=== PATIENT | female | born 1940 | race Caucasian/White ===

== ENCOUNTER → 2018-09-21 | Outpatient (CLI) | payer MEDICARE, OTHER ==
[2018-09-21 17:39] LABS: Albumin 4.4 g/dL (3.80-4.90); Albumin/Globulin Ratio 1.91 (1.60-3.17); Anion Gap 6.9 mmol/L (4.00-12.00); Calcium 9.4 mg/dL (8.7-10.3); Carbon Dioxide 27.1 mmol/L (21.6-31.8); Globulin 2.3 g/dL (1.6-3.3); LDL Cholesterol,Calculated 81.4 mg/dL (0.0-131.0); Potassium 4.7 mmol/L (3.5-5.5); Total Bilirubin 0.4 mg/dL (0.3-1.2); Total Protein 6.7 g/dL (6.2-8.2); VLDL Calculation 29.6 mg/dL (5.00-40.00)
== END | disposition home or self-care (01) ==
LOC: LABWHC1 09:05
PROVIDERS: ATTEND Internal Medicine Clinical Cardiac Electrophysiology
DX: I10 Essential (primary) hypertension (principal)
CPT/HCPCS: 36415; 80053; 80061; 84443

== ENCOUNTER → 2019-04-27 | Outpatient (CLI) | payer MEDICARE ==
--- NOTE | 2019-04-28 08:30 | MM ---
Reason for exam: clinical finding. History: Patient is postmenopausal. Family history of breast cancer in maternal aunt. Physical Findings: Nurse Summary: nodule in the right breast at 10 o'clock, nodule in the left breast at 7 o'clock and 10 o'clock (nurse georges). MG 3D Diag Mammo W/Cad MIRYAM Bilateral CC and MLO view(s) were taken. There are scattered fibroglandular densities. There is a large spiculated 6.0 x 5.9 x 5.8cm upper outer quadrant mass with nipple retraction, skin thickening and pulling of the pectoralis. Right adenopathy seen. There are multiple circumscribed left masses for which ultrasound will be performed. These results were verbally communicated with the patient and result sheet given to the patient on 04/27/19. ASSESSMENT: Incomplete: need additional imaging evaluation, BI-RAD 0 RECOMMENDATION: Ultrasound of both breasts.
--- NOTE | 2019-04-28 08:35 | USB ---
Reason for exam: additional evaluation requested from abnormal screening. History: Patient is postmenopausal. Family history of breast cancer in maternal aunt. US Breast BILAT Right complete breast ultrasound includes all four quadrants, the retroareolar region and axilla. Finding demonstrates a 8.4 x 6.0 x 7.1cm spiculated, irregular, solid lesion at 11 o'clock, highly suspicious, biopsy recommended and a 0.7 x 0.5 x 0.6cm oval, hyperechoic lipoma at 8 o'clock. Left complete breast ultrasound includes all four quadrants, the retroareolar region and axilla. Finding demonstrates a 1.2 x 0.5 x 1.1cm cystic lesion at 1 o'clock, a 0.3 x 0.2 x 0.4cm lesion too small to characterize at 6 o'clock and a 1.1 x 0.8 x 1.1cm solid lesion at 9 o'clock, possible deep cyst, biopsy recommended. Cortical thickening of a right lymph axillary node, biopsy recommended. These results were verbally communicated with the patient and result sheet given to the patient on 04/27/19. ASSESSMENT: Highly suggestive of malignancy, BI-RAD 5 RECOMMENDATION: Ultrasound core biopsy of both breasts. Called office with mammographic findings and has scheduled an appointment for the patient for 05/20/19 at 7:[address] Figueredo. Biopsy scheduled for 05/03/19 at 2:00. PRELIMINARY REPORT CALLED AND FAXED TO DR. FIGUEREDO ON 04/27/19.
== END | disposition home or self-care (01) ==
LOC: RADMAMWWP 13:19
PROVIDERS: ATTEND Surgery
DX: R92.8 Other abnormal and inconclusive findings on diagnostic imaging of breast (principal); N63.0 Unspecified lump in unspecified breast
CPT/HCPCS: 77066; 76641; G0279; 77062

== ENCOUNTER → 2019-04-27 | Outpatient (CLI) | payer MEDICARE ==
[2019-04-27 11:25] VITALS: BP 183/73; PULSE 80; RESP 18; TEMP 98.1
--- NOTE | 2019-04-27 12:02 | P.GSHP ---
History of Present Illness H&P Date: 04/27/19 Chief Complaint: lump in right breast The patient is a 78 year old white female with a lump noted in the right breast for approximately 3 weeks. The patient states that she has noted that the nipple an area area are pulled and slightly. There is also a pinching sensation in that region. The pinching sensation is intermittent. The patient has also noticed some nipple discharge. It is not bloody. She has no other masses or lumps in either breast. No history of recent trauma to the breast. No history of recent infection in the breast. She has never had a mammogram. Family History: father: bladder cancer maternal aunt: bilateral breast cancer Hormonal History: menarche: 14 1 miscarriage, not breast feed, first born at 24 BCP: 6 years hormones: none menopause: 51 Surgical HIstory: 1. T&A 2. appy 3. 2017 small bowel ? what removed, DR. Rubio not cancer 4. hernia repair 5. bilateral cataracts Medical History: 1. HTN 2. high cholesterol Social History: smoke: none alcohol: weekly, wine, vodka, beer drugs: none - Constitutional Constitutional: Denies chills, Denies fever - EENT Eyes: denies blurred vision, denies pain Ears: deny: decreased hearing, tinnitus Ears, nose, mouth and throat: Denies headache, Denies sore throat - Breasts Breasts: bilateral: as per HPI - Cardiovascular Cardiovascular: Reports high blood pressure - Respiratory Respiratory: Denies cough, Denies 7 - Gastrointestinal Gastrointestinal: Reports as per HPI, Denies abdominal pain, Denies diarrhea, Denies nausea, Denies vomiting - Genitourinary (Female) Genitourinary: Denies dysuria, Denies hematuria - Menstruation Menstruation: Reports postmenopausal - Musculoskeletal Musculoskeletal: Denies myalgias - Integumentary Integumentary: Reports as per HPI - Neurological Neurological: Denies numbness, Denies weakness - Psychiatric Psychiatric: Denies anxiety, Denies depression - Endocrine Endocrine: Denies fatigue, Denies weight change - Hematologic/Lymphatic Comment: none - Allergic/Immunologic Allergic/Immunologic: Reports seasonal allergies Past Medical History Past Medical History: GERD/Reflux Additional Past Medical History / Comment(s): cataracts History of Any Multi-Drug Resistant Organisms: None Reported Past Surgical History: Appendectomy, Hernia Repair, Tonsillectomy Additional Past Surgical History / Comment(s): rt cataract 06/06/14; lt cataract 07/2014; bowel surgery 07/2016; Past Anesthesia/Blood Transfusion Reactions: No Reported Reaction Past Psychological History: No Psychological Hx Reported Smoking Status: Never smoker Past Alcohol Use History: Occasional Past Drug Use History: None Reported - Past Family History Mother Family Medical History: Diabetes Mellitus Additional Family Medical History / Comment(s): Angina Father Family Medical History: Cancer Additional Family Medical History / Comment(s): bladder cancer Medications and Allergies Home Medications Medication Instructions Recorded Confirmed Type Guaifen/Phenyleph/Acetaminophn 1 each PO BID PRN 06/05/14 04/27/19 History [Tylenol Cold Head Congest Cplt] Naproxen Sodium [Aleve] 220 mg PO Q12HR PRN 06/05/14 04/27/19 History diphenhydrAMINE [Benadryl] 25 mg PO HS PRN 08/11/14 04/27/19 History Losartan Potassium 50 mg PO HS 04/27/19 04/27/19 History Pravastatin Sodium [Pravachol] 20 mg PO HS 04/27/19 04/27/19 History Allergies Allergy/AdvReac Type Severity Reaction Status Date / Time Penicillins Allergy Itching Unverified 04/27/19 11:17 Surgical - Exam Vital Signs Temp Pulse Resp BP Pulse Ox 98.1 F 80 18 183/73 95 04/27/19 11:19 04/27/19 11:19 04/27/19 11:19 04/27/19 11:19 04/27/19 11:19 BMI 34.9 - General well developed, well nourished, no distress - Eyes normal ocular movement - ENT normal pinna, normal nares, no hearing loss, no congestion - Neck no masses, trachea midline, no venous distension - Respiratory normal respiratory effort, clear to auscultation bilateral: dullness - Cardiovascular Rhythm: regular Heart Sounds: normal: S1, S2 - Abdomen well healed scar Abdomen: soft, non tender, no guarding, no rigid, no rebound - Integumentary well healed scar in abdomen - Neurologic no disoriented, no combative - Musculoskeletal normal gait, normal posture - Psychiatric oriented to time, oriented to person, oriented to place, speech is normal, memory intact breast exam: bra 46D ptosis grade 3 right breast: Multi-positional exam reveals mass in the upper outer quadrant region approximately 8 cm x 12 cm in size, the right nipple is pulled in with some bloody discharge Right axilla: No adenopathy of concern Left breast: Multi-positional exam no dominant masses or nodules of concern Left axilla: No adenopathy of concern Assessment and Plan Assessment: Impression: 1. right breast mass 2. right nipple inverted 3. HTN 4. prior small bowel resection Plan: 1. bilateral mammogram 2. right breast and axillary ultrasound 3. core biopsy of the right breast 4. follow up after core biopsy CC: DR. Gamble, Dr. Darian Mendenhall Time with Patient: Greater than 30 (over 50% of time planning and councelling)
== END | disposition home or self-care (01) ==
LOC: WWCWWP 11:04
PROVIDERS: ATTEND Surgery
DX: Z53.9 Procedure and treatment not carried out, unspecified reason (principal)

== ENCOUNTER → 2019-05-03 | Day surgery (SDC) | payer MEDICARE ==
[2019-05-03 13:13] VITALS: RESP 16
--- NOTE | 2019-05-03 15:00 | USB ---
EXAMINATION TYPE: US biopsy breast VAD RT, US breast needle core RT, MG diagnostic mammo RT wo CAD DATE OF EXAM: 05/03/2019 CLINICAL HISTORY: N63 Right Breast Lump. TECHNIQUE: Ultrasound guided core biopsy of right breast. COMPARISON: Bilateral breast ultrasound and diagnostic mammogram dated 04/27/2019. FINDINGS: The procedure of ultrasound guided core biopsy was explained to the patient. Benefits, alt ernatives, and risks were discussed. An informed consent was then obtained. Preprocedural timeout w as performed. Preprocedural imaging with real-time examination by myself, Dr. Luevano, and the sonograph er demonstrated the 1.1 cm left breast mass at the 9:00 position to appear cystic on real-time imagin g. The decision not to perform biopsy of this benign appearing mass was then made. Right breast biops ies were performed as below. Site A: The patient was placed in supine positioning for imaging and for the procedure. The overlyin g skin was prepped and draped in usual sterile fashion. 10 cc of 1% lidocaine was used as anesthetic into the skin and 5 cc of lidocaine with epinephrine into the deeper subcutaneous tissue up to the hi ghly suspicious 8.4 cm solid mass at the 11:00 position in the right breast. Under ultrasound guidance, a 12-gauge vacuum assisted biopsy gun device was used to obtain 8 core kelly ples. Following this, a coil-shaped biopsy marker was left in the mass. Site B: The patient was placed in supine positioning for imaging and for the procedure. The overlyin g skin was prepped and draped in usual sterile fashion. 10 cc of 1% lidocaine was used as anesthetic into the skin and subcutaneous tissue up to the rounded right axillary lymph node. Under ultrasound guidance, an 18-gauge nonvacuum-assisted Bard biopsy gun device was used to obtain 3 core samples. Following this, a [place] micaela biopsy marker was left in the mass well visualized under ultrasound. Postprocedure mammogram demonstrates appropriate placement of the coil-shaped biopsy marker in the pe riphery of the mass. The patient tolerated the procedure well without any immediate complication. Th e patient was kept in the radiology department for short stay after the procedure and then discharged home in stable condition. IMPRESSION: Successful, uncomplicated ultrasound guided core biopsy of a highly suspicious 8.4 cm katelin id mass in the right breast at the 11:00 position with nipple retraction and skin thickening as well as a rounded right axillary lymph node, full pathology results to follow.
[2019-05-03 15:17] VITALS: BP 121/65; PULSE 69; TEMP 98
== END ==
LOC: RADUSWWP 12:38
PROVIDERS: ATTEND Surgery
DX: C50.911 Malignant neoplasm of unspecified site of right female breast (principal); C77.3 Secondary and unspecified malignant neoplasm of axilla and upper limb lymph nodes
CPT/HCPCS: 88305; 77065; 19083; A4648; J2001

== ENCOUNTER → 2019-05-20 | Outpatient (CLI) | payer MEDICARE ==
[2019-05-20 07:33] VITALS: BP 153/73; PULSE 82; RESP 18; TEMP 97.6
--- NOTE | 2019-05-20 08:24 | P.PN ---
Subjective Progress Note Date: 05/20/19 Principal diagnosis: right breast stage IIA or IIIB cancer There is a 78-year-old white female who is status post ultrasound-guided core biopsy of a 8.4 cm right breast mass as well as a right breast lymph node on [id number]. 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 The tumor was noted to be ER/ME positive and HER-2 negative. The patient post procedure has not had any complaints. The patient presents today with her daughter to discuss the findings. Objective - Vital Signs Vital signs: Vital Signs Temp 97.6 F 05/20/19 07:24 Pulse 82 05/20/19 07:24 Resp 18 05/20/19 07:24 BP 153/73 05/20/19 07:24 Pulse Ox 97 05/20/19 07:24 Intake & Output 05/19/19 05/20/19 05/20/19 18:59 06:59 18:59 Weight 94.801 kg - Exam BMI 34.8 - Constitutional General appearance: Present: obese - EENT Eyes: Present: EOMI ENT: Present: hearing grossly normal - Neck Neck: Present: normal ROM - Respiratory Respiratory: bilateral: CTA - Cardiovascular Rhythm: regular Heart sounds: normal: S1, S2 - Musculoskeletal Musculoskeletal: Present: gait normal - Psychiatric Psychiatric: Present: A&O x's 3, appropriate affect, intact judgment & insight - Allied health notes Allied Health Notes Comment(s): Breasts: Nipple inverted, venous scan and medial aspect of the breast Biopsy sites clean and dry Assessment and Plan Assessment: Impression: 1. Right breast cancer stage IIA or IIIB depending on skin involvement The patient's tumor was staged as a T3/4( ? if skin involvement) N1 M0 ER + ME +HER-2/vito- G2 lesion, depending on the T stage this is either a IIA or IIIB lesion. It is felt the patient would benefit from neoadjuvant chemotherapy. Her case has been discussed with Dr. Solo. The patient's daughter has requested that metastatic workup be performed. A PET scan has been ordered. Additionally we have discussed genetic testing and although the patient is postmenopausal and does not have a strong family history they have some interest in genetic testing. The patient's case will also be presented at tumor board. I have discussed the fact that the treatment of breast cancer is multi modality including medical oncology, surgical oncology, and radiation oncology. Discussion of surgical treatment options will be made after decision for neoadjuvant chemotherapy. Additionally should be noted the patient had a 1.1 cm lesion noted in the left breast which is felt to be cystic in biopsy was not performed. The area will be reevaluated after chemotherapy to assure that there is nothing of concern in the left breast prior to any surgical intervention. Plan: 1. PET scan 2. Appointment with medical oncology/have discussed this with Dr. Solo this is being scheduled for next week 3. Presentation of case at tumor board 4. Follow-up here in 3 weeks 5. Prior to surgical intervention scanning of the left breast to be considered CC: Dr. Sondra Mendenhall Encounter: 40 minutes: Greater than 50% of time in planning and counseling Time with Patient: Greater than 30
== END ==
LOC: WWCWWP 06:57
PROVIDERS: ATTEND Surgery
DX: Z53.9 Procedure and treatment not carried out, unspecified reason (principal)

== ENCOUNTER → 2019-05-27 | Outpatient (CLI) | payer MEDICARE ==
--- NOTE | 2019-05-30 08:17 | PE ---
EXAMINATION TYPE: PET CT fusion skull to thigh DATE OF EXAM: 05/27/2019 COMPARISON: NONE HISTORY: Newly diagnosed right breast cancer infiltrating ductal carcinoma including axillary involve ment May 03, 2019 TECHNIQUE: Following the intravenous administration of 10.29 mCi of F-18 FDG, whole body images are performed from the skull base to the midthigh. Images are reviewed on the computer in the coronal, a xial, and sagittal planes. Reconstructed rotating images are created on independent workstation and reviewed on the computer. A noncontrast correction CT is performed in conjunction with the PET scan . SCAN: Initial Scan FINDINGS: SKULL BASE AND NECK: Soft tissue metastatic focus left upper extremity with hypermetabolic 1.3 cm ro und lesion in the subcutaneous fat axial image 43, max SUV is 5.8. CHEST, MEDIASTINUM, AND HILAR REGION: Corresponding to patient history there is large right breast ma ss with anterior biopsy clip measuring approximately 5.3 x 4.3 cm axial image 78 with max SUV of 9.46 . Central necrosis is present. There is overlying skin thickening with extension to the skin surface where there is more nodular 1.9 cm hypermetabolic component axial image 76 noted. Max SUV is 10.33 Ab normal adenopathy right axillary region measuring 1.9 cm with hypermetabolic uptake axial image 83, m ax SUV is 9.91. Additional smaller hypermetabolic right axillary lymph nodes are seen. There is also abnormal internal mammary adenopathy with hypermetabolic 10 x 7 mm lymph node axial attila ge 83, max SUV is 4.9. There is abnormal hypermetabolic pulmonary metastatic disease with scattered bilateral nodules, large st left lower lobe measures 2.1 x 1.8 cm axial image 99, max SUV is 8.05. There is small to tiny righ t pleural effusion. There are hypermetabolic metastatic soft tissue nodules for reference posterior lower thoracic subcut aneous fat measuring 1.8 x 1.4 cm axial image 103, max SUV is 5.09s. ABDOMEN AND PELVIS: Hypermetabolic left labial subcutaneous 8 mm nodule axial image 233, max SUV is. Hypermetabolic right periaortic adenopathy near diaphragmatic nisha axial image 122, max SUV is 7.97.s OSSEOUS STRUCTURES: Hypermetabolic osseous metastatic disease with left proximal femur component axia l image 234, max SUV is 5.78. Hypermetabolic left iliac lesion axial image 186 near SI joint max SUV is 5.6. Hypermetabolic S1 lesion axial image [address] correlate max SUV is 5.95. Pos terior right 7 rib hypermetabolic lesion axial image 89 Max SUV is 6.14. No definitive CT lytic or sc lerotic correlation for osseous lesions.. OTHER CT: Cardiomegaly is present. Central pneumobilia is seen. Air filled gallbladder. Correlate clinically. Large exophytic 6.5 cm simple appearing thin-walled cyst right kidney lower pole level. Anteverted ut erus. Scattered phleboliths. S-shaped scoliosis with multilevel spurring the spine. Facet arthropathy lower lumbar levels. IMPRESSION: Advanced right-sided breast cancer with abnormal axillary and intramammary adenopathy. Ch bcutaneous soft tissue metastatic disease along with pulmonary and osseous metastatic disease noted a s detailed above. Tissues sampling of subcutaneous lesions particularly left upper extremity or left lower thoracic posterior lesion could be performed to further evaluate if desired or confirm breast p rimary versus other primary carcinoma.
== END | disposition home or self-care (01) ==
LOC: RADPETMAIN 15:31
PROVIDERS: ATTEND Surgery
DX: C50.411 Malignant neoplasm of upper-outer quadrant of right female breast (principal); R59.0 Localized enlarged lymph nodes; C79.89 Secondary malignant neoplasm of other specified sites; C79.51 Secondary malignant neoplasm of bone
CPT/HCPCS: 78815; A9552

== ENCOUNTER → 2019-05-30 | Outpatient (CLI) | payer MEDICARE ==
--- NOTE | 2019-05-30 15:57 | BMR ---
EXAMINATION TYPE: MR breast BILAT wo/w con DATE OF EXAM: 05/30/2019 COMPARISON: Prior mammogram and bilateral breast ultrasound. April 27, 2019. PET/CT May 27. HISTORY: Breast Ca CONTRAST: Multiplanar, multisequence images of the breasts were acquired utilizing 9.5 mL intravenous Gadavist gadolinium contrast. TECHNIQUE: A series of fat and water weighted images in the long and short axis views of both breasts are obtained in conjunction with dynamic contrast MRI with subtraction technique. Three-dimensional and additional postprocessing imaging is created on independent workstation and reviewed during offi [facility] interpretation of this study. FINDINGS: Breast parenchyma shows scattered fibroglandular tissue. There is mild background enhanceme nt on postcontrast images. T2 weighted images show few small simple appearing thin-walled cysts scatt ered throughout the left breast including a dominant 11 mm cyst centrally left breast likely correspo nding to the largest well-defined lesion on mammogram and 1:00 lesion on breast ultrasound. With regards to the left breast there is no suspicious enhancing mass. No abnormal skin thickening. C hest wall is intact. No axillary adenopathy is observed. With regards to the right breast there is dominant slightly lobulated mass measuring 4.8 cm AP diamet er by 4.5 cm transversely by approximately 4.4 cm craniocaudal dimension coronal image 18 and axial i mage 24 corresponding to biopsy-proven cancer. Artifact along the anterior aspect from biopsy clip is noted. There is abnormal skin thickening with distortion of the right breast nipple redemonstrated. There is linear extension or abnormal enhancement to level of the retracted nipple. Along the superio r medial aspect of the nipple there is additional oval skin and subcutaneous 2.3 x 1.3 cm mass. There are 2 adjacent abnormal right axillary lymph nodes at level of lesion with more posterior lymph node being slightly smaller and having biopsy clip along the posterior medial margin best image 308 series 801. Largest lymph node noted anterior superior to this image 2020 measuring 1.8 x 1.9 cm. Corresponding to recent PET CT there is abnormal enhancing subcentimeter intramammary lymph node seen best delayed image 322 series 801. Corresponding to recent PET CT there is abnormal pericardial fat mass or lymph node image 136 series 801 adjacent to right pericardium measuring 1.1 x 1.1 cm anterior to liver. Corresponding to PET CT there is expansile and suspicious enhancement right anterior lower rib image 58 likely reflecting osseous metastatic disease or healing fracture Artifact from cavitary fillings mandibular level is present. IMPRESSION: High-grade right breast neoplasm without left breast involvement, findings correlate with recent PET/CT.
== END | disposition home or self-care (01) ==
LOC: RADMRIMAIN 13:46
PROVIDERS: ATTEND Internal Medicine Hematology & Oncology
DX: C50.111 Malignant neoplasm of central portion of right female breast (principal)
CPT/HCPCS: C8937; C8908; A9585; 77049

== ENCOUNTER → 2019-06-08 | Outpatient (CLI) | payer MEDICARE ==
[2019-06-08 16:25] VITALS: BP 162/76; PULSE 100; RESP 18; TEMP 97.5
--- NOTE | 2019-06-08 17:09 | P.PN ---
Subjective Progress Note Date: 06/08/19 Principal diagnosis: Metastatic breast cancer 79-year-old white female who presented with an advanced right breast infiltrating ductal carcinoma diagnosed in April 2019. The patient underwent a PET scan which revealed advanced right-sided breast cancer with abnormal axillary and intramammary adenopathy. Subcutaneous soft tissue metastatic disease as well as pulmonary and osseous metastatic disease noted. Tissue sampling of the subcutaneous lesions were recommended at tumor board. The patient was given the option of a core biopsy of the soft tissue lesion however she wishes the lesion on her left buttock which is suspicious on PET scan to be removed. This was discussed with Dr. Solo and he concurs. Family History: father: bladder cancer maternal aunt: bilateral breast cancer Hormonal History: menarche: 14 1 miscarriage, not breast feed, first born at 24 BCP: 6 years hormones: none menopause: 51 Surgical HIstory: 1. T&A 2. appy 3. 2017 small bowel ? what removed, DR. Rubio not cancer 4. hernia repair 5. bilateral cataracts Medical History: 1. HTN 2. high cholesterol Social History: smoke: none alcohol: weekly, wine, vodka, beer drugs: none - Constitutional Constitutional: Denies chills, Denies fever - EENT Eyes: denies blurred vision, denies pain Ears: deny: decreased hearing, tinnitus Ears, nose, mouth and throat: Denies headache, Denies sore throat - Breasts Breasts: bilateral: as per HPI - Cardiovascular Cardiovascular: Reports high blood pressure - Respiratory Respiratory: Denies cough - Gastrointestinal Gastrointestinal: Reports as per HPI, Denies abdominal pain, Denies diarrhea, Denies nausea, Denies vomiting - Genitourinary (Female) Genitourinary: Denies dysuria, Denies hematuria - Menstruation Menstruation: Reports postmenopausal - Musculoskeletal Musculoskeletal: Denies myalgias - Integumentary Integumentary: Reports as per HPI - Neurological Neurological: Denies numbness, Denies weakness - Psychiatric Psychiatric: Denies anxiety, Denies depression - Endocrine Endocrine: Denies fatigue, Denies weight change - Hematologic/Lymphatic Comment: none - Allergic/Immunologic Allergic/Immunologic: Reports seasonal allergies Past Medical History Past Medical History: GERD/Reflux Additional Past Medical History / Comment(s): cataracts History of Any Multi-Drug Resistant Organisms: None Reported Past Surgical History: Appendectomy, Hernia Repair, Tonsillectomy Additional Past Surgical History / Comment(s): rt cataract 06/06/14; lt cataract 07/2014; bowel surgery 07/2016; Past Anesthesia/Blood Transfusion Reactions: No Reported Reaction Past Psychological History: No Psychological Hx Reported Smoking Status: Never smoker Past Alcohol Use History: Occasional Past Drug Use History: None Reported - Past Family History Mother Family Medical History: Diabetes Mellitus Additional Family Medical History / Comment(s): Angina Father Family Medical History: Cancer Additional Family Medical History / Comment(s): bladder cancer Medications and Allergies Home Medications Medication Instructions Recorded Confirmed Type Guaifen/Phenyleph/Acetaminophn 1 each PO BID PRN 06/05/14 04/27/19 History [Tylenol Cold Head Congest Cplt] Naproxen Sodium [Aleve] 220 mg PO Q12HR PRN 06/05/14 04/27/19 History diphenhydrAMINE [Benadryl] 25 mg PO HS PRN 08/11/14 04/27/19 History Losartan Potassium 50 mg PO HS 04/27/19 04/27/19 History Pravastatin Sodium [Pravachol] 20 mg PO HS 04/27/19 04/27/19 History Allergies Allergy/AdvReac Type Severity Reaction Status Date / Time Penicillins Allergy Itching Unverified 04/27/19 11:17 Objective - Vital Signs Vital signs: Vital Signs Temp 97.5 F L 06/08/19 16:22 Pulse 100 06/08/19 16:22 Resp 18 06/08/19 16:22 BP 162/76 06/08/19 16:22 Pulse Ox 96 06/08/19 16:22 Intake & Output 06/07/19 06/08/19 06/08/19 18:59 06:59 18:59 Weight 96.162 kg - Exam BMI 36.4 - Constitutional General appearance: Present: obese - EENT Eyes: Present: EOMI ENT: Present: hearing grossly normal - Neck Neck: Present: normal ROM - Respiratory Respiratory: bilateral: CTA - Cardiovascular Rhythm: regular Heart sounds: normal: S1, S2 - Gastrointestinal General gastrointestinal: Present: soft - Integumentary Integumentary Comment(s): soft tissue nodule left buttock 1 by 2 cm in size Integumentary: Present: normal turgor - Psychiatric Psychiatric: Present: A&O x's 3, appropriate affect, intact judgment & insight Assessment and Plan Assessment: Impression: Stage IV right breast cancer Subcutaneous nodules most likely metastatic breast cancer/ left buttock Hypertension High cholesterol Plan: 1. Removal of subcutaneous nodule left buttock in the operating room 2. Neoadjuvant therapy as per medical oncology 3. Medical management of medical conditions I have discussed treatment options by medical oncology of nya-adjuvant therapy. We've also discussed risks and benefits of biopsy versus excisional biopsy in the operating room. The patient and her daughter are quite adamant that they wish the palpable lesion in the left buttock to be removed. I discussed this with Dr. Solo and he is in agreement as well. Risks include bleeding infection reaction to the anesthetic. The include the possibility that this may not be clearance representative of metastatic disease and she would need an additional biopsy. This is being scheduled in the near future. Cc: Dr. Darian Mendenhall encounter 30 minutes, > 50% of time spent in planning and counselling Time with Patient: Greater than 30
== END ==
LOC: WWCWWP 16:08
PROVIDERS: ATTEND Surgery
DX: Z53.9 Procedure and treatment not carried out, unspecified reason (principal)

== ENCOUNTER → 2019-06-21 | Day surgery (SDC) | payer MEDICARE ==
[2019-06-17 10:46] VITALS: BMI 34.9
[~2019-06-21] MED LIST: DEXAMETHASONE SOD PHOSPHATE 10 MG/ML 1 ML VIAL IV ONE; HEPARIN SODIUM,PORCINE 5,000 UNIT/ML 1 ML VIAL SQ ONE; HYDROmorphone 0.5 MG/0.5 ML SYRINGE IVP PRN; LACTATED RINGERS 1,000 ML IV SCH; LIDOCAINE 1% INJ 10MG/ML (20 ML MDV) ONE; LIDOCAINE 1% INJ 10MG/ML (20 ML MDV) SQ ONE; MIDAZOLAM 2 MG/2 ML VIAL IV PRN; MIDAZOLAM 2 MG/2 ML VIAL ONE; ONDANSETRON 4 MG/2 ML VIAL IVP ONE; PHENYLEPHRINE-0.9% NACL SYG 1 MG/10 ML SYRINGE ONE; PROPOFOL 10 MG/ML 20 ML VIAL IV ONE; SUCCINYLCHOLINE CHLORIDE 100 MG/5 ML SYR IV ONE; fentaNYL (PF) 50 MCG/ML 2 ML AMP ONE; metroNIDAZOLE-NS PMX 500 MG in SALINE 1 100ML.BAG IVPB ONE
[2019-06-21 10:51] VITALS: TEMP 97.7
--- NOTE | 2019-06-21 10:53 | P.OP ---
Date of Procedure: 06/21/19 Preoperative Diagnosis: Lesion left buttock/rule out metastatic disease Postoperative Diagnosis: Same Procedure(s) Performed: Excision of lesion left buttocks/deep on muscle Anesthesia: RAOUL Surgeon: Arielle Figueredo Estimated Blood Loss (ml): 2 Pathology: other (subcutaneous lesion left buttock) Condition: stable Disposition: same day Indications for Procedure: Painful lesion left buttock area suspicious for metastatic breast cancer Operative Findings: Lesion left buttock subcutaneous Description of Procedure: The patient is a 79-year-old white female with a known invasive ductal carcinoma of the breast. She has a left buttock subcutaneous mass which is painful and suspicious for metastatic breast cancer. The lesion is been removed secondary to the discomfort as well as for diagnosis. Risks and benefits were discussed with the patient and she wished to proceed. Patient was brought to the operating room and following induction of anesthesia she was placed in the right lateral decubitus position. The left buttock was prepped and draped in a sterile fashion. Wide excision around the area of concern was performed. The lesion was approximately 3 x 3 cm in size. It was deep in the subcutaneous tissue on the muscle. After assured that hemostasis was attained the wound was closed in 3 layers using 3-0 Vicryl suture. Subcuticular closure was performed using 4-0 Monocryl. The skin was reinforced with nylon suture. One percent lidocaine 10 mL was injected into the area. The patient tolerated procedure in stable condition. All instrument and sponge counts were correct at the end of the case. Specimen was sent for pathology.
--- NOTE | 2019-06-21 10:55 | P.DS ---
Providers Attending physician: Arielle Figueredo Primary care physician: Darian Mendenhall Plan - Discharge Summary Discharge Rx Participant: No New Discharge Prescriptions: No Action Pravastatin Sodium [Pravachol] 20 mg PO HS Losartan Potassium 50 mg PO HS Aspirin 81 mg PO DAILY Ascorbic Acid [Vitamin C] 500 mg PO DAILY diphenhydrAMINE [Benadryl] 25 mg PO HS PRN PRN Reason: Allergy Symptoms Letrozole [Femara] 2.5 mg PO HS Famotidine [Pepcid] 20 mg PO DAILY ALPRAZolam [Xanax] 0.25 mg PO BID PRN PRN Reason: Anxiety Naproxen Sodium [Aleve] 220 mg PO DAILY PRN PRN Reason: Pain Multivitamin [Multivitamins Adult Gummies] 1 each PO DAILY Loperamide [Imodium] 2 mg PO DAILY PRN PRN Reason: Diarrhea Guaifen/Phenyleph/Acetaminophn [Tylenol Sinus Severe Caplet] 1 each PO DAILY PRN PRN Reason: Allergy Symptoms Cholecalciferol (Vitamin D3) [Vitamin D3] 500 unit PO DAILY Abemaciclib [Verzenio] 200 mg PO BID Discharge Medication List Aspirin 81 mg PO DAILY 04/27/19 [History] Losartan Potassium 50 mg PO HS 04/27/19 [History] Pravastatin Sodium [Pravachol] 20 mg PO HS 04/27/19 [History] ALPRAZolam [Xanax] 0.25 mg PO BID PRN 06/08/19 [History] Abemaciclib [Verzenio] 200 mg PO BID 06/08/19 [History] Ascorbic Acid [Vitamin C] 500 mg PO DAILY 06/08/19 [History] Cholecalciferol (Vitamin D3) [Vitamin D3] 500 unit PO DAILY 06/08/19 [History] Famotidine [Pepcid] 20 mg PO DAILY 06/08/19 [History] Guaifen/Phenyleph/Acetaminophn [Tylenol Sinus Severe Caplet] 1 each PO DAILY PRN 06/08/19 [History] Letrozole [Femara] 2.5 mg PO HS 06/08/19 [History] Loperamide [Imodium] 2 mg PO DAILY PRN 06/08/19 [History] Multivitamin [Multivitamins Adult Gummies] 1 each PO DAILY 06/08/19 [History] Naproxen Sodium [Aleve] 220 mg PO DAILY PRN 06/08/19 [History] diphenhydrAMINE [Benadryl] 25 mg PO HS PRN 06/08/19 [History] Follow up Appointment(s)/Referral(s): Arielle Figueredo MD [STAFF PHYSICIAN] - 1 Week Activity/Diet/Wound Care/Special Instructions: do not drive for 24 hours after dc Discharge Disposition: HOME SELF-CARE
[2019-06-21 11:26] VITALS: PULSE 72; RESP 17
[2019-06-21 11:27] VITALS: BP 103/64
== END | disposition home or self-care (01) ==
LOC: OR 08:33
PROVIDERS: ATTEND Surgery
DX: C79.89 Secondary malignant neoplasm of other specified sites (principal); I10 Essential (primary) hypertension; E78.00 Pure hypercholesterolemia, unspecified; K21.9 Gastro-esophageal reflux disease without esophagitis; Z85.3 Personal history of malignant neoplasm of breast; Z88.0 Allergy status to penicillin; Z79.82 Long term (current) use of aspirin; Z79.899 Other long term (current) drug therapy; Z90.49 Acquired absence of other specified parts of digestive tract; Z90.89 Acquired absence of other organs; Z98.41 Cataract extraction status, right eye; Z98.42 Cataract extraction status, left eye; Z98.890 Other specified postprocedural states; Z80.3 Family history of malignant neoplasm of breast; Z80.52 Family history of malignant neoplasm of bladder; Z83.3 Family history of diabetes mellitus
CPT/HCPCS: 88305; 88342; 88341; 11603; 12032; J2250; J1644; J1100; J0690; J2405; J2001; J3010; J2370; J0330; J2704

== ENCOUNTER → 2019-10-21 | Outpatient (CLI) | payer MEDICARE ==
--- NOTE | 2019-10-23 18:06 | PE ---
EXAMINATION TYPE: PET CT fusion skull to thigh DATE OF EXAM: 10/21/2019 COMPARISON: No recent CT examinations. Prior PET/CT: 05/27/2019 HISTORY: Breast cancer TECHNIQUE: Following the intravenous administration of 9.91 mCi of F-18 FDG, whole body images are p erformed from the skull base to the midthigh. Images are reviewed on the computer in the coronal, ax ial, and sagittal planes. Reconstructed rotating images are created on independent workstation and r eviewed on the computer. A localization and attenuation correction CT is performed in conjunction w ith the PET scan. DLP: 456.59 mGycm SCAN: Subsequent Blood glucose: 102 mg/dL Average Mediastinum SUV: 1.5 Average Liver SUV: 2.5 FINDINGS: NECK: No abnormal uptake THORAX: Within the right breast there is a focal increased radiotracer compatible with neoplasm. This measures 4.36 SUV. Image 71. Some subtle uptake may be along the nipple region with an SUV value 2.4 4. No suspicious mediastinal intermammillary or right axillary lymphadenopathy is evident. Subtle residual nodule is uptake in the posterior lower thorax left side, image 101. SUV value now me asures 0.73. ABDOMEN: No abnormal uptake PELVIS: There is intense uptake along the rectum with an SUV value of 3.55. This may be related to haley wel activity. Direct visualization however is recommended. OSSEOUS STRUCTURES: Very subtle uptake within the proximal left femur, image [address] be present. LOCALIZ[address] CT: Degenerative changes are within the cervical spine. COMPARISON: The extensive subcutaneous tissue areas of abnormal uptake is largely resolved. Adenopath y has largely resolved. IMPRESSION: 1. Focal uptake within the right breast and suspected along the nipple region on the right. 2. Intense uptake in the region of the rectum. This appears to been interval change in additional wor kup is recommended. 3. Significant improvement of multiple subcutaneous nodules and adenopathy with prior uptake largely resolved or very residual uptake currently
== END | disposition home or self-care (01) ==
LOC: RADPETMAIN 12:30
PROVIDERS: ATTEND Internal Medicine Hematology & Oncology
DX: R59.9 Enlarged lymph nodes, unspecified (principal); R92.8 Other abnormal and inconclusive findings on diagnostic imaging of breast; R93.3 Abnormal findings on diagnostic imaging of other parts of digestive tract; C50.411 Malignant neoplasm of upper-outer quadrant of right female breast
CPT/HCPCS: 78815; A9552

== ENCOUNTER → 2019-11-10 | Outpatient (CLI) | payer MEDICARE ==
[2019-11-10 13:18] VITALS: BP 146/77; PULSE 74; RESP 18; TEMP 98.5
--- NOTE | 2019-11-10 14:16 | P.PN ---
Subjective Progress Note Date: 11/10/19 Principal diagnosis: right breast cancer Stage IV on diagnosis The patient is a 78 year old white female with a lump noted in the right breast for approximately 3 weeks as per the patient seen on 04-27-19. The patient stated that she had noted that the nipple and aerola were pulled slightly. There was also a pinching sensation in that region. The pinching sensation was intermittent. The patient had also noticed some nipple discharge. It was not bloody. She had no other masses or lumps in either breast. No history of recent trauma to the breast. No history of recent infection in the breast. She had never had a mammogram. She had a bilateral mammogram performed in April 2019. This revealed a spiculated 6 cm upper outer quadrant mass in the right breast. An multiple circumscribed left masses for which ultrasound was recommended. Ultrasound of the right breast revealed an 8.4 x 6 cm spiculated irregular solid lesion at 11:00. In the left breast multiple cystic lesions were identified. Cortical thickening of the right axillary lymph node was also noted. The patient subsequently underwent ultrasound-guided core biopsy of the right breast mass which was positive for infiltrating ductal carcinoma grade 2. The lymph node was also biopsied and was positive for mammary carcinoma. The lesion was ER/OK positive HER-2/vito negative is a grade 2. She had a biopsy of the buttock lesion which was positive for adenocarcinoma consistent with metastatic disease and 2420. She has been treated with very Zeni L and Femara. She started this in May. His been taking this daily since May 26. She had a PET scan performed on 6520. [place] [address]. On the most recent PET scan focal uptake within the right breast along the nipple on the right Enteric uptake in the region of the rectum this appears to be an interval change and additional workup is recommended Significant improvement of multiple subcu nodules and adenopathy with prior uptake largely resolved her very residual uptake currently Fibers scheduled for colonoscopy next week. Family History: father: bladder cancer maternal aunt: bilateral breast cancer Hormonal History: menarche: 14 1 miscarriage, not breast feed, first born at 24 BCP: 6 years hormones: none menopause: 51 Surgical HIstory: 1. T&A 2. appy 3. 2017 small bowel ? what removed, DR. Rubio not cancer 4. hernia repair 5. bilateral cataracts Medical History: 1. HTN 2. high cholesterol Social History: smoke: none alcohol: weekly, wine, vodka, beer drugs: none - Constitutional Constitutional: Denies chills, Denies fever - EENT Eyes: denies blurred vision, denies pain Ears: deny: decreased hearing, tinnitus Ears, nose, mouth and throat: Denies headache, Denies sore throat - Breasts Breasts: bilateral: as per HPI - Cardiovascular Cardiovascular: Reports high blood pressure - Respiratory Respiratory: Denies cough, - Gastrointestinal Gastrointestinal: Reports as per HPI, Denies abdominal pain, Denies diarrhea, Denies nausea, Denies vomiting - Genitourinary (Female) Genitourinary: Denies dysuria, Denies hematuria - Menstruation Menstruation: Reports postmenopausal - Musculoskeletal Musculoskeletal: Denies myalgias - Integumentary Integumentary: Reports as per HPI - Neurological Neurological: Denies numbness, Denies weakness - Psychiatric Psychiatric: Denies anxiety, Denies depression - Endocrine Endocrine: Denies fatigue, Denies weight change - Hematologic/Lymphatic Comment: none - Allergic/Immunologic Allergic/Immunologic: Reports seasonal allergies Objective - Vital Signs Vital signs: Vital Signs Temp 98.5 F 11/10/19 13:13 Pulse 74 11/10/19 13:13 Resp 18 11/10/19 13:13 BP 146/77 11/10/19 13:13 Pulse Ox 98 11/10/19 13:13 Intake & Output 11/09/19 11/10/19 11/10/19 18:59 06:59 18:59 Weight 89.811 kg - Exam BMI 33.7 - Constitutional General appearance: Present: average body habitus - EENT Eyes: Present: EOMI ENT: Present: hearing grossly normal - Neck Neck: Present: normal ROM - Respiratory Respiratory: bilateral: CTA - Cardiovascular Rhythm: regular Heart sounds: normal: S1, S2 - Gastrointestinal General gastrointestinal: Present: normal bowel sounds, soft - Integumentary Integumentary: Present: normal turgor - Musculoskeletal Musculoskeletal: Present: gait normal - Psychiatric Psychiatric: Present: A&O x's 3, appropriate affect, intact judgment & insight - Additional findings Additional findings: Breast exam: BRA 44C inspection:nipple inverted on the left, left breast ptosis 3 palpation: right breast: Distortion secondary to right breast proven invasive ductal carcinoma, on palpation approximately 4 x 4 cm mass Right axilla: No adenopathy of concern Left breast: Multiple positional exam no dominant masses or nodules of concern, fibrocystic changes Left axilla: No adenopathy of concern Assessment and Plan Assessment: Impression: 1. Stage IV right breast cancer with marked response to femora and verzenio 2. PET scan good response to medication 3. PET with increased uptake in rectal area/ seeing DR. Godinez for colonoscopy Plan: 1. present at tumor board 2. follow up after colonoscopy and presentation at tumor board CC: Dr. Darian Crockett encounter 30 minutes, > 50% of time in planning and counselling
== END | disposition home or self-care (01) ==
LOC: WWCWWP 13:02
PROVIDERS: ATTEND Surgery
DX: Z53.9 Procedure and treatment not carried out, unspecified reason (principal)

== ENCOUNTER 2019-11-17 06:43 | Day surgery (SDC) | payer MEDICARE ==
[2019-11-15 11:33] VITALS: BMI 34.0
[~2019-11-17 06:43] MED LIST changes: -DEXAMETHASONE SOD PHOSPHATE 10 MG/ML 1 ML VIAL IV ONE; -HEPARIN SODIUM,PORCINE 5,000 UNIT/ML 1 ML VIAL SQ ONE; -HYDROmorphone 0.5 MG/0.5 ML SYRINGE IVP PRN; +LIDOCAINE 1% (10MG/ML) FOR IV START INTRADERMA PRN; -LIDOCAINE 1% INJ 10MG/ML (20 ML MDV) ONE; -LIDOCAINE 1% INJ 10MG/ML (20 ML MDV) SQ ONE; -MIDAZOLAM 2 MG/2 ML VIAL IV PRN; -MIDAZOLAM 2 MG/2 ML VIAL ONE; -ONDANSETRON 4 MG/2 ML VIAL IVP ONE; -PHENYLEPHRINE-0.9% NACL SYG 1 MG/10 ML SYRINGE ONE; -PROPOFOL 10 MG/ML 20 ML VIAL IV ONE; -SUCCINYLCHOLINE CHLORIDE 100 MG/5 ML SYR IV ONE; -fentaNYL (PF) 50 MCG/ML 2 ML AMP ONE; -metroNIDAZOLE-NS PMX 500 MG in SALINE 1 100ML.BAG IVPB ONE
[2019-11-17 07:06] VITALS: TEMP 96.9
[2019-11-17] MEDS ORDERED: PROPOFOL 10 MG/ML 20 ML VIAL IV ONE (07:29)
[2019-11-17 07:57] VITALS: RESP 16
--- NOTE | 2019-11-17 07:58 | P.GSHP ---
History of Present Illness H&P Date: 11/17/19 CHIEF COMPLAINT: Colon screen HISTORY OF PRESENT ILLNESS: The patient is a 79-year-old female who presents for colon screen. Lower endoscopy was offered for further evaluation and management. PAST MEDICAL HISTORY: Please see list. PAST SURGICAL HISTORY: Please see list. MEDICATIONS: Please see list. ALLERGIES: Please see list. SOCIAL HISTORY: No illicit drug use FAMILY HISTORY: No reports of Crohn disease or ulcerative colitis. REVIEW OF ORGAN SYSTEMS: CONSTITUTIONAL: No reports of fevers or chills. PHYSICAL EXAM: VITAL SIGNS: Stable GENERAL: Well-developed pleasant in no acute distress. HEENT: No scleral icterus. Extraocular movements grossly intact. Moist buccal mucosa. NECK: Supple without lymphadenopathy. CHEST: Unlabored respirations. Equal bilateral excursions. CARDIOVASCULAR: Regular rate and rhythm. Distal 2+ pulses. ABDOMEN: Soft, nontender, nondistended. MUSCULOSKELETAL: No clubbing, cyanosis, or edema. ASSESSMENT: 1. Colon screen. PLAN: 1. Recommend proceeding with a lower endoscopy Past Medical History Past Medical History: Cancer, GERD/Reflux, Hypertension Additional Past Medical History / Comment(s): hx of rt breast cancer 04/2019, on po RX - causes diarrhea. History of Any Multi-Drug Resistant Organisms: None Reported Past Surgical History: Appendectomy, Hernia Repair, Tonsillectomy Additional Past Surgical History / Comment(s): Jaxson cataracts 06/06/14, lt cataract 07/2014; Bowel surgery, exc benign growth 07/2016; Exc Lt buttock mass 06/21/19 Past Anesthesia/Blood Transfusion Reactions: No Reported Reaction Smoking Status: Never smoker - Past Family History Mother Family Medical History: Diabetes Mellitus Additional Family Medical History / Comment(s): Angina Father Family Medical History: Cancer Additional Family Medical History / Comment(s): bladder cancer Medications and Allergies Home Medications Medication Instructions Recorded Confirmed Type Aspirin 81 mg PO DAILY 04/27/19 11/15/19 History Losartan Potassium 50 mg PO HS 04/27/19 11/15/19 History Pravastatin Sodium [Pravachol] 20 mg PO HS 04/27/19 11/15/19 History ALPRAZolam [Xanax] 0.25 mg PO BID PRN 06/08/19 11/17/19 History Abemaciclib [Verzenio] 200 mg PO BID 06/08/19 11/15/19 History Ascorbic Acid [Vitamin C] 500 mg PO DAILY 06/08/19 11/15/19 History Cholecalciferol (Vitamin D3) 500 unit PO DAILY 06/08/19 11/15/19 History [Vitamin D3] Famotidine [Pepcid] 20 mg PO DAILY PRN 06/08/19 11/15/19 History Guaifen/Phenyleph/Acetaminophn 1 each PO DAILY PRN 06/08/19 11/15/19 History [Tylenol Sinus Severe Caplet] Letrozole [Femara] 2.5 mg PO HS 06/08/19 11/15/19 History Loperamide [Imodium] 2 mg PO DAILY PRN 06/08/19 11/15/19 History Multivitamin [Multivitamins Adult 2 each PO DAILY 06/08/19 11/15/19 History Gummies] Naproxen Sodium [Aleve] 220 mg PO DAILY PRN 06/08/19 11/15/19 History diphenhydrAMINE [Benadryl] 25 mg PO HS PRN 06/08/19 11/15/19 History Calcium Carbonate [Tums] 500 mg PO DAILY PRN 06/30/19 11/15/19 History Prochlorperazine [Compazine] 5 mg PO Q8HR 11/10/19 11/15/19 History Cyanocobalamin (Vitamin B-12) 1,000 mcg PO DAILY 11/15/19 11/15/19 History [Vitamin B-12] Allergies Allergy/AdvReac Type Severity Reaction Status Date / Time Penicillins Allergy Itching Verified 11/17/19 06:56 Surgical - Exam Vital Signs Temp Pulse Resp BP Pulse Ox 96.9 F L 100 17 158/71 97 11/17/19 07:04 11/17/19 07:04 11/17/19 07:04 11/17/19 07:04 11/17/19 07:04
--- NOTE | 2019-11-17 08:02 | P.PCN ---
Date of Procedure: 11/17/19 Description of Procedure: PREOPERATIVE DIAGNOSIS: Colonoscopy screening. POSTOPERATIVE DIAGNOSIS: Colonoscopy screening. OPERATION: Colonoscopy to the cecum, ileocecal valve and appendiceal orifice. SURGEON: Lori Godinez MD. ANESTHESIA: MAC. INDICATIONS: The patient is a 79-year-old female who presents for her first colonoscopy screening. Benefits and risks were described and informed consent was obtained. DESCRIPTION OF PROCEDURE: The patient had undergone Suprep. She had been brought into the operating room and laid in the left lateral decubitus position. After adequate intravenous sedation, the rectum was examined with 2% lidocaine jelly. External hemorrhoids were encountered. The rectal tone was within normal limits. No lesions were palpated in the rectal vault. An Olympus colonoscope was advanced until the cecum, ileocecal valve and appendiceal orifice were clearly viewed. The prep was excellent with clear visualization of the mucosal folds. The scope was removed with visualization of each mucosal fold. No scattered diverticulosis was encountered. No colonic polyps were found. No evidence of focal colitis was found. Retroflexion of the scope demonstrated grade 2 internal hemorrhoids without active bleeding or inflammation. The colon was desufflated. The patient had tolerated the procedure well. Withdrawal time was over 6 minutes. FINDINGS: Aronchick preparation quality scale 1 (1-5) Internal hemorrhoids, grade 2 External prolapsed hemorrhoids, grade 2 No sigmoid diverticulosis No arteriovenous malformations. No adenomatous polyps. No focal colitis. RECOMMENDATIONS: Lower endoscopy as needed in 10 years, 2030 or Cologaurd Plan - Discharge Summary Discharge Rx Participant: No New Discharge Prescriptions: Continue Pravastatin Sodium [Pravachol] 20 mg PO HS Losartan Potassium 50 mg PO HS Aspirin 81 mg PO DAILY Ascorbic Acid [Vitamin C] 500 mg PO DAILY diphenhydrAMINE [Benadryl] 25 mg PO HS PRN PRN Reason: Allergy Symptoms Letrozole [Femara] 2.5 mg PO HS Famotidine [Pepcid] 20 mg PO DAILY PRN PRN Reason: GERD ALPRAZolam [Xanax] 0.25 mg PO BID PRN PRN Reason: Anxiety Naproxen Sodium [Aleve] 220 mg PO DAILY PRN PRN Reason: Pain Multivitamin [Multivitamins Adult Gummies] 2 each PO DAILY Loperamide [Imodium] 2 mg PO DAILY PRN PRN Reason: Diarrhea Guaifen/Phenyleph/Acetaminophn [Tylenol Sinus Severe Caplet] 1 each PO DAILY PRN PRN Reason: Allergy Symptoms Cholecalciferol (Vitamin D3) [Vitamin D3] 500 unit PO DAILY Abemaciclib [Verzenio] 200 mg PO BID Calcium Carbonate [Tums] 500 mg PO DAILY PRN PRN Reason: Bloating Prochlorperazine [Compazine] 5 mg PO Q8HR Cyanocobalamin (Vitamin B-12) [Vitamin B-12] 1,000 mcg PO DAILY Discharge Medication List Aspirin 81 mg PO DAILY 04/27/19 [History] Losartan Potassium 50 mg PO HS 04/27/19 [History] Pravastatin Sodium [Pravachol] 20 mg PO HS 04/27/19 [History] ALPRAZolam [Xanax] 0.25 mg PO BID PRN 06/08/19 [History] Abemaciclib [Verzenio] 200 mg PO BID 06/08/19 [History] Ascorbic Acid [Vitamin C] 500 mg PO DAILY 06/08/19 [History] Cholecalciferol (Vitamin D3) [Vitamin D3] 500 unit PO DAILY 06/08/19 [History] Famotidine [Pepcid] 20 mg PO DAILY PRN 06/08/19 [History] Guaifen/Phenyleph/Acetaminophn [Tylenol Sinus Severe Caplet] 1 each PO DAILY PRN 06/08/19 [History] Letrozole [Femara] 2.5 mg PO HS 06/08/19 [History] Loperamide [Imodium] 2 mg PO DAILY PRN 06/08/19 [History] Multivitamin [Multivitamins Adult Gummies] 2 each PO DAILY 06/08/19 [History] Naproxen Sodium [Aleve] 220 mg PO DAILY PRN 06/08/19 [History] diphenhydrAMINE [Benadryl] 25 mg PO HS PRN 06/08/19 [History] Calcium Carbonate [Tums] 500 mg PO DAILY PRN 06/30/19 [History] Prochlorperazine [Compazine] 5 mg PO Q8HR 11/10/19 [History] Cyanocobalamin (Vitamin B-12) [Vitamin B-12] 1,000 mcg PO DAILY 11/15/19 [History] Follow up Appointment(s)/Referral(s): Lori Godinez MD [STAFF PHYSICIAN] - As Needed Patient Instructions/Handouts: *[facility] - (Anesthesia) Endoscopy Discharge Instructions Activity/Diet/Wound Care/Special Instructions: Colonoscopy as needed, 10 years, 2030 or Cologaurd Discharge Disposition: HOME SELF-CARE
[2019-11-17 08:12] VITALS: BP 130/59; PULSE 66
== END 2019-11-17 08:36 | disposition home or self-care (01) ==
LOC: ORWHC2ENDO 06:43
PROVIDERS: ATTEND Surgery Plastic and Reconstructive Surgery
DX: Z12.11 Encounter for screening for malignant neoplasm of colon (principal); K64.1 Second degree hemorrhoids; K64.4 Residual hemorrhoidal skin tags; Z79.82 Long term (current) use of aspirin; Z79.811 Long term (current) use of aromatase inhibitors; Z79.899 Other long term (current) drug therapy; Z88.0 Allergy status to penicillin; I10 Essential (primary) hypertension; K21.9 Gastro-esophageal reflux disease without esophagitis; Z85.3 Personal history of malignant neoplasm of breast; Z90.49 Acquired absence of other specified parts of digestive tract; Z98.41 Cataract extraction status, right eye; Z98.42 Cataract extraction status, left eye; Z98.890 Other specified postprocedural states; Z83.3 Family history of diabetes mellitus; Z82.49 Family history of ischemic heart disease and other diseases of the circulatory system; Z80.52 Family history of malignant neoplasm of bladder
CPT/HCPCS: J2704; G0121

== ENCOUNTER 2020-01-13 13:20 | Inpatient (IN) | payer MEDICARE ==
[2020-01-13] MEDS ORDERED: SODIUM CHLORIDE 0.9% 1,000 ML IV STA ×2 (13:47)
--- NOTE | 2020-01-13 13:56 | ED ---
General Adult HPI - General Chief complaint: Recheck/Abnormal Lab/Rx Stated complaint: Potassium Time Seen by Provider: 01/13/20 13:37 Source: patient, RN notes reviewed Mode of arrival: wheelchair Limitations: no limitations - History of Present Illness Initial comments: This a 79-year-old female presents emergency Department chief complaint of lab abnormalities. Patient states that she was told her potassium was very low. Patient states that she has excessive diarrhea secondary to her chemotherapy. Patient is currently being treated for breast cancer. Patient states that she's been on his medications since May but symptoms worsened over the last week or so. Patient did receive fluids yesterday was found to have low potassium. Patient states she feels very weak, dehydrated. Family has noticed that she is very weak. Patient denies fevers or chills no cough or cold-like symptoms. - Related Data Home Medications Medication Instructions Recorded Confirmed Aspirin 81 mg PO DAILY 04/27/19 11/15/19 Losartan Potassium 50 mg PO HS 04/27/19 11/15/19 Pravastatin Sodium [Pravachol] 20 mg PO HS 04/27/19 11/15/19 ALPRAZolam [Xanax] 0.25 mg PO BID PRN 06/08/19 11/17/19 Abemaciclib [Verzenio] 200 mg PO BID 06/08/19 11/15/19 Ascorbic Acid [Vitamin C] 500 mg PO DAILY 06/08/19 11/15/19 Cholecalciferol (Vitamin D3) 500 unit PO DAILY 06/08/19 11/15/19 [Vitamin D3] Famotidine [Pepcid] 20 mg PO DAILY PRN 06/08/19 11/15/19 Guaifen/Phenyleph/Acetaminophn 1 each PO DAILY PRN 06/08/19 11/15/19 [Tylenol Sinus Severe Caplet] Letrozole [Femara] 2.5 mg PO HS 06/08/19 11/15/19 Loperamide [Imodium] 2 mg PO DAILY PRN 06/08/19 11/15/19 Multivitamin [Multivitamins Adult 2 each PO DAILY 06/08/19 11/15/19 Gummies] Naproxen Sodium [Aleve] 220 mg PO DAILY PRN 06/08/19 11/15/19 diphenhydrAMINE [Benadryl] 25 mg PO HS PRN 06/08/19 11/15/19 Calcium Carbonate [Tums] 500 mg PO DAILY PRN 06/30/19 11/15/19 Prochlorperazine [Compazine] 5 mg PO Q8HR 11/10/19 11/15/19 Cyanocobalamin (Vitamin B-12) 1,000 mcg PO DAILY 11/15/19 11/15/19 [Vitamin B-12] Allergies Allergy/AdvReac Type Severity Reaction Status Date / Time Penicillins Allergy Itching Verified 01/13/20 13:31 Review of Systems ROS Statement: Those systems with pertinent positive or pertinent negative responses have been documented in the HPI. ROS Other: All systems not noted in ROS Statement are negative. Past Medical History Past Medical History: Hypertension Additional Past Medical History / Comment(s): rt breast cancer stage 4-currently on oral tx. History of Any Multi-Drug Resistant Organisms: None Reported Past Surgical History: Appendectomy, Hernia Repair, Tonsillectomy Additional Past Surgical History / Comment(s): rt cataract 06/06/14; lt cataract 07/2014; bowel surgery 07/2016; Past Anesthesia/Blood Transfusion Reactions: No Reported Reaction Past Psychological History: No Psychological Hx Reported Smoking Status: Never smoker Past Alcohol Use History: Occasional Past Drug Use History: None Reported - Past Family History Mother Family Medical History: Diabetes Mellitus Additional Family Medical History / Comment(s): Angina Father Family Medical History: Cancer Additional Family Medical History / Comment(s): bladder cancer General Exam Limitations: no limitations General appearance: alert, in no apparent distress Head exam: Present: atraumatic, normocephalic, normal inspection Eye exam: Present: normal appearance, PERRL, EOMI. Absent: scleral icterus, conjunctival injection, periorbital swelling ENT exam: Present: normal exam, mucous membranes moist Neck exam: Present: normal inspection, full ROM. Absent: tenderness, meningismus, lymphadenopathy Respiratory exam: Present: normal lung sounds bilaterally. Absent: respiratory distress, wheezes, rales, rhonchi, stridor Cardiovascular Exam: Present: regular rate, normal rhythm, normal heart sounds. Absent: systolic murmur, diastolic murmur, rubs, gallop, clicks GI/Abdominal exam: Present: soft, normal bowel sounds. Absent: distended, tenderness, guarding, rebound, rigid Neurological exam: Present: alert, oriented X3, CN II-XII intact, reflexes no rmal. Absent: motor sensory deficit Skin exam: Present: warm, dry, intact, normal color. Absent: rash Course Vital Signs 01/13/20 13:28 Temperature 98.1 F Pulse Rate 84 Respiratory 18 Rate Blood Pressure 133/57 O2 Sat by Pulse 100 Oximetry EKG Findings - EKG Comments: EKG Findings:: EKG performed at 14:20 rate of 77 AR 150 QRS 100 QTC is QTC 512/[address] depressions in leads V3 through V6 Medical Decision Making - Medical Decision Making Patient has multiple left-sided imbalances, dehydration with urinary tract infection. Rocephin was ordered, blood culture was ordered. Patient does have some changes on her EKG though she has no mental chest pain service troponins will be ordered. Patient be admitted to Dr. Neal Herzog with consult to oncology. - Lab Data Result diagrams: 01/13/20 14:15 01/13/20 14:15 Lab Results 01/13/20 01/13/20 01/13/20 Range/Units 14:15 14:15 14:15 WBC 5.2 (3.8-10.6) k/uL RBC 2.98 L (3.80-5.40) m/uL Hgb 10.9 L (11.4-16.0) gm/dL Hct 32.0 L (34.0-46.0) % MCV 107.5 H (80.0-100.0) fL MCH 36.6 H (25.0-35.0) pg MCHC 34.1 (31.0-37.0) g/dL RDW 13.5 (11.5-15.5) % Plt Count 191 (150-450) k/uL Neutrophils % 76 % Lymphocytes % 17 % Monocytes % 3 % Eosinophils % 1 % Basophils % 1 % Neutrophils # 4.0 (1.3-7.7) k/uL Lymphocytes # 0.9 L (1.0-4.8) k/uL Monocytes # 0.1 (0-1.0) k/uL Eosinophils # 0.1 (0-0.7) k/uL Basophils # 0.0 (0-0.2) k/uL Macrocytosis Moderate Sodium 135 L (137-145) mmol/L Potassium 2.3 L* (3.5-5.1) mmol/L Chloride 103 (98-107) mmol/L Carbon Dioxide 20 L (22-30) mmol/L Anion Gap 12 mmol/L BUN 22 H (7-17) mg/dL Creatinine 2.32 H (0.52-1.04) mg/dL Est GFR (CKD-EPI)AfAm 23 (>60 ml/min/1.73 sqM) Est GFR (CKD-EPI)NonAf 20 (>60 ml/min/1.73 sqM) Glucose 143 H (74-99) mg/dL Plasma Lactic Acid Patrick 2.9 H* (0.7-2.0) mmol/L Calcium 9.1 (8.4-10.2) mg/dL Phosphorus 1.0 L* (2.5-4.5) mg/dL Magnesium 2.0 (1.6-2.3) mg/dL Total Bilirubin 0.5 (0.2-1.3) mg/dL AST 32 (14-36) U/L ALT 18 (4-34) U/L Alkaline Phosphatase 48 (38-126) U/L Troponin I (0.000-0.034) ng/mL Total Protein 7.4 (6.3-8.2) g/dL Albumin 4.3 (3.5-5.0) g/dL Urine Color Urine Appearance (Clear) Urine pH (5.0-8.0) Ur Specific [place] (1.001-1.035) Urine Protein (Negative) Urine Glucose (UA) (Negative) Urine Ketones (Negative) Urine Blood (Negative) Urine Nitrite (Negative) Urine Bilirubin (Negative) Urine Urobilinogen (<2.0) mg/dL Ur Leukocyte Esterase (Negative) Urine RBC (0-5) /hpf Urine WBC (0-5) /hpf Ur Squamous Epith Cells (0-4) /hpf Urine Bacteria (None) /hpf Hyaline Casts (0-2) /lpf Urine Mucus (None) /hpf 01/13/20 01/13/20 Range/Units 14:15 15:01 WBC (3.8-10.6) k/uL RBC (3.80-5.40) m/uL Hgb (11.4-16.0) gm/dL Hct (34.0-46.0) % MCV (80.0-100.0) fL MCH (25.0-35.0) pg MCHC (31.0-37.0) g/dL RDW (11.5-15.5) % Plt Count (150-450) k/uL Neutrophils % % Lymphocytes % % Monocytes % % Eosinophils % % Basophils % % Neutrophils # (1.3-7.7) k/uL Lymphocytes # (1.0-4.8) k/uL Monocytes # (0-1.0) k/uL Eosinophils # (0-0.7) k/uL Basophils # (0-0.2) k/uL Macrocytosis Sodium (137-145) mmol/L Potassium (3.5-5.1) mmol/L Chloride (98-107) mmol/L Carbon Dioxide (22-30) mmol/L Anion Gap mmol/L BUN (7-17) mg/dL Creatinine (0.52-1.04) mg/dL Est GFR (CKD-EPI)AfAm (>60 ml/min/1.73 sqM) Est GFR (CKD-EPI)NonAf (>60 ml/min/1.73 sqM) Glucose (74-99) mg/dL Plasma Lactic Acid Patrick (0.7-2.0) mmol/L Calcium (8.4-10.2) mg/dL Phosphorus (2.5-4.5) mg/dL Magnesium (1.6-2.3) mg/dL Total Bilirubin (0.2-1.3) mg/dL AST (14-36) U/L ALT (4-34) U/L Alkaline Phosphatase (38-126) U/L Troponin I 0.017 (0.000-0.034) ng/mL Total Protein (6.3-8.2) g/dL Albumin (3.5-5.0) g/dL Urine Color Light Yellow Urine Appearance Cloudy H (Clear) Urine pH 6.0 (5.0-8.0) Ur Specific [place] 1.011 (1.001-1.035) Urine Protein Trace H (Negative) Urine Glucose (UA) Negative (Negative) Urine Ketones Negative (Negative) Urine Blood Small H (Negative) Urine Nitrite Negative (Negative) Urine Bilirubin Negative (Negative) Urine Urobilinogen <2.0 (<2.0) mg/dL Ur Leukocyte Esterase Large H (Negative) Urine RBC 7 H (0-5) /hpf Urine WBC >182 H (0-5) /hpf Ur Squamous Epith Cells <1 (0-4) /hpf Urine Bacteria Many H (None) /hpf Hyaline Casts 20 H (0-2) /lpf Urine Mucus Rare H (None) /hpf Disposition Clinical Impression: Dehydration, Hypokalemia, Hypophosphatemia, Urinary tract infection Disposition: ADMITTED IP TO THIS HOSP Condition: Serious Referrals: Darian Mendenhall MD [Primary Care Provider] - 1-2 days
[2020-01-13 14:37] LABS: Basophils % (A) 1 %; Eosinophils # (A) 0.1 k/uL (0-0.7); Eosinophils % (A) 1 %; HGB 10.9 gm/dL (11.4-16.0); Lymphocytes # (A) 0.9 k/uL (1.0-4.8); Lymphocytes % (A) 17 %; MCH 36.6 pg (25.0-35.0); MCHC 34.1 g/dL (31.0-37.0); MCV 107.5 fL (80.0-100.0); Macrocytosis Moderate; Mean Platelet Volume 7.9; Monocytes # (A) 0.1 k/uL (0-1.0); Monocytes % (A) 3 %; Neutrophils % (A) 76 %; Platelet Count 191 k/uL (150-450); RBC 2.98 m/uL (3.80-5.40); RDW 13.5 % (11.5-15.5); WBC 5.2 k/uL (3.8-10.6)
[2020-01-13 14:45] LABS: Albumin 4.3 g/dL (3.5-5.0); Calcium 9.1 mg/dL (8.4-10.2); Total Bilirubin 0.5 mg/dL (0.2-1.3); Total Protein 7.4 g/dL (6.3-8.2)
[2020-01-13 14:54] LABS: Potassium 2.3 mmol/L (3.5-5.1)
[2020-01-13] MEDS ORDERED: POTASSIUM BICARBONATE/CIT AC 20 MEQ TABLET.EFF PO ONE (15:01)
[2020-01-13] MEDS ORDERED: POTASSIUM CHLORIDE 20 MEQ in WATER FOR INJECTION 1 100ML.BAG IVPB STA (15:01)
[2020-01-13 15:14] LABS: Appearance,Urine Cloudy (Clear); Bacteria,Urine Many /hpf; Bilirubin,Urine Negative (Negative); Blood,Urine Small (Negative); Color,Urine Light Yellow; Glucose,Urine (UA) Negative (Negative); Hyaline Casts,Urine 20 /lpf (0-2); Ketones,Urine Negative (Negative); Leukocyte Esterase,Urine Large (Negative); Mucus,Urine Rare /hpf; Nitrite,Urine Negative (Negative); Protein,Urine Trace (Negative); RBC,Urine 7 /hpf (0-5); Specific Gravity,Urine 1.011 (1.001-1.035); Squamous Epithelial Cell,Urine <1 /hpf (0-4); Urobilinogen,Urine <2.0 mg/dL (<2.0); WBC,Urine >182 /hpf (0-5)
[2020-01-13] MEDS ORDERED: cefTRIAXone IN SWFI 1,000 MG/10 ML SYRINGE IVP STA (15:24)
[2020-01-13] MEDS ORDERED: NALOXONE 0.4 MG/ML 1 ML VIAL IV PRN (15:38)
[2020-01-13] MEDS ORDERED: ONDANSETRON 4 MG/2 ML VIAL IVP PRN (15:38)
[2020-01-13] MEDS ORDERED: ACETAMINOPHEN TAB 325 MG TAB PO PRN (15:38)
[2020-01-13] MEDS: SODIUM CHLORIDE 0.9% 1,000 ML IV SCH ×2 (16:00→23:46)
[2020-01-13] MEDS ORDERED: [UNRECOGNIZED DRUG - OTHER] PO PRN (18:28)
[2020-01-13] MEDS ORDERED: diphenhydrAMINE 25 MG CAP PO PRN (18:28)
[2020-01-13] MEDS ORDERED: PROCHLORPERAZINE 10 MG TAB PO PRN (18:28)
[2020-01-13] MEDS ORDERED: LOPERAMIDE 2 MG CAP PO PRN (18:28)
[2020-01-13] MEDS ORDERED: NAPROXEN 250 MG TAB PO PRN (18:28)
[2020-01-13] MEDS ORDERED: cefTRIAXone 1,000 MG VIAL (IM USE) IM SCH (21:00)
[2020-01-13] MEDS: PRAVASTATIN SODIUM 20 MG TAB PO SCH (22:18)
[2020-01-13] MEDS: LOSARTAN 25 MG TAB PO SCH (22:18)
[2020-01-13] MEDS: LETROZOLE 2.5 MG PO SCH (22:19)
[2020-01-13] MEDS: ALPRAZolam 0.25 MG TAB PO PRN (22:19)
--- NOTE | 2020-01-13 22:32 | HP ---
HISTORY AND PHYSICAL This patient is a 79-year-old white female who came to the emergency room, told her potassium was very low. Excessive diarrhea due to chemotherapy. History of breast cancer, chemotherapy on oral medicine. She has had diarrhea since May. She did receive fluids and was found to have low potassium. She was very weak, dehydrated. Possible UTI, started on Rocephin q.12 while urine culture is pending. Losartan 50 at bedtime, aspirin 81 mg daily, Pravachol 20 mg daily, Xanax 0.25 b.i.d., abemaciclib 200 b.i.d., vitamin C 500 daily, vitamin D3 500 daily, Pepcid 20 mg daily, Femara 2.5 daily, multivitamin daily, loperamide daily, Aleve 220 daily, Benadryl 25 daily, Tums 500 daily, Compazine 5 mg q.8 hours, vitamin B12 daily. ALLERGIES: PENICILLIN. REVIEW OF SYSTEMS: Fourteen-point review of systems are negative. PAST MEDICAL HISTORY: Hypertension, right breast cancer, stage IV, currently on oral medicine, appendectomy, hernia repair, tonsillectomy, cataracts bilaterally. SOCIAL HISTORY: No smoking. Occasional alcohol. FAMILY HISTORY: Mother with diabetes mellitus, angina. Father with cancer of the bladder. PHYSICAL EXAMINATION: Temperature 98.1, pulse 80-84, respiratory rate 16-18, blood pressure 130s over 50s, O2 100%. RESPIRATORY: Lungs are clear. CARDIOVASCULAR: Regular rate and rhythm. GI: Soft, nontender. NEUROLOGIC: Cranial nerves are intact. SKIN: Warm, dry, intact. She appears to have decreased skin turgor, dry mucous membranes. OPHTHALMOLOGIC: Pupils equal, round, reactive. HEENT: Normocephalic, atraumatic. LABS: Sodium 135, potassium 2.3, BUN 22, creatinine 2.32, hemoglobin 10.9, white count 5.2. ASSESSMENT: 1. Electrolyte abnormality imbalance secondary to above. 2. Dehydration. 3. Urinary tract infection. 4. Chemotherapy-induced diarrhea with severe hypokalemia. 5. Some ST depressions in leads V3, V6. 6. Hypophosphatemia. 7. Lactic acidosis. Continue to replace potassium. Phosphate. Treat UTI, dehydration. Monitor diarrhea. MMODL / IJN: [id number] /
[2020-01-13] MEDS: POTASSIUM CHLORIDE 10 MEQ in WATER FOR INJECTION 1 100ML.BAG IVPB SCH ×2 (22:40→23:45)
[2020-01-14] MEDS: POTASSIUM CHLORIDE 10 MEQ in WATER FOR INJECTION 1 100ML.BAG IVPB SCH ×2 (00:37→01:33)
[2020-01-14 07:07] LABS: Basophils # (A) 0.1 k/uL (0-0.2); Basophils % (A) 1 %; Eosinophils # (A) 0.1 k/uL (0-0.7); Eosinophils % (A) 3 %; HCT 24.9 % (34.0-46.0); Lymphocytes # (A) 1.5 k/uL (1.0-4.8); Lymphocytes % (A) 35 %; MCH 36.8 pg (25.0-35.0); MCHC 33.7 g/dL (31.0-37.0); MCV 109.3 fL (80.0-100.0); Macrocytosis Marked; Mean Platelet Volume 8.1; Monocytes # (A) 0.2 k/uL (0-1.0); Monocytes % (A) 4 %; Neutrophils # (A) 2.3 k/uL (1.3-7.7); Neutrophils % (A) 54 %; Platelet Count 150 k/uL (150-450); RBC 2.28 m/uL (3.80-5.40); RDW 13.9 % (11.5-15.5); WBC 4.3 k/uL (3.8-10.6)
[2020-01-14 07:13] LABS: Albumin 2.9 g/dL (3.5-5.0); Calcium 7.6 mg/dL (8.4-10.2); Total Bilirubin 0.4 mg/dL (0.2-1.3); Total Protein 5.5 g/dL (6.3-8.2)
[2020-01-14 07:19] LABS: HGB 8.4 gm/dL (11.4-16.0)
[2020-01-14 07:21] LABS: Potassium 2.6 mmol/L (3.5-5.1)
[2020-01-14] MEDS: CALCIUM CARBONATE 500 MG CHEWABLE PO SCH ×2 (08:15→22:30)
[2020-01-14] MEDS: MULTIVITAMINS, THERA 1 EACH TAB PO SCH (08:16)
[2020-01-14] MEDS: CHOLECALCIFEROL 1,000 UNIT TAB PO SCH (08:16)
[2020-01-14] MEDS: CYANOCOBALAMIN 500 MCG TAB PO SCH (08:16)
[2020-01-14] MEDS: ASCORBIC ACID 500 MG TAB PO SCH (08:16)
[2020-01-14] MEDS: SODIUM CHLORIDE 0.9% 1,000 ML IV SCH (08:48)
[2020-01-14] MEDS ORDERED: LETROZOLE 2.5 MG TAB PO SCH (09:30)
--- NOTE | 2020-01-14 09:41 | P.CONS ---
History of Present Illness - Reason for Consult Consult date: 01/14/20 metastatic Breast Cancer Requesting physician: Steve Lama - Chief Complaint Diarrhea, Weakness, Hypokalemia - History of Present Illness Ms. Robison is a very pleasant female patient who is well known to our practice. Primary Oncologist Dr. Solo for treatment of Metastatic Breast Cancer. She was seen in the office by Sonia HOOPER on for complaints of severe fatigue, dehydration, weakness, diarrhea. She also admitted to nausea and intermittent nausea. She was assessed as clinically dehydrated and given IV hydration as well as antiemetic. Stat CMP, Mag and CBC was drawn, although resulted the folowing am with a potassium of 2.2 and creatinine 2.4 (Baseline 1.2). Therefore she was directed to emergency medicine for further evaluation. At the time of evaluation in office she also had complaints of diarrhea. She was on Verzenio and letrazole, in which her verzenio has been held until acute symptoms result. ALso a urinalysis and culture was performed and preliminary urinalysis suspicious for UTI. Cultures are still pending. SHe has now been admitted and receiving potassium supplementation and fluid hydration. Review of Systems All systems: negative (HPI) Past Medical History Past Medical History: Hypertension Additional Past Medical History / Comment(s): rt breast cancer stage 4-currently on oral tx. History of Any Multi-Drug Resistant Organisms: None Reported Past Surgical History: Appendectomy, Hernia Repair, Tonsillectomy Additional Past Surgical History / Comment(s): rt cataract 06/06/14; lt cataract 07/2014; bowel surgery 07/2016; Past Anesthesia/Blood Transfusion Reactions: No Reported Reaction Smoking Status: Never smoker - Past Family History Mother Family Medical History: Diabetes Mellitus Additional Family Medical History / Comment(s): Angina Father Family Medical History: Cancer Additional Family Medical History / Comment(s): bladder cancer Medications and Allergies Home Medications Medication Instructions Recorded Confirmed Type Losartan Potassium 25 mg PO HS 04/27/19 01/13/20 History Pravastatin Sodium [Pravachol] 20 mg PO HS 04/27/19 11/15/19 History ALPRAZolam [Xanax] 0.25 mg PO BID PRN 06/08/19 01/13/20 History Abemaciclib [Verzenio] 200 mg PO BID 06/08/19 01/13/20 History Letrozole [Femara] 2.5 mg PO HS 06/08/19 01/13/20 History Loperamide [Imodium] 2 - 4 mg PO QID PRN 06/08/19 01/13/20 History Multivitamin [Multivitamins Adult 2 tab PO DAILY 06/08/19 01/13/20 History Gummies] Naproxen Sodium [Aleve] 220 mg PO DAILY PRN 06/08/19 01/13/20 History diphenhydrAMINE [Benadryl] 25 mg PO HS PRN 06/08/19 01/13/20 History Calcium Carbonate [Tums] 1,000 mg PO DAILY 06/30/19 01/13/20 History Cyanocobalamin (Vitamin B-12) 1,000 mcg PO DAILY 11/15/19 01/13/20 History [Vitamin B-12] Ascorbic Acid [Vitamin C] 1,000 mg PO DAILY 01/13/20 01/13/20 History Cholecalciferol [Vitamin D3 (25 2,000 unit PO DAILY 01/13/20 01/13/20 History Mcg = 1000 Iu)] Prochlorperazine [Compazine] 10 mg PO Q6H PRN 01/13/20 01/13/20 History Tylenol Sinus Congestion/Pain Cool 1 packet PO DAILY PRN 01/13/20 01/13/20 History Burst Packet Allergies Allergy/AdvReac Type Severity Reaction Status Date / Time Penicillins Allergy Itching Verified 01/13/20 13:31 Physical Exam Vitals: Vital Signs Temp Pulse Pulse Pulse Resp BP BP 01/14/20 05:12 97.6 F 64 15 01/13/20 20:00 98.0 F 71 18 127/65 01/13/20 17:21 98.1 F 65 16 106/65 01/13/20 17:00 98.7 F 74 16 119/44 01/13/20 16:30 98.2 F 75 18 115/52 01/13/20 16:00 65 15 108/46 01/13/20 15:30 62 17 134/71 01/13/20 15:00 110 H 20 116/56 01/13/20 14:30 75 16 127/57 01/13/20 14:08 13 01/13/20 13:28 98.1 F 84 18 133/57 BP Pulse Ox 01/14/20 05:12 92/56 96 01/13/20 20:00 98 01/13/20 17:21 98 01/13/20 17:00 96 01/13/20 16:30 98 01/13/20 16:00 99 01/13/20 15:30 98 01/13/20 15:00 98 01/13/20 14:30 97 01/13/20 14:08 94 L 01/13/20 13:28 100 Intake and Output 01/13/20 01/14/20 01/14/20 22:59 06:59 14:59 Intake Total 1370 05954 Balance 1370 80316 Intake: Intake, IV Titration 670 98563 Amount Potassium Chloride 10 meq 100 400 In Water For Injection 1 100ml.bag @ 100 mls/hr IVPB Q1HR [facility] Rx#: [id number] Sodium Chloride 0.9% 1, 520 60705 000 ml @ 130 mls/hr IV . Q7H42M [facility] Rx#:[id number] cefTRIAXone 1 gm In 50 Sodium Chloride 0.9% 50 ml @ 100 mls/hr IVPB Q12HR [facility] Rx#:[id number] Oral 700 Other: Voiding Method Toilet # Voids 2 3 Weight 81.647 kg - Constitutional General appearance: cooperative, no acute distress, obese - EENT Eyes: EOMI, PERRLA ENT: NA/AT, normal oropharynx - Neck Neck: normal ROM - Respiratory Respiratory: bilateral: CTA - Cardiovascular Rhythm: regular Heart sounds: normal: S1, S2 leg Peripheral Edema: bilateral: Trace - Gastrointestinal General gastrointestinal: hyperactive bowel sounds, soft, tenderness - Integumentary Integumentary: pale - Neurologic Neurologic: CNII-XII intact - Musculoskeletal Musculoskeletal: generalized weakness, strength equal bilaterally - Psychiatric Psychiatric: A&O x's 3, appropriate affect, intact judgment & insight Results CBC & Chem 7: 01/14/20 06:33 01/14/20 06:33 Labs: Abnormal Lab Results - Last 24 Hours (Table) 01/13/20 01/13/20 01/13/20 Range/Units 14:15 14:15 14:15 RBC 2.98 L (3.80-5.40) m/uL Hgb 10.9 L (11.4-16.0) gm/dL Hct 32.0 L (34.0-46.0) % MCV 107.5 H (80.0-100.0) fL MCH 36.6 H (25.0-35.0) pg Lymphocytes # 0.9 L (1.0-4.8) k/uL Macrocytosis Sodium 135 L (137-145) mmol/L Potassium 2.3 L* (3.5-5.1) mmol/L Chloride (98-107) mmol/L Carbon Dioxide 20 L (22-30) mmol/L BUN 22 H (7-17) mg/dL Creatinine 2.32 H (0.52-1.04) mg/dL Glucose 143 H (74-99) mg/dL Plasma Lactic Acid Patrick 2.9 H* (0.7-2.0) mmol/L Calcium (8.4-10.2) mg/dL Phosphorus 1.0 L* (2.5-4.5) mg/dL Alkaline Phosphatase (38-126) U/L Total Protein (6.3-8.2) g/dL Albumin (3.5-5.0) g/dL Urine Appearance (Clear) Urine Protein (Negative) Urine Blood (Negative) Ur Leukocyte Esterase (Negative) Urine RBC (0-5) /hpf Urine WBC (0-5) /hpf Urine Bacteria (None) /hpf Hyaline Casts (0-2) /lpf Urine Mucus (None) /hpf 01/13/20 01/13/20 01/14/20 Range/Units 15:01 18:58 06:33 RBC 2.28 L (3.80-5.40) m/uL Hgb 8.4 L D (11.4-16.0) gm/dL Hct 24.9 L (34.0-46.0) % MCV 109.3 H (80.0-100.0) fL MCH 36.8 H (25.0-35.0) pg Lymphocytes # (1.0-4.8) k/uL Macrocytosis Marked A Sodium (137-145) mmol/L Potassium 2.4 L* (3.5-5.1) mmol/L Chloride (98-107) mmol/L Carbon Dioxide (22-30) mmol/L BUN (7-17) mg/dL Creatinine (0.52-1.04) mg/dL Glucose (74-99) mg/dL Plasma Lactic Acid Patrick (0.7-2.0) mmol/L Calcium (8.4-10.2) mg/dL Phosphorus (2.5-4.5) mg/dL Alkaline Phosphatase (38-126) U/L Total Protein (6.3-8.2) g/dL Albumin (3.5-5.0) g/dL Urine Appearance Cloudy H (Clear) Urine Protein Trace H (Negative) Urine Blood Small H (Negative) Ur Leukocyte Esterase Large H (Negative) Urine RBC 7 H (0-5) /hpf Urine WBC >182 H (0-5) /hpf Urine Bacteria Many H (None) /hpf Hyaline Casts 20 H (0-2) /lpf Urine Mucus Rare H (None) /hpf 01/14/20 Range/Units 06:33 RBC (3.80-5.40) m/uL Hgb (11.4-16.0) gm/dL Hct (34.0-46.0) % MCV (80.0-100.0) fL MCH (25.0-35.0) pg Lymphocytes # (1.0-4.8) k/uL Macrocytosis Sodium (137-145) mmol/L Potassium 2.6 L* (3.5-5.1) mmol/L Chloride 115 H (98-107) mmol/L Carbon Dioxide 18 L (22-30) mmol/L BUN (7-17) mg/dL Creatinine 1.85 H (0.52-1.04) mg/dL Glucose 104 H (74-99) mg/dL Plasma Lactic Acid Patrick (0.7-2.0) mmol/L Calcium 7.6 L (8.4-10.2) mg/dL Phosphorus (2.5-4.5) mg/dL Alkaline Phosphatase 35 L (38-126) U/L Total Protein 5.5 L (6.3-8.2) g/dL Albumin 2.9 L (3.5-5.0) g/dL Urine Appearance (Clear) Urine Protein (Negative) Urine Blood (Negative) Ur Leukocyte Esterase (Negative) Urine RBC (0-5) /hpf Urine WBC (0-5) /hpf Urine Bacteria (None) /hpf Hyaline Casts (0-2) /lpf Urine Mucus (None) /hpf Microbiology - Last 24 Hours (Table) 01/13/20 15:01 Urine Culture - Preliminary Urine,Voided Assessment and Plan (1) Metastatic breast cancer Current Visit: Yes Status: Acute Code(s): C50.919 - MALIGNANT NEOPLASM OF UNSP SITE OF UNSPECIFIED FEMALE BREAST SNOMED Code(s): 177496178 (2) Acute renal insufficiency Current Visit: Yes Status: Acute Code(s): N28.9 - DISORDER OF KIDNEY AND URETER, UNSPECIFIED SNOMED Code(s): 340702951 (3) Dehydration Current Visit: Yes Status: Acute Code(s): E86.0 - DEHYDRATION SNOMED C ode(s): 25609720 (4) Hypokalemia Current Visit: Yes Status: Acute Code(s): E87.6 - HYPOKALEMIA SNOMED Code(s): 20167062 (5) Urinary tract infection Current Visit: Yes Status: Acute Code(s): N39.0 - URINARY TRACT INFECTION, SITE NOT SPECIFIED SNOMED Code(s): 33486129 Plan: Assessment and Recommendations: Metastatic Breast Cancer: - Verzenio on hold until acute situation resolves, may continue letrazole Diarrhea: - Unclear etiology, possibly a side effect of her directed CPK4 treatment, although not common after 6 months of on medication controlled - Stools studies for WBC, Culture, C-diff ordered Hypokalemia: Severe k = 2.2 - Protocol in place but additional Potassium chloride added to IV hydration and PO supplementation - WIll monitor Phos, mag along with Potassium - Closely monitor potassium - TMS Acute Renal Insuffiency: - Likely secondary to dehydration and diarrhea - IV hydration to continue - THis appears to be improving POssible UTI: - IV Rocephin given in ER - Await cultures Macrocytic Anemia: - B12 wnl, await MMA - Check FOlate Plan: - Continue IV Hydration - Continue Supp electrolyte abnormalities - Hold Verzenio - Stool Studies - Questran BID until stool studies result. - Restrict diet bowel rest - Abdominal Ultrasound.
[2020-01-14] MEDS ORDERED: POTASSIUM CHLORIDE ER 20 MEQ TAB.ER PO SCH (10:00)
[2020-01-14 10:24] LABS: LDH 449 U/L (313-618)
[2020-01-14] MEDS: CHOLESTYRAMINE (WITH SUGAR) 4 GM PACKET PO SCH ×2 (10:44→16:48)
[2020-01-14] MEDS: POTASSIUM BICARBONATE/CIT AC 20 MEQ TABLET.EFF PO SCH ×3 (10:44→14:23)
--- NOTE | 2020-01-14 12:14 | PN ---
PROGRESS NOTE A 79-year-old white female with urinary tract infection, on Rocephin 1 gram q.12 hours, having no chest pain or shortness of breath. She is feeling a little bit better. She has had 3 potassium replacements. At this time he her potassium is still 2.6. She has Questran order for diarrhea, as well as Lomotil and potassium replacement in process. Continue with treatment for sepsis due to UTI. Questran is going to be ordered now for chronic diarrhea. Possibly be discharged once UTI susceptibility is back, as well as potassium replacement and getting her potassium back to normal. ASSESSMENT: 1. Hypertension appears stable. 2. Hypokalemia most likely secondary to chronic diarrhea from breast cancer medication. 3. Urinary tract infection with sepsis, unclear. Awaiting cultures. Continue with antibiotics. MMODL / IJN: [id number] /
[2020-01-14] MEDS: 0.9% NACL WITH KCL 20 MEQ/L 1,000 ML IV SCH ×2 (12:16→19:45)
[2020-01-14 13:45] VITALS: BMI 30.9
[2020-01-14 18:29] LABS: Folate, Serum >24.0 ng/mL
[2020-01-14] MEDS: PRAVASTATIN SODIUM 20 MG TAB PO SCH (20:30)
[2020-01-14] MEDS: LOSARTAN 25 MG TAB PO SCH (20:30)
[2020-01-14] MEDS: LETROZOLE 2.5 MG PO SCH (20:30)
[2020-01-14] MEDS: ALPRAZolam 0.25 MG TAB PO PRN (20:35)
[2020-01-15] MEDS: 0.9% NACL WITH KCL 20 MEQ/L 1,000 ML IV SCH ×3 (05:40→17:10)
[2020-01-15 07:28] LABS: Basophils % (A) 1 %; Eosinophils # (A) 0.1 k/uL (0-0.7); Eosinophils % (A) 2 %; HCT 26.5 % (34.0-46.0); HGB 8.8 gm/dL (11.4-16.0); Lymphocytes # (A) 1.7 k/uL (1.0-4.8); Lymphocytes % (A) 31 %; MCH 37.4 pg (25.0-35.0); MCV 113.4 fL (80.0-100.0); Macrocytosis Marked; Mean Platelet Volume 8.1; Monocytes # (A) 0.2 k/uL (0-1.0); Monocytes % (A) 4 %; Neutrophils # (A) 3.2 k/uL (1.3-7.7); Neutrophils % (A) 60 %; Platelet Count 162 k/uL (150-450); RBC 2.34 m/uL (3.80-5.40); RDW 14.2 % (11.5-15.5); WBC 5.3 k/uL (3.8-10.6)
[2020-01-15] MEDS: CALCIUM CARBONATE 500 MG CHEWABLE PO SCH ×2 (07:43→20:47)
[2020-01-15] MEDS: ASCORBIC ACID 500 MG TAB PO SCH (07:43)
[2020-01-15] MEDS: MULTIVITAMINS, THERA 1 EACH TAB PO SCH (07:43)
[2020-01-15] MEDS: CYANOCOBALAMIN 500 MCG TAB PO SCH (07:43)
[2020-01-15] MEDS: CHOLECALCIFEROL 1,000 UNIT TAB PO SCH (07:43)
[2020-01-15 07:45] LABS: Albumin 3.1 g/dL (3.5-5.0); Calcium 7.7 mg/dL (8.4-10.2); Magnesium 1.8 mg/dL (1.6-2.3); Potassium 3.4 mmol/L (3.5-5.1); Total Bilirubin 0.3 mg/dL (0.2-1.3); Total Protein 5.8 g/dL (6.3-8.2)
[2020-01-15] MEDS ORDERED: Potassium Replacement Protocol 1 EACH MISC MISCELLANE PRN (08:04)
--- NOTE | 2020-01-15 08:15 | US ---
EXAMINATION TYPE: US abdomen comp/pelvis limited DATE OF EXAM: 01/15/2020 COMPARISON: NONE CLINICAL HISTORY: RUQ abdominal pain. EXAM MEASUREMENTS: Liver Length: 12.1 cm Gallbladder Wall: 0.7 cm CBD: 0.2 cm Spleen: 7.2 cm Right Kidney: 10.1 x 4.5 x4.7 cm Left Kidney: 9.0 x 3.8 x 4.7 cm Patient of large body habitus Pancreas: Obscured by bowel gas Liver: wnl Gallbladder: SUHAIL sign, wall not well seen due to shadowing from stones, unable to see neck for same r chastity CBD: not wells seen due to shadowing from gallbladder Spleen: wnl Right Kidney: inferior cyst measuring 5.5 x 5.0 x 5.9cm Left Kidney: superior cyst measuring 1.8 x 1.8 x 2.0cm Upper IVC: wnl Abd Aorta: wnl Bladder: wnl as seen, not fully distended IMPRESSION: 1. Cholelithiasis. Gallstone limits evaluation of the gallbladder. 2. Bilateral simple appearing renal cysts.
[2020-01-15] MEDS: POTASSIUM BICARBONATE/CIT AC 20 MEQ TABLET.EFF PO SCH ×2 (09:29→09:30)
[2020-01-15] MEDS: CHOLESTYRAMINE (WITH SUGAR) 4 GM PACKET PO SCH ×2 (09:29→17:37)
[2020-01-15] MEDS: PRAVASTATIN SODIUM 20 MG TAB PO SCH (20:47)
[2020-01-15] MEDS: LOSARTAN 25 MG TAB PO SCH (20:47)
[2020-01-15] MEDS: LETROZOLE 2.5 MG PO SCH (20:48)
--- NOTE | 2020-01-16 03:55 | PN ---
PROGRESS NOTE A 79-year-old white female whose potassium is improved to 3.4 today. She is less dehydrated, some puffiness. We will cut her IV down to 50 mL an hour. Hemoglobin is stable at 8.8., sodium 144, potassium 3 4, CO2 is 20, BUN is 10, creatinine 1.48. Plasma lactic acid is normal. Calcium a little bit low. Negative C difficile. Negative stool lactoferrin. Continue current treatment. Lactulose for diarrhea. Replace potassium. Dehydration improved. Breast cancer, continue oncology medications. Please see further orders. Possible discharge home tomorrow. MMODL / IJN: [id number] /
[2020-01-16] MEDS: 0.9% NACL WITH KCL 20 MEQ/L 1,000 ML IV SCH (04:47)
[2020-01-16] MEDS: CYANOCOBALAMIN 500 MCG TAB PO SCH (08:35)
[2020-01-16] MEDS: ASCORBIC ACID 500 MG TAB PO SCH (08:35)
[2020-01-16] MEDS: CHOLECALCIFEROL 1,000 UNIT TAB PO SCH (08:35)
[2020-01-16] MEDS: MULTIVITAMINS, THERA 1 EACH TAB PO SCH (08:35)
[2020-01-16] MEDS: CHOLESTYRAMINE (WITH SUGAR) 4 GM PACKET PO SCH ×2 (08:36→17:24)
[2020-01-16 09:06] LABS: Basophils # (A) 0.1 k/uL (0-0.2); Basophils % (A) 1 %; Eosinophils # (A) 0.1 k/uL (0-0.7); Eosinophils % (A) 2 %; HCT 28.2 % (34.0-46.0); HGB 9.5 gm/dL (11.4-16.0); Lymphocytes # (A) 1.4 k/uL (1.0-4.8); Lymphocytes % (A) 26 %; MCH 37.8 pg (25.0-35.0); MCHC 33.7 g/dL (31.0-37.0); MCV 112.1 fL (80.0-100.0); Macrocytosis Marked; Mean Platelet Volume 8.1; Monocytes # (A) 0.3 k/uL (0-1.0); Monocytes % (A) 5 %; Neutrophils # (A) 3.2 k/uL (1.3-7.7); Neutrophils % (A) 63 %; Platelet Count 176 k/uL (150-450); RBC 2.51 m/uL (3.80-5.40); RDW 14.5 % (11.5-15.5); WBC 5.1 k/uL (3.8-10.6)
[2020-01-16 09:08] LABS: Albumin 3.1 g/dL (3.5-5.0); Calcium 7.6 mg/dL (8.4-10.2); Potassium 3.8 mmol/L (3.5-5.1); Total Bilirubin 0.3 mg/dL (0.2-1.3); Total Protein 5.8 g/dL (6.3-8.2)
--- NOTE | 2020-01-16 11:07 | P.PN ---
Subjective Progress Note Date: 01/16/20 Principal diagnosis: Intractable diarrhea, dehydration, electrolyte derangement In follow-up today patient is sitting in the chair, she states feeling pretty good, she had no bowel movement after dinner last night, she had a bowel movement this morning, was a small amount, she feels it is firming up, she is certainly noted less frequent stooling. Denies urinary symptoms. She is ready to advance her diet. Objective - Vital Signs Vital signs: Vital Signs Temp 98.7 F 01/16/20 05:44 Pulse 67 01/16/20 05:44 Resp 18 01/16/20 05:44 BP 99/54 01/16/20 05:44 Pulse Ox 94 L 01/16/20 05:44 Intake & Output 01/15/20 01/16/20 01/16/20 18:59 06:59 18:59 Intake Total 1100 1920 Balance 1100 1920 Intake: Intake, IV Titration 500 600 Amount 0.9% NaCl with KCl 20 Meq 400 600 /l 1,000 ml @ 50 mls/hr IV .Q20H [facility] Rx#: [id number] cefTRIAXone 1 gm In 100 Sodium Chloride 0.9% 50 ml @ 100 mls/hr IVPB Q12HR [facility] Rx#:[id number] Oral 600 1320 Other: Voiding Method Toilet Toilet Toilet # Voids 4 1 # Bowel Movements 1 - Constitutional General appearance: Present: average body habitus, cooperative, no acute distress - EENT Eyes: Present: anicteric sclerae, EOMI ENT: Present: hearing grossly normal, normal oropharynx - Respiratory Respiratory: bilateral: CTA - Cardiovascular Rhythm: regular Heart sounds: normal: S1, S2 Abnormal Heart Sounds: Absent: systolic murmur, diastolic murmur, rub, S3 Gallop, S4 Gallop, click, other - Peripheral edema leg Peripheral Edema: bilateral: Trace - Gastrointestinal General gastrointestinal: Present: normal bowel sounds, soft. Absent: absent bowel sounds, decreased bowel sounds, distended, hepatomegaly, hyperactive bowel sounds, organomegaly, rigid, scaphoid, splenomegaly, tenderness, umbilical hernia, ventral hernia - Integumentary Integumentary: Present: normal - Neurologic Neurologic: Present: CNII-XII intact - Musculoskeletal Musculoskeletal: Present: strength equal bilaterally - Psychiatric Psychiatric: Present: A&O x's 3, appropriate affect, intact judgment & insight - Labs CBC & Chem 7: 01/16/20 07:52 01/16/20 07:52 Labs: Abnormal Lab Results - Last 24 Hours (Table) 01/16/20 01/16/20 Range/Units 07:52 07:52 RBC 2.51 L (3.80-5.40) m/uL Hgb 9.5 L (11.4-16.0) gm/dL Hct 28.2 L (34.0-46.0) % MCV 112.1 H (80.0-100.0) fL MCH 37.8 H (25.0-35.0) pg Macrocytosis Marked A Chloride 115 H (98-107) mmol/L BUN 5 L (7-17) mg/dL Creatinine 1.25 H (0.52-1.04) mg/dL Glucose 101 H (74-99) mg/dL Calcium 7.6 L (8.4-10.2) mg/dL AST 37 H (14-36) U/L Total Protein 5.8 L (6.3-8.2) g/dL Albumin 3.1 L (3.5-5.0) g/dL Microbiology - Last 24 Hours (Table) 01/13/20 15:01 Urine Culture - Final Urine,Voided Klebsiella pneumoniae 01/14/20 09:20 Stool Culture - Preliminary Stool Yeast species 01/13/20 15:49 Blood Culture - Preliminary Blood No Growth after 48 hours - Imaging and Cardiology US - abdomen: report reviewed (Gallstones noted, nonobstructing) Assessment and Plan (1) Diarrhea Narrative/Plan: Patient's current breast cancer treatment is associated with diarrhea but, typically with earlier onset and decreased incidence as time goes on. Patient was also noted to have a urinary tract infection on admission question of bowel was possibly making the diarrhea worse. Patient is doing much better since being on antibiotics and using questran. States she is not, and did not use imodium to max dose previously. Diarrhea is improving, no c-diff, micro + yeast, normal rima is decreased. Probiotics recommended. Recommendation is to not resume verzenio until she has completed course of antibiotics. She can continue the letrozole. Follow-up appointment will be placed in the chart for her. Current Visit: Yes Status: Acute Priority: High Code(s): R19.7 - DIARRHEA, UNSPECIFIED SNOMED Code(s): 50725314 (2) Acute renal insufficiency Narrative/Plan: Resolved very nicely with hydration Current Visit: Yes Status: Acute Priority: High Code(s): N28.9 - DISORDER OF KIDNEY AND URETER, UNSPECIFIED SNOMED Code(s): 485303979 (3) Dehydration Current Visit: Yes Status: Acute Code(s): E86.0 - DEHYDRATION SNOMED Code(s): 34467088 (4) Hypokalemia Narrative/Plan: Replacement therapy, diarrhea treated, resolved Current Visit: Yes Status: Acute Priority: High Code(s): E87.6 - HYPOKALEMIA SNOMED Code(s): 81991206 (5) Metastatic breast cancer Narrative/Plan: Holders verzenio until completed with antibiotics. Continue letrozole. Follow-up appointment as scheduled. Current Visit: Yes Status: Acute Priority: High Code(s): C50.919 - MALIGNANT NEOPLASM OF UNSP SITE OF UNSPECIFIED FEMALE BREAST SNOMED Code(s): 704220665 Plan: Doctor attests: I performed a history and physical examination of this patient, developed impression and plan of care. Discussed with dictator. I agree with dictators note, documented as a scribe.
--- NOTE | 2020-01-16 11:47 | CDI ---
Documentation Clarification Form Date: 01/16/2020 11:34:31 AM From: Bambi McgovernBarnardNERY, CCDS Admit Date: 01/13/2020 03:35:00 PM Patient Name: Jennie Robison Visit Number: [id number] Discharge Date: ATTENTION: The Clinical Documentation Specialists (CDI) and [facility] Coding Staff appreciate your assistance in clarifying documentation. Please respond to the clarification below the line at the bottom and electronically sign. The CDI & [facility] Coding staff will review the response and follow-up if needed. Please note: Queries are made part of the Legal Health Record. If you have any questions, please contact the author of this message via ITS. Dr. Anne Marie Valles: Acute renal insufficiency is documented in the 01/13 Oncology Consult and the 01/15 Oncology Progress Note without further specificity. History/Risk Factors: Metastatic Breast Cancer, Hypertension Clinical Indicators: Presented to the ED on 01/12 with weakness, excessive diarrhea, low Potassium and dehydration. Currently on oral chemotherapy for Stage IV Right Breast Cancer. Admitted with Dehydration, Hypokalemia, UTI & possible Sepsis. LAB 01/12: BUN 22^, Cr 2.32^, GFR 20. 8/: BUN 14, Cr 1.85^, GFR 26. 8/30: BUN 10, Cr 1.48^, GFR 34. No previous GFR for comparison. Treatment 01/12: IV fluid bolus 1,000 mls @ 999/hr, IV fluid rate 1,000 mls @ 75/hr, po K Lyte, IV Kcl, IV Rocephin, Consults: Nephrology is not consulted. In order to capture the severity of condition, please clarify if the condition signifies: Acute renal failure, Please specify etiology (if known): Acute on Chronic Renal Failure o Please specify stage of Chronic Renal Failure, if known: Stage I Stage II Stage II Chronic Renal Failure ruled out Other, please specify: Unable to determine (Last Revision: August 2017) Per the 01/16 Attending Discharge Summary: Acute Renal Failure is documented. (CDI: JUAN CARLOS) GENO
[2020-01-16] MEDS: LACTOBACILLUS ACIDOPH & BULGAR 1 EACH PACKET PO SCH ×2 (13:40→20:39)
--- NOTE | 2020-01-16 15:03 | P.PN ---
Subjective Progress Note Date: 01/16/20 This is a 79-year-old female admitted with generalized weakness, dehydration, acute renal failure, hypokalemia, history of breast cancer and multiple other medical issues. Significant clinical improvement. Small tear episode 1 this morning, no nausea or vomiting. Diet advanced from clears to full liquids. Denies abdominal pain. Denies chest pain, palpitations or shortness of breath. Afebrile, normal WBC. Renal function improving, creatinine down to 1.25. Potassium 3.8 Objective - Vital Signs Vital signs: Vital Signs Temp 98.6 F 01/16/20 13:00 Pulse 76 01/16/20 13:00 Resp 18 01/16/20 13:00 BP 121/65 01/16/20 13:00 Pulse Ox 98 01/16/20 13:00 Intake & Output 01/15/20 01/16/20 01/16/20 18:59 06:59 18:59 Intake Total 1100 1920 Balance 1100 1920 Intake: Intake, IV Titration 500 600 Amount 0.9% NaCl with KCl 20 Meq 400 600 /l 1,000 ml @ 50 mls/hr IV .Q20H [facility] Rx#: [id number] cefTRIAXone 1 gm In 100 Sodium Chloride 0.9% 50 ml @ 100 mls/hr IVPB Q12HR [facility] Rx#:[id number] Oral 600 1320 Other: Voiding Method Toilet Toilet Toilet # Voids 4 1 # Bowel Movements 1 - Exam PHYSICAL EXAM: VITAL SIGNS: As above GENERAL: Sitting up in chair, no acute distress HEENT: Conjunctivae normal. eyes normal. Oral mucosa moist NECK: No JVD. No thyroid enlargement. No LNs CARDIOVASCULAR: S1, S2 regular.. No murmur RESPIRATION: Breath sounds diminished in the bases. No rhonchi or crackles. No bronchial breathing. ABDOMEN: Soft, nontender . No guarding. no masses palpable. Bowel sounds heard. LEGS: Trace edema. no calf tenderness. PSYCHIATRY: Alert and oriented X3, mood and affect normal. NERVOUS SYSTEM: Cranial N 2-12 grossly normal. Moves all 4 limbs. No focal deficits. Strength and sensation grossly intact.. Skin: Warm and dry, no rash - Labs CBC & Chem 7: 01/16/20 07:52 01/16/20 07:52 Labs: Abnormal Lab Results - Last 24 Hours (Table) 01/16/20 01/16/20 Range/Units 07:52 07:52 RBC 2.51 L (3.80-5.40) m/uL Hgb 9.5 L (11.4-16.0) gm/dL Hct 28.2 L (34.0-46.0) % MCV 112.1 H (80.0-100.0) fL MCH 37.8 H (25.0-35.0) pg Macrocytosis Marked A Chloride 115 H (98-107) mmol/L BUN 5 L (7-17) mg/dL Creatinine 1.25 H (0.52-1.04) mg/dL Glucose 101 H (74-99) mg/dL Calcium 7.6 L (8.4-10.2) mg/dL AST 37 H (14-36) U/L Total Protein 5.8 L (6.3-8.2) g/dL Albumin 3.1 L (3.5-5.0) g/dL Microbiology - Last 24 Hours (Table) 01/13/20 15:01 Urine Culture - Final Urine,Voided Klebsiella pneumoniae 01/14/20 09:20 Stool Culture - Preliminary Stool Yeast species 01/13/20 15:49 Blood Culture - Preliminary Blood No Growth after 48 hours Assessment and Plan Assessment: Sepsis secondary to acute UTI with Klebsiella pneumoniae Dehydration Acute renal failure Hypokalemia secondary to chronic diarrhea Metastatic breast CA, stage IV Hypertension Plan: Continue on current medication regime ,monitoring and symptomatic treatment. Maintain IV fluid hydration, Questran, diet advancement. Discharge planning in progress for tomorrow pending oncology clearance and final DC recommendations. The impression and plan of care has been dictated as directed. : I performed a history and examination of this patient, discussed the same with the dictator. I agree with the dictator's note ,documented as a scribe. Any additional findings or plans will be noted.
[2020-01-16] MEDS: PRAVASTATIN SODIUM 20 MG TAB PO SCH (20:34)
[2020-01-16] MEDS: LETROZOLE 2.5 MG PO SCH (20:34)
[2020-01-16] MEDS: LOSARTAN 25 MG TAB PO SCH (20:34)
[2020-01-16] MEDS: CALCIUM CARBONATE 500 MG CHEWABLE PO SCH (20:38)
[2020-01-17 06:18] VITALS: TEMP 98.4
[2020-01-17 08:47] LABS: Basophils % (A) 1 %; Eosinophils # (A) 0.1 k/uL (0-0.7); Eosinophils % (A) 2 %; HCT 27.9 % (34.0-46.0); HGB 9.3 gm/dL (11.4-16.0); Lymphocytes # (A) 1.4 k/uL (1.0-4.8); Lymphocytes % (A) 28 %; MCH 37.3 pg (25.0-35.0); MCHC 33.2 g/dL (31.0-37.0); MCV 112.2 fL (80.0-100.0); Macrocytosis Marked; Monocytes # (A) 0.3 k/uL (0-1.0); Monocytes % (A) 6 %; Neutrophils # (A) 2.9 k/uL (1.3-7.7); Neutrophils % (A) 59 %; Platelet Count 170 k/uL (150-450); RBC 2.49 m/uL (3.80-5.40); RDW 14.4 % (11.5-15.5); WBC 4.9 k/uL (3.8-10.6)
[2020-01-17] MEDS: CHOLESTYRAMINE (WITH SUGAR) 4 GM PACKET PO SCH (09:04)
[2020-01-17] MEDS: ASCORBIC ACID 500 MG TAB PO SCH (09:05)
[2020-01-17] MEDS: CYANOCOBALAMIN 500 MCG TAB PO SCH (09:05)
[2020-01-17] MEDS: LACTOBACILLUS ACIDOPH & BULGAR 1 EACH PACKET PO SCH (09:05)
[2020-01-17] MEDS: CHOLECALCIFEROL 1,000 UNIT TAB PO SCH (09:05)
[2020-01-17] MEDS: MULTIVITAMINS, THERA 1 EACH TAB PO SCH (09:05)
[2020-01-17 09:23] LABS: Albumin 3.2 g/dL (3.5-5.0); Calcium 7.9 mg/dL (8.4-10.2); Potassium 3.8 mmol/L (3.5-5.1); Total Bilirubin 0.2 mg/dL (0.2-1.3); Total Protein 5.8 g/dL (6.3-8.2)
[2020-01-17 12:26] VITALS: BP 112/63; PULSE 72; RESP 16
--- NOTE | 2020-01-17 14:04 | P.DS ---
Providers Date of admission: 01/13/20 15:35 Expected date of discharge: 01/17/20 Attending physician: Darian Mendenhall Consults: 01/13/20 15:39 Consult Physician Urgent Consulting Provider: Nahun Solo Consult Reason/Comments: Established patient Do you want consulting provider notified?: Yes [facility] Course: Final Diagnoses: Sepsis secondary to acute UTI with Klebsiella pneumoniae Dehydration Acute renal failure Hypokalemia secondary to chronic diarrhea Metastatic breast CA, stage IV Hypertension Hospital course:This is a 79-year-old female admitted with generalized weakness, dehydration, acute renal failure, hypokalemia, history of breast cancer and multiple other medical issues. Significant clinical improvement. Small tear episode 1 this morning, no nausea or vomiting. Diet advanced from clears to full liquids. Denies abdominal pain. Denies chest pain, palpitations or shortness of breath. Afebrile, normal WBC. Renal function improving, creatinine down to 1.25. Potassium 3.8 Maintained on antibiotics, tolerating diet advancement with no nausea or vomiting. Minimal diarrhea, on Questran .Significant improvement. Patient will be discharged home in stable condition with guarded prognosis pending oncology's DC recommendations and clearance. The impression and plan of care has been dictated as directed. : I performed a history and examination of this patient, discussed the same with the dictator. I agree with the dictator's note ,documented as a scribe. Any additional findings or plans will be noted. Patient Condition at Discharge: Stable Plan - Discharge Summary New Discharge Prescriptions: New Cefuroxime Axetil [Ceftin] 500 mg PO BID 3 Days #10 tab Lactobacillus Acidoph & Bulgar [Lactinex] 1 each PO BID #0 packet Cholestyramine (with Sugar) [Questran Packet] 4 gm PO BID@1000,1800 #20 packet Continue Pravastatin Sodium [Pravachol] 20 mg PO HS Losartan Potassium 25 mg PO HS diphenhydrAMINE [Benadryl] 25 mg PO HS PRN PRN Reason: Allergy Symptoms Letrozole [Femara] 2.5 mg PO HS ALPRAZolam [Xanax] 0.25 mg PO BID PRN PRN Reason: Anxiety Naproxen Sodium [Aleve] 220 mg PO DAILY PRN PRN Reason: Pain Multivitamin [Multivitamins Adult Gummies] 2 tab PO DAILY Loperamide [Imodium] 2 - 4 mg PO QID PRN PRN Reason: Diarrhea Abemaciclib [Verzenio] 200 mg PO BID Calcium Carbonate [Tums] 1,000 mg PO DAILY Cyanocobalamin (Vitamin B-12) [Vitamin B-12] 1,000 mcg PO DAILY Tylenol Sinus Congestion/Pain Cool Burst Packet 1 packet PO DAILY PRN PRN Reason: Cold Symptoms Ascorbic Acid [Vitamin C] 1,000 mg PO DAILY Cholecalciferol [Vitamin D3 (25 Mcg = 1000 Iu)] 2,000 unit PO DAILY Prochlorperazine [Compazine] 10 mg PO Q6H PRN PRN Reason: Nausea Discharge Medication List Losartan Potassium 25 mg PO HS 04/27/19 [History] Pravastatin Sodium [Pravachol] 20 mg PO HS 04/27/19 [History] ALPRAZolam [Xanax] 0.25 mg PO BID PRN 06/08/19 [History] Abemaciclib [Verzenio] 200 mg PO BID 06/08/19 [History] Letrozole [Femara] 2.5 mg PO HS 06/08/19 [History] Loperamide [Imodium] 2 - 4 mg PO QID PRN 06/08/19 [History] Multivitamin [Multivitamins Adult Gummies] 2 tab PO DAILY 06/08/19 [History] Naproxen Sodium [Aleve] 220 mg PO DAILY PRN 06/08/19 [History] diphenhydrAMINE [Benadryl] 25 mg PO HS PRN 06/08/19 [History] Calcium Carbonate [Tums] 1,000 mg PO DAILY 06/30/19 [History] Cyanocobalamin (Vitamin B-12) [Vitamin B-12] 1,000 mcg PO DAILY 11/15/19 [History] Ascorbic Acid [Vitamin C] 1,000 mg PO DAILY 01/13/20 [History] Cholecalciferol [Vitamin D3 (25 Mcg = 1000 Iu)] 2,000 unit PO DAILY 01/13/20 [History] Prochlorperazine [Compazine] 10 mg PO Q6H PRN 01/13/20 [History] Tylenol Sinus Congestion/Pain Cool Burst Packet 1 packet PO DAILY PRN 01/13/20 [History] Cefuroxime Axetil [Ceftin] 500 mg PO BID 3 Days #10 tab 01/17/20 [Rx] Cholestyramine (with Sugar) [Questran Packet] 4 gm PO BID@1000,1800 #20 packet 01/17/20 [Rx] Lactobacillus Acidoph & Bulgar [Lactinex] 1 each PO BID #0 packet 01/17/20 [Rx] Follow up Appointment(s)/Referral(s): Sonia Hermosillo ANPBC [Nurse Practitioner] - 01/19/20 2:30 pm Darian Mendenhall MD [Primary Care Provider] - 01/19/20 10:15 am Ambulatory/Diagnostic Orders: Complete Blood Count w/diff [LAB.AMB] Time Frame: 3 Days, Location: None Selected
--- NOTE | 2020-01-17 15:54 | P.PN ---
Subjective Progress Note Date: 01/17/20 Principal diagnosis: Intractable diarrhea, dehydration, electrolyte derangement In follow-up today patient is feeling well, tolerating a diet, she had a semi- formed stool this morning, frequency of bowel movements is less, she is ready to be discharged Objective - Vital Signs Vital signs: Vital Signs Temp 98.4 F 01/17/20 12:25 Pulse 72 01/17/20 12:25 Resp 16 01/17/20 12:25 BP 112/63 01/17/20 12:25 Pulse Ox 98 01/17/20 12:25 Intake & Output 01/16/20 01/17/20 01/17/20 18:59 06:59 18:59 Intake Total 1610 1900 Balance 1610 1900 Weight 81.647 kg Intake: Intake, IV Titration 650 700 Amount 0.9% NaCl with KCl 20 Meq 600 600 /l 1,000 ml @ 50 mls/hr IV .Q20H SANTO Rx#: [id number] cefTRIAXone 1 gm In 50 100 Sodium Chloride 0.9% 50 ml @ 100 mls/hr IVPB Q12HR SANTO Rx#:[id number] Oral 960 1200 Other: Voiding Method Toilet Toilet # Voids 3 1 4 # Bowel Movements 1 1 - Exam Well-developed, adequately nourished, no acute distress, respirations even and unlabored, no swelling in the lower extremities, neurologically grossly intact, psychologically appropriate mood and affect. - Labs CBC & Chem 7: 01/17/20 07:36 01/17/20 07:36 Labs: Abnormal Lab Results - Last 24 Hours (Table) 01/17/20 01/17/20 Range/Units 07:36 07:36 RBC 2.49 L (3.80-5.40) m/uL Hgb 9.3 L (11.4-16.0) gm/dL Hct 27.9 L (34.0-46.0) % MCV 112.2 H (80.0-100.0) fL MCH 37.3 H (25.0-35.0) pg Macrocytosis Marked A Chloride 114 H (98-107) mmol/L Carbon Dioxide 19 L (22-30) mmol/L BUN 5 L (7-17) mg/dL Creatinine 1.12 H (0.52-1.04) mg/dL Glucose 106 H (74-99) mg/dL Calcium 7.9 L (8.4-10.2) mg/dL Total Protein 5.8 L (6.3-8.2) g/dL Albumin 3.2 L (3.5-5.0) g/dL Microbiology - Last 24 Hours (Table) 01/14/20 09:20 Stool Culture - Final Stool Tiffany albicans 01/13/20 15:49 Blood Culture - Preliminary Blood No Growth after 72 hours Assessment and Plan (1) Diarrhea Status: Resolved Priority: High Code(s): R19.7 - DIARRHEA, UNSPECIFIED SNOMED Code(s): 88743840 (2) Acute renal insufficiency Status: Resolved Priority: High Code(s): N28.9 - DISORDER OF KIDNEY AND URETER, UNSPECIFIED SNOMED Code(s): 596095982 (3) Dehydration Status: Resolved Code(s): E86.0 - DEHYDRATION SNOMED Code(s): 56086248 (4) Hypokalemia Status: Resolved Priority: High Code(s): E87.6 - HYPOKALEMIA SNOMED Code(s): 97662347 (5) Metastatic breast cancer Narrative/Plan: Hold verzenio until completed with antibiotics. Continue letrozole. Follow-up appointment as scheduled. Status: Acute Priority: High Code(s): C50.919 - MALIGNANT NEOPLASM OF UNSP SITE OF UNSPECIFIED FEMALE BREAST SNOMED Code(s): 295326893
--- NOTE | 2020-01-18 13:26 | CDI ---
Documentation Clarification Form Date: 01/18/20 From: Yahaira Stuart Phone: If you have a question about this query, please contact Tiara Nickerson, Sales And Leasing Consultant at [phone] between 8am and 5pm. Admit Date: 01/13/20 Discharge Date:01/17/20 Patient Name: Jennie Robison Visit Number: [id number] ATTENTION: The Clinical Documentation Specialists (CDI) and [facility] Coding Staff appreciate your assistance in clarifying documentation. Please respond to the clarification below the line at the bottom and electronically sign. The CDI & [facility] Coding staff will review the response and follow-up if needed. Please note: Queries are made part of the Legal Health Record. If you have any questions, please contact the author of this message via ITS. Dear Dr. Mendenhall Your patient has a documented diagnosis of sepsis documented in your 01/14 - 01/15 progress notes and in the discharge summary - which may lack sufficient clinical evidence/support. History/Risk Factors: UTI, diarrhea, right breast cancer on oral chemotherapy, dehydration, hypokalemia Clinical Indicators: Elevated lactic acid WBC: 5.2, Lactic Acid: 2.9 Lactic Acid Sepsis Rflx: Y Blood cultures: No growth Vital signs on admission: T. 98.1, P. 84 then upt to 110 2 hours later, R. 18 then 20 2 hours later, BP 133/57 Treatment: Antibiotics:IV Rocephin IV Bolus: 1 Liter NS then at 130 mls/hr Based on the clinical evidence and your professional judgment, do you feel sepsis is a valid diagnosis? Yes, sepsis present/active during this admission as evidence by (additional clinical support): No, sepsis was ruled out. Other (please specify diagnosis) Unable to determine MTDD
--- NOTE | 2020-01-18 13:35 | CDI ---
Documentation Clarification Form Date: 01/18/20 From: Yahaira Stuart Phone: If you have a question about this query, please contact Tiara Nickerson Document Management Specialist at [phone] between 8am and 5pm. Admit Date: 01/13/20 Discharge Date:01/17/20 Patient Name: Jennie Robison Visit Number: [id number] ATTENTION: The Clinical Documentation Specialists (CDI) and [facility] Coding Staff appreciate your assistance in clarifying documentation. Please respond to the clarification below the line at the bottom and electronically sign. The CDI & [facility] Coding staff will review the response and follow-up if needed. Please note: Queries are made part of the Legal Health Record. If you have any questions, please contact the author of this message via ITS. Dear Dr. Mendenhall Acute renal failure was documented in the discharge summary and your 01/15 progress note. History/Risk Factors: Diarrhea, dehydration, hypokalemia, hypophosphatemia Patients baseline BUN/CR/GFR: 02/15. Clinical Indicators: Elevated creatinine, generalized weakness Current BUN/Cr/GFR: /2. Urine: 20 Casts Treatment: IVF: NS bolus then at 130 mls/hr In order to capture the severity of condition, please clarify if the condition signifies: Acute renal failure, Please specify etiology (if known): Cortical Necrosis Medullary Necrosis Tubular Necrosis Acute kidney injury Acute on chronic renal failure CKD Stage 1 GFR >90 CKD Stage 2 GFR 60-89 CKD Stage 3 GFR 30-59 CKD Stage 4 GFR 15-29 CKD Stage 5 GFR <15 Other, please specify Unable to determine MTDD
--- NOTE | 2020-01-21 07:37 | PN ---
PROGRESS NOTE ADDENDUM: 1. Sepsis prior to admission secondary to urinary tract infection. 2. Acute tubular necrosis with kidney function stage III. MMODL / IJN: [id number] /
--- NOTE | 2020-01-22 10:26 | PN ---
PROGRESS NOTE ADDENDUM: Chronic kidney disease stage 3. MMODL / IJN: [id number] /
--- NOTE | 2020-01-25 11:57 | CDI ---
Documentation Clarification Form Date: 01/25/20 From: Yahaira Stuart Phone: If you have a question about this query, please contact Tiara Nickerson Pattern Marker at [phone] between 8am and 5pm. Admit Date: 01/13/20 Discharge Date:01/17/20 Patient Name: Jennie Robison Visit Number: [id number] ATTENTION: The Clinical Documentation Specialists (CDI) and [facility] Coding Staff appreciate your assistance in clarifying documentation. Please respond to the clarification below the line at the bottom and electronically sign. The CDI & [facility] Coding staff will review the response and follow-up if needed. Please note: Queries are made part of the Legal Health Record. If you have any questions, please contact the author of this message via ITS. Dear Dr. Mendenhall Thank you for signing your previous query. Please document a response before signing this query. Acute renal failure was documented in the discharge summary and your 01/15 progress note. History/Risk Factors: Diarrhea, dehydration, hypokalemia, hypophosphatemia Patients baseline BUN/CR/GFR: 02/15. Clinical Indicators: Elevated creatinine, generalized weakness Current BUN/Cr/GFR: 01/13/20 - 09/07.; 01/17/20 - Urine: 20 Casts Treatment: IVF: NS bolus then at 130 mls/hr In order to capture the severity of condition, please clarify if the condition signifies: Acute renal failure, Please specify etiology (if known): Cortical Necrosis Medullary Necrosis Tubular Necrosis Acute kidney injury Acute on chronic renal failure CKD Stage 1 GFR >90 CKD Stage 2 GFR 60-89 CKD Stage 3 GFR 30-59 CKD Stage 4 GFR 15-29 CKD Stage 5 GFR <15 Other, please specify Unable to determine MTDD
--- NOTE | 2020-01-25 12:01 | CDI ---
Documentation Clarification Form Date: 01/25/20 From: Yahaira Stuart Phone: If you have a question about this query, please contact Tiara Nickerson Advertising Layout Worker at [phone] between 8am and 5pm. Admit Date: 01/13/20 Discharge Date:01/17/20 Patient Name: Jennie Robison Visit Number: [id number] ATTENTION: The Clinical Documentation Specialists (CDI) and [facility] Coding Staff appreciate your assistance in clarifying documentation. Please respond to the clarification below the line at the bottom and electronically sign. The CDI & [facility] Coding staff will review the response and follow-up if needed. Please note: Queries are made part of the Legal Health Record. If you have any questions, please contact the author of this message via ITS. Dear Dr. Moise Thank you for signing the previous query. Please document a response before signing this query. Your patient has a documented diagnosis of sepsis documented in your 01/14 - 01/15 progress notes and in the discharge summary - which may lack sufficient clinical evidence/support. History/Risk Factors: UTI, diarrhea, right breast cancer on oral chemotherapy, dehydration, hypokalemia Clinical Indicators: Elevated lactic acid WBC: 5.2, Lactic Acid: 2.9 Lactic Acid Sepsis Rflx: Y Blood cultures: No growth Vital signs on admission: T. 98.1, P. 84 then upt to 110 2 hours later, R. 18 then 20 2 hours later, BP 133/57 Treatment: Antibiotics:IV Rocephin IV Bolus: 1 Liter NS then at 130 mls/hr Based on the clinical evidence and your professional judgment, do you feel sepsis is a valid diagnosis? Yes, sepsis present/active during this admission as evidence by (additional clinical support): No, sepsis was ruled out. Other (please specify diagnosis) Unable to determine MTDD
--- NOTE | 2020-02-03 11:09 | PN ---
PROGRESS NOTE ADDENDUM: Please add: 1. Acute tubular necrosis. 2. Chronic renal disease, stage III. 3. Lactic acidosis. 4. Urinary tract infection with sepsis. MMODL / IJN: [id number] /
== END 2020-01-17 15:11 | disposition home or self-care (01) | DRG 871 ==
LOC: EC 13:20 → 5NMEDONC 15:35
PROVIDERS: ADMIT Family Medicine; ATTEND Family Medicine
DX: A41.59 Other Gram-negative sepsis (principal); N17.0 Acute kidney failure with tubular necrosis; C79.9 Secondary malignant neoplasm of unspecified site; K52.1 Toxic gastroenteritis and colitis; N39.0 Urinary tract infection, site not specified; E87.2 Acidosis; E83.39 Other disorders of phosphorus metabolism; N18.3 Chronic kidney disease, stage 3 (moderate); C50.911 Malignant neoplasm of unspecified site of right female breast; E87.6 Hypokalemia; I12.9 Hypertensive chronic kidney disease with stage 1 through stage 4 chronic kidney disease, or unspecified chronic kidney disease; E86.0 Dehydration; I10 Essential (primary) hypertension; T45.1X5A Adverse effect of antineoplastic and immunosuppressive drugs, initial encounter; D53.9 Nutritional anemia, unspecified; E66.9 Obesity, unspecified; Z68.30 Body mass index [BMI] 30.0-30.9, adult; Z79.811 Long term (current) use of aromatase inhibitors; Z79.82 Long term (current) use of aspirin; Z79.899 Other long term (current) drug therapy; Z88.0 Allergy status to penicillin; Z90.49 Acquired absence of other specified parts of digestive tract; Z90.89 Acquired absence of other organs; Z98.42 Cataract extraction status, left eye; Z98.41 Cataract extraction status, right eye; Z98.890 Other specified postprocedural states; Z80.52 Family history of malignant neoplasm of bladder; Z83.3 Family history of diabetes mellitus
CPT/HCPCS: 36415; 76700; 76857; 80053; 81001; 82746; 83605; 83615; 83630; 83735; 83921; 84100; 84132; 84484; 85025; 87040; 87045; 87046; 87077; 87086; 87186; 87324; 93005; 96361; 96365; 96375; 99285

== ENCOUNTER → 2020-04-27 | Outpatient (CLI) | payer MEDICARE ==
--- NOTE | 2020-04-30 08:25 | PE ---
EXAMINATION TYPE: PET CT fusion skull to thigh DATE OF EXAM: 04/27/2020 COMPARISON: Prior PET/CT October 21, 2019 and older study May 27, 2019 HISTORY: History of metastatic right-sided breast cancer diagnosed April 2019 currently undergoing chemotherapy treatment TECHNIQUE: Following the intravenous administration of 11.48 mCi of F-18 FDG, whole body images are performed from the skull base to the midthigh. Images are reviewed on the computer in the coronal, a xial, and sagittal planes. Reconstructed rotating images are created on independent workstation and reviewed on the computer. A localization and attenuation correction CT is performed in conjunction with the PET scan. Blood glucose level equals 114. SCAN: Subsequent Scan FINDINGS: SKULL BASE AND NECK: No new areas of abnormal hypermetabolic uptake. CHEST, MEDIASTINUM, AND HILAR REGION: Continued interval improvement in focus of abnormal hypermetabo lic uptake right breast, roughly 1 cm focus currently with Max SUV 3.81 on axial image 87 immediately above the biopsy clip. No new areas of abnormal hypermetabolic uptake including left breast and bila teral axillary regions. ABDOMEN AND PELVIS: Mild focal hypermetabolic uptake near level of anus, max SUV is 4.25 on axial attila ge 233. Consider correlating with direct physical exam. No additional areas of suspicious new or recu rrent hypermetabolic uptake on current study. OSSEOUS STRUCTURES: No new areas of abnormal hypermetabolic uptake. Some scattered sclerotic lesions remain present. OTHER CT: Cardiomegaly is redemonstrated. Nondependent air in the gallbladder are again seen. Large exophytic 6.5 cm simple appearing thin-wall ed cyst right kidney lower pole level redemonstrated. Persistent Anteverted uterus. Scattered phlebol iths. S-shaped scoliosis with multilevel spurring the spine. Facet arthropathy lower lumbar levels. IMPRESSION: Continued improvement in primary right breast mass or neoplasm. Marked improvement in met astatic disease from initial study without new suspicious lesions. Persistent abnormal hypermetabolic uptake in the lower rectum should be correlated clinically. Otherwise no new or persistent areas of abnormal hypermetabolic uptake.
== END | disposition home or self-care (01) ==
LOC: RADPETMAIN 08:56
PROVIDERS: ATTEND Internal Medicine Hematology & Oncology
DX: C79.9 Secondary malignant neoplasm of unspecified site (principal); R93.3 Abnormal findings on diagnostic imaging of other parts of digestive tract; C50.111 Malignant neoplasm of central portion of right female breast; Z92.21 Personal history of antineoplastic chemotherapy
CPT/HCPCS: 78815; A9552

== ENCOUNTER → 2020-10-26 | Outpatient (CLI) | payer MEDICARE ==
--- NOTE | 2020-10-29 07:59 | PE ---
EXAMINATION TYPE: PET CT fusion skull to thigh DATE OF EXAM: 10/26/2020 COMPARISON: Prior PET/CT April 27, 2020 and older studies HISTORY: History of metastatic right-sided breast cancer diagnosed April 2019 currently undergoing chemotherapy treatment TECHNIQUE: Following the intravenous administration of 10.28 mCi of F-18 FDG, whole body images are performed from the skull base to the midthigh. Images are reviewed on the computer in the coronal, a xial, and sagittal planes. Reconstructed rotating images are created on independent workstation and reviewed on the computer. A localization and attenuation correction CT is performed in conjunction with the PET scan. Blood glucose level equals 104. SCAN: Subsequent Scan FINDINGS: SKULL BASE AND NECK: No new areas of abnormal hypermetabolic uptake. CHEST, MEDIASTINUM, AND HILAR REGION: Persistent abnormal hypermetabolic uptake right breast, roughly 1 cm focus currently with Max SUV 4.08 versus 3.81 prior study on axial image 85 immediately just ab ove and posterior to the biopsy clip. New posterior lower thoracic hypermetabolic 10 mm nodule axial image 98, max SUV is 4.27. ABDOMEN AND PELVIS: Mild hypermetabolic uptake near level of anus, max SUV is 4.13 similar to prior s tudy. Nonspecific finding. No additional areas of suspicious new or recurrent hypermetabolic uptake on current study. OSSEOUS STRUCTURES: New hypermetabolic uptake left upper sacrum extending horizontally near image 183 corresponds to site of larger sclerotic focus centrally and a few adjacent smaller sclerotic lesions max SUV 8.24. Consider insufficiency fracture or fracture. No significant interval change correspond ing attenuation correction CT. Sclerotic metastatic lesions remain present. OTHER CT: Cardiomegaly is redemonstrated. Nondependent air in the gallbladder are again seen. Large exophytic 6.5 cm simple appearing thin-wall ed cyst right kidney lower pole level redemonstrated. Persistent Anteverted uterus. Scattered phlebol iths. S-shaped scoliosis with multilevel spurring the spine. Facet arthropathy lower lumbar levels. IMPRESSION: Stable primary right breast mass or neoplasm. Suspicious new posterior left lower thoraci c subcutaneous metastatic lesion. Sclerotic osseous metastatic disease fairly stable. New sacral hype rmetabolic uptake despite fairly stable sclerotic appearance on attenuation correction CT raises conc joe for insufficiency fracture. Correlate clinically.
== END | disposition home or self-care (01) ==
LOC: RADPETMAIN 10:28
PROVIDERS: ATTEND Internal Medicine Hematology & Oncology
DX: C79.51 Secondary malignant neoplasm of bone (principal); C50.111 Malignant neoplasm of central portion of right female breast; C79.89 Secondary malignant neoplasm of other specified sites
CPT/HCPCS: 78815; A9552

== ENCOUNTER → 2021-02-01 | Outpatient (CLI) | payer MEDICARE ==
--- NOTE | 2021-02-05 09:53 | PE ---
EXAMINATION TYPE: PET CT fusion skull to thigh DATE OF EXAM: 02/01/2021 COMPARISON: Most recent PET CT October 26, 2020 and older studies. HISTORY: Right-sided breast cancer invasive ductal carcinoma diagnosed 2019 treated with radiation 20 19, ongoing hormone therapy. Metastatic nodule left buttocks. TECHNIQUE: Following the intravenous administration of 11.48 mCi of F-18 FDG, whole body images are performed from the skull base to the midthigh. Images are reviewed on the computer in the coronal, a xial, and sagittal planes. Reconstructed rotating images are created on independent workstation and reviewed on the computer. A localization and attenuation correction CT is performed in conjunction with the PET scan. Blood glucose level equals 100. SCAN: Subsequent Scan FINDINGS: Exam slightly suboptimal secondary to patient's large body habitus. SKULL BASE AND NECK: No new areas of abnormal hypermetabolic uptake. CHEST, MEDIASTINUM, AND HILAR REGION: Persistent abnormal hypermetabolic right breast mass, larger hy permetabolic focus currently with Max SUV slightly increased at 4.22 versus 4[address] udy. Breast mass overall fairly stable in size at 3.1 x 2.2 cm. There is however new hypermetabolic s oft tissue just below skin thickening axial image 76 measuring approximately 1.9 x 1.1 cm. Prior posterior lower thoracic hypermetabolic 10 mm nodule now is slightly larger at 14 x 10 mm. Max SUV is increased at 5.16 on axial image 96 versus prior study 4.27. There are new small bilateral pleural effusions. There is nondependent nodular consolidation anterior right midlung with mild hypermetabolic uptake near axial image 80 and corresponding to 8mm area axia l image 91. Most suspicious area is 2.0 x 1.5 cm nodule or nodular consolidation with abnormal hyperm etabolic uptake on axial image 96, max SUV is 5.26. Areas of subtle mildly hypermetabolic subcentimeter left lung nodules near axial image 73 and 91 are suspected. Max SUV between 2.5 and 3.5. Hypermetabolic right hilar subcentimeter nodule or lymph node axial image 81, max SUV is 4.06. ABDOMEN AND PELVIS: Mild hypermetabolic uptake near level of anus similar to prior study. Nonspecific finding. Correlate clinically. Mild diffuse hepatic uptake redemonstrated. Normal excretion again se en. Mild hypermetabolic uptake posterior right hepatic lobe without definitive CT correlate axial attila ge 121, max SUV is 3.46. No additional new areas of abnormal hypermetabolic uptake. OSSEOUS STRUCTURES: Sclerotic osseous metastatic disease redemonstrated. Persistent sacral uptake wit h new right sided uptake. No definitive CT correlate. New left iliac uptake along sacroiliac joint ex tending into a shield tuberosity without definitive CT correlate. Additional new hypermetabolic L5 le vishnu axial image [address] correlate. Hypermetabolic osseous areas of increased uptake in the thoracic spine and right acromion axial image 45 for reference. Subtle new sclerotic lesion right acromion noted. OTHER CT: Cardiomegaly is redemonstrated. Nondependent air in the gallbladder and pneumobilia are noted. Large exophytic 6.5 cm simple appearin g thin-walled cyst right kidney lower pole level redemonstrated. Persistent Anteverted uterus. Scatte red phleboliths. S-shaped scoliosis with multilevel spurring in the spine. Facet arthropathy lower kandi mbar levels. IMPRESSION: Overall neoplastic progression or worsening disease. Increased area of abnormal hypermeta bolic uptake right breast mass or neoplasm. New suspicious hypermetabolic tissue just below skin surf annie. Worsening posterior left lower thoracic subcutaneous metastatic lesion. Worsening sclerotic osse ous metastatic disease. New small bilateral pleural effusions. Suspect developing pulmonary metastati c disease. Cannot exclude developing hepatic metastatic liver lesion.
== END | disposition home or self-care (01) ==
LOC: RADPETMAIN 14:54
PROVIDERS: ATTEND Internal Medicine Hematology & Oncology
DX: C50.111 Malignant neoplasm of central portion of right female breast (principal); C79.51 Secondary malignant neoplasm of bone; J90 Pleural effusion, not elsewhere classified
CPT/HCPCS: 78815; A9552

== ENCOUNTER 2021-02-07 18:55 | Inpatient (IN) | payer MEDICARE ==
[2021-02-07 20:30] LABS: Basophils # (A) 0.1 k/uL (0-0.2); Basophils % (A) 1 %; Eosinophils # (A) 0.1 k/uL (0-0.7); Eosinophils % (A) 1 %; HCT 37.8 % (34.0-46.0); HGB 12.2 gm/dL (11.4-16.0); Lymphocytes # (A) 1.1 k/uL (1.0-4.8); Lymphocytes % (A) 10 %; MCHC 32.3 g/dL (31.0-37.0); MCV 99.3 fL (80.0-100.0); Mean Platelet Volume 9.4; Monocytes # (A) 0.8 k/uL (0-1.0); Monocytes % (A) 8 %; Neutrophils # (A) 8.4 k/uL (1.3-7.7); Neutrophils % (A) 79 %; Platelet Count 262 k/uL (150-450); RBC 3.81 m/uL (3.80-5.40); RDW 12.7 % (11.5-15.5); WBC 10.7 k/uL (3.8-10.6)
[2021-02-07 20:40] LABS: INR 1.2 (<1.2); Prothrombin Time 12.6 sec (9.0-12.0)
[2021-02-07 20:44] LABS: Albumin 4.1 g/dL (3.5-5.0); Calcium 8.9 mg/dL (8.4-10.2); Potassium 4.2 mmol/L (3.5-5.1); Total Bilirubin 0.6 mg/dL (0.2-1.3); Total Protein 7.3 g/dL (6.3-8.2)
--- NOTE | 2021-02-07 21:12 | XR ---
EXAMINATION TYPE: XR chest 2V DATE OF EXAM: 02/07/2021 COMPARISON: PET/CT 02/01/2021 HISTORY: Dyspnea TECHNIQUE: Frontal and lateral views of the chest are obtained. FINDINGS: Cardiomediastinal silhouette is within normal limits. Prominent reticular opacity bilateral ly. There are small bilateral effusions. There is no pneumothorax or consolidation. IMPRESSION: Bilateral interstitial edema and small bilateral effusions.
--- NOTE | 2021-02-07 21:31 | ED ---
SOB HPI - General Chief Complaint: Shortness of Breath Stated Complaint: BOBY Source: patient Mode of arrival: ambulatory Limitations: no limitations - History of Present Illness Initial Comments: Patient is a 80-year-old female presents emergency room with reported shortness of breath. Patient states that she has been short of breath for the past 2 weeks and it has been progressing. She denies previous history of cardiac or lung disease. She does have stage IV breast cancer. Has not had any immunotherapy since November. No current chemo or radiation. Shortness of breath i s exertional. Denies history of DVT or PE. No lower extremity swelling. Patient saw her oncologist and had an x-ray done on Thursday which demonstrated pleural effusions. They were going to have an outpatient drainage however the patient began having worsening symptoms and she appears recommended that she come in to the emergency room sooner. She denies any fevers or chills. No cough. On arrival patient's oxygenation was 80%. 2 L applied and patient is 94-95%. Denies chest pain. No congestive heart failure history. She also comments that she has right breast cellulitis which is failing outpatient treatment. She was on a course of clindamycin and is currently on a course of Bactrim. States that she does not have any improvement in the redness, swelling and pain in the right breast. No other alleviating, precipitating or modifying factors - Related Data Home Medications Medication Instructions Recorded Confirmed Losartan Potassium 50 mg PO HS 04/27/19 02/07/21 Pravastatin Sodium [Pravachol] 20 mg PO HS 04/27/19 02/07/21 diphenhydrAMINE [Benadryl] 25 mg PO HS PRN 06/08/19 02/07/21 Phenylephrine HCl/Acetaminophn 1 tab PO Q8H PRN 02/07/21 02/07/21 [Tylenol Sinus Headache Caplet] Sulfamethox-Tmp 800-160Mg [Bactrim 1 tab PO Q12HR 02/07/21 02/07/21 DS 800-160 mg] Allergies Allergy/AdvReac Type Severity Reaction Status Date / Time Penicillins Allergy Itching Verified 02/07/21 20:41 Review of Systems ROS Statement: Those systems with pertinent positive or pertinent negative responses have been documented in the HPI. ROS Other: All systems not noted in ROS Statement are negative. Past Medical History Past Medical History: Hypertension Additional Past Medical History / Comment(s): rt breast cancer stage 4-currently on oral tx., plural effiusion History of Any Multi-Drug Resistant Organisms: None Reported Past Surgical History: Appendectomy, Hernia Repair, Tonsillectomy Additional Past Surgical History / Comment(s): rt cataract 06/06/14; lt cataract 07/2014; bowel surgery 07/2016; Past Anesthesia/Blood Transfusion Reactions: No Reported Reaction Past Psychological History: No Psychological Hx Reported Smoking Status: Never smoker Past Alcohol Use History: Occasional Past Drug Use History: None Reported - Past Family History Mother Family Medical History: Diabetes Mellitus Additional Family Medical History / Comment(s): Angina Father Family Medical History: Cancer Additional Family Medical History / Comment(s): bladder cancer General Exam Limitations: no limitations Course Vital Signs 02/07/21 02/07/21 02/07/21 18:56 19:36 21:35 Temperature 99.1 F 98.4 F Pulse Rate 99 73 70 Respiratory 18 22 20 Rate Blood Pressure 152/95 153/69 143/63 O2 Sat by Pulse 91 L 88 L Oximetry Medical Decision Making - Medical Decision Making Upon arrival she is placed in room 2. A thorough history and physical exam is performed. Patient is requiring supplemental oxygenation at this time. Laboratory says her conducted and a repeat chest x-rays performed. I did review the patient's PET scan which demonstrates worsening metastatic disease. La boratory studies are reviewed. Lactic acid 2.1. Troponin is negative. Chest x-ray demonstrates bilateral interstitial edema and small bilateral pleural effusions. Patient is given 40 mg of Lasix. I did initiate clindamycin and vancomycin IV. Recommend admission for IV diuresis, echo, heme and infectious disease consult. Patient agreed to the treatment plan. Page Dr. lucia and awaiting callback. Patient awaiting a bed on the floor - Lab Data Result diagrams: 02/07/21 20:07 02/07/21 20:07 Lab Results 02/07/21 02/07/21 02/07/21 Range/Units 20:07 20:07 20:07 WBC 10.7 H (3.8-10.6) k/uL RBC 3.81 (3.80-5.40) m/uL Hgb 12.2 (11.4-16.0) gm/dL Hct 37.8 (34.0-46.0) % MCV 99.3 (80.0-100.0) fL MCH 32.0 (25.0-35.0) pg MCHC 32.3 (31.0-37.0) g/dL RDW 12.7 (11.5-15.5) % Plt Count 262 (150-450) k/uL MPV 9.4 Neutrophils % 79 % Lymphocytes % 10 % Monocytes % 8 % Eosinophils % 1 % Basophils % 1 % Neutrophils # 8.4 H (1.3-7.7) k/uL Lymphocytes # 1.1 (1.0-4.8) k/uL Monocytes # 0.8 (0-1.0) k/uL Eosinophils # 0.1 (0-0.7) k/uL Basophils # 0.1 (0-0.2) k/uL PT 12.6 H (9.0-12.0) sec INR 1.2 H (<1.2) APTT 19.0 L (22.0-30.0) sec Sodium 135 L (137-145) mmol/L Potassium 4.2 (3.5-5.1) mmol/L Chloride 104 (98-107) mmol/L Carbon Dioxide 20 L (22-30) mmol/L Anion Gap 11 mmol/L BUN 14 (7-17) mg/dL Creatinine 1.12 H (0.52-1.04) mg/dL Est GFR (CKD-EPI)AfAm 54 (>60 ml/min/1.73 sqM) Est GFR (CKD-EPI)NonAf 47 (>60 ml/min/1.73 sqM) Glucose 100 H (74-99) mg/dL Plasma Lactic Acid Patrick (0.7-2.0) mmol/L Calcium 8.9 (8.4-10.2) mg/dL Total Bilirubin 0.6 (0.2-1.3) mg/dL AST 55 H (14-36) U/L ALT 17 (4-34) U/L Alkaline Phosphatase 73 (38-126) U/L Troponin I (0.000-0.034) ng/mL NT-Pro-B Natriuret Pep pg/mL Total Protein 7.3 (6.3-8.2) g/dL Albumin 4.1 (3.5-5.0) g/dL 02/07/21 02/07/21 02/07/21 Range/Units 20:07 20:07 20:07 WBC (3.8-10.6) k/uL RBC (3.80-5.40) m/uL Hgb (11.4-16.0) gm/dL Hct (34.0-46.0) % MCV (80.0-100.0) fL MCH (25.0-35.0) pg MCHC (31.0-37.0) g/dL RDW (11.5-15.5) % Plt Count (150-450) k/uL MPV Neutrophils % % Lymphocytes % % Monocytes % % Eosinophils % % Basophils % % Neutrophils # (1.3-7.7) k/uL Lymphocytes # (1.0-4.8) k/uL Monocytes # (0-1.0) k/uL Eosinophils # (0-0.7) k/uL Basophils # (0-0.2) k/uL PT (9.0-12.0) sec INR (<1.2) APTT (22.0-30.0) sec Sodium (137-145) mmol/L Potassium (3.5-5.1) mmol/L Chloride (98-107) mmol/L Carbon Dioxide (22-30) mmol/L Anion Gap mmol/L BUN (7-17) mg/dL Creatinine (0.52-1.04) mg/dL Est GFR (CKD-EPI)AfAm (>60 ml/min/1.73 sqM) Est GFR (CKD-EPI)NonAf (>60 ml/min/1.73 sqM) Glucose (74-99) mg/dL Plasma Lactic Acid Patrick 2.1 H* (0.7-2.0) mmol/L Calcium (8.4-10.2) mg/dL Total Bilirubin (0.2-1.3) mg/dL AST (14-36) U/L ALT (4-34) U/L Alkaline Phosphatase (38-126) U/L Troponin I <0.012 (0.000-0.034) ng/mL NT-Pro-B Natriuret Pep 155 pg/mL Total Protein (6.3-8.2) g/dL Albumin (3.5-5.0) g/dL - EKG Data EKG Comments: EKG demonstrates sinus rhythm with PACs. Rate of 88. RI interval 144. QRS 76. QTC of 442. No acute ST segment elevation or depression and low voltage. Disposition Clinical Impression: Metastatic breast cancer, Cellulitis of breast, Pulmonary edema, Pleural effusion, Hypoxia Disposition: ADMITTED IP TO THIS HOSP Condition: Stable Is patient prescribed a controlled substance at d/c from ED?: No Referrals: Darian Mendenhall MD [Primary Care Provider] - 1-2 days Decision to Admit Reason: Admit from EC Decision Date: 02/07/21 Decision Time: 21:47
[2021-02-07] MEDS ORDERED: VANCOMYCIN IV PER PHARMACY 1 EACH MISC MISCELLANE PRN (21:44)
[2021-02-07] MEDS ORDERED: NALOXONE 0.4 MG/ML 1 ML VIAL IV PRN (21:49)
[2021-02-07] MEDS ORDERED: diphenhydrAMINE 25 MG CAP PO PRN (21:53)
[2021-02-07] MEDS ORDERED: VANCOMYCIN 1,250 MG in SODIUM CHLORIDE 0.9% 250 ML IVPB ONE (22:00)
[2021-02-07] MEDS ORDERED: VANCOMYCIN 1,500 MG in SODIUM CHLORIDE 0.9% 250 ML IVPB ONE (22:00)
[2021-02-07] MEDS: FUROSEMIDE 10 MG/ML 4 ML VIAL IV SCH (22:20)
[2021-02-07] MEDS: CLINDAMYCIN 600 MG in DEXTROSE 5% IN WATER 50 ML IVPB SCH ×2 (22:20)
[2021-02-07] MEDS: LOSARTAN 50 MG TAB PO SCH (22:37)
[2021-02-07] MEDS: PRAVASTATIN SODIUM 20 MG TAB PO SCH (22:37)
[2021-02-08 05:51] LABS: Basophils % (A) 0 %; Eosinophils # (A) 0.1 k/uL (0-0.7); Eosinophils % (A) 1 %; HCT 36.1 % (34.0-46.0); HGB 11.3 gm/dL (11.4-16.0); Lymphocytes # (A) 0.8 k/uL (1.0-4.8); Lymphocytes % (A) 9 %; MCH 31.3 pg (25.0-35.0); MCHC 31.3 g/dL (31.0-37.0); MCV 99.9 fL (80.0-100.0); Mean Platelet Volume 8.4; Monocytes # (A) 0.7 k/uL (0-1.0); Monocytes % (A) 8 %; Neutrophils # (A) 7.2 k/uL (1.3-7.7); Neutrophils % (A) 79 %; Platelet Count 229 k/uL (150-450); RBC 3.61 m/uL (3.80-5.40); RDW 12.6 % (11.5-15.5); WBC 9.1 k/uL (3.8-10.6)
[2021-02-08 06:05] LABS: Calcium 8.6 mg/dL (8.4-10.2); Potassium 4.1 mmol/L (3.5-5.1)
[2021-02-08] MEDS: FUROSEMIDE 10 MG/ML 4 ML VIAL IV SCH ×2 (08:16→20:07)
[2021-02-08] MEDS: CLINDAMYCIN 600 MG in DEXTROSE 5% IN WATER 50 ML IVPB SCH ×2 (08:17)
--- NOTE | 2021-02-08 09:33 | ECHOF ---
Referral Reason:shortness of breath MEASUREMENTS -------- HEIGHT: 162.6 cm WEIGHT: 96.6 kg BP: 127/62 RVIDd: 2.9 cm (< 3.3) IVSd: 1.3 cm (0.6 - 1.1) LVIDd: 3.3 cm (3.9 - 5.3) LVPWd: 1.3 cm (0.6 - 1.1) IVSs: 1.8 cm LVIDs: 1.9 cm LVPWs: 1.6 cm LA Diam: 3.5 cm (2.7 - 3.8) Ao Diam: 2.7 cm (2.0 - 3.7) AV Cusp: 1.4 cm (1.5 - 2.6) MV EXCURSION: 14.967 mm (> 18.000) MV EF SLOPE: 43 mm/s (70 - 150) EPSS: 0.5 cm MV E Pollo: 0.82 m/s MV DecT: 194 ms MV A Pollo: 1.16 m/s MV E/A Ratio: 0.70 RAP: 5.00 mmHg RVSP: 37.62 mmHg FINDINGS -------- Sinus rhythm. This was a technically adequate study. The left ventricular size is normal. There is mild concentric left ventricular hypertrophy. Overa ll left ventricular systolic function is normal with, an EF between 55 - 60 %. The right ventricle is normal in size. The left atrium is normal in size. The right atrial size is normal. Interatrial and interventricular septum intact. The aortic valve is trileaflet, and appears structurally normal. No aortic stenosis or regurgitation. Mild mitral annular calcification present. There is trace mitral regurgitation. The tricuspid valve appears structurally normal. Mild tricuspid regurgitation present. There is m ild pulmonary hypertension. The right ventricular systolic pressure, as measured by Doppler, is 37. 62mmHg. Trace/mild (physiologic) pulmonic regurgitation. The aortic root size is normal. Normal inferior vena cava with normal inspiratory collapse consistent with estimated right atrial pre ssure of 5 mmHg. There is no pericardial effusion. CONCLUSIONS -------- 1. There is mild concentric left ventricular hypertrophy. 2. Overall left ventricular systolic function is normal with, an EF between 55 - 60 %. 3. The left atrium is normal in size. 4. The aortic valve is trileaflet, and appears structurally normal. No aortic stenosis or regurgitati on. 5. Mild mitral annular calcification present. 6. Mild tricuspid regurgitation present. 7. There is mild pulmonary hypertension. 8. Trace/mild (physiologic) pulmonic regurgitation. 9. There is no pericardial effusion. SEAT JOINER CHAINSTITCH: Brit Edmond RDCS
--- NOTE | 2021-02-08 16:17 | CT ---
EXAMINATION TYPE: CT angio chest DATE OF EXAM: 02/08/2021 4:05 PM COMPARISON: Chest x-ray from yesterday. PET/CT one week ago. HISTORY: SOB, history of metastatic breast cancer. CT DLP: 502.6 mGycm Automated exposure control for dose reduction was used. CONTRAST: CTA scan of the thorax is performed with IV Contrast, patient injected with 80 mL of Isovue 370, pulm onary embolism protocol. MIP images are created and reviewed. FINDINGS: Suboptimal study as patient unable to hold breath. LUNGS: Small to moderate size right greater than left pleural effusions redemonstrated not significan tly changed from most recent CT. Anterior left basilar scarring or atelectasis again seen. Peripheral pleural-based anterior curvilinear consolidation axial image 62 is redemonstrated with additional ar eas of nodularity inferior to this corresponding to hypermetabolic suspicious areas on recent PET/CT. MEDIASTINUM: There is suboptimal bolus with no large central pulmonary embolism. Cannot exclude segme ntal and subsegmental pulmonary emboli on this study. Mild cardiomegaly. There are no greater than 1 cm hilar or mediastinal lymph nodes. No pericardial effusion is seen. OTHER: Asymmetric right breast skin thickening with hypermetabolic 3.4 x 2.1 cm mass approximately 6 1 is redemonstrated. Roughly 1.5 cm metastatic lesion posterior left subcutaneous tissue echo image 8 9 redemonstrated. Pneumobilia partially imaged is redemonstrated. Simple appearing thin-walled 2.0 cm cyst upper pole left kidney is redemonstrated. Sclerotic ossific foci consistent with metastatic disease again seen throughout the thoracic spine an d some of the ribs. IMPRESSION: Suboptimal study without large central pulmonary embolism. Cannot exclude peripheral segm ental and subsegmental PE on this exam. Metastatic breast cancer findings redemonstrated without sign ificant interval change from recent PET/CT. Mild cardiomegaly with small to moderate size right great er than left pleural effusions redemonstrated without significant interval change.
--- NOTE | 2021-02-08 16:24 | P.HPIM ---
History of Present Illness H&P Date: 02/08/21 Chief Complaint: Shortness of breath Patient is a 80-year-old female who presented emergency department last night with complaint of shortness of breath going on for 2 weeks have been progressive in nature, no denies any cough or sputum production, patient does have a stage IV breast cancer [facility]ology [facility], it appears that no chemotherapy since November currently no chemoradiation due to shortness of breath which is exertional in nature patient is being planned for CAT scan, patient has seen her primary oncologist week ago which she demonstrated presence of bilateral effusion, due to increasing shortness of breath patient admitted into the hospital and thoracentesis is not performed, on specific questioning denies any seizure-like activity denies any chest pain cough or sputum production her oxygen saturation is 80%, on 2 L however it's improved to 94%, denies any prior history of heart failure, she has a component of the right breast cellulitis which is being treated with clindamycin and Bactrim outpatient basis, chest x- ray significant for a small bilateral pleural effusion and interstitial edema, computed tomography scan also show small to moderate bilateral pleural effusion slightly more on the right side, along with scarring atelectasis, some c onsolidation noted which is corresponding to recent hypermetabolic suspicious area on PET scan, overlying breast there is a hypermetabolic 3.42.1 cm mass with 1.5 cm nodule in the subcutaneous skin, echocardiogram revealed ejection fraction of 55%, with LVH along with mild pulmonary hypertension Past medical history significant for hypertension hypertensive cardiovascular disease dyslipidemia Review of Systems All systems: negative Past Medical History Past Medical History: Hyperlipidemia, Hypertension, Syncope Additional Past Medical History / Comment(s): rt breast cancer stage 4- came of femara and injections just took off on thursday., History of Any Multi-Drug Resistant Organisms: None Reported Past Surgical History: Appendectomy, Hernia Repair, Tonsillectomy Additional Past Surgical History / Comment(s): rt cataract 06/06/14; lt cataract 07/2014; bowel surgery 07/2016; Past Anesthesia/Blood Transfusion Reactions: No Reported Reaction Past Psychological History: No Psychological Hx Reported Smoking Status: Never smoker Past Alcohol Use History: Occasional Past Drug Use History: None Reported - Past Family History Mother Family Medical History: Diabetes Mellitus Additional Family Medical History / Comment(s): Angina Father Family Medical History: Cancer Additional Family Medical History / Comment(s): bladder cancer Medications and Allergies Home Medications Medication Instructions Recorded Confirmed Type Losartan Potassium 50 mg PO HS 04/27/19 02/07/21 History Pravastatin Sodium [Pravachol] 20 mg PO HS 04/27/19 02/07/21 History diphenhydrAMINE [Benadryl] 25 mg PO HS PRN 06/08/19 02/07/21 History Phenylephrine HCl/Acetaminophn 1 tab PO Q8H PRN 02/07/21 02/07/21 History [Tylenol Sinus Headache Caplet] Sulfamethox-Tmp 800-160Mg [Bactrim 1 tab PO Q12HR 02/07/21 02/07/21 History DS 800-160 mg] Allergies Allergy/AdvReac Type Severity Reaction Status Date / Time Penicillins Allergy Itching Verified 02/07/21 20:41 Physical Exam Vitals: Vital Signs Temp Pulse Pulse Resp BP BP Pulse Ox 02/08/21 11:20 98.5 F 79 18 123/72 92 L 02/08/21 04:16 98.9 F 61 18 127/62 97 02/08/21 01:19 98.6 F 81 18 148/73 95 02/08/21 00:09 84 16 149/42 97 02/07/21 21:35 70 20 143/63 02/07/21 19:36 98.4 F 73 22 153/69 88 L 02/07/21 18:56 99.1 F 99 18 152/95 91 L Intake and Output 02/08/21 02/08/21 02/08/21 06:59 14:59 22:59 Other: Voiding Method Toilet Toilet # Voids 1 Weight 96.615 kg - Constitutional General appearance: disheveled, mild distress - EENT Eyes: PERRLA Ears: bilateral: normal - Neck Carotids: bilateral: upstroke normal - Respiratory Respiratory: bilateral: diminished (Tenderness to percussion and decrease in air entry at the bases) - Cardiovascular Rhythm: regular Heart sounds: normal: S1, S2 - Gastrointestinal General gastrointestinal: soft - Integumentary Integumentary: normal turgor - Neurologic Neurologic: CNII-XII intact - Musculoskeletal Musculoskeletal: gait normal, generalized weakness - Psychiatric Psychiatric: A&O x's 3, appropriate affect, intact judgment & insight Results CBC & Chem 7: 09/24/21 04:33 02/08/21 04:33 Labs: Abnormal Lab Results - Last 24 Hours (Table) 02/07/21 02/07/21 02/07/21 Range/Units 20:07 20:07 20:07 WBC 10.7 H (3.8-10.6) k/uL RBC (3.80-5.40) m/uL Hgb (11.4-16.0) gm/dL Neutrophils # 8.4 H (1.3-7.7) k/uL Lymphocytes # (1.0-4.8) k/uL PT 12.6 H (9.0-12.0) sec INR 1.2 H (<1.2) APTT 19.0 L (22.0-30.0) sec D-Dimer (<0.60) mg/L FEU Sodium 135 L (137-145) mmol/L Carbon Dioxide 20 L (22-30) mmol/L Creatinine 1.12 H (0.52-1.04) mg/dL Glucose 100 H (74-99) mg/dL Plasma Lactic Acid Patrick (0.7-2.0) mmol/L AST 55 H (14-36) U/L C-Reactive Protein (<1.0) mg/dL 02/07/21 02/08/21 02/08/21 Range/Units 20:07 04:33 04:33 WBC (3.8-10.6) k/uL RBC 3.61 L (3.80-5.40) m/uL Hgb 11.3 L (11.4-16.0) gm/dL Neutrophils # (1.3-7.7) k/uL Lymphocytes # 0.8 L (1.0-4.8) k/uL PT (9.0-12.0) sec INR (<1.2) APTT (22.0-30.0) sec D-Dimer (<0.60) mg/L FEU Sodium 136 L (137-145) mmol/L Carbon Dioxide (22-30) mmol/L Creatinine 1.28 H (0.52-1.04) mg/dL Glucose 101 H (74-99) mg/dL Plasma Lactic Acid Patrick 2.1 H* (0.7-2.0) mmol/L AST (14-36) U/L C-Reactive Protein (<1.0) mg/dL 02/08/21 02/08/21 Range/Units 13:06 13:06 WBC (3.8-10.6) k/uL RBC (3.80-5.40) m/uL Hgb (11.4-16.0) gm/dL Neutrophils # (1.3-7.7) k/uL Lymphocytes # (1.0-4.8) k/uL PT (9.0-12.0) sec INR (<1.2) APTT (22.0-30.0) sec D-Dimer 1.90 H (<0.60) mg/L FEU Sodium (137-145) mmol/L Carbon Dioxide (22-30) mmol/L Creatinine (0.52-1.04) mg/dL Glucose (74-99) mg/dL Plasma Lactic Acid Patrick (0.7-2.0) mmol/L AST (14-36) U/L C-Reactive Protein 1.0 H (<1.0) mg/dL Chest x-ray: report reviewed, image reviewed CT scan - chest: report reviewed, image reviewed (Chest x-ray significant bilateral interstitial edema and small pleural effusion computed tomography scan showed negative for pulmonary embolism, metastatic breast cancer changes were seen without seen with change from prior PET scan, cardiomegaly small bilateral pleural effusion right more than the ) Thrombosis Risk Factor Assmnt - Choose All That Apply Each Factor Represents 1 point: Obesity (BMI >25) Other Risk Factors: Yes Each Risk Factor Represents 2 Points: Malignancy Each Risk Factor Represents 3 Points: Age 75 years or older Other congenital or acquired thrombophilia - If yes, enter type in comment: No Thrombosis Risk Factor Assessment Total Risk Factor Score: 6 Thrombosis Risk Factor Assessment Level: High Risk Assessment and Plan Assessment: Likely acute diastolic heart failure with interstitial edema and bilateral pleural effusion patient will benefit from diuresis Metastatic breast cancer local and invasive appears to have metastases in the lung as well, oncology is following Mild pulmonary hypertension Hypertension hypertensive cardiovascular disease Bilateral pleural effusion Cellulitis of the right breast Dyslipidemia Plan: Gentle diuresis Broad-spectrum antibiotics for cellulitis Continue home medications Awaiting further recommendation from oncology service Further plan of care as per clinical response of the patient Time with Patient: Greater than 30
[2021-02-08] MEDS ORDERED: VANCOMYCIN 1,750 MG in SODIUM CHLORIDE 0.9% 500 ML 500 ML IVPB SCH (18:00)
[2021-02-08] MEDS: PRAVASTATIN SODIUM 20 MG TAB PO SCH (20:08)
[2021-02-08] MEDS: LOSARTAN 50 MG TAB PO SCH (20:08)
[2021-02-08] MEDS ORDERED: HEPARIN SODIUM 1,000 UN/ML (10ML VL) IV ONE (20:26)
[2021-02-08] MEDS ORDERED: HEPARIN SODIUM 1,000 UN/ML (10ML VL) IV PRN (20:26)
--- NOTE | 2021-02-08 20:34 | P.CONS ---
History of Present Illness - Reason for Consult Consult date: 02/08/21 Progressive Breast Cancer Requesting physician: Elvie Antony - Chief Complaint Shortness of Breath - History of Present Illness Mrs. Robison is a very pleasant patient of Dr. Solo who was seen in office last week with complaints of increased shortness of breath. She continues on Xgeva and Faslodex Vitamin D Low last visit, supplement added. Recheck. PET Scan performed on 02/01/21, I looked at [facility] and hasnt been read. I have contacted Dr. Fall/read room. Progression confirmed by Dr. Fall: Worsening BReast lesion, with skin involvement. New pulmonary nodules, and effusions, as well as new progression in sclerotic bone lesions. A message has been sent to Dr. Solo regarding findings. Due to recent progression we have set her up for outpatient biopsy to obtain NGS for next treatment options She was feeling progressively more short of breath with mid to left pain in chest. Therefore she was referred to emergency for further evaluation. CTA performed and although redemonstration of progressive disease in lungs, there could not be sure if PE segmental was present. Heparin drip has been ordered in the interim and will plan to discuss further with radiology. Review of Systems All systems: negative Constitutional: Reports as per HPI Past Medical History Past Medical History: Hyperlipidemia, Hypertension, Syncope Additional Past Medical History / Comment(s): rt breast cancer stage 4- came of femara and injections just took off on thursday., History of Any Multi-Drug Resistant Organisms: None Reported Past Surgical History: Appendectomy, Hernia Repair, Tonsillectomy Additional Past Surgical History / Comment(s): rt cataract 06/06/14; lt cataract 07/2014; bowel surgery 07/2016; Past Anesthesia/Blood Transfusion Reactions: No Reported Reaction Past Psychological History: No Psychological Hx Reported Smoking Status: Never smoker Past Alcohol Use History: Occasional Past Drug Use History: None Reported - Past Family History Mother Family Medical History: Diabetes Mellitus Additional Family Medical History / Comment(s): Angina Father Family Medical History: Cancer Additional Family Medical History / Comment(s): bladder cancer Medications and Allergies Home Medications Medication Instructions Recorded Confirmed Type Losartan Potassium 50 mg PO HS 04/27/19 02/07/21 History Pravastatin Sodium [Pravachol] 20 mg PO HS 04/27/19 02/07/21 History diphenhydrAMINE [Benadryl] 25 mg PO HS PRN 06/08/19 02/07/21 History Phenylephrine HCl/Acetaminophn 1 tab PO Q8H PRN 02/07/21 02/07/21 History [Tylenol Sinus Headache Caplet] Sulfamethox-Tmp 800-160Mg [Bactrim 1 tab PO Q12HR 02/07/21 02/07/21 History DS 800-160 mg] Allergies Allergy/AdvReac Type Severity Reaction Status Date / Time Penicillins Allergy Itching Verified 02/07/21 20:41 Physical Exam Vitals: Vital Signs Temp Pulse Pulse Resp BP BP Pulse Ox 02/08/21 11:20 98.5 F 79 18 123/72 92 L 02/08/21 04:16 98.9 F 61 18 127/62 97 02/08/21 01:19 98.6 F 81 18 148/73 95 02/08/21 00:09 84 16 149/42 97 02/07/21 21:35 70 20 143/63 02/07/21 19:36 98.4 F 73 22 153/69 88 L 02/07/21 18:56 99.1 F 99 18 152/95 91 L Intake and Output 02/08/21 02/08/21 02/08/21 06:59 14:59 22:59 Other: Voiding Method Toilet Toilet # Voids 1 Weight 96.615 kg - Constitutional General appearance: cooperative, mild distress - EENT Eyes: EOMI, PERRLA ENT: hard of hearing, NA/AT - Neck Neck: lymphadenopathy, normal ROM - Respiratory Respiratory: bilateral: diminished - Cardiovascular Rhythm: regularly irregular - Gastrointestinal General gastrointestinal: soft - Integumentary Integumentary: pale - Neurologic Neurologic: CNII-XII intact - Musculoskeletal Musculoskeletal: generalized weakness - Psychiatric Psychiatric: A&O x's 3, appropriate affect, intact judgment & insight Results CBC & Chem 7: 02/08/21 04:33 02/08/21 04:33 Labs: Abnormal Lab Results - Last 24 Hours (Table) 02/07/21 02/07/21 02/07/21 Range/Units 20:07 20:07 20:07 WBC 10.7 H (3.8-10.6) k/uL RBC (3.80-5.40) m/uL Hgb (11.4-16.0) gm/dL Neutrophils # 8.4 H (1.3-7.7) k/uL Lymphocytes # (1.0-4.8) k/uL PT 12.6 H (9.0-12.0) sec INR 1.2 H (<1.2) APTT 19.0 L (22.0-30.0) sec D-Dimer (<0.60) mg/L FEU Sodium 135 L (137-145) mmol/L Carbon Dioxide 20 L (22-30) mmol/L Creatinine 1.12 H (0.52-1.04) mg/dL Glucose 100 H (74-99) mg/dL Plasma Lactic Acid Patrick (0.7-2.0) mmol/L AST 55 H (14-36) U/L C-Reactive Protein (<1.0) mg/dL 02/07/21 02/08/21 02/08/21 Range/Units 20:07 04:33 04:33 WBC (3.8-10.6) k/uL RBC 3.61 L (3.80-5.40) m/uL Hgb 11.3 L (11.4-16.0) gm/dL Neutrophils # (1.3-7.7) k/uL Lymphocytes # 0.8 L (1.0-4.8) k/uL PT (9.0-12.0) sec INR (<1.2) APTT (22.0-30.0) sec D-Dimer (<0.60) mg/L FEU Sodium 136 L (137-145) mmol/L Carbon Dioxide (22-30) mmol/L Creatinine 1.28 H (0.52-1.04) mg/dL Glucose 101 H (74-99) mg/dL Plasma Lactic Acid Patrick 2.1 H* (0.7-2.0) mmol/L AST (14-36) U/L C-Reactive Protein (<1.0) mg/dL 02/08/21 02/08/21 Range/Units 13:06 13:06 WBC (3.8-10.6) k/uL RBC (3.80-5.40) m/uL Hgb (11.4-16.0) gm/dL Neutrophils # (1.3-7.7) k/uL Lymphocytes # (1.0-4.8) k/uL PT (9.0-12.0) sec INR (<1.2) APTT (22.0-30.0) sec D-Dimer 1.90 H (<0.60) mg/L FEU Sodium (137-145) mmol/L Carbon Dioxide (22-30) mmol/L Creatinine (0.52-1.04) mg/dL Glucose (74-99) mg/dL Plasma Lactic Acid Patrick (0.7-2.0) mmol/L AST (14-36) U/L C-Reactive Protein 1.0 H (<1.0) mg/dL Chest x-ray: report reviewed CT scan - chest: report reviewed Assessment and Plan (1) Metastatic cancer to lung Current Visit: Yes Status: Acute Code(s): C78.00 - SECONDARY MALIGNANT NEOPLASM OF UNSPECIFIED LUNG SNOMED Code(s): 70520667 (2) Pulmonary emboli Current Visit: Yes Status: Acute Code(s): I26.99 - OTHER PULMONARY EMBOLISM WITHOUT ACUTE COR PULMONALE SNOMED Code(s): 08171020 (3) Dyspnea Current Visit: Yes Status: Acute Code(s): R06.00 - DYSPNEA, UNSPECIFIED SNOMED Code(s): 922225479 (4) Metastatic breast cancer Current Visit: Yes Status: Acute Priority: High Code(s): C50.919 - MALIGNANT NEOPLASM OF UNSP SITE OF UNSPECIFIED FEMALE BREAST SNOMED Code(s): 349037382 (5) Pulmonary edema Current Visit: Yes Status: Acute Code(s): J81.1 - CHRONIC PULMONARY EDEMA SNOMED Code(s): 31025954 Plan: CTA to further assess Dyspnea and SOB - COuld not exclude PE: Will check dopplers and start heparin drip. PLan to further discuss with radiology/pulm Pulmonology has been consulted Antibiotics continued Continue Supportive care Plan for Re-biopsy of recently progressed metastatic breast cancer to further assess for molecular markers with Physician attest: I have completed the full history and physical and agree with above dictation, dictated as a scribe.
[2021-02-08 21:44] LABS: Basophils # (A) 0.1 k/uL (0-0.2); Basophils % (A) 1 %; Eosinophils # (A) 0.2 k/uL (0-0.7); Eosinophils % (A) 2 %; HCT 38.2 % (34.0-46.0); HGB 12.3 gm/dL (11.4-16.0); Lymphocytes # (A) 0.9 k/uL (1.0-4.8); Lymphocytes % (A) 8 %; MCH 31.6 pg (25.0-35.0); MCHC 32.1 g/dL (31.0-37.0); MCV 98.5 fL (80.0-100.0); Mean Platelet Volume 8.4; Monocytes # (A) 0.8 k/uL (0-1.0); Monocytes % (A) 8 %; Neutrophils # (A) 8.5 k/uL (1.3-7.7); Neutrophils % (A) 79 %; Platelet Count 244 k/uL (150-450); RBC 3.88 m/uL (3.80-5.40); RDW 12.6 % (11.5-15.5); WBC 10.7 k/uL (3.8-10.6)
[2021-02-08 22:10] LABS: Prothrombin Time 10.6 sec (9.0-12.0)
[2021-02-08 22:19] LABS: Partial Thromboplastin Time 20.8 sec (22.0-30.0)
--- NOTE | 2021-02-08 23:43 | P.CONS ---
History of Present Illness - Reason for Consult Consult date: 02/08/21 right breast cellulitis Requesting physician: Darian Mendenhall - Chief Complaint shortness of breath x few days - History of Present Illness History of present illness : Patient is a 80-year female with a past medical history significant for metastatic right breast cancer for the patient has received radiation therapy beginning of this year she received only 10 tr eatments and subsequently has been on hormonal chemotherapy patient apparently seemed having some swelling and pinkish discoloration of the right breast area for the patient has been evaluated by her oncologist the outpatient setting has been treated with oral Cipro without any improvement recently was switched over to Bactrim DS the patient has taken a few doses without any improvement patient is presenting to the hospital for increasing shortness of breath that has been progressively getting worse for the last day or 2 patient denies having any chest pain denies having any cough or sputum production no nausea no vomiting no abdominal pain or any diarrhea patient was started on vancomycin and clindamycin infectious disease was consulted for further management patient on presentation the hospital has been afebrile patient did have a normal white count kidney function is mildly elevated Review of system: CONSTITUTIONAL: Positive for weakness however denies fever. EYES: No complaint. ENT: No complaint. RESPIRATORY: As per history of present illness. CARDIOVASCULAR: No complaint. GENITOURINARY: No complaint. GASTROINTESTINAL: No complaint. MUSCULOSKELETAL: No complaint. INTEGUMENTARY: As per history of present illness. PSYCHOLOGIC: No complaint. ENDOCRINE: No complaint. NEUROLOGIC: No complaint. Past medical history : Reviewed, documented below Past surgical history : Reviewed, documented below Social history: Reviewed, documented below Medications: Reviewed, as documented below EXAMINATION: Vital sigans= Reviewed and documented below GENERAL DESCRIPTION: Elderly female lying in bed, no distress. No tachypnea or accessory muscle of respiration use. HEENT: Shows Pallor , no scleral icterus. Oral mucous membrane is dry. NECK: Trachea central, no thyromegaly. LUNGS: Unlabored breathing. Decreased breath sound at the base. No wheeze or crackle. HEART: S1, S2, regular rate and rhythm. ABDOMEN: Soft, no tenderness , guarding or rigidity EXTREMITIES: No edema of feet. SKIN: No rash, no masses palpable. Right breast did have swelling some pinkish discoloration but no warmth or tenderness no drainage NEUROLOGICAL: The patient is awake, alert, oriented x3, mood and affect normal. LABS AND RADIOLOGY: Reviewed results see below Assessment : 1-Patient with right breast induration discoloration questionably related to the radiation treatment or underlying malignancy clinically not behaving as an abscess or cellulitis in this patient who did not have si gnificant warmth or tenderness no fever or elevated white count and the patient has failed outpatient oral Cipro and Bactrim DS therapy 2-penicillin allergy that would limit the number of antibiotics safe to use Plan: 1-discontinue vancomycin and clindamycin 2-we will check inflammatory markers 3-cefazolin 2 g every 8 hours while waiting further work-up to be completed We will follow on clinical condition and cultures to further adjust medication if needed Thank you for this consultation we will follow the patient along with you Past Medical History Past Medical History: Hyperlipidemia, Hypertension, Syncope Additional Past Medical History / Comment(s): rt breast cancer stage 4- came of femara and injections just took off on thursday., History of Any Multi-Drug Resistant Organisms: None Reported Past Surgical History: Appendectomy, Hernia Repair, Tonsillectomy Additional Past Surgical History / Comment(s): rt cataract 06/06/14; lt cataract 07/2014; bowel surgery 07/2016; Past Anesthesia/Blood Transfusion Reactions: No Reported Reaction Past Psychological History: No Psychological Hx Reported Smoking Status: Never smoker Past Alcohol Use History: Occasional Past Drug Use History: None Reported - Past Family History Mother Family Medical History: Diabetes Mellitus Additional Family Medical History / Comment(s): Angina Father Family Medical History: Cancer Additional Family Medical History / Comment(s): bladder cancer Medications and Allergies Home Medications Medication Instructions Recorded Confirmed Type Losartan Potassium 50 mg PO HS 04/27/19 02/07/21 History Pravastatin Sodium [Pravachol] 20 mg PO HS 04/27/19 02/07/21 History diphenhydrAMINE [Benadryl] 25 mg PO HS PRN 06/08/19 02/07/21 History Phenylephrine HCl/Acetaminophn 1 tab PO Q8H PRN 02/07/21 02/07/21 History [Tylenol Sinus Headache Caplet] Sulfamethox-Tmp 800-160Mg [Bactrim 1 tab PO Q12HR 02/07/21 02/07/21 History DS 800-160 mg] Allergies Allergy/AdvReac Type Severity Reaction Status Date / Time Penicillins Allergy Itching Verified 02/07/21 20:41 Physical Exam Vitals: Vital Signs Temp Pulse Pulse Resp BP BP Pulse Ox 02/08/21 20:23 98.5 F 88 16 135/62 93 L 02/08/21 11:20 98.5 F 79 18 123/72 92 L 02/08/21 04:16 98.9 F 61 18 127/62 97 02/08/21 01:19 98.6 F 81 18 148/73 95 02/08/21 00:09 84 16 149/42 97 Intake and Output 02/08/21 02/08/21 02/09/21 14:59 22:59 06:59 Intake Total 1210 Balance 1210 Intake: Intake, IV Titration 50 Amount ceFAZolin 2 gm In Sodium 50 Chloride 0.9% 50 ml @ 100 mls/hr IVPB Q12HR@0600, 1800 [facility] Rx#:[id number] Oral 1160 Other: Voiding Method Toilet # Voids 3 Results CBC & Chem 7: 02/08/21 16:38 02/08/21 04:33 Labs: Abnormal Lab Results - Last 24 Hours (Table) 02/08/21 02/08/21 02/08/21 Range/Units 04:33 04:33 13:06 WBC (3.8-10.6) k/uL RBC 3.61 L (3.80-5.40) m/uL Hgb 11.3 L (11.4-16.0) gm/dL Neutrophils # (1.3-7.7) k/uL Lymphocytes # 0.8 L (1.0-4.8) k/uL APTT (22.0-30.0) sec D-Dimer 1.90 H (<0.60) mg/L FEU Sodium 136 L (137-145) mmol/L Creatinine 1.28 H (0.52-1.04) mg/dL Glucose 101 H (74-99) mg/dL C-Reactive Protein (<1.0) mg/dL 02/08/21 02/08/21 02/08/21 Range/Units 13:06 16:38 21:16 WBC 10.7 H (3.8-10.6) k/uL RBC (3.80-5.40) m/uL Hgb (11.4-16.0) gm/dL Neutrophils # 8.5 H (1.3-7.7) k/uL Lymphocytes # 0.9 L (1.0-4.8) k/uL APTT 20.8 L (22.0-30.0) sec D-Dimer (<0.60) mg/L FEU Sodium (137-145) mmol/L Creatinine (0.52-1.04) mg/dL Glucose (74-99) mg/dL C-Reactive Protein 1.0 H (<1.0) mg/dL
[2021-02-09] MEDS ORDERED: VANCOMYCIN 1,250 MG in SODIUM CHLORIDE 0.9% 250 ML IVPB SCH ×2
[2021-02-09] MEDS: HEPARIN SOD,PORK IN 0.45% NACL 25,000 UNIT in 0.45% NACL 1 250ML.BAG IV SCH ×2 (03:08→10:57)
--- NOTE | 2021-02-09 03:54 | US ---
EXAMINATION TYPE: US venous doppler duplex LE DATE OF EXAM: 02/08/2021 8:31 PM COMPARISON: NONE CLINICAL HISTORY: Unable to exclude PE. Patient states no pain or swelling Exam done portable. SIDE PERFORMED: Bilateral TECHNIQUE: The lower extremity deep venous system is examined utilizing real time linear array sonog syed with graded compression, doppler sonography and color-flow sonography. VESSELS IMAGED: Common Femoral Vein Deep Femoral Vein Greater Saphenous Vein * Femoral Vein Popliteal Vein Small Saphenous Vein * Proximal Calf Veins (* superficial vessels) Right Leg: Appears negative for DVT Left Leg: Appears negative for DVT IMPRESSION: No evidence of deep vein thrombosis in both legs.
[2021-02-09 04:51] LABS: Basophils % (A) 0 %; Eosinophils # (A) 0.2 k/uL (0-0.7); Eosinophils % (A) 3 %; HCT 36.2 % (34.0-46.0); HGB 11.9 gm/dL (11.4-16.0); Lymphocytes % (A) 11 %; MCH 31.9 pg (25.0-35.0); MCHC 32.9 g/dL (31.0-37.0); Mean Platelet Volume 8.4; Monocytes # (A) 0.6 k/uL (0-1.0); Monocytes % (A) 7 %; Neutrophils # (A) 6.5 k/uL (1.3-7.7); Neutrophils % (A) 76 %; Platelet Count 253 k/uL (150-450); RBC 3.73 m/uL (3.80-5.40); RDW 13.2 % (11.5-15.5); WBC 8.6 k/uL (3.8-10.6)
[2021-02-09 05:18] LABS: ALT 14 U/L (4-34); AST 47 U/L (14-36); African American GFR (CKD) 44 (>60 ml/min/1.73 sqM); Albumin 3.8 g/dL (3.5-5.0); Albumin/Globulin Ratio 1.3; Alkaline Phosphatase 66 U/L (38-126); Anion Gap 8 mmol/L; Blood Urea Nitrogen 19 mg/dL (7-17); Calcium 8.7 mg/dL (8.4-10.2); Carbon Dioxide 26 mmol/L (22-30); Chloride 102 mmol/L (98-107); Globulin 2.9 g/dL; Glucose 109 mg/dL (74-99); Magnesium 2.2 mg/dL (1.6-2.3); Non-African American GFR(CKD) 38 (>60 ml/min/1.73 sqM); Sodium 136 mmol/L (137-145); Total Bilirubin 0.4 mg/dL (0.2-1.3); Total Protein 6.7 g/dL (6.3-8.2)
[2021-02-09 05:31] LABS: Partial Thromboplastin Time 21.4 sec (22.0-30.0); Prothrombin Time 10.9 sec (9.0-12.0)
[2021-02-09] MEDS: FUROSEMIDE 10 MG/ML 4 ML VIAL IV SCH ×2 (08:27→21:05)
--- NOTE | 2021-02-09 10:45 | P.CRDCN ---
History of Present Illness Consult date: 02/09/21 History of present illness: This is a 80-year-old female with history of metastatic breast cancer, hyperlipidemia and hypertension and also history of syncope who was admitted to the hospital with progressive shortness of breath. She follows with Dr. Gamble in the office. She had an echo [place] in the past without any significant abnormalities. Since admission patient had an echocardiogram which showed normal LV function without any significant valvular abnormalities. Patient had a computed tomography scan of the chest which he did not reveal any definite pu lmonary emboli. There appears to be progressive metastatic disease involving the lungs and other areas. Her BNP is within normal limits. She was treated with IV diuretics with improvement of her symptoms. However, clinically she doesn't have any JVD or peripheral edema. Doesn't appear that the symptoms are cardiac or CHF related. Patient is also empirically being treated with heparin for suspected pulmonary emboli. At this point, no further cardiac workup is sized to. If patient shows improvement, empirical diuretic therapy could be considered. Continued. However, these symptoms could be related to progressive metastatic involvement of the lungs. Review of Systems As per the chart Past Medical History Past Medical History: Hyperlipidemia, Hypertension, Syncope Additional Past Medical History / Comment(s): rt breast cancer stage 4- came of femara and injections just took off on thursday., History of Any Multi-Drug Resistant Organisms: None Reported Past Surgical History: Appendectomy, Hernia Repair, Tonsillectomy Additional Past Surgical History / Comment(s): rt cataract 06/06/14; lt cataract 07/2014; bowel surgery 07/2016; Past Anesthesia/Blood Transfusion Reactions: No Reported Reaction Past Psychological History: No Psychological Hx Reported Smoking Status: Never smoker Past Alcohol Use History: Occasional Past Drug Use History: None Reported - Past Family History Mother Family Medical History: Diabetes Mellitus Additional Family Medical History / Comment(s): Angina Father Family Medical History: Cancer Additional Family Medical History / Comment(s): bladder cancer Medications and Allergies Home Medications Medication Instructions Recorded Confirmed Type Losartan Potassium 50 mg PO HS 04/27/19 02/07/21 History Pravastatin Sodium [Pravachol] 20 mg PO HS 04/27/19 02/07/21 History diphenhydrAMINE [Benadryl] 25 mg PO HS PRN 06/08/19 02/07/21 History Phenylephrine HCl/Acetaminophn 1 tab PO Q8H PRN 02/07/21 02/07/21 History [Tylenol Sinus Headache Caplet] Sulfamethox-Tmp 800-160Mg [Bactrim 1 tab PO Q12HR 02/07/21 02/07/21 History DS 800-160 mg] Allergies Allergy/AdvReac Type Severity Reaction Status Date / Time Penicillins Allergy Itching Verified 02/07/21 20:41 Physical Exam Vitals: Vital Signs Temp Pulse Resp BP Pulse Ox 02/09/21 04:35 98.4 F 75 16 119/54 96 02/08/21 20:23 98.5 F 88 16 135/62 93 L 02/08/21 20:20 16 02/08/21 11:20 98.5 F 79 18 123/72 92 L Intake and Output 02/08/21 02/09/21 02/09/21 22:59 06:59 14:59 Intake Total 1570 590 Balance 1570 590 Intake: Intake, IV Titration 50 Amount ceFAZolin 2 gm In Sodium 50 Chloride 0.9% 50 ml @ 100 mls/hr IVPB Q12HR@0600, 1800 [facility] Rx#:[id number] Oral 1520 590 Other: Voiding Method Toilet # Voids 3 2 GENERAL EXAM: Patient is alert and oriented and doesn't appear to be in any acute distress HEENT: Normocephalic. Normal reaction of pupils, equal size, normal range of e xtraocular motion. No erythema or exudates in the throat. NECK: No masses, no nuchal rigidity. CHEST: No chest wall deformity. LUNGS: Equal air entry with no crackles or wheeze. HEART: S1 and S2 normal with no audible mumurs or gallops. Regular rhythm, femorals equal on both sides.. ABDOMEN: No hepatosplenomegaly, normal bowel sounds, no guarding or rigidity. SKIN: No rashes CENTRAL NERVOUS SYSTEM: No focal deficits. EXTREMITIES: No cyanosis, clubbing or edema. Results 02/09/21 04:12 02/09/21 04:12 Cardiac Enzymes 02/09/21 Range/Units 04:12 AST 47 H (14-36) U/L Coagulation 02/08/21 02/09/21 Range/Units 21:16 04:12 PT 10.6 10.9 (9.0-12.0) sec APTT 20.8 L 21.4 L (22.0-30.0) sec CBC 02/08/21 02/09/21 Range/Units 16:38 04:12 WBC 10.7 H 8.6 (3.8-10.6) k/uL RBC 3.88 3.73 L (3.80-5.40) m/uL Hgb 12.3 11.9 (11.4-16.0) gm/dL Hct 38.2 36.2 (34.0-46.0) % Plt Count 244 253 (150-450) k/uL Comprehensive Metabolic Panel 02/09/21 Range/Units 04:12 Sodium 136 L (137-145) mmol/L Potassium 4.0 (3.5-5.1) mmol/L Chloride 102 (98-107) mmol/L Carbon Dioxide 26 (22-30) mmol/L BUN 19 H (7-17) mg/dL Creatinine 1.33 H (0.52-1.04) mg/dL Glucose 109 H (74-99) mg/dL Calcium 8.7 (8.4-10.2) mg/dL AST 47 H (14-36) U/L ALT 14 (4-34) U/L Alkaline Phosphatase 66 (38-126) U/L Total Protein 6.7 (6.3-8.2) g/dL Albumin 3.8 (3.5-5.0) g/dL Current Medications Generic Name Dose Route Start Last Admin Trade Name Freq PRN Reason Stop Dose Admin Diphenhydramine HCl 25 mg 02/07/21 21:53 Diphenhydramine 25 Mg Cap PO HS PRN Allergy Symptoms Furosemide 40 mg 02/07/21 22:00 02/09/21 08:27 Furosemide 10 Mg/Ml 4 Ml Vial IV 40 mg BID [facility] Administration Heparin Sodium (Porcine) 0 unit 02/08/21 20:26 Heparin Sodium 1,000 Un/Ml (10ml Vl) IV PER PROTOCOL PRN Low PTT Protocol Cefazolin Sodium 2 gm/ Sodium 50 mls @ 100 mls/hr 02/08/21 18:00 02/09/21 05:40 Chloride IVPB 100 mls/hr Q12HR@0600,1800 [facility] Administration Heparin Sodium/Sodium Chloride 250 mls @ 10 mls/hr 02/08/21 20:30 02/09/21 03:08 25,000 unit/ Sodium Chloride IV Not Given .Q24H [facility] Protocol 10.35 UNITS/KG/HR Losartan Potassium 50 mg 02/07/21 22:00 02/08/21 20:08 Losartan 50 Mg Tab PO 50 mg HS [facility] Administration Naloxone HCl 0.2 mg 02/07/21 21:49 Naloxone 0.4 Mg/Ml 1 Ml Vial IV Q2M PRN Opioid Reversal Pravastatin Sodium 20 mg 02/07/21 22:00 02/08/21 20:08 Pravastatin Sodium 20 Mg Tab PO 20 mg HS [facility] Administration Intake and Output 02/08/21 02/09/21 02/09/21 22:59 06:59 14:59 Intake Total 1570 590 Balance 1570 590 Intake: Intake, IV Titration 50 Amount ceFAZolin 2 gm In Sodium 50 Chloride 0.9% 50 ml @ 100 mls/hr IVPB Q12HR@0600, 1800 [facility] Rx#:[id number] Oral 1520 590 Other: Voiding Method Toilet # Voids 3 2 02/09/21 04:12 02/09/21 04:12 EKG Interpretations (text) Sinus rhythm Assessment and Plan (1) Essential hypertension Current Visit: Yes Status: Acute Code(s): I10 - ESSENTIAL (PRIMARY) HYPERTENSION SNOMED Code(s): 90203632 (2) Dyspnea Current Visit: Yes Status: Acute Code(s): R06.00 - DYSPNEA, UNSPECIFIED SNOMED Code(s): 605088424 (3) Metastatic breast cancer Current Visit: Yes Status: Acute Priority: High Code(s): C50.919 - MALIGNANT NEOPLASM OF UNSP SITE OF UNSPECIFIED FEMALE BREAST SNOMED Code(s): 364860739 (4) Metastatic cancer to lung Current Visit: Yes Status: Acute Code(s): C78.00 - SECONDARY MALIGNANT NEOPLASM OF UNSPECIFIED LUNG SNOMED Code(s): 88191462 (5) Pleural effusion Current Visit: Yes Status: Acute Code(s): J90 - PLEURAL EFFUSION, NOT ELSEWHERE CLASSIFIED SNOMED Code(s): 82261611 Plan: No definite evidence of CHF. Doesn't have JVD or peripheral edema. Echo function is normal. BNP is within normal limits. I suspect the symptoms could be related to metastatic involvement of the lung. He patient shows improvement with the diuretics, empiric treatment with diuretics could be continued.
--- NOTE | 2021-02-09 12:56 | NM ---
EXAMINATION TYPE: NM pul vent and perfuse DATE OF EXAM: 02/09/2021 COMPARISON: None HISTORY: Shortness of breath TECHNIQUE: Utilizing inhalation of 66.1 mCi Tc 99m DTPA aerosol and intravenous injection of 5.1 mCi of Tc 99m MAA, ventilation and perfusion images are acquired post injection in multiple projections. FINDINGS: There are multiple scattered small matched ventilation and perfusion defects. IMPRESSION: Nondiagnostic study with low or intermediate probability of pulmonary embolism.
[2021-02-09] MEDS: ACETAMINOPHEN TAB 500 MG TAB PO PRN ×2 (14:55→21:07)
--- NOTE | 2021-02-09 20:25 | P.PN ---
Subjective Progress Note Date: 02/09/21 The patient states that she feels partially better, though she still has some shortness of breath compared to her baseline. She denied any cough, or obvious bleeding. No fever, chills, or hemoptysis Objective - Vital Signs Vital signs: Vital Signs Temp 99.0 F 02/09/21 12:43 Pulse 75 02/09/21 12:43 Resp 18 02/09/21 12:43 BP 130/65 02/09/21 12:43 Pulse Ox 94 L 02/09/21 12:43 Intake & Output 02/09/21 02/09/21 02/10/21 06:59 18:59 06:59 Intake Total 950 23.5 Balance 950 23.5 Intake: Intake, IV Titration 23.5 Amount Heparin Sod,Pork in 0.45% 23.5 NaCl 25,000 unit In 0.45 % NaCl 1 250ml.bag @ 10. 35 UNITS/KG/HR 10 mls/hr IV .Q24H [facility] Rx#: [id number] Oral 950 Other: Voiding Method Toilet # Voids 2 3 - Constitutional General appearance: Present: no acute distress (on o2) - EENT Eyes: Present: EOMI ENT: Present: hearing grossly normal, normal oropharynx - Respiratory Respiratory: bilateral: diminished (Right greater than left. However air entry appears to be somewhat better) - Cardiovascular Rhythm: regular Heart sounds: normal: S1, S2 - Gastrointestinal General gastrointestinal: Present: normal bowel sounds, soft - Integumentary Integumentary: Present: normal - Neurologic Neurologic: Present: CNII-XII intact - Musculoskeletal Musculoskeletal: Present: generalized weakness, strength equal bilaterally, right sided weakness - Psychiatric Psychiatric: Present: A&O x's 3, appropriate affect - Labs CBC & Chem 7: 02/09/21 04:12 02/09/21 04:12 Labs: Abnormal Lab Results - Last 24 Hours (Table) 02/08/21 02/08/21 02/08/21 Range/Units 13:06 16:38 21:16 WBC 10.7 H (3.8-10.6) k/uL RBC (3.80-5.40) m/uL Neutrophils # 8.5 H (1.3-7.7) k/uL Lymphocytes # 0.9 L (1.0-4.8) k/uL APTT 20.8 L (22.0-30.0) sec Sodium (137-145) mmol/L BUN (7-17) mg/dL Creatinine (0.52-1.04) mg/dL Glucose (74-99) mg/dL AST (14-36) U/L CA 15-3 Antigen 587.0 H (0.0-32.3) U/mL 02/09/21 02/09/21 02/09/21 Range/Units 04:12 04:12 04:12 WBC (3.8-10.6) k/uL RBC 3.73 L (3.80-5.40) m/uL Neutrophils # (1.3-7.7) k/uL Lymphocytes # (1.0-4.8) k/uL APTT 21.4 L (22.0-30.0) sec Sodium 136 L (137-145) mmol/L BUN 19 H (7-17) mg/dL Creatinine 1.33 H (0.52-1.04) mg/dL Glucose 109 H (74-99) mg/dL AST 47 H (14-36) U/L CA 15-3 Antigen (0.0-32.3) U/mL Assessment and Plan (1) Dyspnea Narrative/Plan: The patient is partially improved today. On her exam, as well as review of the chest x-ray, the pleural effusions were not felt to be very significant. Therefore CTA of the chest was ordered. The bolus was suboptimal due to which peripheral PE could not be ruled out, but there were no large central clots seen - As a CTA was felt to be not definitive, in light of the clinical situation, the patient started on IV heparin. This was discontinued by pulmonary medicine, who felt on that evaluation that based on the chest x-ray findings the patient may have CHF. Her echocardiogram had shown some mild left ventricular hypertrophy. Patient was therefore started on IV diuresis. - Patient's tolerance Dopplers were also negative. - The case was discussed with pulmonary medicine. The patient's physical exam was not definitive for CHF either. In fact when Evaluated yesterday, she had specifically denied orthopnea. It was therefore decided to resume IV heparin, and check a VQ scan. If this was felt to be low likelihood, and the plan was to discontinue IV heparin, and continue treatment for possible CHF. - Cardiology has also been consulted. - If PE is felt to be ruled out, and shortness of breath does not respond to diuresis, then thoracentesis as well as evaluation for possible lymphangitic involvement will need to be considered Add: VQ scan was performed, and showed low to intermediate probability. Review of the report actually showed that the defects were small and matched. There did not appear to be any evidence of mismatched perfusion defect. Therefore the study actually appears to indicate a very low likelihood of PE. Heparin was therefore discontinued Current Visit: Yes Status: Acute Code(s): R06.00 - DYSPNEA, UNSPECIFIED SNOMED Code(s): 866640804 (2) Metastatic breast cancer Narrative/Plan: The patient's recent imaging has shown definite evidence of progression. Tumor markers have been ordered. She will follow-up as an outpatient for adjustment of her regimen, once she is sufficiently improved from her acute presentation Current Visit: Yes Status: Acute Priority: High Code(s): C50.919 - MALIGNANT NEOPLASM OF UNSP SITE OF UNSPECIFIED FEMALE BREAST SNOMED Code(s): 183702359
--- NOTE | 2021-02-09 20:35 | PN ---
PROGRESS NOTE DATE OF SERVICE: 02/09/2021 REASON FOR FOLLOWUP: Possible right breast cellulitis. INTERVAL HISTORY: The patient is afebrile. She is breathing comfortably. Redness to the right no chest pain, shortness of breath or cough. No abdominal pain or diarrhea. PHYSICAL EXAMINATION: Blood pressure 130/65, pulse of 75, temperature 99. She is 94% on 2 L nasal cannula. GENERAL DESCRIPTION: General description is an elderly female lying in bed in no distress. Right breast swelling persists. Redness is minimally decreased. No warmth. No drainage. LUNGS: Unlabored breathing. Clear to auscultation anteriorly. HEART: S1, S2. Regular rate and rhythm. ABDOMEN: Soft. No tenderness. LABS: Hemoglobin is 11.9, white count 8.6, BUN of 19, creatinine 1.33. DIAGNOSTIC IMPRESSION AND PLAN: Patient with metastatic right breast cancer in this patient with concern for possible right breast cellulitis, failing outpatient Cipro and Bactrim therapy. Some improvement on cefazolin; to continue while monitoring clinical course closely. Continue supportive care. MMODL / IJN: [id number] /
[2021-02-09] MEDS: PRAVASTATIN SODIUM 20 MG TAB PO SCH (21:06)
[2021-02-09] MEDS: LOSARTAN 50 MG TAB PO SCH (21:06)
[2021-02-10] MEDS: FUROSEMIDE 10 MG/ML 4 ML VIAL IV SCH ×2 (08:32→20:43)
[2021-02-10] MEDS: CHOLECALCIFEROL 25 MCG (1000 IU) TABLET PO SCH ×2 (10:47→20:43)
--- NOTE | 2021-02-10 10:58 | P.PN ---
Subjective Progress Note Date: 02/10/21 Principal diagnosis: Likely acute diastolic heart failure with interstitial edema and bilateral pleural effusion patient will benefit from diuresis Metastatic breast cancer local and invasive appears to have metastases in the lung as well, oncology is following Mild pulmonary hypertension Hypertension hypertensive cardiovascular disease Bilateral pleural effusion Cellulitis of the right breast Dyslipidemia 02/10/2021, patient seen eval examined during the rounds labs reviewed medications reviewed care plan discussed, respiratory status remains stable however patient does require oxygen, patient desaturated easily on room air, on 2 L sats remained in 90s, patient has been eval by cardiovascular service no new recommendation for now, plan to continue diuretics, VQ scan is nondiagnostic with low probability Patient is a 80-year-old female who presented emergency department last night with complaint of shortness of breath going on for 2 weeks have been progressive in nature, no denies any cough or sputum production, patient does have a stage IV breast cancer follows oncology at[facility], it appears that no chemotherapy since November currently no chemoradiation due to shortness of breath which is exertional in nature patient is being planned for CAT scan, patient has seen her primary oncologist week ago which she demonstrated presence of bilateral effusion, due to increasing shortness of breath patient admitted into the hospital and thoracentesis is not performed, on specific questioning denies any seizure-like activity denies any chest pain cough or sputum production her oxygen saturation is 80%, on 2 L however it's improved to 94%, denies any prior history of heart failure, she has a component of the right breast cellulitis which is being treated with clindamycin and Bactrim outpatient basis, chest x- ray significant for a small bilateral pleural effusion and interstitial edema, computed tomography scan also show small to moderate bilateral pleural effusion slightly more on the right side, along with scarring atelectasis, some consolidation noted which is corresponding to recent hypermetabolic suspicious area on PET scan, overlying breast there is a hypermetabolic 3.42.1 cm mass with 1.5 cm nodule in the subcutaneous skin, echocardiogram revealed ejection fraction of 55%, with LVH along with mild pulmonary hypertension Past medical history significant for hypertension hypertensive cardiovascular disease dyslipidemia Objective - Vital Signs Vital signs: Vital Signs Temp 98.4 F 02/10/21 05:00 Pulse 78 02/10/21 05:00 Resp 16 02/10/21 05:00 BP 124/60 02/10/21 05:00 Pulse Ox 89 L 02/10/21 08:46 Intake & Output 02/09/21 02/10/21 02/10/21 18:59 06:59 18:59 Intake Total 23.5 590 Balance 23.5 590 Intake: Intake, IV Titration 23.5 Amount Heparin Sod,Pork in 0.45% 23.5 NaCl 25,000 unit In 0.45 % NaCl 1 250ml.bag @ 10. 35 UNITS/KG/HR 10 mls/hr IV .Q24H [facility] Rx#: [id number] Oral 590 Other: Voiding Method Toilet # Voids 3 2 - Exam - Constitutional General appearance: disheveled, mild distress - EENT Eyes: PERRLA Ears: bilateral: normal - Neck Carotids: bilateral: upstroke normal - Respiratory Respiratory: bilateral: diminished (Tenderness to percussion and decrease in air entry at the bases) - Cardiovascular Rhythm: regular Heart sounds: normal: S1, S2 - Gastrointestinal General gastrointestinal: soft - Integumentary Integumentary: normal turgor - Neurologic Neurologic: CNII-XII intact - Musculoskeletal Musculoskeletal: gait normal, generalized weakness - Psychiatric Psychiatric: A&O x's 3, appropriate affect, intact judgment & insight - Constitutional Constitutional Comment(s): - Constitutional General appearance: disheveled, mild distress - EENT Eyes: PERRLA Ears: bilateral: normal - Neck Carotids: bilateral: upstroke normal - Respiratory Respiratory: bilateral: diminished (Tenderness to percussion and decrease in air entry at the bases) - Cardiovascular Rhythm: regular Heart sounds: normal: S1, S2 - Gastrointestinal General gastrointestinal: soft - Integumentary Integumentary: normal turgor - Neurologic Neurologic: CNII-XII intact - Musculoskeletal Musculoskeletal: gait normal, generalized weakness - Psychiatric Psychiatric: A&O x's 3, appropriate affect, intact judgment & insight - Labs CBC & Chem 7: 02/09/21 04:12 02/10/21 06:57 Labs: Abnormal Lab Results - Last 24 Hours (Table) 02/10/21 Range/Units 06:57 Creatinine 1.14 H (0.52-1.04) mg/dL Assessment and Plan Assessment: Likely acute diastolic heart failure with interstitial edema and bilateral pleural effusion, patient is showing symptomatic improvement with diuresis Metastatic breast cancer local and invasive appears to have metastases in the lung as well, oncology is following, will discuss with oncology service if bronchoscopy or transbronchial biopsy is needed Mild pulmonary hypertension Hypertension hypertensive cardiovascular disease Bilateral pleural effusion Cellulitis of the right breast Dyslipidemia Plan: Gentle diuresis Broad-spectrum antibiotics for cellulitis Continue home medications Awaiting further recommendation from oncology service Further plan of care as per clinical response of the patient Repeat chest x-ray in Time with Patient: Greater than 30
--- NOTE | 2021-02-10 13:05 | P.PN ---
Subjective Progress Note Date: 02/10/21 The patient feels that there has been some further improvement in her respiratory status, but she is not yet back to baseline. She still gets short of breath with exertion and is using oxygen. She denies significant orthopnea at least while on oxygen. Objective - Vital Signs Vital signs: Vital Signs Temp 98.4 F 02/10/21 05:00 Pulse 78 02/10/21 05:00 Resp 16 02/10/21 05:00 BP 124/60 02/10/21 05:00 Pulse Ox 89 L 02/10/21 08:46 Intake & Output 02/09/21 02/10/21 02/10/21 18:59 06:59 18:59 Intake Total 23.5 590 Balance 23.5 590 Intake: Intake, IV Titration 23.5 Amount Heparin Sod,Pork in 0.45% 23.5 NaCl 25,000 unit In 0.45 % NaCl 1 250ml.bag @ 10. 35 UNITS/KG/HR 10 mls/hr IV .Q24H [facility] Rx#: [id number] Oral 590 Other: Voiding Method Toilet # Voids 3 2 - Constitutional General appearance: Present: no acute distress - EENT Eyes: Present: EOMI ENT: Present: hearing grossly normal, normal oropharynx - Respiratory Respiratory: right: diminished - Cardiovascular Rhythm: regular Heart sounds: normal: S1, S2 - Gastrointestinal General gastrointestinal: Present: normal bowel sounds, soft - Integumentary Integumentary: Present: normal - Neurologic Neurologic: Present: CNII-XII intact - Musculoskeletal Musculoskeletal: Present: generalized weakness, strength equal bilaterally - Psychiatric Psychiatric: Present: A&O x's 3, appropriate affect - Labs CBC & Chem 7: 02/09/21 04:12 02/10/21 06:57 Labs: Abnormal Lab Results - Last 24 Hours (Table) 02/10/21 Range/Units 06:57 Creatinine 1.14 H (0.52-1.04) mg/dL Assessment and Plan (1) Dyspnea Narrative/Plan: The patient feels that there may be some further improvement, but she is not yet back to baseline. He appears to be responding well to diuresis in terms of urine output. - Based on the results of the VQ scan, and computed tomography scan, heparin was discontinued as there appeared to be very low probability for PE. - The patient is currently being treated for presumed diastolic congestive heart failure with diuresis. Cardiology as well as pulmonology notes reviewed. If the patient does not have resolution of her symptoms with diuresis, it was discussed with primary medicine to consider thoracentesis if there is enough fluid for the same. Repeat chest x-ray has been ordered for the a.m. - If there is not sufficient fluid for thoracentesis, and the patient does not appear to be responding optimally to treatment for CHF, then another consideration could be some degree of lymphangitic involvement with breast cancer, as the patient is known to have progression Current Visit: Yes Status: Acute Code(s): R06.00 - DYSPNEA, UNSPECIFIED SNOMED Code(s): 977482015 (2) Metastatic breast cancer Narrative/Plan: The patient has known progression based on imaging. Repeat biopsy is planned for biomarker testing. As noted above, progression of malignancy itself could potentially be at least according factor to her dyspnea. The patient was advi sed that if her symptoms are indeed due to malignant pleural effusion and/or lymphangitic spread, she is going to be change to a different treatment for her breast cancer anyway. Current Visit: Yes Status: Acute Priority: High Code(s): C50.919 - MALIGNANT NEOPLASM OF UNSP SITE OF UNSPECIFIED FEMALE BREAST SNOMED Code(s): 780253298
--- NOTE | 2021-02-10 13:49 | P.PN ---
Subjective Progress Note Date: 02/10/21 Patient is still complaining of exertional shortness of breath. There may be an element of improvement. Appreciate Dr. Cochran's input. We'll continue with current medical therapy and do repeat chest x-ray. If her symptoms continued to improve on chest x-ray shows improvement. We'll continue current medical therapy with diuretics. If there is no improvement, we may have to consider other causes of shortness of breath. Denies any chest pain. No arrhythmias noted. Lungs appeared to be clear. Heart is regular. No JVD or peripheral edema Objective - Vital Signs Vital signs: Vital Signs Temp 98.4 F 02/10/21 05:00 Pulse 78 02/10/21 05:00 Resp 16 02/10/21 05:00 BP 124/60 02/10/21 05:00 Pulse Ox 89 L 02/10/21 08:46 Intake & Output 02/09/21 02/10/21 02/10/21 18:59 06:59 18:59 Intake Total 23.5 590 Balance 23.5 590 Intake: Intake, IV Titration 23.5 Amount Heparin Sod,Pork in 0.45% 23.5 NaCl 25,000 unit In 0.45 % NaCl 1 250ml.bag @ 10. 35 UNITS/KG/HR 10 mls/hr IV .Q24H [facility] Rx#: [id number] Oral 590 Other: Voiding Method Toilet # Voids 3 2 - Exam GENERAL EXAM: Patient is alert and oriented and doesn't appear to be in any acute distress HEENT: Normocephalic. Normal reaction of pupils, equal size, normal range of extraocular motion. No erythema or exudates in the throat. NECK: No masses, no nuchal rigidity. CHEST: No chest wall deformity. LUNGS: Equal air entry with no crackles or wheeze. HEART: S1 and S2 normal with no audible mumurs or gallops. Regular rhythm, femo rals equal on both sides.. ABDOMEN: No hepatosplenomegaly, normal bowel sounds, no guarding or rigidity. SKIN: No rashes CENTRAL NERVOUS SYSTEM: No focal deficits. EXTREMITIES: No cyanosis, clubbing or edema. - Labs CBC & Chem 7: 02/09/21 04:12 02/10/21 06:57 Labs: Abnormal Lab Results - Last 24 Hours (Table) 02/10/21 Range/Units 06:57 Creatinine 1.14 H (0.52-1.04) mg/dL Assessment and Plan (1) Essential hypertension Current Visit: Yes Status: Acute Code(s): I10 - ESSENTIAL (PRIMARY) HYPERTENSION SNOMED Code(s): 79836889 (2) Dyspnea Current Visit: Yes Status: Acute Code(s): R06.00 - DYSPNEA, UNSPECIFIED SNOMED Code(s): 802401732 (3) Metastatic breast cancer Current Visit: Yes Status: Acute Priority: High Code(s): C50.919 - MALIGNANT NEOPLASM OF UNSP SITE OF UNSPECIFIED FEMALE BREAST SNOMED Code(s): 887154714 (4) Metastatic cancer to lung Current Visit: Yes Status: Acute Code(s): C78.00 - SECONDARY MALIGNANT NEOPLASM OF UNSPECIFIED LUNG SNOMED Code(s): 58739869 (5) Pleural effusion Current Visit: Yes Status: Acute Code(s): J90 - PLEURAL EFFUSION, NOT ELSEWHERE CLASSIFIED SNOMED Code(s): 46194783 Plan: No definite evidence of CHF. Doesn't have JVD or peripheral edema. Echo function is normal. BNP is within normal limits. I suspect the symptoms could be related to metastatic involvement of the lung. He patient shows improvement with the diuretics, empiric treatment with diuretics could be continued. Patient seemed to be still having shortness of breath with exertion. Lungs appeared to be clear. Heart is regular. Repeat chest x-ray in the morning. Further recommendation depending upon the clinical course Time with Patient: Less than 30
[2021-02-10] MEDS: ACETAMINOPHEN TAB 500 MG TAB PO PRN ×2 (14:30→20:47)
--- NOTE | 2021-02-10 19:23 | PN ---
PROGRESS NOTE DATE OF SERVICE: 02/10/2021 REASON FOR FOLLOWUP: Right breast cellulitis. INTERVAL HISTORY: The patient is afebrile. The patient is breathing more comfortably. The patient denies having any chest pain, shortness of breath or cough. No abdominal pain. No pain to the right breast area. PHYSICAL EXAMINATION: Blood pressure 120/53 with a pulse of 59, temperature 98.7. She is 96% on 2 L nasal cannula. General description is an elderly female lying in bed in no distress. Respiratory system: Unlabored breathing, clear to auscultation anteriorly. Heart S1, S2. Regular rate and rhythm. Abdomen soft, no tenderness. Right breast swelling has minimally improved. LABS: Creatinine is 1.14. DIAGNOSTIC IMPRESSION AND PLAN: Patient with right breast discoloration, question of radiation change versus cellulitis failing outpatient oral antibiotic therapy. Patient is currently covered with cefazolin to continue and mentioned some clinical improvement. Will re-evaluate the patient tomorrow. Questions and concerns were answered. MMODL / IJN: [id number] /
[2021-02-10] MEDS: LOSARTAN 50 MG TAB PO SCH (20:42)
[2021-02-10] MEDS: PRAVASTATIN SODIUM 20 MG TAB PO SCH (20:43)
[2021-02-11] MEDS: CHOLECALCIFEROL 25 MCG (1000 IU) TABLET PO SCH ×2 (07:40→21:29)
[2021-02-11] MEDS: FUROSEMIDE 10 MG/ML 4 ML VIAL IV SCH ×2 (07:40→21:29)
[2021-02-11] MEDS: ACETAMINOPHEN TAB 500 MG TAB PO PRN (07:43)
--- NOTE | 2021-02-11 09:01 | XR ---
EXAMINATION TYPE: XR chest 2V DATE OF EXAM: 02/11/2021 COMPARISON: Chest x-ray 02/07/2021, chest CT 02/08/2021 HISTORY: Abnormal chest x-ray, chest CT TECHNIQUE: Frontal and lateral views of the chest are obtained. FINDINGS: Bilateral pleural effusions are suspected, there is blunting of the costophrenic angles. I nterstitium remains increased. Nodular density seen in the upper lobes on CT not as well seen on plai n film. The heart remains enlarged. Pneumobilia seen on patient's CT scan not seen with certainty. Sc lerotic bone metastases not as well seen. IMPRESSION: Correlate for interstitial edema with bilateral pleural effusions. Cardiomegaly.
[2021-02-11] MEDS: guaiFENesin 600 MG TABLET.ER PO SCH ×2 (11:26→21:29)
--- NOTE | 2021-02-11 13:39 | P.PN ---
Subjective This is a 80-year-old female with history of metastatic breast cancer, pericarditis, hyperlipidemia and hypertension, history of syncope, chronic kid nicolasa disease. Patient was admitted to the hospital with progressive shortness of breath. She follows with Dr. Gamble in the office. We were consulted for LVH and pulmonary infiltrates. Patient underwent PET scan on 02/05 which revealed worsening progression of disease. Echocardiogram revealed EF of 5560 percent, mild concentric left ventricular hypertrophy, mild mitral regurgitation, mild tricuspid regurgitation. Laboratory data reviewed, proBNP 101, troponin negative 1, sCr 1.19. Patient underwent VQ scan which revealed low probability of pulmonary embolism. Patient has been maintained on IV Lasix 40mg BID, losartan 50mg nightly, pravastatin 20mg nightly. She is on IV Cefazolin for keri lulitis of the right breast. Patient seen and examined at bedside, she states her breathing has improved. Blood pressure 123/71, heart rate 78, afebrile, maintaining oxygen saturations on 1-2 L nasal cannula GENERAL: In no acute distress. NECK: Supple without JVD or thyromegaly. LUNGS: Breath sounds clear to auscultation bilaterally. Respiration equal and unlabored. No wheezes, rales or rhonchi. HEART: Regular rate and rhythm without murmurs, rubs or gallops. S1 and S2 heard. EXTREMITIES: Normal range of motion, no edema. No clubbing or cyanosis. Peripheral pulses intact. ASSESSMENT Dyspnea, possibly diastolic heart failure vs metastatic component Metastatic breast cancer Hyperlipidemia Hypertension History of pericarditis Chronic Kidney Disease PLAN -We will continue IV Diuresis today -Monitor renal function and electrolytes -Continue Losartan 50mg nightly. -Further recommendations based on clinical course Nurse Practitioner note has been reviewed, I agree with a documented findings and plan of care. Patient was seen and examined. Objective - Vital Signs Vital signs: Vital Signs Temp 97.8 F 02/11/21 11:40 Pulse 78 02/11/21 11:40 Resp 16 02/11/21 11:40 BP 123/71 02/11/21 11:40 Pulse Ox 92 L 02/11/21 11:40 Intake & Output 02/10/21 02/11/21 02/11/21 18:59 06:59 18:59 Intake Total 50 50 Balance 50 50 Intake: Intake, IV Titration 50 50 Amount ceFAZolin 2 gm In Sodium 50 50 Chloride 0.9% 50 ml @ 100 mls/hr IVPB Q12HR@0600, 1800 [facility] Rx#:[id number] Other: Voiding Method Toilet # Voids 1 3 # Bowel Movements 1 - Labs CBC & Chem 7: 02/09/21 04:12 02/11/21 06:07 Labs: Abnormal Lab Results - Last 24 Hours (Table) 02/11/21 Range/Units 06:07 Creatinine 1.19 H (0.52-1.04) mg/dL
--- NOTE | 2021-02-11 14:37 | P.PN ---
Subjective Progress Note Date: 02/11/21 Principal diagnosis: New onset SOB, progressive breast cancer In f/u today pt feels better then on admit, her breathing is less labored, she requested mucinex and that seems to be clearing up some mucus. Denies, fever, chest pain, other pain, all questions and concerns addressed Objective - Vital Signs Vital signs: Vital Signs Temp 98.6 F 02/11/21 05:16 Pulse 77 02/11/21 05:16 Resp 16 02/11/21 05:16 BP 129/70 02/11/21 05:16 Pulse Ox 95 02/11/21 05:16 Intake & Output 02/10/21 02/11/21 02/11/21 18:59 06:59 18:59 Intake Total 50 50 Balance 50 50 Intake: Intake, IV Titration 50 50 Amount ceFAZolin 2 gm In Sodium 50 50 Chloride 0.9% 50 ml @ 100 mls/hr IVPB Q12HR@0600, 1800 SANTO Rx#:[id number] Other: Voiding Method Toilet # Voids 1 3 # Bowel Movements 1 - Constitutional General appearance: Present: average body habitus, cooperative, no acute distress - EENT Eyes: Present: anicteric sclerae, EOMI ENT: Present: hearing grossly normal, normal oropharynx - Respiratory Respiratory: bilateral: CTA - Cardiovascular Rhythm: regular Heart sounds: normal: S1, S2 Abnormal Heart Sounds: Absent: systolic murmur, diastolic murmur, rub, S3 Gallop, S4 Gallop, click, other - Peripheral edema leg Peripheral Edema: bilateral: None - Gastrointestinal General gastrointestinal: Present: normal bowel sounds, soft - Integumentary Integumentary: Present: normal - Neurologic Neurologic: Present: CNII-XII intact - Musculoskeletal Musculoskeletal: Present: strength equal bilaterally - Psychiatric Psychiatric: Present: A&O x's 3, appropriate affect, intact judgment & insight - Labs CBC & Chem 7: 02/09/21 04:12 02/11/21 06:07 Labs: Abnormal Lab Results - Last 24 Hours (Table) 02/11/21 Range/Units 06:07 Creatinine 1.19 H (0.52-1.04) mg/dL - Imaging and Cardiology Chest x-ray: report reviewed Assessment and Plan (1) Dyspnea Narrative/Plan: Pt resp status improved with lasix, mucinex, and abx. She is currently on O2, will need to have O2 testing prior to discharge. Current Visit: Yes Status: Acute Priority: High Code(s): R06.00 - DYSPNEA, UNSPECIFIED SNOMED Code(s): 476577257 (2) Metastatic breast cancer Narrative/Plan: IR was able to get pt in today for breast biopsy, tissue needed for NGS testing and repeat ER/[place]/Her2 as she recently has had rapid progression of disease. Will send specimen out [facility]. Hold all current cancer treatments We reviewed concerns for lymphangitic spread of malignancy. Her symptoms are improving with treatment (lasix, mucinex, abx). Plan is to continue meds/complete abx until malignancy can be addressed. Current Visit: Yes Status: Acute Priority: High Code(s): C50.919 - MALIGNANT NEOPLASM OF UNSP SITE OF UNSPECIFIED FEMALE BREAST SNOMED Code(s): 463632527
[2021-02-11] MEDS: LOSARTAN 50 MG TAB PO SCH (21:29)
[2021-02-11] MEDS: PRAVASTATIN SODIUM 20 MG TAB PO SCH (21:29)
--- NOTE | 2021-02-12 06:26 | PN ---
PROGRESS NOTE DATE OF SERVICE: 02/11/2021 REASON FOR FOLLOWUP: Right breast cellulitis. INTERVAL HISTORY: The patient is afebrile. The patient is breathing comfortably. The patient denies having any chest pain. No shortness of breath. No cough. No nausea, vomiting. No abdominal pain or any discomfort to the right breast area. PHYSICAL EXAMINATION: Blood pressure 120/75 with a pulse of 75, temperature 98.9. She is 96% on 2 L nasal cannula. General description is an elderly female lying in bed in no distress. Respiratory system: Unlabored breathing, clear to auscultation anteriorly. Heart S1, S2. Regular rate and rhythm. Abdomen soft, no tenderness. Right breast swelling and redness slightly decreased. LABS: Creatinine is 1.19. DIAGNOSTIC IMPRESSION AND PLAN: Patient with right pain swelling and redness, question of radiation effect versus cellulitis. Patient is currently covered with cefazolin to continue. Transition to a short course of oral Keflex on discharge and close outpatient followup. Daughter was at the bedside. Questions were answered. MMODL / IJN: [id number] /
[2021-02-12 06:37] LABS: African American GFR (CKD) 51 (>60 ml/min/1.73 sqM); Anion Gap 7 mmol/L; Blood Urea Nitrogen 23 mg/dL (7-17); Carbon Dioxide 30 mmol/L (22-30); Chloride 98 mmol/L (98-107); Glucose 107 mg/dL (74-99); Non-African American GFR(CKD) 44 (>60 ml/min/1.73 sqM); Potassium 3.8 mmol/L (3.5-5.1); Sodium 135 mmol/L (137-145)
[2021-02-12] MEDS: FUROSEMIDE 10 MG/ML 4 ML VIAL IV SCH ×2 (07:40→21:22)
[2021-02-12] MEDS: CHOLECALCIFEROL 25 MCG (1000 IU) TABLET PO SCH ×2 (07:40→21:22)
[2021-02-12] MEDS: guaiFENesin 600 MG TABLET.ER PO SCH ×2 (07:40→21:22)
[2021-02-12] MEDS: ACETAMINOPHEN TAB 500 MG TAB PO PRN ×3 (07:47→21:26)
--- NOTE | 2021-02-12 07:51 | USB ---
EXAMINATION TYPE: US breast needle core RT DATE OF EXAM: 02/11/2021 HISTORY: Right breast mass. FINDINGS: Maximal barrier technique was utilized. Hand hygiene achieved with soap and water and alco hol-based hand rub. The skin overlying a suitable path to the patient's right breast mass in the 11:0 0 position of the right breast was localized with ultrasound and the overlying skin prepped and drape d. Ultrasound was utilized with sterile technique. Lidocaine was used for local anesthesia. A skin erika was made with a scalpel. A 14-gauge needle was advanced under direct ultrasound guidance and c ore specimen obtained of the mass. Specimen submitted in formalin to Pathology. Following the proced ure, hemostasis achieved and the patient is discharged in stable condition without complication. IMPRESSION:STATUS POST ULTRASOUND GUIDED CORE BIOPSY OF right breast MASS, PATHOLOGY IS PENDING. THI S PROCEDURE IS PERFORMED BY THE UNDERSIGNED.
--- NOTE | 2021-02-12 11:48 | P.PN ---
Subjective Progress Note Date: 02/12/21 Principal diagnosis: New onset SOB, progressive breast cancer In f/u today pt is doing well today, she was checked to see if she qualified for O2 and she maintained at least 90% sat. She feels her breathing is stable, better then admit. Denies, fever, chest pain. She did get breast biopsy. Has appt for outpt thoracentesis tomorrow Objective - Vital Signs Vital signs: Vital Signs Temp 97.6 F 02/12/21 07:15 Pulse 67 02/12/21 10:24 Resp 16 02/12/21 10:24 BP 111/64 02/12/21 07:15 Pulse Ox 90 L 02/12/21 09:02 Intake & Output 02/11/21 02/12/21 02/12/21 18:59 06:59 18:59 Weight 90.174 kg Other: Voiding Method Toilet # Voids 1 - Constitutional General appearance: Present: average body habitus, cooperative, no acute distress - EENT Eyes: Present: anicteric sclerae, EOMI ENT: Present: hearing grossly normal - Respiratory Respiratory: bilateral: CTA, diminished - Cardiovascular Rhythm: regular Heart sounds: normal: S1, S2 Abnormal Heart Sounds: Absent: systolic murmur, diastolic murmur, rub, S3 Gallop, S4 Gallop, click, other - Peripheral edema leg Peripheral Edema: bilateral: None - Gastrointestinal General gastrointestinal: Present: normal bowel sounds, soft - Neurologic Neurologic: Present: CNII-XII intact - Musculoskeletal Musculoskeletal: Present: strength equal bilaterally - Psychiatric Psychiatric: Present: A&O x's 3, appropriate affect, intact judgment & insight - Labs CBC & Chem 7: 02/09/21 04:12 02/12/21 05:37 Labs: Abnormal Lab Results - Last 24 Hours (Table) 02/12/21 Range/Units 05:37 Sodium 135 L (137-145) mmol/L BUN 23 H (7-17) mg/dL Creatinine 1.17 H (0.52-1.04) mg/dL Glucose 107 H (74-99) mg/dL Assessment and Plan (1) Dyspnea Narrative/Plan: Pt resp status improved with lasix, mucinex, and abx. She maintains O2 sat 90% without O2. Discussed case with IR RN. Pt has outpt appt for throacentesis tomorrow. US chest ordered for evaluation of pleural fluid-pt is symptomatically better. If appropriate can do thora prior to DC to open appt tomorrow. Pending results and review by Radiologist. Current Visit: Yes Status: Acute Priority: High Code(s): R06.00 - DYSPNEA, UNSPECIFIED SNOMED Code(s): 731274971 (2) Metastatic breast cancer Narrative/Plan: IR was able to do breast biopsy yesterday. Pending tissue release so it can be sent for NGS testing and repeat ER/[place]/Her2 as she recently has had rapid progression of disease. Will send specimen out [facility]. Hold all current cancer treatments We reviewed concerns for lymphangitic spread of malignancy. Her symptoms are improving with treatment (lasix, mucinex, abx). Plan is to continue meds/complete abx until malignancy can be addressed. Current Visit: Yes Status: Acute Priority: High Code(s): C50.919 - MALIGNANT NEOPLASM OF UNSP SITE OF UNSPECIFIED FEMALE BREAST SNOMED Code(s): 569514803
--- NOTE | 2021-02-12 12:20 | P.PN ---
Subjective This is a 80-year-old female with history of metastatic breast cancer, pericarditis, hyperlipidemia and hypertension, history of syncope, chronic kid nicolasa disease. Patient was admitted to the hospital with progressive shortness of breath. She follows with Dr. Gamble in the office. We were consulted for LVH and pulmonary infiltrates. Patient underwent PET scan on 02/05 which revealed worsening progression of disease. Echocardiogram revealed EF of 5560 percent, mild concentric left ventricular hypertrophy, mild mitral regurgitation, mild tricuspid regurgitation. Patient underwent VQ scan which revealed low probability of pulmonary embolism. She underwent a breast biopsy this morning. Patient seen and examined at bedside, she states her breathing has continuously improved with diuresis. She has been weaned to room air. She denies any chest pain, lightheadedness, dizziness. Her kidney function is stable. Laboratory data reviewed sodium 135, potassium 3.8, BUN 23, serum creatinine 1.17 Patient has been maintained on IV Lasix 40mg BID, losartan 50mg nightly, pravastatin 20mg nightly. She is on IV Cefazolin for cellulitis of the right breast. blood pressure 137/73, heart 71, afebrile, maintaining oxygen saturations on room air. GENERAL: In no acute distress. NECK: Supple without JVD or thyromegaly. LUNGS: Breath sounds clear to auscultation bilaterally. Respiration equal and unlabored. No wheezes, rales or rhonchi. HEART: Regular rate and rhythm without murmurs, rubs or gallops. S1 and S2 heard. EXTREMITIES: Normal range of motion, no edema. No clubbing or cyanosis. Peripheral pulses intact. ASSESSMENT Dyspnea, possibly diastolic heart failure vs metastatic component Metastatic breast cancer Hyperlipidemia Hypertension History of pericarditis Chronic Kidney Disease PLAN -From a cardiology perspective, ok to discharge pending primary, oncology and infectious disease recommendations. Patient's renal function is stable. Ok to continue IV diuresis while inpatient and transition to PO Lasix 40mg daily on discharge -Monitor renal function and electrolytes -Continue Losartan 50mg nightly -Further recommendations based on clinical course Nurse Practitioner note has been reviewed, I agree with a documented findings and plan of care. Patient was seen and examined. Objective - Vital Signs Vital signs: Vital Signs Temp 98.5 F 02/12/21 11:37 Pulse 71 02/12/21 11:37 Resp 16 02/12/21 11:37 BP 137/73 02/12/21 11:37 Pulse Ox 93 L 02/12/21 11:37 Intake & Output 02/11/21 02/12/21 02/12/21 18:59 06:59 18:59 Weight 90.174 kg Other: Voiding Method Toilet # Voids 1 - Labs CBC & Chem 7: 02/09/21 04:12 02/12/21 05:37 Labs: Abnormal Lab Results - Last 24 Hours (Table) 02/12/21 Range/Units 05:37 Sodium 135 L (137-145) mmol/L BUN 23 H (7-17) mg/dL Creatinine 1.17 H (0.52-1.04) mg/dL Glucose 107 H (74-99) mg/dL
--- NOTE | 2021-02-12 12:39 | US ---
EXAMINATION TYPE: US chest DATE OF EXAM: 02/12/2021 COMPARISON: CT CLINICAL HISTORY: Eval for pleural effusion. TECHNIQUE: Targeted ultrasound of the posterior bilateral hemithoraces EXAM MEASUREMENTS: Right Pleural Effusion pocket size: 4.0 cm A/P Right skin surface to fluid distance: 4.0 cm A/P Left Pleural Effusion pocket size: 3.7 cm A/P Right side was marked for possible thoracentesis outside the dept. Pulmonologists are able to review the images in the patient?s EMR. IMPRESSIONS: Bilateral pleural effusions right greater than left
--- NOTE | 2021-02-12 13:11 | HP ---
HISTORY AND PHYSICAL This patient is a 80-year-old white female who was admitted to the hospital with shortness of breath, pleural effusion, possible pneumonia. She did have a breast biopsy yesterday. She is scheduled for thoracentesis as outpatient home tomorrow. She came in with shortness of breath. Temperature is 97.6, pulse 60s, respiratory rate 16 to 18, blood pressure 110/64, O2 90% on room air. She is breathing much better since admission. Fourteen-point review of systems otherwise negative. CARDIOVASCULAR: S1, S2. Lungs clear. Peripheral edema; 2+ edema in extremities. GI soft. Neurologic: Cranial nerves intact. PSYCH: Fair mood and affect. Sodium was 135. Creatinine is 1.17, BUN is 23. ASSESSMENT: Dyspnea. On antibiotics for pneumonia, improved with Lasix, Mucinex, antibiotics. Maintain saturations around 90%. radiology. She has an appointment for thoracentesis. Ultrasound of chest was ordered for pleural fluid, possibly to do as an outpatient tomorrow or inpatient here, depending on the patient's breathing and what she wants to do. She has been seeing the corner cutter machine operator in the past. She had a chest ultrasound that shows a pocket the right pleural effusion 4 cm left 3.7 cm right side was marked. Prognosis guarded. Possible discharge home or for an outpatient thoracentesis or possibly do it while in the hospital here. Suspect this is all pulmonary-related possible pneumonia. MMODL / IJN: [id number] /
--- NOTE | 2021-02-12 13:56 | PN ---
PROGRESS NOTE DATE OF SERVICE: 02/12/2021 REASON FOR FOLLOWUP: Right breast cellulitis. INTERVAL HISTORY: The patient is afebrile. The patient is breathing comfortably. No chest pain, shortness of breath or cough. No abdominal pain or pain to the right breast area. PHYSICAL EXAMINATION: Blood pressure 137/73 with a pulse of 79, temperature 98.5. She is 93% on room air. GENERAL DESCRIPTION: General description is an elderly female lying in bed in no distress. RESPIRATORY SYSTEM: Unlabored breathing. Clear to auscultation anteriorly. HEART: S1, S2. Regular rate and rhythm. ABDOMEN: Soft. No tenderness. Right breast swelling and induration minimally decreased. There is no warmth or tenderness. LABS: BUN of 23, creatinine 1.17. DIAGNOSTIC IMPRESSION AND PLAN: Patient with right breast discoloration and a question of possible cellulitis, failing outpatient oral antibiotic therapy. Looks more like radiation dermatitis or related to underlying malignancy. She is on cefazolin. May short course of oral Keflex on discharge and close outpatient followup. MMODL / IJN: [id number] /
--- NOTE | 2021-02-12 19:21 | P.CNPUL ---
History of Present Illness Consult date: 02/12/21 Reason for consult: dyspnea, pleural effusion, abnormal CXR/CT Chief complaint: Shortness of breath History of present illness: Patient is a 80-year-old female who presented emergency department last night with complaint of shortness of breath going on for 2 weeks have been progressive in nature, denies any cough or sputum production, patient does have a stage IV breast cancer [facility]ology [facility], it appears that no chemotherapy since November currently no chemoradiation due to shortness of breath which is exertional in nature patient is being planned for CAT scan, patient has seen her primary oncologist week ago which she demonstrated presence of bilateral effusion, due to increasing shortness of breath patient admitted into the hospital and thoracentesis is not performed, on specific questioning denies any seizure-like activity denies any chest pain cough or sputum production her oxygen saturation is 80%, on 2 L however it's improved to 94%, denies any prior history of heart failure, she has a component of the right breast cellulitis which is being treated with clindamycin and Bactrim outpatient basis, chest x-ray significant for a small bilateral pleural effusion and interstitial edema, computed t omography scan also show small to moderate bilateral pleural effusion slightly more on the right side, along with scarring atelectasis, some consolidation noted which is corresponding to recent hypermetabolic suspicious area on PET scan, overlying breast there is a hypermetabolic 3.42.1 cm mass with 1.5 cm nodule in the subcutaneous skin, echocardiogram revealed ejection fraction of 55%, with LVH along with mild pulmonary hypertension patient desaturated easily on room air, on 2 L sats remained in 90s, patient has been eval by cardiovascular service no new recommendation for now, plan to cont inue diuretics, VQ scan is nondiagnostic with low probability, patient continued on Lasix with that oxygen saturation improved now saturation is 95% room air, patient is off of oxygen, ultrasound of the chest revealed small bilateral pleural effusion 4 cm on the right and 3.7 cm on the left respectively, patient had a needle core biopsy results are pending by IR with that small effusion oxygen saturation improved with diuretics no plans for thoracentesis as far as the pulmonary service is concerned however further evaluation would recommend to follow-up in outpatient basis for effusion versus lung mass biopsy Review of Systems All systems: negative Past Medical History Past Medical History: Hyperlipidemia, Hypertension, Syncope Additional Past Medical History / Comment(s): rt breast cancer stage 4- came of femara and injections just took off on thursday., History of Any Multi-Drug Resistant Organisms: None Reported Past Surgical History: Appendectomy, Hernia Repair, Tonsillectomy Additional Past Surgical History / Comment(s): rt cataract 06/06/14; lt cataract 07/2014; bowel surgery 07/2016; Past Anesthesia/Blood Transfusion Reactions: No Reported Reaction Past Psychological History: No Psychological Hx Reported Smoking Status: Never smoker Past Alcohol Use History: Occasional Past Drug Use History: None Reported - Past Family History Mother Family Medical History: Diabetes Mellitus Additional Family Medical History / Comment(s): Angina Father Family Medical History: Cancer Additional Family Medical History / Comment(s): bladder cancer Medications and Allergies Home Medications Medication Instructions Recorded Confirmed Type Losartan Potassium 50 mg PO HS 04/27/19 02/07/21 History Pravastatin Sodium [Pravachol] 20 mg PO HS 04/27/19 02/07/21 History diphenhydrAMINE [Benadryl] 25 mg PO HS PRN 06/08/19 02/07/21 History Phenylephrine HCl/Acetaminophn 1 tab PO Q8H PRN 02/07/21 02/07/21 History [Tylenol Sinus Headache Caplet] Cephalexin [Keflex] 500 mg PO Q8HR 7 Days #21 cap 02/12/21 Rx Allergies Allergy/AdvReac Type Severity Reaction Status Date / Time Penicillins Allergy Itching Verified 02/07/21 20:41 Physical Exam Vitals: Vital Signs Temp Pulse Pulse Pulse Pulse Pulse Resp 02/12/21 11:37 98.5 F 71 16 02/12/21 10:24 67 16 02/12/21 09:02 78 60 109 H 110 H 02/12/21 07:44 02/12/21 07:15 97.6 F 69 16 02/12/21 05:21 98.0 F 72 16 02/11/21 20:24 98.9 F 75 18 BP Pulse Ox Pulse Ox Pulse Ox Pulse Ox Pulse Ox 02/12/21 11:37 137/73 93 L 02/12/21 10:24 02/12/21 09:02 95 94 L 90 L 90 L 02/12/21 07:44 98 02/12/21 07:15 111/64 02/12/21 05:21 117/64 96 02/11/21 20:24 122/75 96 Intake and Output 02/12/21 02/12/21 02/12/21 06:59 14:59 22:59 Other: Voiding Method Toilet Weight 90.174 kg - Constitutional General appearance: Clinically appear comfortable not in any respiratory distress - EENT Eyes: PERRLA Ears: bilateral: normal - Neck Carotids: bilateral: upstroke normal - Respiratory Respiratory: Good breath sounds present - Cardiovascular Rhythm: regular Heart sounds: normal: S1, S2 - Gastrointestinal General gastrointestinal: soft - Integumentary Integumentary: normal turgor - Neurologic Neurologic: CNII-XII intact - Musculoskeletal Musculoskeletal: gait normal, generalized weakness - Psychiatric Psychiatric: A&O x's 3, appropriate affect, intact judgment & insight Results - Laboratory Findings CBC and BMP: 02/09/21 04:12 02/12/21 05:37 PT/INR, D-dimer PT 10.9 sec (9.0-12.0) 02/09/21 04:12 INR 1.0 (<1.2) 02/09/21 04:12 D-Dimer 1.90 mg/L FEU (<0.60) H 02/08/21 13:06 Abnormal lab findings: Abnormal Labs 02/07/21 02/07/21 02/07/21 20:07 20:07 20:07 WBC 10.7 H RBC Hgb Neutrophils # 8.4 H Lymphocytes # PT 12.6 H INR 1.2 H APTT 19.0 L D-Dimer Sodium 135 L Carbon Dioxide 20 L BUN Creatinine 1.12 H Glucose 100 H Plasma Lactic Acid Patrick AST 55 H C-Reactive Protein CA 15-3 Antigen 02/07/21 02/08/21 02/08/21 20:07 04:33 04:33 WBC RBC 3.61 L Hgb 11.3 L Neutrophils # Lymphocytes # 0.8 L PT INR APTT D-Dimer Sodium 136 L Carbon Dioxide BUN Creatinine 1.28 H Glucose 101 H Plasma Lactic Acid Patrick 2.1 H* AST C-Reactive Protein CA 15-3 Antigen 02/08/21 02/08/21 02/08/21 13:06 13:06 13:06 WBC RBC Hgb Neutrophils # Lymphocytes # PT INR APTT D-Dimer 1.90 H Sodium Carbon Dioxide BUN Creatinine Glucose Plasma Lactic Acid Patrick AST C-Reactive Protein 1.0 H CA 15-3 Antigen 587.0 H 02/08/21 02/08/21 02/09/21 16:38 21:16 04:12 WBC 10.7 H RBC Hgb Neutrophils # 8.5 H Lymphocytes # 0.9 L PT INR APTT 20.8 L D-Dimer Sodium 136 L Carbon Dioxide BUN 19 H Creatinine 1.33 H Glucose 109 H Plasma Lactic Acid Patrick AST 47 H C-Reactive Protein CA 15-3 Antigen 02/09/21 02/09/21 02/10/21 04:12 04:12 06:57 WBC RBC 3.73 L Hgb Neutrophils # Lymphocytes # PT INR APTT 21.4 L D-Dimer Sodium Carbon Dioxide BUN Creatinine 1.14 H Glucose Plasma Lactic Acid Patrick AST C-Reactive Protein CA 15-3 Antigen 02/11/21 02/12/21 06:07 05:37 WBC RBC Hgb Neutrophils # Lymphocytes # PT INR APTT D-Dimer Sodium 135 L Carbon Dioxide BUN 23 H Creatinine 1.19 H 1.17 H Glucose 107 H Plasma Lactic Acid Patrick AST C-Reactive Protein CA 15-3 Antigen - Diagnostic Findings Chest x-ray: report reviewed, image reviewed CT scan - chest: report reviewed, image reviewed (Ultrasound of the chest reviewed as well) Assessment and Plan Assessment: Bilateral pleural effusion, small amount would recommend to monitor observe closely Likely acute diastolic heart failure with interstitial edema and bilateral pleural effusion, patient is showing symptomatic improvement with diuresis as well as oxygenation Metastatic breast cancer local and invasive appears to have metastases in the lung as well, oncology is following, will discuss with oncology service if bronchoscopy or transbronchial biopsy is needed, patient has a breast core biopsy results are pending Mild pulmonary hypertension Hypertension hypertensive cardiovascular disease Bilateral pleural effusion Cellulitis of the right breast Dyslipidemia Plan: Gentle diuresis Broad-spectrum antibiotics for cellulitis Continue home medications Awaiting further recommendation from oncology service Awaiting biopsy results Ultrasound of the chest reviewed no plans for thoracentesis from pulmonary service standpoint Further plan of care as per clinical response of the patient Time with Patient: Greater than 30
[2021-02-12] MEDS: PRAVASTATIN SODIUM 20 MG TAB PO SCH (21:22)
[2021-02-12] MEDS: LOSARTAN 50 MG TAB PO SCH (21:22)
--- NOTE | 2021-02-13 01:07 | PN ---
PROGRESS NOTE 80-year-old white female, breast cancer, metastatic. She has very small pleural effusion. Discussed with Dr. Abernathy, does not think it needs to be drained, 3-4 cm of fluid only. She will be discharged home tomorrow on oral Keflex for breast cellulitis. Outpatient oncology treatment for cancer will be done. She had prerenal azotemia which is improved with IV fluids. Decreasing BUN and creatinine. She feels better. She has been ambulating to the bathroom. ASSESSMENT: 1. Metastatic breast cancer. 2. Prerenal renal azotemia. 3. Dehydration. Continue current treatment, restless leg treatments will be given. A small dose Lasix at home will be given and follow up as outpatient. MMODL / IJN: [id number] /
[2021-02-13 06:55] VITALS: BP 124/54; PULSE 72; TEMP 98.2
[2021-02-13 07:00] LABS: African American GFR (CKD) 49 (>60 ml/min/1.73 sqM); Anion Gap 11 mmol/L; Blood Urea Nitrogen 27 mg/dL (7-17); Calcium 9.3 mg/dL (8.4-10.2); Carbon Dioxide 28 mmol/L (22-30); Chloride 97 mmol/L (98-107); Glucose 110 mg/dL (74-99); Non-African American GFR(CKD) 43 (>60 ml/min/1.73 sqM); Potassium 3.8 mmol/L (3.5-5.1); Sodium 136 mmol/L (137-145)
[2021-02-13] MEDS ORDERED: CEPHALEXIN 500 MG CAP PO SCH (08:00)
[2021-02-13] MEDS: CHOLECALCIFEROL 25 MCG (1000 IU) TABLET PO SCH (08:34)
[2021-02-13] MEDS: guaiFENesin 600 MG TABLET.ER PO SCH (08:35)
[2021-02-13] MEDS: ACETAMINOPHEN TAB 500 MG TAB PO PRN (08:38)
[2021-02-13] MEDS ORDERED: FUROSEMIDE 40 MG TAB PO SCH (09:00)
[2021-02-13 10:07] VITALS: RESP 16
--- NOTE | 2021-02-13 10:19 | P.PN ---
Subjective Progress Note Date: 02/13/21 Principal diagnosis: Likely acute diastolic heart failure with interstitial edema and bilateral pleural effusion patient will benefit from diuresis Metastatic breast cancer local and invasive appears to have metastases in the lung as well, oncology is following Mild pulmonary hypertension Hypertension hypertensive cardiovascular disease Bilateral pleural effusion Cellulitis of the right breast Dyslipidemia 02/13/2021, patient seen eval examined during the rounds labs reviewed medications reviewed care plan discussed, respiratory status continued to improve, transient desaturation at night time during sleep was noted to 88% however most of time oxygen saturation remains in mid 90s, interventional radiology canceled the thoracentesis, agree with discharge planning will do nocturnal pulse oximetry for oxygen evaluation and possibly sleep study as well Patient is a 80-year-old female who presented emergency department last night with complaint of shortness of breath going on for 2 weeks have been progressive in nature, no denies any cough or sputum production, patient does have a stage IV breast cancer follows oncology at, [facility], it appears that no chemotherapy since November currently no chemoradiation due to shortness of breath which is exertional in nature patient is being planned for CAT scan, patient has seen her primary oncologist week ago which she demonstrated presence of bilateral effusion, due to increasing shortness of breath patient admitted into the hospital and thoracentesis is not performed, on specific questioning denies any seizure-like activity denies any chest pain cough or sputum production her oxygen saturation is 80%, on 2 L however it's improved to 94%, denies any prior history of heart failure, she has a component of the right breast cellulitis which is being treated with clindamycin and Bactrim outpatient basis, chest x- ray significant for a small bilateral pleural effusion and interstitial edema, computed tomography scan also show small to moderate bilateral pleural effusion slightly more on the right side, along with scarring atelectasis, some consolidation noted which is corresponding to recent hypermetabolic suspicious area on PET scan, overlying breast there is a hypermetabolic 3.42.1 cm mass with 1.5 cm nodule in the subcutaneous skin, echocardiogram revealed ejection fraction of 55%, with LVH along with mild pulmonary hypertension Past medical history significant for hypertension hypertensive cardiovascular disease dyslipidemia patient has been eval by cardiovascular service no new recommendation for now, plan to continue diuretics, VQ scan is nondiagnostic with low probability Objective - Vital Signs Vital signs: Vital Signs Temp 98.2 F 02/13/21 06:54 Pulse 72 02/13/21 10:01 Resp 16 02/13/21 10:01 BP 124/54 02/13/21 06:54 Pulse Ox 95 02/13/21 06:54 Intake & Output 02/12/21 02/13/21 02/13/21 18:59 06:59 18:59 Weight 92.624 kg Other: Voiding Method Toilet Toilet Toilet - Exam - Constitutional General appearance: disheveled, mild distress - EENT Eyes: PERRLA Ears: bilateral: normal - Neck Carotids: bilateral: upstroke normal - Respiratory Respiratory: bilateral: diminished (Tenderness to percussion and decrease in air entry at the bases) - Cardiovascular Rhythm: regular Heart sounds: normal: S1, S2 - Gastrointestinal General gastrointestinal: soft - Integumentary Integumentary: normal turgor - Neurologic Neurologic: CNII-XII intact - Musculoskeletal Musculoskeletal: gait normal, generalized weakness - Psychiatric Psychiatric: A&O x's 3, appropriate affect, intact judgment & insight - Labs CBC & Chem 7: 02/09/21 04:12 02/13/21 05:54 Labs: Abnormal Lab Results - Last 24 Hours (Table) 02/13/21 Range/Units 05:54 Sodium 136 L (137-145) mmol/L Chloride 97 L (98-107) mmol/L BUN 27 H (7-17) mg/dL Creatinine 1.21 H (0.52-1.04) mg/dL Glucose 110 H (74-99) mg/dL Assessment and Plan Assessment: Transient desaturation at nighttime during sleep likely sleep disorder breathing and sleep apnea Bilateral pleural effusion, small amount would recommend to monitor observe closely Likely acute diastolic heart failure with interstitial edema and bilateral pleural effusion, patient is showing symptomatic improvement with diuresis as well as oxygenation Metastatic breast cancer local and invasive appears to have metastases in the lung as well, oncology is following, will discuss with oncology service if bronchoscopy or transbronchial biopsy is needed, patient has a breast core biopsy results are pending Mild pulmonary hypertension Hypertension hypertensive cardiovascular disease Bilateral pleural effusion Cellulitis of the right breast Dyslipidemia Plan: Patient will get a screening study with nasal pulse oximetry if positive then would put patient on nocturnal oxygen and scheduled sleep study Follow-up on outpatient basis Gentle diuresis Broad-spectrum antibiotics for cellulitis Continue home medications Awaiting further recommendation from oncology service Awaiting biopsy results Ultrasound of the chest reviewed no plans for thoracentesis from pulmonary service standpoint Further plan of care as per clinical response of the patient Time with Patient: Greater than 30
--- NOTE | 2021-02-13 11:19 | P.PN ---
Subjective This is a 80-year-old female with history of metastatic breast cancer, pericarditis, hyperlipidemia and hypertension, history of syncope, chronic kid nicolasa disease. Patient was admitted to the hospital with progressive shortness of breath. She follows with Dr. Gamble in the office. We were consulted for LVH and pulmonary infiltrates. Patient underwent PET scan on 02/05 which revealed worsening progression of disease. Echocardiogram revealed EF of 5560 percent, mild concentric left ventricular hypertrophy, mild mitral regurgitation, mild tricuspid regurgitation. Patient underwent VQ scan which revealed low probability of pulmonary embolism. She underwent a breast biopsy this morning. Patient seen and examined at bedside, no acute distress. She is on room air. She denies any chest pain, lightheadedness, dizziness. Her kidney function is s table. Laboratory data reviewed sodium 136, potassium 3.8, BUN 27, serum creatinine 1.2. Patient has been maintained on PO Lasix 40mg daily, losartan 50mg nightly, pravastatin 20mg nightly. Blood pressure 124/54, heart rate 72, afebrile, maintaining oxygen saturations on room air. GENERAL: In no acute distress. NECK: Supple without JVD or thyromegaly. LUNGS: Breath sounds clear to auscultation bilaterally. Respiration equal and unlabored. No wheezes, rales or rhonchi. HEART: Regular rate and rhythm without murmurs, rubs or gallops. S1 and S2 heard. EXTREMITIES: Normal range of motion, no edema. No clubbing or cyanosis. Peripheral pulses intact. ASSESSMENT Dyspnea, possibly diastolic heart failure vs metastatic component Metastatic breast cancer Hyperlipidemia Hypertension History of pericarditis Chronic Kidney Disease PLAN -From a cardiology perspective, ok to discharge pending primary, oncology and infectious disease recommendations. -Continue Losartan 50mg nightly -Plan for patient to be discharged home today. Recommend follow up with Dr. Gamble in the outpatient office. Nurse Practitioner note has been reviewed, I agree with a documented findings and plan of care. Patient was seen and examined. Objective - Vital Signs Vital signs: Vital Signs Temp 98.2 F 02/13/21 06:54 Pulse 72 02/13/21 10:01 Resp 16 02/13/21 10:01 BP 124/54 02/13/21 06:54 Pulse Ox 95 02/13/21 06:54 Intake & Output 02/12/21 02/13/21 02/13/21 18:59 06:59 18:59 Weight 92.624 kg Other: Voiding Method Toilet Toilet Toilet - Labs CBC & Chem 7: 02/09/21 04:12 02/13/21 05:54 Labs: Abnormal Lab Results - Last 24 Hours (Table) 02/13/21 Range/Units 05:54 Sodium 136 L (137-145) mmol/L Chloride 97 L (98-107) mmol/L BUN 27 H (7-17) mg/dL Creatinine 1.21 H (0.52-1.04) mg/dL Glucose 110 H (74-99) mg/dL
== END 2021-02-13 11:45 | disposition home or self-care (01) | DRG 600 ==
LOC: EC 18:55 → 5NMEDONC 21:49
PROVIDERS: ADMIT Family Medicine; ATTEND Family Medicine
PROC: 0H9T3ZX Drainage of Right Breast, Percutaneous Approach, Diagnostic (ICD-10-PCS; principal; 2021-02-12)
DX: N61.0 Mastitis without abscess (principal); I50.31 Acute diastolic (congestive) heart failure; J18.9 Pneumonia, unspecified organism; C78.00 Secondary malignant neoplasm of unspecified lung; I13.0 Hypertensive heart and chronic kidney disease with heart failure and stage 1 through stage 4 chronic kidney disease, or unspecified chronic kidney disease; J81.1 Chronic pulmonary edema; C50.911 Malignant neoplasm of unspecified site of right female breast; E78.5 Hyperlipidemia, unspecified; E86.0 Dehydration; G25.81 Restless legs syndrome; G47.30 Sleep apnea, unspecified; I27.20 Pulmonary hypertension, unspecified; L59.8 Other specified disorders of the skin and subcutaneous tissue related to radiation; N18.9 Chronic kidney disease, unspecified; N64.51 Induration of breast; R09.02 Hypoxemia; Z79.899 Other long term (current) drug therapy; Z80.52 Family history of malignant neoplasm of bladder; Z83.3 Family history of diabetes mellitus; Z92.3 Personal history of irradiation; Z90.89 Acquired absence of other organs; Z98.890 Other specified postprocedural states; Z82.49 Family history of ischemic heart disease and other diseases of the circulatory system; Z98.42 Cataract extraction status, left eye; Z98.41 Cataract extraction status, right eye; Z90.49 Acquired absence of other specified parts of digestive tract
CPT/HCPCS: 36415; 71046; 71275; 76604; 78582; 80048; 80053; 82272; 82565; 83605; 83735; 83880; 84484; 85025; 85379; 85610; 85730; 86140; 86300; 87635; 88305; 88341; 88342; 93005; 93306; 93970; 94760; 99285

== ENCOUNTER 2021-02-21 14:27 | Inpatient (IN) | payer MEDICARE ==
[2021-02-21 15:31] LABS: Basophils % (A) 0 %; Eosinophils # (A) 0.1 k/uL (0-0.7); Eosinophils % (A) 1 %; HCT 38.8 % (34.0-46.0); HGB 12.9 gm/dL (11.4-16.0); Lymphocytes # (A) 0.9 k/uL (1.0-4.8); Lymphocytes % (A) 7 %; MCH 32.8 pg (25.0-35.0); MCHC 33.2 g/dL (31.0-37.0); MCV 98.6 fL (80.0-100.0); Mean Platelet Volume 8.5; Monocytes # (A) 0.7 k/uL (0-1.0); Monocytes % (A) 5 %; Neutrophils # (A) 11.3 k/uL (1.3-7.7); Neutrophils % (A) 85 %; Platelet Count 272 k/uL (150-450); RBC 3.94 m/uL (3.80-5.40); RDW 12.5 % (11.5-15.5); WBC 13.3 k/uL (3.8-10.6)
[2021-02-21 15:40] LABS: Calcium 8.8 mg/dL (8.4-10.2); Magnesium 1.9 mg/dL (1.6-2.3); Potassium 3.7 mmol/L (3.5-5.1); Total Bilirubin 0.5 mg/dL (0.2-1.3); Total Protein 7.3 g/dL (6.3-8.2)
[2021-02-21 15:46] LABS: Partial Thromboplastin Time 21.2 sec (22.0-30.0); Prothrombin Time 10.5 sec (9.0-12.0)
--- NOTE | 2021-02-21 15:54 | XR ---
EXAMINATION TYPE: XR chest 2V DATE OF EXAM: 02/21/2021 COMPARISON: 02/11/2021 HISTORY: 80-year-old female shortness of breath, difficulty breathing TECHNIQUE: AP and lateral views FINDINGS: Heart is mildly enlarged. Bilateral interstitial changes and more confluent patchy opacities in the r ight mid and lower lung, progressed from prior exam. Small bilateral pleural effusions are also prese nt. IMPRESSION: 1. Mild cardiomegaly, interstitial changes, and small bilateral pleural effusions. Correlate for CHF. 2. Developing airspace disease right mid and lower lung, likely pulmonary edema. Correlate to exclude pneumonia.
--- NOTE | 2021-02-21 16:23 | ED ---
SOB HPI - General Chief Complaint: Shortness of Breath Stated Complaint: BOBY Time Seen by Provider: 02/21/21 15:03 Source: patient, family, RN notes reviewed, old records reviewed Mode of arrival: wheelchair Limitations: no limitations - History of Present Illness Initial Comments: Patient is a 80-year-old female with history of hypertension, currently receiving treatment for stage IV right breast cancer, presenting to the emergency Department with complaints of increased shortness of breath over the past few days. About a week and a half ago, she was found to have some mild pulmonary edema, she was discharged home on 02/13/2021. Patient was was to have a follow-up appointment with her doctor, Dr. Abernathy, tomorrow however over the past few days she has been coming more short of breath just doing her daily activities around her house. She's been monitoring her oxygen levels, has been dipping down into the low 80s upper 70s. Today she went to walked to the front door to light and her daughter and her oxygen level was 75%. Patient is not on home O2. She denies any fevers or chills, no chest pains, no abdominal pains, nausea or vomiting. She's had a few episodes of diarrhea. Patient has no further complaints at this time. Upon arrival to the ER, she arrived at 94% on room air, upon transferring to her bed and getting situated, she quickly dropped down to 85% on room air. She is currently at 96% on 3 L. - Related Data Home Medications Medication Instructions Recorded Confirmed Losartan Potassium 50 mg PO HS 04/27/19 02/21/21 Pravastatin Sodium [Pravachol] 20 mg PO HS 04/27/19 02/21/21 diphenhydrAMINE [Benadryl] 25 mg PO HS PRN 06/08/19 02/21/21 Phenylephrine HCl/Acetaminophn 1 tab PO Q8H PRN 02/07/21 02/21/21 [Tylenol Sinus Headache Caplet] Cholecalciferol [Vitamin D3 (25 50 mcg PO BID 02/21/21 02/21/21 Mcg = 1000 Iu)] Cyclobenzaprine [Flexeril] 5 mg PO TID PRN 02/21/21 02/21/21 Letrozole [Femara] 2.5 mg PO HS 02/21/21 02/21/21 Previous Rx's Medication Instructions Recorded Cephalexin [Keflex] 500 mg PO Q8HR 7 Days #21 cap 02/12/21 Furosemide [Lasix] 40 mg PO DAILY 30 Days #30 tab 02/12/21 Allergies Allergy/AdvReac Type Severity Reaction Status Date / Time Penicillins Allergy Itching Verified 02/21/21 16:03 Review of Systems ROS Statement: Those systems with pertinent positive or pertinent negative responses have been documented in the HPI. ROS Other: All systems not noted in ROS Statement are negative. Past Medical History Past Medical History: Hyperlipidemia, Hypertension, Syncope Additional Past Medical History / Comment(s): rt breast cancer stage 4- came of femara and injections just took off on thursday., History of Any Multi-Drug Resistant Organisms: None Reported Past Surgical History: Appendectomy, Hernia Repair, Tonsillectomy Additional Past Surgical History / Comment(s): rt cataract 06/06/14; lt cataract 07/2014; bowel surgery 07/2016; Past Anesthesia/Blood Transfusion Reactions: No Reported Reaction Past Psychological History: No Psychological Hx Reported Smoking Status: Never smoker Past Alcohol Use History: Occasional Past Drug Use History: None Reported - Past Family History Mother Family Medical History: Diabetes Mellitus Additional Family Medical History / Comment(s): Angina Father Family Medical History: Cancer Additional Family Medical History / Comment(s): bladder cancer General Exam - General Exam Comments Initial Comments: GENERAL: Patient is well-developed and well-nourished. Patient is nontoxic and in no acute distress. HEAD: Atraumatic, normocephalic. EYES: Pupils equal round and reactive to light, extraocular movements intact, sclera anicteric, conjunctiva are normal. Eyelids were unremarkable. ENT: TMs normal, nares patent, oropharynx clear without exudates. Moist mucous membranes. NECK: Normal range of motion, supple without lymphadenopathy or JVD. LUNGS: Unlabored respirations. Breath sounds clear to auscultation bilaterally and equal. No wheezes rales or rhonchi. HEART: Regular rate and rhythm without murmurs, rubs or gallops. ABDOMEN: Soft, nontender, normoactive bowel sounds. No guarding, no rebound. No masses appreciated. : Deferred MUSCULOSKELETAL: Normal extremities with adequate strength and normal range of motion, no pitting or edema. No clubbing or cyanosis. NEUROLOGICAL: Patient is alert and oriented x 3. Motor and sensory are also intact. Cranial nerves II through XII grossly intact. Symmetrical smile. Normal speech, normal gait. PSYCH: Normal mood, normal affect. SKIN: Warm, Dry, normal turgor, no rashes or lesions noted. Limitations: no limitations Course Vital Signs 02/21/21 02/21/21 02/21/21 14:28 15:11 16:00 Temperature 97.9 F Pulse Rate 86 78 Respiratory 20 22 Rate Blood Pressure 135/61 124/77 O2 Sat by Pulse 94 L 96 96 Oximetry Medical Decision Making - Medical Decision Making Patient is a 80-year-old female, currently being treated for stage IV breast cancer, presenting for increased shortness of breath over the past few days. She was recently diagnosed with pulmonary edema, pleural effusions, she was discharged about a week ago. She was doing well initially and then over the past 4-5 days, doesn't seem to be increasing. She has been monitoring her oxygen at home, it was low at about 75% today when she went to open the front door. Upon arrival, she was at 93%, upon transferring to the bed she went down to 85% on room air. She is currently studying at 3 L, 96%. Her EKG showed no acute process. Labs are stable with normal troponin, BNP is 18 321. Covid is not detected. Chest x-ray today shows mild cardiomegaly, interstitial changes, small bilateral pleural effusions, coronary for CHF. Developing airspace disease in the right mid and lower lung, likely pulmonary edema. Patient will be admitted for hypoxia, patient given single dose of IV lasik, will consult Dr. Abernathy. Accepted by Suzie for Dr. Sol's group. Patient is agreeable to this plan of care. Case discussed with Dr. Mtz. - Lab Data Result diagrams: 02/21/21 15:19 02/21/21 15:19 Lab Results 02/21/21 02/21/21 02/21/21 Range/Units 15:19 15:19 15:19 WBC 13.3 H (3.8-10.6) k/uL RBC 3.94 (3.80-5.40) m/uL Hgb 12.9 (11.4-16.0) gm/dL Hct 38.8 (34.0-46.0) % MCV 98.6 (80.0-100.0) fL MCH 32.8 (25.0-35.0) pg MCHC 33.2 (31.0-37.0) g/dL RDW 12.5 (11.5-15.5) % Plt Count 272 (150-450) k/uL MPV 8.5 Neutrophils % 85 % Lymphocytes % 7 % Monocytes % 5 % Eosinophils % 1 % Basophils % 0 % Neutrophils # 11.3 H (1.3-7.7) k/uL Lymphocytes # 0.9 L (1.0-4.8) k/uL Monocytes # 0.7 (0-1.0) k/uL Eosinophils # 0.1 (0-0.7) k/uL Basophils # 0.0 (0-0.2) k/uL PT 10.5 (9.0-12.0) sec INR 1.0 (<1.2) APTT 21.2 L (22.0-30.0) sec Sodium 131 L (137-145) mmol/L Potassium 3.7 (3.5-5.1) mmol/L Chloride 93 L (98-107) mmol/L Carbon Dioxide 24 (22-30) mmol/L Anion Gap 14 mmol/L BUN 14 (7-17) mg/dL Creatinine 0.98 (0.52-1.04) mg/dL Est GFR (CKD-EPI)AfAm 63 (>60 ml/min/1.73 sqM) Est GFR (CKD-EPI)NonAf 55 (>60 ml/min/1.73 sqM) Glucose 109 H (74-99) mg/dL Plasma Lactic Acid Patrick (0.7-2.0) mmol/L Calcium 8.8 (8.4-10.2) mg/dL Magnesium 1.9 (1.6-2.3) mg/dL Total Bilirubin 0.5 (0.2-1.3) mg/dL AST 64 H (14-36) U/L ALT 18 (4-34) U/L Alkaline Phosphatase 79 (38-126) U/L Troponin I (0.000-0.034) ng/mL NT-Pro-B Natriuret Pep pg/mL Total Protein 7.3 (6.3-8.2) g/dL Albumin 4.0 (3.5-5.0) g/dL Coronavirus (PCR) (Not Detectd) 02/21/21 02/21/21 02/21/21 Range/Units 15:19 15:19 15:19 WBC (3.8-10.6) k/uL RBC (3.80-5.40) m/uL Hgb (11.4-16.0) gm/dL Hct (34.0-46.0) % MCV (80.0-100.0) fL MCH (25.0-35.0) pg MCHC (31.0-37.0) g/dL RDW (11.5-15.5) % Plt Count (150-450) k/uL MPV Neutrophils % % Lymphocytes % % Monocytes % % Eosinophils % % Basophils % % Neutrophils # (1.3-7.7) k/uL Lymphocytes # (1.0-4.8) k/uL Monocytes # (0-1.0) k/uL Eosinophils # (0-0.7) k/uL Basophils # (0-0.2) k/uL PT (9.0-12.0) sec INR (<1.2) APTT (22.0-30.0) sec Sodium (137-145) mmol/L Potassium (3.5-5.1) mmol/L Chloride (98-107) mmol/L Carbon Dioxide (22-30) mmol/L Anion Gap mmol/L BUN (7-17) mg/dL Creatinine (0.52-1.04) mg/dL Est GFR (CKD-EPI)AfAm (>60 ml/min/1.73 sqM) Est GFR (CKD-EPI)NonAf (>60 ml/min/1.73 sqM) Glucose (74-99) mg/dL Plasma Lactic Acid Patrick 1.7 (0.7-2.0) mmol/L Calcium (8.4-10.2) mg/dL Magnesium (1.6-2.3) mg/dL Total Bilirubin (0.2-1.3) mg/dL AST (14-36) U/L ALT (4-34) U/L Alkaline Phosphatase (38-126) U/L Troponin I <0.012 (0.000-0.034) ng/mL NT-Pro-B Natriuret Pep 321 pg/mL Total Protein (6.3-8.2) g/dL Albumin (3.5-5.0) g/dL Coronavirus (PCR) (Not Detectd) 02/21/21 Range/Units 16:51 WBC (3.8-10.6) k/uL RBC (3.80-5.40) m/uL Hgb (11.4-16.0) gm/dL Hct (34.0-46.0) % MCV (80.0-100.0) fL MCH (25.0-35.0) pg MCHC (31.0-37.0) g/dL RDW (11.5-15.5) % Plt Count (150-450) k/uL MPV Neutrophils % % Lymphocytes % % Monocytes % % Eosinophils % % Basophils % % Neutrophils # (1.3-7.7) k/uL Lymphocytes # (1.0-4.8) k/uL Monocytes # (0-1.0) k/uL Eosinophils # (0-0.7) k/uL Basophils # (0-0.2) k/uL PT (9.0-12.0) sec INR (<1.2) APTT (22.0-30.0) sec Sodium (137-145) mmol/L Potassium (3.5-5.1) mmol/L Chloride (98-107) mmol/L Carbon Dioxide (22-30) mmol/L Anion Gap mmol/L BUN (7-17) mg/dL Creatinine (0.52-1.04) mg/dL Est GFR (CKD-EPI)AfAm (>60 ml/min/1.73 sqM) Est GFR (CKD-EPI)NonAf (>60 ml/min/1.73 sqM) Glucose (74-99) mg/dL Plasma Lactic Acid Patrick (0.7-2.0) mmol/L Calcium (8.4-10.2) mg/dL Magnesium (1.6-2.3) mg/dL Total Bilirubin (0.2-1.3) mg/dL AST (14-36) U/L ALT (4-34) U/L Alkaline Phosphatase (38-126) U/L Troponin I (0.000-0.034) ng/mL NT-Pro-B Natriuret Pep pg/mL Total Protein (6.3-8.2) g/dL Albumin (3.5-5.0) g/dL Coronavirus (PCR) Not Detected (Not Detectd) - EKG Data EKG Comments: Normal sinus rhythm, low-voltage QRS, nonspecific ST abnormality, no signs of acute ST segment elevation. Ventricular rate 83, KS interval 142, QT 384. Similar to previous on 02/07/2021. Disposition Clinical Impression: Pleural effusion, Pulmonary edema, Hypoxia Disposition: ADMITTED IP TO THIS HOSP Condition: Stable Referrals: Darian Mendenhall MD [Primary Care Provider] - 1-2 days Time of Disposition: 16:45
[2021-02-21] MEDS: FUROSEMIDE 10 MG/ML 4 ML VIAL IV SCH (16:50)
[2021-02-21] MEDS ORDERED: HYDROcodone/APAP 5-325MG 1 EACH TAB PO PRN (18:10)
[2021-02-21] MEDS ORDERED: ALPRAZolam 0.25 MG TAB PO PRN (18:10)
--- NOTE | 2021-02-21 18:41 | HP ---
HISTORY AND PHYSICAL I am covering for Dr. Mendenhall. DATE OF SERVICE: 02/21/2021 CHIEF COMPLAINT: Shortness of breath. HISTORY OF PRESENT ILLNESS: This 80-year-old woman with a past medical history of multiple medical problems, including hypertension, hyperlipidemia, history of syncope, history of breast cancer, stage , appendectomy, hernia repair, was recently admitted with shortness of breath. The exact reason for the shortness of breath has not been found, and the patient was empirically treated with Lasix, which provided some relief. Currently the patient was having more shortness of breath and she was taken to [facility] and was admitted for further evaluation and treatment. Acute diastolic heart failure was also considered. Pulse ox was found to be 70 at this time. There is no history of any fever, rigor or chills at this time. Pulse ox is improving. PAST MEDICAL HISTORY: History of hypertension, hyperlipidemia, history of syncope, history of right breast cancer, history of appendectomy. MEDICATIONS: Home medications are reviewed, including Benadryl, Pravachol, Lasix 40 mg daily, Losartan, Femara, Flexeril, cholecalciferol, Keflex. Doses are reviewed. ALLERGIES: PENICILLIN. FAMILY HISTORY: History of bladder cancer in the family. SOCIAL HISTORY: History of occasional alcohol intake. No history of smoking. REVIEW OF SYSTEMS: ENT: No diminished hearing. No diminished vision. CARDIOVASCULAR SYSTEM: As mentioned earlier. RESPIRATORY SYSTEM: As mentioned earlier. GI: No nausea, vomiting, diarrhea. : No dysuria. NERVOUS SYSTEM: No numbness, weakness. ALLERGY/IMMUNOLOGY: No asthma or hay fever. MUSCULOSKELETAL: As mentioned earlier. HEMATOLOGY/ONCOLOGY: No history of anemia. ENDOCRINE: No history of diabetes or hypothyroidism. CONSTITUTIONAL: As mentioned earlier. DERMATOLOGY: Negative. RHEUMATOLOGY: Negative. PSYCHIATRY: As mentioned earlier. PHYSICAL EXAMINATION: Patient alert and oriented x3. Pulse 78, blood pressure 124/77, respiration 22, temperature 97.9, pulse ox 96% on 3 L. HEENT: Conjunctivae normal. NECK: No jugular venous distention. CARDIOVASCULAR: S1, S2 muffled. RESPIRATION: Breath sounds diminished at the bases. A few scattered rhonchi and crackles. ABDOMEN: Soft, nontender. No mass palpable. LEGS: No edema. No swelling. NERVOUS SYSTEM: Higher functions as mentioned earlier. Moves all 4 limbs. No focal motor or sensory deficit. LYMPHATICS: No lymph node palpable in neck, axillae or groin. SKIN: No ulcer, rash, bleeding. JOINTS: No active deforming arthropathy. LABS: WBC 13.3 and neutrophils 11.3. Lymphocytes 0.9. Sodium potassium 3.7. ASSESSMENT: 1. Shortness of breath for evaluation. 2. Possible congestive heart failure, acute exacerbation, acute on chronic diastolic dysfunction. 3. Hyponatremia. 4. Increased white count. 5. Increased AST. 6. Breast cancer with metastases. 7. Hypertension. 8. Hyperlipidemia. 9. History of syncope. 10.Appendectomy. 11.Hernia surgery. 12.History of tonsillectomy. 13.History of cataract surgery. 14.Obesity with body mass index of 36.6. RECOMMENDATIONS AND DISCUSSION: I recommend to continue current medications, continue symptomatic treatment. The patient had pulmonary perfusion imaging recently which was a nondiagnostic study. Currently the creatinine is normal. I would recommend D-dimer as well as a CT angio of the chest. Otherwise, consult Dr. Abernathy. Continue to monitor. Resume the home medications. Intravenous Lasix. Will consult Hematology/Oncology as well. Prognosis guarded. Further recommendations to follow. A copy of this dictation is being forwarded to Dr. Mendenhall, who is the primary physician. MMRACHELL / ANTWONN: [id number] / GENO
[2021-02-21] MEDS: PRAVASTATIN SODIUM 20 MG TAB PO SCH (19:56)
[2021-02-21] MEDS: HEPARIN SODIUM,PORCINE/PF 5,000 UNIT/0.5 ML SYRINGE SQ SCH (19:57)
[2021-02-21] MEDS: LETROZOLE 2.5 MG TAB PO SCH (19:57)
[2021-02-21] MEDS: LOSARTAN 50 MG TAB PO SCH (19:57)
[2021-02-21] MEDS: CHOLECALCIFEROL 25 MCG (1000 IU) TABLET PO SCH (19:57)
--- NOTE | 2021-02-21 21:03 | CT ---
CT CHEST FOR PULMONARY EMBOLISM. EXAMINATION TYPE: CT angio chest DATE OF EXAM: 02/21/2021 INDICATION: Shortness of breath. CT DLP: 447.9 mGycm, Automated exposure control for dose reduction was used. CONTRAST: Patient injected with 80 mL of Isovue 370. COMPARISON: 02/08/2021 TECHNIQUE: CT of the chest is performed on a spiral scan at 2 mm thick sections. Study is performed with intravenous contrast timed for evaluation for pulmonary embolism. This will limit additional po rtions of the evaluation. 3-D MIP images reconstructed by the technologist are reviewed on the compu ter in the coronal and sagittal planes. FINDINGS: No persistent filling defects are evident to suggest an acute pulmonary embolism. No mediastinal or hilar adenopathy enlarged by CT criteria is evident. Small axillary lymph nodes ar e present. The ascending aorta diameter at the level of the main pulmonary artery is 2.9 cm. The kristen n pulmonary artery diameter at the bifurcation is 3.0 cm. There is a small to moderate right pleural effusion. Very minimal left pleural effusion is present. T here are small areas of pleural thickening along the anterior right lung margin. Compressive atelecta sis is at the right lung base adjacent to the pleural effusion. There are at least 2 soft tissue nodules within the posterior subcutaneous tissues, the first measure s 0.6 cm, series 401 image 55. The second in the posterior left chest subcutaneous tissues measures 1 .7 cm, series 401 image 70. Metastatic lesion should be considered. There is a 3.3 cm mass within the right breast. There appears to be a core marker present. Correlate with the patient's history. This appears to be undercurrent workup by ultrasound-guided core biopsy. Follow-up for pathology results. Note is made of sclerotic lesions within the ribs and vertebral bodies suspicious for metastatic lesi ons. Limited CT section through the upper abdomen are unremarkable. IMPRESSIONS: 1. No acute pulmonary embolus. 2. Small left and moderate right pleural effusions. Compressive atelectasis is adjacent to the right pleural effusion. 3. Some scattered anterior lateral right lung infiltrates against the pleural margin may be present. Atelectasis and infectious etiology should be considered. Underlying metastasis is not excluded. 4. There are scattered sclerotic areas within the vertebral bodies and within ribs suspicious for met astatic disease.
[2021-02-21] MEDS: ALBUTEROL NEBULIZED 2.5 MG/3 ML INHALATION SCH (21:35)
[2021-02-22] MEDS ORDERED: CEPHALEXIN 500 MG CAP PO SCH
[2021-02-22] MEDS: CYCLOBENZAPRINE 5 MG TAB PO PRN ×2 (01:50→20:04)
[2021-02-22 06:21] LABS: African American GFR (CKD) 62 (>60 ml/min/1.73 sqM); Anion Gap 6 mmol/L; Blood Urea Nitrogen 14 mg/dL (7-17); Calcium 8.7 mg/dL (8.4-10.2); Carbon Dioxide 30 mmol/L (22-30); Chloride 97 mmol/L (98-107); Glucose 110 mg/dL (74-99); Non-African American GFR(CKD) 54 (>60 ml/min/1.73 sqM); Potassium 3.4 mmol/L (3.5-5.1); Sodium 133 mmol/L (137-145)
[2021-02-22] MEDS: ALBUTEROL NEBULIZED 2.5 MG/3 ML INHALATION SCH ×3 (07:21→21:47)
[2021-02-22] MEDS: FUROSEMIDE 10 MG/ML 4 ML VIAL IV SCH ×2 (08:38→20:04)
[2021-02-22] MEDS: CHOLECALCIFEROL 25 MCG (1000 IU) TABLET PO SCH ×2 (08:38→20:04)
[2021-02-22] MEDS: HEPARIN SODIUM,PORCINE/PF 5,000 UNIT/0.5 ML SYRINGE SQ SCH ×2 (08:39→20:04)
[2021-02-22 09:14] LABS: Basophils # (A) 0.04 X 10*3/uL (0.00-0.10); Basophils % (A) 0.4 %; Eosinophils # (A) 0.14 X 10*3/uL (0.04-0.35); Eosinophils % (A) 1.4 %; HCT 34.1 % (37.2-46.3); HGB 10.8 g/dL (12.0-15.0); Lymphocytes # (A) 0.85 X 10*3/uL (0.90-5.00); Lymphocytes % (A) 8.8 %; MCH 30.9 pg (27.0-32.0); MCHC 31.7 g/dL (32.0-37.0); MCV 97.7 fL (80.0-97.0); Mean Platelet Volume 11.3 fL (9.5-12.2); Monocytes # (A) 1.06 X 10*3/uL (0.20-1.00); Monocytes % (A) 10.9 %; Neutrophils # (A) 7.55 X 10*3/uL (1.80-7.70); Neutrophils % (A) 77.8 %; Platelet Count 245 X 10*3/uL (140-440); RBC 3.49 X 10*6/uL (4.10-5.20); RDW 12.9 % (11.5-14.5); WBC 9.71 X 10*3/uL (4.50-10.00)
--- NOTE | 2021-02-22 11:15 | P.CNPUL ---
History of Present Illness Consult date: 02/22/21 Reason for consult: dyspnea, hypoxemia Chief complaint: Shortness of breath History of present illness: Patient is a 80-year-old with history of stage IV breast cancer came into the hospital with increasing shortness of breath, patient was recently hospitalized in mid January with increasing respiratory difficulty however responded optimally with Lasix subsequently discharged on room air at home, she has been taking Lasix once a day, and last to 3 days she has increasing shortness of breath now cuff congestion came into the hospital, chest x-ray shows small bilateral pleural effusion more so on the right side compared to left side, patient has been on 3 L oxygen oxygen saturation is mid 90s however at room air did drop down to 85%, patient feeling relatively better today, she underwent a computed tomography scan which reveals right-sided nodule anteriorly, with the mass in the right breast, patient is currently Lasix 40 mg IV twice a day, labs from today reviewed white cell count down to 9700 from 13,000 hemoglobin and hematocrit is 10 and 34 platelets are 245 BNP is the 321, C-reactive protein 1.5 COVID-19 19 is negative Review of Systems Unremarkable and noncontributory except as dictated above All systems: negative Past Medical History Past Medical History: Hyperlipidemia, Hypertension, Syncope Additional Past Medical History / Comment(s): rt breast cancer stage 4- came of femara and injections just took off on thursday., History of Any Multi-Drug Resistant Organisms: None Reported Past Surgical History: Appendectomy, Hernia Repair, Tonsillectomy Additional Past Surgical History / Comment(s): rt cataract 06/06/14; lt cataract 07/2014; bowel surgery 07/2016; Past Anesthesia/Blood Transfusion Reactions: No Reported Reaction Past Psychological History: No Psychological Hx Reported Smoking Status: Never smoker Past Alcohol Use History: Occasional Past Drug Use History: None Reported - Past Family History Mother Family Medical History: Diabetes Mellitus Additional Family Medical History / Comment(s): Angina Father Family Medical History: Cancer Additional Family Medical History / Comment(s): bladder cancer Medications and Allergies Home Medications Medication Instructions Recorded Confirmed Type Losartan Potassium 50 mg PO HS 04/27/19 02/21/21 History Pravastatin Sodium [Pravachol] 20 mg PO HS 04/27/19 02/21/21 History diphenhydrAMINE [Benadryl] 25 mg PO HS PRN 06/08/19 02/21/21 History Phenylephrine HCl/Acetaminophn 1 tab PO Q8H PRN 02/07/21 02/21/21 History [Tylenol Sinus Headache Caplet] Cephalexin [Keflex] 500 mg PO Q8HR 7 Days #21 cap 02/12/21 02/21/21 Rx Furosemide [Lasix] 40 mg PO DAILY 30 Days #30 tab 02/12/21 02/21/21 Rx Cholecalciferol [Vitamin D3 (25 50 mcg PO BID 02/21/21 02/21/21 History Mcg = 1000 Iu)] Cyclobenzaprine [Flexeril] 5 mg PO TID PRN 02/21/21 02/21/21 History Letrozole [Femara] 2.5 mg PO HS 02/21/21 02/21/21 History Allergies Allergy/AdvReac Type Severity Reaction Status Date / Time Penicillins Allergy Itching Verified 02/21/21 16:03 Physical Exam Vitals: Vital Signs Temp Pulse Pulse Pulse Resp BP BP 02/22/21 08:00 98.1 F 91 18 133/73 02/22/21 07:33 88 02/22/21 07:21 96 02/22/21 02:00 98.2 F 85 16 125/54 02/21/21 19:39 98.7 F 109 H 17 148/66 02/21/21 19:05 97.9 F 77 20 108/72 02/21/21 16:00 78 22 124/77 02/21/21 15:11 02/21/21 14:28 97.9 F 86 20 135/61 Pulse Ox 02/22/21 08:00 93 L 02/22/21 07:33 02/22/21 07:21 02/22/21 02:00 93 L 02/21/21 19:39 92 L 02/21/21 19:05 97 02/21/21 16:00 96 02/21/21 15:11 96 02/21/21 14:28 94 L Intake and Output 02/21/21 02/22/21 02/22/21 22:59 06:59 14:59 Other: # Voids 2 Weight 96.615 kg - Constitutional General appearance: average body habitus, cooperative, disheveled - EENT Eyes: PERRLA ENT: normal oropharynx Ears: bilateral: normal - Neck Neck: normal ROM Carotids: bilateral: upstroke normal - Respiratory Respiratory: bilateral: diminished - Cardiovascular Rhythm: regular Heart sounds: normal: S1, S2 - Integumentary Integumentary: normal turgor - Neurologic Neurologic: CNII-XII intact - Musculoskeletal Musculoskeletal: gait normal, generalized weakness, strength equal bilaterally - Psychiatric Psychiatric: appropriate affect Results - Laboratory Findings CBC and BMP: 02/22/21 05:43 02/22/21 05:43 PT/INR, D-dimer PT 10.5 sec (9.0-12.0) 02/21/21 15:19 INR 1.0 (<1.2) 02/21/21 15:19 D-Dimer 2.42 mg/L FEU (<0.60) H 02/21/21 18:56 Abnormal lab findings: Abnormal Labs 02/21/21 02/21/21 02/21/21 15:19 15:19 15:19 WBC 13.3 H RBC Hgb Hct MCV MCHC Immature Gran # Neutrophils # 11.3 H Lymphocytes # 0.9 L Monocytes # ESR APTT 21.2 L D-Dimer Sodium 131 L Potassium Chloride 93 L Glucose 109 H AST 64 H C-Reactive Protein 02/21/21 02/21/21 02/21/21 18:56 18:56 18:56 WBC RBC Hgb Hct MCV MCHC Immature Gran # Neutrophils # Lymphocytes # Monocytes # ESR 43 H APTT D-Dimer 2.42 H Sodium Potassium Chloride Glucose AST C-Reactive Protein 1.5 H 02/22/21 02/22/21 05:43 05:43 WBC RBC 3.49 L Hgb 10.8 L Hct 34.1 L MCV 97.7 H MCHC 31.7 L Immature Gran # 0.07 H Neutrophils # Lymphocytes # 0.85 L Monocytes # 1.06 H ESR APTT D-Dimer Sodium 133 L Potassium 3.4 L Chloride 97 L Glucose 110 H AST C-Reactive Protein - Diagnostic Findings Chest x-ray: report reviewed, image reviewed CT scan - chest: report reviewed, image reviewed (Finding as noted above) Assessment and Plan Assessment: Bilateral pleural effusion suspect malignancy associated with breast cancer Right-sided lung nodule multiple anterior part of the chest likely metastatic disease Right-sided breast mass Stage IV was breast cancer Plan: Airline Managerial Supervisor interventional radiology to do diagnostic thoracentesis given the size and habitus better to do by interventional radiology under ultrasound or CT guidance Continue Lasix Continue supplemental oxygen Further plan of care as per clinical response of the patient Time with Patient: Greater than 30
[2021-02-22] MEDS: ACETAMINOPHEN TAB 325 MG TAB PO PRN (14:19)
--- NOTE | 2021-02-22 19:07 | PN ---
PROGRESS NOTE I am covering for Dr. Mendenhall. DATE OF SERVICE: 02/22/2021 HISTORY OF PRESENT ILLNESS: This 80-year-old woman who was admitted with shortness of breath also had possible CHF. The patient had a CT angio of the chest yesterday which showed no acute pulmonary embolism, small left moderate right pleural effusion, some scattered anterior bilateral lung infiltrate. Scattered sclerotic areas in the vertebral bodies were also noted. CT scan was personally reviewed by me. With conservative treatment, the patient is feeling slightly better today still short of breath, and multiple consultants are following the patient, including Pulmonary. Past medical history reviewed. REVIEW OF SYSTEMS: CARDIOVASCULAR: No angina, palpitations. RESPIRATORY SYSTEM: As mentioned earlier. GI: As mentioned earlier. : No dysuria. NERVOUS SYSTEM: No numbness, weakness. CURRENT MEDICATIONS: Reviewed. They include Tylenol, [place], Xanax, Flexeril, Benadryl, Lasix, Femara. PHYSICAL EXAMINATION: Patient alert, oriented x3. Pulse 85, blood pressure 131/69, respiration 18, temperature 98.3, pulse ox 94% on 3 L. HEENT: Conjunctivae normal. NECK: No jugular venous distention. CARDIOVASCULAR: S1, S2 muffled. RESPIRATION: Breath sounds diminished at the bases. A few scattered rhonchi. ABDOMEN: Soft, nontender. LEGS: No edema. No swelling. NERVOUS SYSTEM: No focal deficit. LAB STUDIES: WBC 9.7, hemoglobin 10.8. ESR is 43 and D-dimer is 2.42. Sodium 135, potassium 3.4. C-reactive protein is 1.5. ASSESSMENT: 1. Shortness of breath, possibly congestive heart failure, acute exacerbation, with acute on chronic diastolic dysfunction. 2. Bilateral lung lesions and pleural effusion. Rule out metastatic malignancy. 3. Bilateral pleural effusion and right-sided lung nodules. 4. Hyponatremia. 5. Increased white count. 6. Increased AST. 7. Breast cancer with metastases. 8. Hypertension. 9. Hyperlipidemia. 10.Rule out lymphangiomatous carcinomatosis. 11.History of syncope. 12.Appendectomy. 13.History of surgery. 14.History of tonsillectomy. 15.History of cataract surgery. 16.Obesity with body mass index of 36.6. RECOMMENDATIONS AND DISCUSSION: I recommend to continue current medications, continue with symptomatic treatment. I would consulting Hematology/Oncology. Pulmonary input appreciated. Will repeat an x- ray to assess the fluid volume status. Pleural effusion appears to be small for tapping and further studies. High-resolution CT scan might be needed in this case. Further recommendations to follow. MMODL / IJN: [id number] / MTDD
--- NOTE | 2021-02-22 19:56 | XR ---
EXAMINATION TYPE: XR chest 1V portable DATE OF EXAM: 02/22/2021 COMPARISON: Chest radiograph 02/21/2021 HISTORY: Congestive heart failure. TECHNIQUE: Single frontal view of the chest is obtained. FINDINGS: The heart, stable. The pulmonary vasculature is within normal limits. The of the costophrenic angles bilaterally and opacity at the left base that is slightly improved fro m the prior study. There is patchy opacity at the right lower lung. There is increased interstitial o pacity throughout the lungs. IMPRESSION: Cardiomegaly and pulmonary edema with small bilateral effusions with adjacent atelectasi s/airspace disease. Minimal improved aeration bilaterally.
[2021-02-22] MEDS: LOSARTAN 50 MG TAB PO SCH (20:04)
[2021-02-22] MEDS: PRAVASTATIN SODIUM 20 MG TAB PO SCH (20:04)
[2021-02-22] MEDS: LETROZOLE 2.5 MG TAB PO SCH (20:04)
--- NOTE | 2021-02-22 20:24 | P.CONS ---
History of Present Illness - Reason for Consult Consult date: 02/22/21 Recently progressive breast cancer Requesting physician: Francois Sol - Chief Complaint SOB - History of Present Illness Jennie presented with large central breast mass at least 1 year ago, she ignored clinical finding till lesion became rather large with inverted nipple and skin ulceration with drainage > seen by PCP then Dr Figueredo. Bx of R breast mass, as well as, R axillary lymph node on 05/03/2019 revealed Grade II invasive ductal carcinoma. The patient denied family history of breast/Ovarian cancers, she is a lifetim non smoker, denied ETOH use. Had menarche at age 13 and menpause at 51, denied using Estrogen-containing products. 06/02/19-Been on verzenio and femara 1 week, 1st BM of day is formed, next ones will be "loose", up to 4 in a day, (2 was her norm, consistency can be a little more watery then previously). She has no other complaints since starting verzenio and Femara. She is here with her daughter today for education regarding her medications. 10 point review systems is negative 06/16/19-Pt here for f/u week 2 of verzenio and femara, xgeva,no missed doses, no difficulty swallowing the meds. She had some diarrhea week 1, improving this week, she was taking imodium, up to 3-4 in a day, this week 1-2, mild N, managed with a few doses of antiemetic, no V, using TUMS for heartburn as needed, she uses a few times a week, she has a red lump on her right upper lid, started 3 days ago, itchy for few days prior to the swelling, no drainage or pain. No other c/o, questions or concerns on a 14 point ROS. She is having biopsy of one of the SQ masses next week. 07/01/19: Feels well, tolerating virzinio/Femara well > diarrhea. Buttuck SQ lesion Bx > Metastatic breast cancer 07/29/19: Feels well, tolerating Virzinio/Femara well (mild diarrhea). 08/30/19: Feels Ok, C/O fatigue & mild diarrhea ( on imodium), denies skeletal or visceral pain, fully active. 10/26/19: Feels well, fully active but a bit tired. 11/22/19: Feels well, tolerating Virzinio/Femara well. 11/30/19-patient had multiple questions today that she wanted to discuss. Her case was reviewed at tumor board yesterday and she was wondering if I could find the results. She wanted to know if xgeva frequency could be adjusted. She is tolerating verzenio and Femara very well. Note mild progressive anemia since May, she does have mild CKD. She has no other c/o. 12/29/19: C/O mild SOB, thinks it could be 2nd to Virzinio, fully active. 01/19/20: Verzenio on hold from last visit secondary to severe dehydration with worsening diarrhea, hypokalemia and UTI. 02/01/20: C/O SOB which she attributes to Virzinio > was hospitalized at [facility] with UTI > Virzinio held > SOB improved, but now worse once Virzinio restarted. No skeletal pain. 03/09/20: Feels well, ran out of Virzinio 150 > started taking 200mg > SOB re- developrd. 04/06/20: Feels well, C/O SOB, no visceral or skeletal pain, tolerating Virzinio/Femara well 05/03/2020: Feels well, C/O diarrhea & SOB attributed to Femara. No skeletal pain 06/15/20: Feels well, had XRT to R Breast (Dr Mack), tolerating Femara well. More recently she had prgressed on Faslodex and Femara. Verzenio was stopped last month due to tolerance. She has had re-admissions for SOB and Hypoxia. Review of Systems All systems: negative Constitutional: Reports as per HPI Past Medical History Past Medical History: Hyperlipidemia, Hypertension, Syncope Additional Past Medical History / Comment(s): rt breast cancer stage 4- came of femara and injections just took off on thursday., History of Any Multi-Drug Resistant Organisms: None Reported Past Surgical History: Appendectomy, Hernia Repair, Tonsillectomy Additional Past Surgical History / Comment(s): rt cataract 06/06/14; lt cataract 07/2014; bowel surgery 07/2016; Past Anesthesia/Blood Transfusion Reactions: No Reported Reaction Past Psychological History: No Psychological Hx Reported Smoking Status: Never smoker Past Alcohol Use History: Occasional Past Drug Use History: None Reported - Past Family History Mother Family Medical History: Diabetes Mellitus Additional Family Medical History / Comment(s): Angina Father Family Medical History: Cancer Additional Family Medical History / Comment(s): bladder cancer Medications and Allergies Home Medications Medication Instructions Recorded Confirmed Type Losartan Potassium 50 mg PO HS 04/27/19 02/21/21 History Pravastatin Sodium [Pravachol] 20 mg PO HS 04/27/19 02/21/21 History diphenhydrAMINE [Benadryl] 25 mg PO HS PRN 06/08/19 02/21/21 History Phenylephrine HCl/Acetaminophn 1 tab PO Q8H PRN 02/07/21 02/21/21 History [Tylenol Sinus Headache Caplet] Cephalexin [Keflex] 500 mg PO Q8HR 7 Days #21 cap 02/12/21 02/21/21 Rx Furosemide [Lasix] 40 mg PO DAILY 30 Days #30 tab 02/12/21 02/21/21 Rx Cholecalciferol [Vitamin D3 (25 50 mcg PO BID 02/21/21 02/21/21 History Mcg = 1000 Iu)] Cyclobenzaprine [Flexeril] 5 mg PO TID PRN 02/21/21 02/21/21 History Letrozole [Femara] 2.5 mg PO HS 02/21/21 02/21/21 History Allergies Allergy/AdvReac Type Severity Reaction Status Date / Time Penicillins Allergy Itching Verified 02/21/21 16:03 Physical Exam Vitals: Vital Signs Temp Pulse Pulse Pulse Resp BP BP 02/22/21 11:20 84 02/22/21 11:07 88 02/22/21 08:00 98.1 F 91 18 133/73 02/22/21 07:33 88 02/22/21 07:21 96 02/22/21 02:00 98.2 F 85 16 125/54 02/21/21 19:39 98.7 F 109 H 17 148/66 02/21/21 19:05 97.9 F 77 20 108/72 02/21/21 16:00 78 22 124/77 02/21/21 15:11 02/21/21 14:28 97.9 F 86 20 135/61 Pulse Ox 02/22/21 11:20 02/22/21 11:07 02/22/21 08:00 93 L 02/22/21 07:33 02/22/21 07:21 02/22/21 02:00 93 L 02/21/21 19:39 92 L 02/21/21 19:05 97 02/21/21 16:00 96 02/21/21 15:11 96 02/21/21 14:28 94 L Intake and Output 02/21/21 02/22/21 02/22/21 22:59 06:59 14:59 Other: # Voids 2 Weight 96.615 kg - Constitutional General appearance: Present: average body habitus, cooperative, no acute distress - EENT Eyes: Present: anicteric sclerae, EOMI ENT: Present: hearing grossly normal - Respiratory Respiratory: bilateral: CTA, diminished - Cardiovascular Rhythm: regular Heart sounds: normal: S1, S2 Abnormal Heart Sounds: Absent: systolic murmur, diastolic murmur, rub, S3 Gallop, S4 Gallop, click, other - Peripheral edema leg Peripheral Edema: bilateral: None - Gastrointestinal General gastrointestinal: Present: normal bowel sounds, soft - Neurologic Neurologic: Present: CNII-XII intact - Musculoskeletal Musculoskeletal: Present: strength equal bilaterally - Psychiatric Psychiatric: Present: A&O x's 3, appropriate affect, intact judgment & insight Results CBC & Chem 7: 02/22/21 05:43 02/22/21 05:43 Labs: Abnormal Lab Results - Last 24 Hours (Table) 02/21/21 02/21/21 02/21/21 Range/Units 15:19 15:19 15:19 WBC 13.3 H (3.8-10.6) k/uL RBC (4.10-5.20) X 10*6/uL Hgb (12.0-15.0) g/dL Hct (37.2-46.3) % MCV (80.0-97.0) fL MCHC (32.0-37.0) g/dL Immature Gran # (0.00-0.04) X 10*3/uL Neutrophils # 11.3 H (1.3-7.7) k/uL Lymphocytes # 0.9 L (1.0-4.8) k/uL Monocytes # (0.20-1.00) X 10*3/uL ESR (0-20) mm/hr APTT 21.2 L (22.0-30.0) sec D-Dimer (<0.60) mg/L FEU Sodium 131 L (137-145) mmol/L Potassium (3.5-5.1) mmol/L Chloride 93 L (98-107) mmol/L Glucose 109 H (74-99) mg/dL AST 64 H (14-36) U/L C-Reactive Protein (<1.0) mg/dL 02/21/21 02/21/21 02/21/21 Range/Units 18:56 18:56 18:56 WBC (3.8-10.6) k/uL RBC (4.10-5.20) X 10*6/uL Hgb (12.0-15.0) g/dL Hct (37.2-46.3) % MCV (80.0-97.0) fL MCHC (32.0-37.0) g/dL Immature Gran # (0.00-0.04) X 10*3/uL Neutrophils # (1.3-7.7) k/uL Lymphocytes # (1.0-4.8) k/uL Monocytes # (0.20-1.00) X 10*3/uL ESR 43 H (0-20) mm/hr APTT (22.0-30.0) sec D-Dimer 2.42 H (<0.60) mg/L FEU Sodium (137-145) mmol/L Potassium (3.5-5.1) mmol/L Chloride (98-107) mmol/L Glucose (74-99) mg/dL AST (14-36) U/L C-Reactive Protein 1.5 H (<1.0) mg/dL 02/22/21 02/22/21 Range/Units 05:43 05:43 WBC (3.8-10.6) k/uL RBC 3.49 L (4.10-5.20) X 10*6/uL Hgb 10.8 L (12.0-15.0) g/dL Hct 34.1 L (37.2-46.3) % MCV 97.7 H (80.0-97.0) fL MCHC 31.7 L (32.0-37.0) g/dL Immature Gran # 0.07 H (0.00-0.04) X 10*3/uL Neutrophils # (1.3-7.7) k/uL Lymphocytes # 0.85 L (1.0-4.8) k/uL Monocytes # 1.06 H (0.20-1.00) X 10*3/uL ESR (0-20) mm/hr APTT (22.0-30.0) sec D-Dimer (<0.60) mg/L FEU Sodium 133 L (137-145) mmol/L Potassium 3.4 L (3.5-5.1) mmol/L Chloride 97 L (98-107) mmol/L Glucose 110 H (74-99) mg/dL AST (14-36) U/L C-Reactive Protein (<1.0) mg/dL Chest x-ray: report reviewed CT scan - chest: report reviewed Assessment and Plan Plan: Chest x-ray: report reviewed CT scan - chest: report reviewed Assessment and Plan (1) Metastatic cancer to lung Current Visit: Yes Status: Acute Code(s): C78.00 - SECONDARY MALIGNANT NEOPLASM OF UNSPECIFIED LUNG SNOMED Code(s): 71195666 (2) Pulmonary emboli Current Visit: Yes Status: Acute Code(s): I26.99 - OTHER PULMONARY EMBOLISM WITHOUT ACUTE COR PULMONALE SNOMED Code(s): 98432122 (3) Dyspnea Current Visit: Yes Status: Acute Code(s): R06.00 - DYSPNEA, UNSPECIFIED SNOMED Code(s): 946025387 (4) Metastatic breast cancer Current Visit: Yes Status: Acute Priority: High Code(s): C50.919 - MALIGNANT NEOPLASM OF UNSP SITE OF UNSPECIFIED FEMALE BREAST SNOMED Code(s): 387153652 (5) Pulmonary edema Current Visit: Yes Status: Acute Code(s): J81.1 - CHRONIC PULMONARY EDEMA SNOMED Code(s): 31184078 Plan: Review of CTA no pe: COncern of potential carcinospread. Defer option of bronch to Pulmonology. Pulmonology has been consulted Antibiotics and diuretics continued Continue Supportive care Plan for Re-biopsy of recently progressed metastatic breast cancer to further assess for molecular markers with Physician attest: I have completed the full history and physical and agree with above dictation, dictated as a scribe.
[2021-02-22] MEDS: diphenhydrAMINE 25 MG CAP PO PRN (21:54)
[2021-02-23 07:40] LABS: African American GFR (CKD) 61 (>60 ml/min/1.73 sqM); Anion Gap 5 mmol/L; Blood Urea Nitrogen 15 mg/dL (7-17); Calcium 8.8 mg/dL (8.4-10.2); Carbon Dioxide 34 mmol/L (22-30); Chloride 94 mmol/L (98-107); Glucose 112 mg/dL (74-99); Non-African American GFR(CKD) 53 (>60 ml/min/1.73 sqM); Potassium 3.5 mmol/L (3.5-5.1); Sodium 133 mmol/L (137-145)
[2021-02-23 07:46] LABS: Basophils % (A) 0 %; Eosinophils # (A) 0.2 k/uL (0-0.7); Eosinophils % (A) 2 %; HCT 35.8 % (34.0-46.0); HGB 11.7 gm/dL (11.4-16.0); Lymphocytes # (A) 0.8 k/uL (1.0-4.8); Lymphocytes % (A) 9 %; MCHC 32.8 g/dL (31.0-37.0); MCV 97.5 fL (80.0-100.0); Mean Platelet Volume 8.3; Monocytes # (A) 0.6 k/uL (0-1.0); Monocytes % (A) 7 %; Neutrophils # (A) 7.3 k/uL (1.3-7.7); Neutrophils % (A) 80 %; Platelet Count 280 k/uL (150-450); RBC 3.67 m/uL (3.80-5.40); RDW 13.2 % (11.5-15.5); WBC 9.1 k/uL (3.8-10.6)
[2021-02-23] MEDS: ALBUTEROL NEBULIZED 2.5 MG/3 ML INHALATION SCH ×3 (07:50→19:43)
[2021-02-23] MEDS: FUROSEMIDE 10 MG/ML 4 ML VIAL IV SCH ×2 (08:29→20:36)
[2021-02-23] MEDS: HEPARIN SODIUM,PORCINE/PF 5,000 UNIT/0.5 ML SYRINGE SQ SCH ×2 (08:29→20:36)
[2021-02-23] MEDS: CHOLECALCIFEROL 25 MCG (1000 IU) TABLET PO SCH ×2 (08:29→20:35)
[2021-02-23] MEDS: ACETAMINOPHEN TAB 325 MG TAB PO PRN (08:41)
[2021-02-23] MEDS ORDERED: methylPREDNISolone SOD SUCCI 40 MG/ML 1 ML VIAL IV SCH (14:23)
[2021-02-23] MEDS ORDERED: PSEUDOEPHEDRINE 30 MG TAB PO PRN (14:37)
[2021-02-23] MEDS: CYCLOBENZAPRINE 5 MG TAB PO PRN (20:34)
[2021-02-23] MEDS: LETROZOLE 2.5 MG TAB PO SCH (20:36)
[2021-02-23] MEDS: LOSARTAN 50 MG TAB PO SCH (20:36)
[2021-02-23] MEDS: methylPREDNISolone SOD SUCCI 40 MG/ML 1 ML VIAL IV SCH (20:36)
[2021-02-23] MEDS: PRAVASTATIN SODIUM 20 MG TAB PO SCH (20:36)
[2021-02-23] MEDS: diphenhydrAMINE 25 MG CAP PO PRN (20:38)
[2021-02-24] MEDS: ALBUTEROL NEBULIZED 2.5 MG/3 ML INHALATION SCH ×3 (07:23→19:39)
[2021-02-24] MEDS: methylPREDNISolone SOD SUCCI 40 MG/ML 1 ML VIAL IV SCH ×4 (07:26→21:35)
[2021-02-24 07:42] LABS: African American GFR (CKD) 61 (>60 ml/min/1.73 sqM); Anion Gap 8 mmol/L; Blood Urea Nitrogen 21 mg/dL (7-17); Calcium 9.1 mg/dL (8.4-10.2); Carbon Dioxide 33 mmol/L (22-30); Chloride 92 mmol/L (98-107); Glucose 141 mg/dL (74-99); Non-African American GFR(CKD) 53 (>60 ml/min/1.73 sqM); Potassium 3.9 mmol/L (3.5-5.1); Sodium 133 mmol/L (137-145)
--- NOTE | 2021-02-24 08:26 | PN ---
PROGRESS NOTE DATE OF SERVICE: 02/23/2021 I am covering for Dr. Mendenhall. This 80-year-old woman was admitted with significant shortness of breath, was suspected of right sided pneumonia. The patient has significant breast cancer with metastasis. Chest x-ray showed significant lesions on the right lower lobe. Patient is on IV steroids empirically. Infectious Disease has been consulted. PAST MEDICAL HISTORY: Reviewed. REVIEW OF SYSTEMS: Cardiovascular: No angina or palpitations. Respiratory: As mentioned earlier. GI: As mentioned earlier. : No dysuria. CURRENT MEDICATIONS: Reviewed and include: Tylenol, [place], Ventolin, Xanax, Flexeril, heparin, other medications noted. PHYSICAL EXAMINATION: Patient is alert, oriented x3. Pulse 93, blood pressure 130/62, respirations 16, temperature 98 degrees, pulse ox 98% on 2 L. HEENT: Conjunctivae normal. NECK: No JVD. CARDIOVASCULAR: S1, S2 muffled. RESPIRATORY SYSTEM: Breath sounds diminished at the bases. A few scattered rhonchi and crackles. ABDOMEN: Soft. Nontender. NERVOUS SYSTEM: No focal deficits. LAB STUDIES: WBC 9.1, hemoglobin 11.7, sodium 133, potassium 3.5. is 1.5. ASSESSMENT: 1. Shortness of breath, possible congestive heart failure acute exacerbation with acute on chronic diastolic dysfunction. 2. Bilateral lung lesions and pleural effusions, rule out metastatic malignancy. 3. Bilateral pleural effusion with right-sided lung nodules. 4. Hyponatremia. 5. Increased WBC. 6. Increased AST. 7. Breast cancer with metastasis. 8. Hypertension. 9. Hyperlipidemia. 10.Rule out lymphangiomatous carcinomatosis. 11.History of syncope. 12.History of appendectomy. 13.History of surgery. 14.History of tonsillectomy. 15.History of cataract surgery. 16.Obesity with body mass index of 36.6. RECOMMENDATIONS AND DISCUSSION: Recommend to continue current medications, management and symptomatic treatment. Otherwise, I would recommend empiric steroids and possibly consult Dr. Juarez for any antibiotics as well. Pulmonary has been consulted for pleural effusion. Prognosis guarded. Further recommendations to follow. MMODL / IJN: [id number] / MTDBeatriz
[2021-02-24] MEDS: HEPARIN SODIUM,PORCINE/PF 5,000 UNIT/0.5 ML SYRINGE SQ SCH ×2 (09:28→22:14)
[2021-02-24] MEDS: CHOLECALCIFEROL 25 MCG (1000 IU) TABLET PO SCH ×2 (09:28→21:36)
[2021-02-24] MEDS: CYCLOBENZAPRINE 5 MG TAB PO PRN (09:30)
[2021-02-24] MEDS: FUROSEMIDE 10 MG/ML 4 ML VIAL IV SCH ×2 (10:09→21:35)
--- NOTE | 2021-02-24 10:55 | P.CONS ---
History of Present Illness - Reason for Consult Consult date: 02/23/21 pneumonia Requesting physician: Francois Sol - Chief Complaint Shortness of breath x days - History of Present Illness History of present illness : Patient is 80-year-old female with a past medical history significant for metastatic right breast cancer recently admitted to this facility for concern for possible right breast cellulitis treated with IV cefazolin subsequent discharged home on oral Keflex she was also complaining of some shortness of breath and admission that subsequently resolved patient now presenting back to the hospital 2 days ago complaining of increasing shortness of breath has been getting worse for the last few days worse on activities of daily living she has been monitoring her oxygen and noticed to be low 80s and upper 70s the patient denies having any fever or any chills no chest pain no abdominal pain no nausea no vomiting did have few episodes of diarrhea with the symptom the patient presented to hospital on arrival to the ER patient is afebrile and no fever has been recorded subsequently he did have O2 sats of 94% on room air on arrival to the ER currently 93% on 3 L patient did have mild elevated white count 13.3 admission that has subsequent normalized D-dimer was mildly 2.42 creatinine was normal nicholson PCR was negative patient did have a chest x-ray mild cardiomegaly interstitial changes small multiple effusion correlate for CHF developing airspace disease right mid and lower lung likely pulmonary edema cannot exclude pneumonia patient also have a CT gram of the chest no acute pulmonary embolism small left and moderate right pleural effusion compressive atelectasis question of infection versus underlying metastasis not excluded sclerotic areas within the vertebral bodies rib suspicious for metastatic disease patient has been evaluated by oncology and pulmonary services currently being treated with steroids infectious disease was consulted with a question of possible pneumonia Review of system: CONSTITUTIONAL: Positive for weakness the patient denies fever. EYES: No complaint. ENT: No complaint. RESPIRATORY: As per history of present illness. CARDIOVASCULAR: As per history of present illness. GENITOURINARY: No complaint. GASTROINTESTINAL: No complaint. MUSCULOSKELETAL: No complaint. INTEGUMENTARY: No complaint. PSYCHOLOGIC: No complaint. ENDOCRINE: No complaint. NEUROLOGIC: No complaint. Past medical history : Reviewed, documented below Past surgical history : Reviewed, documented below Social history: Reviewed, documented below Medications: Reviewed, as documented below EXAMINATION: Vital sigans= Reviewed and documented below GENERAL DESCRIPTION: Elderly female lying in bed, no distress. No tachypnea or accessory muscle of respiration use. HEENT: Shows Pallor , no scleral icterus. Oral mucous membrane is dry. NECK: Trachea central, no thyromegaly. LUNGS: Unlabored breathing. Decreased breath sound at the base. No wheeze or crackle. HEART: S1, S2, regular rate and rhythm. ABDOMEN: Soft, no tenderness , guarding or rigidity EXTREMITIES: No edema of feet. SKIN: No rash, no masses palpable. NEUROLOGICAL: The patient is awake, alert, oriented x3, mood and affect normal. LABS AND RADIOLOGY: Reviewed results see below Assessment : Patient presented to hospital with increasing shortness of breath on minimal exertion in this patient who did have a hypoxemia at home patient did have a chest x-ray and a CT suspicious for bilateral effusion more likely related to cardiac etiology patient is clinically not behaving as pneumonia with no significant cough or sputum production patient not running any fever she did have mild elevated white count admission that has subsequently normalized Plan: 1-we will check a procalcitonin level, check urine for Legionella antigen 2-hold on systemic antibiotic therapy at this point as clinic suspicion low for pneumonia We will follow on clinical condition and cultures to further adjust medication if needed Thank you for this consultation we will follow the patient along with you Past Medical History Past Medical History: Hyperlipidemia, Hypertension, Syncope Additional Past Medical History / Comment(s): rt breast cancer stage 4- came of femara and injections just took off on thursday., History of Any Multi-Drug Resistant Organisms: None Reported Past Surgical History: Appendectomy, Hernia Repair, Tonsillectomy Additional Past Surgical History / Comment(s): rt cataract 06/06/14; lt cataract 07/2014; bowel surgery 07/2016; Past Anesthesia/Blood Transfusion Reactions: No Reported Reaction Past Psychological History: No Psychological Hx Reported Smoking Status: Never smoker Past Alcohol Use History: Occasional Past Drug Use History: None Reported - Past Family History Mother Family Medical History: Diabetes Mellitus Additional Family Medical History / Comment(s): Angina Father Family Medical History: Cancer Additional Family Medical History / Comment(s): bladder cancer Medications and Allergies Home Medications Medication Instructions Recorded Confirmed Type Losartan Potassium 50 mg PO HS 04/27/19 02/21/21 History Pravastatin Sodium [Pravachol] 20 mg PO HS 04/27/19 02/21/21 History diphenhydrAMINE [Benadryl] 25 mg PO HS PRN 06/08/19 02/21/21 History Phenylephrine HCl/Acetaminophn 1 tab PO Q8H PRN 02/07/21 02/21/21 History [Tylenol Sinus Headache Caplet] Cephalexin [Keflex] 500 mg PO Q8HR 7 Days #21 cap 02/12/21 02/21/21 Rx Furosemide [Lasix] 40 mg PO DAILY 30 Days #30 tab 02/12/21 02/21/21 Rx Cholecalciferol [Vitamin D3 (25 50 mcg PO BID 02/21/21 02/21/21 History Mcg = 1000 Iu)] Cyclobenzaprine [Flexeril] 5 mg PO TID PRN 02/21/21 02/21/21 History Letrozole [Femara] 2.5 mg PO HS 02/21/21 02/21/21 History Allergies Allergy/AdvReac Type Severity Reaction Status Date / Time Penicillins Allergy Itching Verified 02/21/21 16:03 Physical Exam Vitals: Vital Signs Temp Pulse Pulse Resp BP Pulse Ox 02/23/21 11:47 87 02/23/21 11:35 85 02/23/21 08:03 90 02/23/21 08:00 98.6 F 93 16 133/73 91 L 02/23/21 07:50 91 02/23/21 02:00 98.5 F 93 16 123/72 94 L 02/22/21 21:58 88 02/22/21 21:47 88 02/22/21 20:00 97.8 F 81 17 144/72 93 L 02/22/21 14:00 98.3 F 85 18 131/69 94 L Intake and Output 02/22/21 02/23/21 02/23/21 22:59 06:59 14:59 Other: # Voids 3 4 # Bowel Movements 1 Results CBC & Chem 7: 02/23/21 07:01 02/24/21 06:57 Labs: Abnormal Lab Results - Last 24 Hours (Table) 02/23/21 02/23/21 Range/Units 07:01 07:01 RBC 3.67 L (3.80-5.40) m/uL Lymphocytes # 0.8 L (1.0-4.8) k/uL Sodium 133 L (137-145) mmol/L Chloride 94 L (98-107) mmol/L Carbon Dioxide 34 H (22-30) mmol/L Glucose 112 H (74-99) mg/dL
[2021-02-24 12:19] LABS: Basophils # (A) 0.01 X 10*3/uL (0.00-0.10); Basophils % (A) 0.1 %; Eosinophils # (A) 0 X 10*3/uL (0.04-0.35); Eosinophils % (A) 0 %; HCT 36.9 % (37.2-46.3); HGB 11.9 g/dL (12.0-15.0); Lymphocytes # (A) 0.52 X 10*3/uL (0.90-5.00); Lymphocytes % (A) 4.4 %; MCH 31.6 pg (27.0-32.0); MCHC 32.2 g/dL (32.0-37.0); MCV 97.9 fL (80.0-97.0); Mean Platelet Volume 11.2 fL (9.5-12.2); Monocytes # (A) 0.37 X 10*3/uL (0.20-1.00); Monocytes % (A) 3.2 %; Neutrophils # (A) 10.74 X 10*3/uL (1.80-7.70); Neutrophils % (A) 91.5 %; Platelet Count 294 X 10*3/uL (140-440); RBC 3.77 X 10*6/uL (4.10-5.20); RDW 12.7 % (11.5-14.5); WBC 11.73 X 10*3/uL (4.50-10.00)
[2021-02-24] MEDS: ACETAMINOPHEN TAB 325 MG TAB PO PRN ×2 (13:46→21:36)
--- NOTE | 2021-02-24 20:49 | PN ---
PROGRESS NOTE I am covering for DATE OF SERVICE: 02/24/2021 This 80-year-old woman was admitted with shortness of breath, has possibly multifactorial CHF and possible pneumonia. The possibility of malignancy also considered. Dr. Juarez has seen the patient and recommended checking procalcitonin and Legionella antibody. No chest pain. No palpitation. PHYSICAL EXAMINATION: Alert and oriented x two. Pulse is 96, blood pressure 160/60, respirations 16, temperature 97.9, pulse ox 92% on 3 L. HEENT: Conjunctivae normal. Neck: No JVD. Cardiovascular: S1, S2 muffled. Respiratory System: Breath sounds diminished at the bases. Scattered rhonchi. Abdomen: Soft. Nervous system: No focal deficits. LABS: WBC 11.75. Otherwise, sodium 133. Procalcitonin is 0.16. ASSESSMENT: 1. Shortness of breath possibly multifactorial with congestive heart failure acute exacerbation with acute on chronic diastolic dysfunction. 2. Bilateral lung lesions and pleural effusion, rule out metastatic malignancy. 3. Rule out pneumonia. 4. Bilateral pleural effusion and right-sided lung nodules. 5. Hyponatremia. 6. Increased WBC. 7. Increased ALT. 8. Breast cancer with METS. 9. Hypertension. 10.Hyperlipidemia. 11.Rule out lymphangitic carcinomatosis. 12.History of syncope. 13.History of appendectomy. 14.History of surgery. 15.History of tonsillectomy. 16.History of cataract surgery. 17.History of obesity with body mass index of 36.3. RECOMMENDATIONS AND DISCUSSION: Recommend to continue current medications. Continue with symptomatic treatment. Continue with current line of management. Repeat labs. The prognosis guarded because of multiple complex medical issues. We will continue to monitor and closely follow with Hematology/Oncology. Infectious Disease input appreciated. Discussed with the patient's family. Further recommendations to follow. Possible pleural aspiration and biopsy. MMODL / IJN: [id number] / GENO
[2021-02-24] MEDS: LOSARTAN 50 MG TAB PO SCH (21:36)
[2021-02-24] MEDS: LETROZOLE 2.5 MG TAB PO SCH (21:36)
[2021-02-24] MEDS: PRAVASTATIN SODIUM 20 MG TAB PO SCH (21:36)
--- NOTE | 2021-02-25 02:50 | PN ---
PROGRESS NOTE DATE OF SERVICE: 02/24/2021 REASON FOR FOLLOW UP: Abnormal CT, concern for pneumonia. INTERVAL HISTORY: The patient is afebrile. She is still complaining of shortness of breath on minimal exertion. Patient denies having any chest pain. She did have minimal cough, no sputum production. No vomiting. No abdominal pain. No diarrhea. PHYSICAL EXAMINATION: Blood pressure 134/66, pulse of 96, temperature is 97.9. She is 93% on 3 L nasal cannula. General description is an elderly female lying in bed in no distress. Respiratory system: Unlabored breathing, decreased breath sounds at the bases. No wheeze. Heart S1, S2. Regular rate and rhythm. Abdomen soft, no tenderness. LABS: Hemoglobin is 11.8, white count 11.73. Creatinine is 1.01. Troponin 0.16. DIAGNOSTIC IMPRESSION AND PLAN: Patient admitted to the hospital with shortness of breath and did have evidence of bilateral pleural effusion, possibly related to underlying fluid overload. Clinically not behaving as pneumonia. She did not have any fever or white count. Procalcitonin 0.161. Will continue to monitor the patient closely off antibiotic therapy. Continue supportive care. MMODL / IJN: [id number] /
[2021-02-25] MEDS: methylPREDNISolone SOD SUCCI 40 MG/ML 1 ML VIAL IV SCH ×3 (06:04→22:54)
[2021-02-25] MEDS: FUROSEMIDE 10 MG/ML 4 ML VIAL IV SCH ×2 (08:14→20:48)
[2021-02-25] MEDS: CHOLECALCIFEROL 25 MCG (1000 IU) TABLET PO SCH ×2 (08:14→20:48)
[2021-02-25] MEDS: HEPARIN SODIUM,PORCINE/PF 5,000 UNIT/0.5 ML SYRINGE SQ SCH ×2 (08:19→20:48)
[2021-02-25] MEDS: ALBUTEROL NEBULIZED 2.5 MG/3 ML INHALATION SCH ×3 (09:18→21:01)
[2021-02-25 11:23] LABS: Basophils # (A) 0.01 X 10*3/uL (0.00-0.10); Basophils % (A) 0.1 %; Eosinophils # (A) 0 X 10*3/uL (0.04-0.35); Eosinophils % (A) 0 %; HCT 36.6 % (37.2-46.3); HGB 11.7 g/dL (12.0-15.0); Lymphocytes # (A) 0.47 X 10*3/uL (0.90-5.00); Lymphocytes % (A) 2.7 %; MCH 31.1 pg (27.0-32.0); MCV 97.3 fL (80.0-97.0); Mean Platelet Volume 11.4 fL (9.5-12.2); Monocytes # (A) 0.71 X 10*3/uL (0.20-1.00); Monocytes % (A) 4.1 %; Neutrophils # (A) 15.81 X 10*3/uL (1.80-7.70); Neutrophils % (A) 92.1 %; Platelet Count 311 X 10*3/uL (140-440); RBC 3.76 X 10*6/uL (4.10-5.20); RDW 12.9 % (11.5-14.5); WBC 17.17 X 10*3/uL (4.50-10.00)
--- NOTE | 2021-02-25 11:24 | P.PN ---
Subjective Progress Note Date: 02/25/21 Principal diagnosis: Bilateral pleural effusion suspect malignancy associated with breast cancer Right-sided lung nodule multiple anterior part of the chest likely metastatic disease Right-sided breast mass Acute on chronic hypoxic respiratory failure Stage IV breast cancer 02/25/2021, he shouldn't seen in the follow-up, remains afebrile, hemodynamic status stable, on 3 L nasal cannula oxygen saturation is 95%, denies any chest pain, breathing is relatively more easier now, patient has been on Lasix, patient is scheduled for diagnostic thoracentesis on the right side by interventional radiology, orders have been given to the RN including cytology, biochemistry, cell count and differential, culture Patient is a 80-year-old with history of stage IV breast cancer came into the hospital with increasing shortness of breath, patient was recently hospitalized in mid January with increasing respiratory difficulty however responded optimally with Lasix subsequently discharged on room air at home, she has been taking Lasix once a day, and last to 3 days she has increasing shortness of breath now cuff congestion came into the hospital, chest x-ray shows small bilateral pleural effusion more so on the right side compared to left side, patient has been on 3 L oxygen oxygen saturation is mid 90s however at room air did drop down to 85%, patient feeling relatively better today, she underwent a computed tomography scan which reveals right-sided nodule anteriorly, with the mass in the right breast, patient is currently Lasix 40 mg IV twice a day, labs from today reviewed white cell count down to 9700 from 13,000 hemoglobin and hematocrit is 10 and 34 platelets are 245 BNP is the 321, C-reactive protein 1.5 COVID-19 19 is negative Objective - Vital Signs Vital signs: Vital Signs Temp 98.3 F 02/25/21 08:00 Pulse 84 02/25/21 09:31 Resp 18 02/25/21 08:00 BP 125/61 02/25/21 08:00 Pulse Ox 95 02/25/21 09:18 Intake & Output 02/24/21 02/25/21 02/25/21 18:59 06:59 18:59 Intake Total 1080 Balance 1080 Weight 92.2 kg 93 kg Intake: Oral 1080 Other: Voiding Method Bedside Commode # Voids 3 4 # Bowel Movements 2 - Exam - Constitutional General appearance: average body habitus, cooperative, disheveled - EENT Eyes: PERRLA ENT: normal oropharynx Ears: bilateral: normal - Neck Neck: normal ROM Carotids: bilateral: upstroke normal - Respiratory Respiratory: bilateral: diminished - Cardiovascular Rhythm: regular Heart sounds: normal: S1, S2 - Integumentary Integumentary: normal turgor - Neurologic Neurologic: CNII-XII intact - Musculoskeletal Musculoskeletal: gait normal, generalized weakness, strength equal bilaterally - Psychiatric Psychiatric: appropriate affect - Labs CBC & Chem 7: 02/24/21 06:57 02/24/21 06:57 Labs: Abnormal Lab Results - Last 24 Hours (Table) 02/24/21 02/24/21 Range/Units 06:57 06:57 WBC 11.73 H (4.50-10.00) X 10*3/uL RBC 3.77 L (4.10-5.20) X 10*6/uL Hgb 11.9 L (12.0-15.0) g/dL Hct 36.9 L (37.2-46.3) % MCV 97.9 H (80.0-97.0) fL Immature Gran # 0.09 H (0.00-0.04) X 10*3/uL Neutrophils # 10.74 H (1.80-7.70) X 10*3/uL Lymphocytes # 0.52 L (0.90-5.00) X 10*3/uL Eosinophils # 0 L (0.04-0.35) X 10*3/uL Procalcitonin 0.16 H (0.02-0.09) ng/mL Assessment and Plan Assessment: Bilateral pleural effusion suspect malignancy associated with breast cancer Right-sided lung nodule multiple anterior part of the chest likely metastatic disease Right-sided breast mass Stage IV was breast cancer Plan: Ultrasound/CT guided thoracentesis later on today and fluid to be sent for cytology, biochemistry, cell count and differential, and cultures orders given to RN of IR Continue Lasix Continue supplemental oxygen Further plan of care as per clinical response of the patient Time with Patient: Greater than 30
--- NOTE | 2021-02-25 11:42 | US ---
Ultrasound-guided therapeutic and diagnostic thoracentesis DATE OF EXAM: 02/25/2021 CLINICAL HISTORY: Right pleural effusion The procedure was discussed with the patient. The risks, complications, benefits, and alternatives we re discussed and any questions were answered. Informed consent was obtained. The patient was placed supine on the ultrasound table and prepped and draped in the usual sterile fas hion. All elements of maximal barrier and sterile technique were utilized. Under ultrasound guidance, access into the pleural space was obtained, via the thoracentesis catheter system and direct ultrasound guidance. Ap proximately 0.9 liters of straw-colored fluid was removed. Sample obtained and sent to pathology for analysis. The patient was stable throughout the procedure and remained stable upon discharge from Department of Radiology. IMPRESSION: 1. Successful therapeutic and diagnostic thoracentesis under ultrasound guidance.
[2021-02-25 11:47] LABS: ALT 19 U/L (8-44); AST 48 U/L (13-35); African American GFR (CKD) 62.1 (60.0-200.0); Albumin 3.9 g/dL (3.8-4.9); Albumin/Globulin Ratio 1.39 (1.60-3.17); Alkaline Phosphatase 60 U/L (41-126); Blood Urea Nitrogen 31.3 mg/dL (9.0-27.0); Chloride 92 mmol/L (96-109); Globulin 2.8 g/dL (1.6-3.3); Glucose 142 mg/dL (70-110); Non-African American GFR(CKD) 53.5 (60.0-200.0); Potassium 3.6 mmol/L (3.5-5.5); Sodium 134 mmol/L (135-145); Total Bilirubin <0.20 mg/dL (0.30-1.20); Total Protein 6.7 g/dL (6.2-8.2)
--- NOTE | 2021-02-25 12:01 | XR ---
EXAMINATION TYPE: XR chest 1V DATE OF EXAM: 02/25/2021 COMPARISON: NONE HISTORY: Thoracentesis TECHNIQUE: Single frontal view of the chest is obtained. FINDINGS: Diffuse interstitial pattern with bilateral consolidation and pleural effusion. Heart is p rominent. Atherosclerotic change aorta. Biapical pleural thickening. Arthropathy of the shoulders. IMPRESSION: 1. Bilateral infiltrate and small effusion on the left. Marked improvement on the right with no sizab le pneumothorax. 2. Persistent interstitial lung disease stable could be on the basis of chronic interstitial lung dis ease, interstitial pneumonitis or venous congestion.
[2021-02-25] MEDS: ACETAMINOPHEN TAB 325 MG TAB PO PRN (14:33)
--- NOTE | 2021-02-25 18:44 | PN ---
PROGRESS NOTE I am covering for Dr. Mendenhall. DATE OF SERVICE: 02/25/2021 This 80-year-old woman who was admitted with shortness of breath, multifactorial, had pleural effusion. The patient underwent ultrasound-guided pleural tap; about 0.9 L of straw-colored fluid was removed. The fluid was sent to Pathology. Reports are pending at this time. The chest x-ray showed bilateral infiltrate and small effusion on the left, improvement in the right pleural effusion. No chest pain. No palpitations. No fever. PHYSICAL EXAMINATION: Alert and oriented x3. Pulse 96, blood pressure 137/70, respirations 16, temperature 97.6, pulse ox 94% on 2 L. HEENT: Conjunctivae normal. NECK: No jugular venous distention. CARDIOVASCULAR: S1, S2 muffled. RESPIRATION: Breath sounds diminished at the bases. Scattered rhonchi. ABDOMEN: Soft. NERVOUS SYSTEM: No focal deficit. LAB STUDIES: WBC 17.7, hemoglobin 11.2. Sodium 134, potassium 0.6 and procalcitonin is 0.16. Urine is negative. ASSESSMENT: 1. Shortness of breath, possibly multifactorial, with congestive heart failure, acute exacerbation, as well as acute on chronic diastolic dysfunction. 2. Bilateral lung lesions and pleural effusion. Rule out metastatic malignancy. 3. Rule out pneumonia. 4. Bilateral pleural effusion, right more than the left, with a right-sided lung nodule, status post thoracocentesis. 5. Hyponatremia. 6. Increased white count. 7. Increased ALT. 8. Breast cancer with metastases. 9. Hypertension. 10.Hyperlipidemia. 11.Rule out lymphangitis carcinomatosis. 12.History of syncope. 13.History of appendectomy. 14.History of surgery. 15.History of tonsillectomy. 16.History of cataract surgery. 17.History of obesity with body mass index of 36.3. RECOMMENDATIONS AND DISCUSSION: I recommend to continue current medications, continue with symptomatic treatment. Otherwise at this time I would recommend repeat labs. Await fluid results. Closely follow with multiple consultants, especially Hematology/Oncology. Further recommendations to follow. Prognosis guarded. MMODL / IJN: [id number] /
[2021-02-25 18:54] LABS: Color,BF Yellow
[2021-02-25 18:55] LABS: Appearance,BF Hazy; RBC, Body Fluid 108 /uL
[2021-02-25 18:56] LABS: Nucleated Cells, Body Fluid 786 /uL
[2021-02-25 18:57] LABS: Mononuclear WBC,Body Fluid 80 %; Polynuclear WBC,Body Fluid 20 %; Total Cells Counted,Body Fluid 100
[2021-02-25] MEDS: CYCLOBENZAPRINE 5 MG TAB PO PRN (20:48)
[2021-02-25] MEDS: LETROZOLE 2.5 MG TAB PO SCH (20:48)
[2021-02-25] MEDS: PRAVASTATIN SODIUM 20 MG TAB PO SCH (20:48)
[2021-02-25] MEDS: LOSARTAN 50 MG TAB PO SCH (20:48)
[2021-02-26] MEDS: methylPREDNISolone SOD SUCCI 40 MG/ML 1 ML VIAL IV SCH ×3 (06:14→22:01)
[2021-02-26 07:19] LABS: African American GFR (CKD) 50 (>60 ml/min/1.73 sqM); Anion Gap 9 mmol/L; Basophils % (A) 0 %; Blood Urea Nitrogen 40 mg/dL (7-17); Calcium 8.9 mg/dL (8.4-10.2); Carbon Dioxide 34 mmol/L (22-30); Chloride 90 mmol/L (98-107); Eosinophils % (A) 0 %; Glucose 145 mg/dL (74-99); HCT 37.3 % (34.0-46.0); HGB 11.8 gm/dL (11.4-16.0); Lymphocytes # (A) 0.4 k/uL (1.0-4.8); Lymphocytes % (A) 3 %; MCH 31.3 pg (25.0-35.0); MCHC 31.7 g/dL (31.0-37.0); MCV 98.9 fL (80.0-100.0); Mean Platelet Volume 8.6; Monocytes # (A) 0.6 k/uL (0-1.0); Monocytes % (A) 4 %; Neutrophils # (A) 13.9 k/uL (1.3-7.7); Neutrophils % (A) 93 %; Non-African American GFR(CKD) 43 (>60 ml/min/1.73 sqM); Platelet Count 284 k/uL (150-450); Potassium 3.7 mmol/L (3.5-5.1); RBC 3.77 m/uL (3.80-5.40); RDW 12.5 % (11.5-15.5); Sodium 133 mmol/L (137-145)
[2021-02-26] MEDS: HEPARIN SODIUM,PORCINE/PF 5,000 UNIT/0.5 ML SYRINGE SQ SCH ×2 (07:19→22:00)
[2021-02-26] MEDS: CHOLECALCIFEROL 25 MCG (1000 IU) TABLET PO SCH ×2 (07:19→22:01)
[2021-02-26] MEDS: FUROSEMIDE 10 MG/ML 4 ML VIAL IV SCH (07:20)
[2021-02-26 08:46] LABS: LDH, Body Fluid Source Thoracentesis Fluid; Total Protein, Body Fluid 4590 mg/dL
[2021-02-26] MEDS: ALBUTEROL NEBULIZED 2.5 MG/3 ML INHALATION SCH ×3 (11:14→21:49)
--- NOTE | 2021-02-26 13:31 | P.PN ---
Subjective Progress Note Date: 02/26/21 Principal diagnosis: Bilateral pleural effusion suspect malignancy associated with breast cancer Right-sided lung nodule multiple anterior part of the chest likely metastatic disease Right-sided breast mass Acute on chronic hypoxic respiratory failure Stage IV breast cancer 02/26/2021, patient seen eval reexamined during the rounds today she is less short of breath breathing slightly better, status post a right-sided thoracentesis is 900 mL of fluid has been removed culture and cytology is pending, biochemistry is suggestive of exudative effusion by LDH and total protein criteria, get short of breath on activity and exertion, remains on supplemental oxygen 3 L saturation is 94%, discussed with RN surgeon to check the oxygen saturation at room air and post-activity for home O2 assessment, BUN/creatinine noted to be 40/1.2 off from 17/06 yesterday 02/25/2021, he shouldn't seen in the follow-up, remains afebrile, hemodynamic status stable, on 3 L nasal cannula oxygen saturation is 95%, denies any chest pain, breathing is relatively more easier now, patient has been on Lasix, patient is scheduled for diagnostic thoracentesis on the right side by interventional radiology, orders have been given to the RN including cytology, biochemistry, cell count and differential, culture Patient is a 80-year-old with history of stage IV breast cancer came into the hospital with increasing shortness of breath, patient was recently hospitalized in mid January with increasing respiratory difficulty however responded optimally with Lasix subsequently discharged on room air at home, she has been taking Lasix once a day, and last to 3 days she has increasing shortness of breath now cuff congestion came into the hospital, chest x-ray shows small bilateral pleural effusion more so on the right side compared to left side, patient has been on 3 L oxygen oxygen saturation is mid 90s however at room air did drop down to 85%, patient feeling relatively better today, she underwent a computed tomography scan which reveals right-sided nodule anteriorly, with the mass in the right breast, patient is currently Lasix 40 mg IV twice a day, labs from today reviewed white cell count down to 9700 from 13,000 hemoglobin and hematocrit is 10 and 34 platelets are 245 BNP is the 321, C-reactive protein 1.5 COVID-19 19 is negative Objective - Vital Signs Vital signs: Vital Signs Temp 98.2 F 02/26/21 08:14 Pulse 76 02/26/21 11:27 Resp 16 02/26/21 08:14 BP 118/63 02/26/21 08:14 Pulse Ox 94 L 02/26/21 08:14 Intake & Output 02/25/21 02/26/21 02/26/21 18:59 06:59 18:59 Intake Total 236 Output Total 200 Balance 36 Weight 90.5 kg Intake: Oral 236 Output: Urine 200 Other: # Voids 1 2 - Exam - Constitutional General appearance: average body habitus, cooperative, disheveled - EENT Eyes: PERRLA ENT: normal oropharynx Ears: bilateral: normal - Neck Neck: normal ROM Carotids: bilateral: upstroke normal - Respiratory Respiratory: bilateral: diminished - Cardiovascular Rhythm: regular Heart sounds: normal: S1, S2 - Integumentary Integumentary: normal turgor - Neurologic Neurologic: CNII-XII intact - Musculoskeletal Musculoskeletal: gait normal, generalized weakness, strength equal bilaterally - Psychiatric Psychiatric: appropriate affect - Labs CBC & Chem 7: 02/26/21 05:47 02/26/21 05:47 Labs: Abnormal Lab Results - Last 24 Hours (Table) 02/26/21 02/26/21 Range/Units 05:47 05:47 WBC 15.0 H (3.8-10.6) k/uL RBC 3.77 L (3.80-5.40) m/uL Neutrophils # 13.9 H (1.3-7.7) k/uL Lymphocytes # 0.4 L (1.0-4.8) k/uL Sodium 133 L (137-145) mmol/L Chloride 90 L (98-107) mmol/L Carbon Dioxide 34 H (22-30) mmol/L BUN 40 H (7-17) mg/dL Creatinine 1.20 H (0.52-1.04) mg/dL Glucose 145 H (74-99) mg/dL Microbiology - Last 24 Hours (Table) 02/25/21 11:50 Gram Stain - Preliminary Paracentesis Fluid Body Fluid Culture - Preliminary 02/25/21 11:50 Acid Fast Bacilli Culture - Preliminary Thoracentesis Fluid 02/25/21 11:50 Anaerobic Culture - Preliminary Thoracentesis Fluid 02/25/21 11:50 Fungal Culture - Preliminary Thoracentesis Fluid Assessment and Plan Assessment: Bilateral pleural effusion suspect malignancy associated with breast cancer Right-sided lung nodule multiple anterior part of the chest likely metastatic disease Right-sided breast mass Stage IV was breast cancer Plan: Ultrasound guided thoracentesis fluid appeared to be exudative by LDH and total protein criteria Consider holding Lasix now as BUN and creatinine going up Continue supplemental oxygen I sent the need as outpatient room air post activity saturation pending Further plan of care as per clinical response of the patient Time with Patient: Greater than 30
[2021-02-26] MEDS: ACETAMINOPHEN TAB 325 MG TAB PO PRN ×2 (15:49→22:13)
--- NOTE | 2021-02-26 18:04 | PN ---
PROGRESS NOTE DATE OF SERVICE: 02/26/2021 This 80-year-old woman who was admitted with shortness of breath, multifactorial etiology, had thoracocentesis, and final reports are pending at this time. No chest pain. No palpitations. No fever. Clinically she is feeling slightly better. PHYSICAL EXAMINATION: Alert and oriented x3. Pulse 110, blood pressure 161/72, respiration 22, temperature 98.2, pulse ox 91% on 2 L. HEENT: Conjunctivae normal. NECK: No jugular venous distention. CARDIOVASCULAR: S1, S2 muffled. RESPIRATION: Breath sounds diminished at the bases. A few scattered rhonchi and crackles. Expiratory wheezing also present. ABDOMEN: Soft. NERVOUS SYSTEM: No focal deficit. LABS: WBC 15, hemoglobin 11.8, sodium 133. Other labs are noted. The pleural fluid shows total protein of 4.5. Cytology is pending at this time. ASSESSMENT: 1. Shortness of breath, possibly multifactorial with congestive heart failure, acute exacerbation, as well as possibly secondary to malignancy or infection. 2. Bilateral lung lesions with pleural effusion. Rule out metastatic malignancy. 3. Rule out pneumonia. 4. Bilateral pleural effusion, right more than the left, with right-sided lung nodule, status post thoracocentesis. 5. Hyponatremia. 6. Increased white count. 7. Increased ALT. 8. Breast cancer with metastases. 9. Hypertension. 10.Hyperlipidemia. 11.Rule out lymphangitis carcinomatosis. 12.History of syncope. 13.History of appendectomy. 14.History of surgery. 15.History of tonsillectomy. 16.History of cataract surgery. 17.History of obesity with body mass index of 36.3. RECOMMENDATIONS AND DISCUSSION: I recommend to continue current medications, continue with symptomatic treatment. Dr. Mendenhall will follow. Closely follow with Infectious Disease and Pulmonary and Hematology/Oncology. Prognosis guarded. Further recommendations to follow. MMODL / IJN: [id number] /
[2021-02-26] MEDS: PRAVASTATIN SODIUM 20 MG TAB PO SCH (22:01)
[2021-02-26] MEDS: LOSARTAN 50 MG TAB PO SCH (22:01)
[2021-02-26] MEDS: LETROZOLE 2.5 MG TAB PO SCH (22:01)
--- NOTE | 2021-02-26 22:34 | PN ---
PROGRESS NOTE DATE OF SERVICE: 02/26/2021 REASON FOR FOLLOWUP: Leukocytosis and pleural effusion; question of pneumonia. INTERVAL HISTORY: The patient is afebrile. The patient is status post thoracocentesis yesterday. The patient is breathing comfortably today. The patient denies having any chest pain. Still complaining of shortness of breath. Occasional cough. No abdominal pain or diarrhea. PHYSICAL EXAMINATION: Her blood pressure is 116/71 with a pulse of 70, temperature 98.1. She is 91% on 2 L nasal cannula. General description is an elderly female lying in bed in no distress. RESPIRATORY SYSTEM: Unlabored breathing. Decreased intensity of breath sounds. No wheeze. HEART: S1, S2. Regular rate and rhythm. ABDOMEN: Soft. No tenderness. LABS: Pleural fluid cultures are currently pending. White count slightly elevated at 15,000. DIAGNOSTIC IMPRESSION AND PLAN: 1. Patient with pleural effusion, status post thoracocentesis. Cultures are currently pending. Clinically not behaving as empyema or pneumonia. Continue to monitor the patient closely off antibiotic therapy. 2. Elevated white count, more likely steroid effect. MMODL / IJN: [id number] /
[2021-02-27] MEDS: ALBUTEROL NEBULIZED 2.5 MG/3 ML INHALATION SCH ×3 (07:06→20:37)
[2021-02-27] MEDS: CHOLECALCIFEROL 25 MCG (1000 IU) TABLET PO SCH ×2 (08:48→20:18)
[2021-02-27] MEDS: HEPARIN SODIUM,PORCINE/PF 5,000 UNIT/0.5 ML SYRINGE SQ SCH ×2 (08:48→20:19)
[2021-02-27] MEDS: methylPREDNISolone SOD SUCCI 40 MG/ML 1 ML VIAL IV SCH ×3 (08:48→21:54)
[2021-02-27] MEDS: ACETAMINOPHEN TAB 325 MG TAB PO PRN ×3 (10:00→23:06)
--- NOTE | 2021-02-27 10:38 | P.PN ---
Subjective Progress Note Date: 02/27/21 Principal diagnosis: Bilateral pleural effusion suspect malignancy associated with breast cancer Right-sided lung nodule multiple anterior part of the chest likely metastatic disease Right-sided breast mass Acute on chronic hypoxic respiratory failure Stage IV breast cancer 02/27/2021, patient seen eval examined during the rounds labs reviewed medications reviewed care plan discussed, respiratory status improved now denies any chest pain but has shortness of breath on activity and exertion, on room air patient desaturated to 84% post-activity and exertion, she is being arranged for home oxygen, Lasix has been on hold due to elevated BUN/creatinine, cytology is pending patient can go home on home oxygen and nebulizer treatment with close monitoring of follow-up, serum LDH reviewed patient has a borderline exudative pleural effusion by LDH and total protein criteria could be combination of malignancy and CHF with concentration of fluid due to diuretics 02/26/2021, patient seen eval reexamined during the rounds today she is less short of breath breathing slightly better, status post a right-sided thoracentesis is 900 mL of fluid has been removed culture and cytology is pending, biochemistry is suggestive of exudative effusion by LDH and total protein criteria, get short of breath on activity and exertion, remains on supplemental oxygen 3 L saturation is 94%, discussed with RN surgeon to check the oxygen saturation at room air and post-activity for home O2 assessment, BUN/creatinine noted to be 40/1.2 off from 17/06 yesterday 02/25/2021, he shouldn't seen in the follow-up, remains afebrile, hemodynamic status stable, on 3 L nasal cannula oxygen saturation is 95%, denies any chest pain, breathing is relatively more easier now, patient has been on Lasix, patient is scheduled for diagnostic thoracentesis on the right side by interventional radiology, orders have been given to the RN including cytology, biochemistry, cell count and differential, culture Patient is a 80-year-old with history of stage IV breast cancer came into the hospital with increasing shortness of breath, patient was recently hospitalized in mid January with increasing respiratory difficulty however responded optimally with Lasix subsequently discharged on room air at home, she has been taking Lasix once a day, and last to 3 days she has increasing shortness of breath now cuff congestion came into the hospital, chest x-ray shows small bilateral pleural effusion more so on the right side compared to left side, patient has been on 3 L oxygen oxygen saturation is mid 90s however at room air did drop down to 85%, patient feeling relatively better today, she underwent a computed tomography scan which reveals right-sided nodule anteriorly, with the mass in the right breast, patient is currently Lasix 40 mg IV twice a day, labs from today reviewed white cell count down to 9700 from 13,000 hemoglobin and hematocrit is 10 and 34 platelets are 245 BNP is the 321, C-reactive protein 1.5 COVID-19 19 is negative Objective - Vital Signs Vital signs: Vital Signs Temp 97.5 F L 02/27/21 07:28 Pulse 83 02/27/21 07:28 Resp 17 02/27/21 07:28 BP 132/66 02/27/21 07:28 Pulse Ox 93 L 02/27/21 07:28 Intake & Output 02/26/21 02/27/21 02/27/21 18:59 06:59 18:59 Weight 92.5 kg Other: Voiding Method Bedside Commode Bedside Commode # Voids 1 4 1 # Bowel Movements 1 - Exam - Constitutional General appearance: average body habitus, cooperative, disheveled - EENT Eyes: PERRLA ENT: normal oropharynx Ears: bilateral: normal - Neck Neck: normal ROM Carotids: bilateral: upstroke normal - Respiratory Respiratory: bilateral: diminished - Cardiovascular Rhythm: regular Heart sounds: normal: S1, S2 - Integumentary Integumentary: normal turgor - Neurologic Neurologic: CNII-XII intact - Musculoskeletal Musculoskeletal: gait normal, generalized weakness, strength equal bilaterally - Psychiatric Psychiatric: appropriate affect - Labs CBC & Chem 7: 02/26/21 05:47 02/26/21 05:47 Labs: Abnormal Lab Results - Last 24 Hours (Table) 02/26/21 Range/Units 05:47 Lactate Dehydrogenase 732 H (313-618) U/L Microbiology - Last 24 Hours (Table) 02/25/21 11:50 Acid Fast Bacilli Smear - Final Thoracentesis Fluid Acid Fast Bacilli Culture - Preliminary 02/25/21 11:50 Gram Stain - Preliminary Paracentesis Fluid Body Fluid Culture - Preliminary Assessment and Plan Assessment: Bilateral pleural effusion suspect malignancy associated with breast cancer Congestive heart failure diastolic failure Right-sided lung nodule multiple anterior part of the chest likely metastatic disease Right-sided breast mass Stage IV was breast cancer Plan: Ultrasound guided thoracentesis fluid appeared to be borderline exudative by LDH and total protein criteria, cytology is pending follow-up Consider holding Lasix now as BUN and creatinine going up, but however patient will require Lasix as needed maybe lesser dose of 20 mg daily Patient will require supplemental oxygen 2 L nasal cannula and nebulizer treatment with albuterol 3 times a day as needed Further plan of care as per clinical response of the patient Time with Patient: Greater than 30
--- NOTE | 2021-02-27 15:34 | P.PN ---
Subjective Progress Note Date: 02/25/21 She was down for thoracentesis during time of attempted assessment Objective - Vital Signs Vital signs: Vital Signs Temp 98.3 F 02/25/21 08:00 Pulse 84 02/25/21 09:31 Resp 18 02/25/21 08:00 BP 125/61 02/25/21 08:00 Pulse Ox 95 02/25/21 09:18 Intake & Output 02/24/21 02/25/21 02/25/21 18:59 06:59 18:59 Intake Total 1080 Balance 1080 Weight 92.2 kg 93 kg Intake: Oral 1080 Other: Voiding Method Bedside Commode # Voids 3 4 # Bowel Movements 2 - Labs CBC & Chem 7: 02/26/21 05:47 02/26/21 05:47 Labs: Abnormal Lab Results - Last 24 Hours (Table) 02/24/21 02/24/21 Range/Units 06:57 06:57 WBC 11.73 H (4.50-10.00) X 10*3/uL RBC 3.77 L (4.10-5.20) X 10*6/uL Hgb 11.9 L (12.0-15.0) g/dL Hct 36.9 L (37.2-46.3) % MCV 97.9 H (80.0-97.0) fL Immature Gran # 0.09 H (0.00-0.04) X 10*3/uL Neutrophils # 10.74 H (1.80-7.70) X 10*3/uL Lymphocytes # 0.52 L (0.90-5.00) X 10*3/uL Eosinophils # 0 L (0.04-0.35) X 10*3/uL Procalcitonin 0.16 H (0.02-0.09) ng/mL
--- NOTE | 2021-02-27 17:35 | PN ---
PROGRESS NOTE DATE OF SERVICE: 02/27/2021 REASON FOR FOLLOWUP: 1. Leukocytosis. 2. Abnormal x-ray and concerning for an infection. INTERVAL HISTORY: Patient is afebrile. The patient is breathing comfortably. Patient denies having any chest pain or shortness of breath. Occasional cough. No vomiting. No abdominal pain. No diarrhea. PHYSICAL EXAMINATION: Blood pressure 143/64 with a pulse of 69, temperature 98.2. She is 93% on 2 L nasal cannula. General description is an elderly female lying in bed in no distress. Respiratory system: Unlabored breathing, decreased breath sounds in the base. No wheeze. Heart S1, S2. Regular rate and rhythm. Abdomen soft, no tenderness. LABS: No new labs have been obtained today. Pleural fluid has been negative so far. DIAGNOSTIC IMPRESSION AND PLAN: Patient with shortness of breath with evidence of pleural effusion, possibly related to an underlying pathology, with fluid overload. Clinically not behaving as pneumonia. This patient culture has been negative so far. Recommend no antibiotic at this point. Continue supportive care. MMODL / IJN: [id number] /
--- NOTE | 2021-02-27 18:02 | P.PN ---
Subjective Progress Note Date: 02/27/21 Principal diagnosis: Acute Hypoxic respiratory Failure Jennie is overall feeling better, still with exertional dyspnea. She did have thoracentesis on 02/25/21, the cytology is pending. She will be discharged on and see Dr. Solo in follow-up later this day, therefore we will not see her in hospital on morning. She will be discharged on oxygen. I spoke to patient and her daughter Ana. They are concerned that her cancer is progressing rapidly and anxious to discuss treatment options with Dr. Solo. We have re-biopsied her progressing breast mass on 02/11/21, the initial results reviewed and consistent with original diagnosis. Pathology was sent for further molecular testing and I have asked our office to check if these have resulted for her appointment tomorrow. In the interim she has continued on Faslodex, Letrazole, and Xgeva, however with most recent PET scan appears she has likely progressed. Pulmonary has evaluated patient, they feel this is potentially lymphagenic spread. No bronchoscopy was performed during hospitalization. To note she does have a contributing factor of diastolic heart failure. Objective - Vital Signs Vital signs: Vital Signs Temp 98.2 F 02/27/21 14:00 Pulse 79 02/27/21 14:00 Resp 18 02/27/21 14:00 BP 143/64 02/27/21 14:00 Pulse Ox 93 L 02/27/21 14:00 Intake & Output 02/26/21 02/27/21 02/27/21 18:59 06:59 18:59 Weight 92.5 kg Other: Voiding Method Bedside Commode Bedside Commode # Voids 1 4 1 # Bowel Movements 1 - Exam NAD ALert and Oriented Diminished lung sounds to Right Lung Abdomen soft ND Ext: minimal edema Anxious - Labs CBC & Chem 7: 02/26/21 05:47 02/26/21 05:47 Labs: Microbiology - Last 24 Hours (Table) 02/25/21 11:50 Acid Fast Bacilli Smear - Final Thoracentesis Fluid Acid Fast Bacilli Culture - Preliminary 02/25/21 11:50 Gram Stain - Preliminary Paracentesis Fluid Body Fluid Culture - Preliminary Assessment and Plan Plan: Chest x-ray: report reviewed CT scan - chest: report reviewed Assessment and Plan (1) Metastatic cancer to lung Current Visit: Yes Status: Acute Code(s): C78.00 - SECONDARY MALIGNANT NEOPLASM OF UNSPECIFIED LUNG SNOMED Code(s): 06016866 (2) Pulmonary emboli Current Visit: Yes Status: Acute Code(s): I26.99 - OTHER PULMONARY EMBOLISM WITHOUT ACUTE COR PULMONALE SNOMED Code(s): 88101010 (3) Dyspnea Current Visit: Yes Status: Acute Code(s): R06.00 - DYSPNEA, UNSPECIFIED SNOMED Code(s): 508218845 (4) Metastatic breast cancer Current Visit: Yes Status: Acute Priority: High Code(s): C50.919 - MALIGNANT NEOPLASM OF UNSP SITE OF UNSPECIFIED FEMALE BREAST SNOMED Code(s): 533615322 (5) Pulmonary edema Current Visit: Yes Status: Acute Code(s): J81.1 - CHRONIC PULMONARY EDEMA SNOMED Code(s): 50783398 Plan: Review of CTA no pe: Right pleural effusion was noted and thoracentesis was performed on 02/25/21 . Defer option of bronch to Pulmonology. Pulmonology expresses concern of lymphagenic spread, with contributing diastolic heart failure. She will be discharged on home oxygen. During hospitalization she was also treated with Antibiotics and diuretics continued Re-biopsy of Breast Mass was completed on 02/11/21 and tissue was sent for furt her molecular testing, I have asked our office to attempt to obtain these results if complete for appoiintment with Dr. Solo tomorrow. I have spoken in detail with patient and daughter and answered questions best of my ability. Next step is to follow-up with Dr. Solo for next line treatment options. They have inquired about restarting Verzinio as it was stopped due to tolerance and not progression per daughter and patient, defer all and next treatment options to Dr. Solo (primary oncologist). In the interim she has been on treatment with Letrazole, Xgeva, and Faslodex.
[2021-02-27] MEDS: LOSARTAN 50 MG TAB PO SCH (20:18)
[2021-02-27] MEDS: PRAVASTATIN SODIUM 20 MG TAB PO SCH (20:18)
[2021-02-27] MEDS: LETROZOLE 2.5 MG TAB PO SCH (20:19)
[2021-02-27] MEDS: CYCLOBENZAPRINE 5 MG TAB PO PRN (21:54)
[2021-02-28 03:26] VITALS: RESP 16
--- NOTE | 2021-02-28 06:22 | PN ---
PROGRESS NOTE She wants to be discharged home tomorrow. She had nine tenths of a L of fluid taken off her lungs a few days ago. She was going to go home with home oxygen. Discussed the pleural tap, shows malignant cells. Breast biopsy 2 weeks ago shows malignant cells, adenocarcinoma of the breast tissue. Cardiovascular S1-S2. Lungs decreased breath sounds at the bases. Hematology: Negative Homans. GI soft, nontender. ASSESSMENT: Adenocarcinoma of the breast. Negative pleural effusions. Blood pressure is 140s over 60s, O2 93 on room air, temp 98.2, pulse 79 respiratory 16 to 18. ASSESSMENT: 1. Metastatic cancer to the lung. 2. Pulmonary emboli. 3. Dyspnea. 4. Metastatic breast cancer. 5. Pulmonary edema. There does not appear to be a PE, pleural effusion. Thoracentesis shows malignant cells in the lungs. Possible lymphangitic spread. 6. Diastolic heart failure. Go home on home oxygen, antibiotics, diuretics. Obtain the further genetic markers for discharge and follow up with Oncology for treatment options in next day or 2. Prognosis guarded. MMODL / IJN: [id number] /
[2021-02-28 08:21] VITALS: BP 144/78; TEMP 99.4
[2021-02-28] MEDS: HEPARIN SODIUM,PORCINE/PF 5,000 UNIT/0.5 ML SYRINGE SQ SCH ×2 (08:33→08:43)
[2021-02-28] MEDS: CHOLECALCIFEROL 25 MCG (1000 IU) TABLET PO SCH (08:33)
[2021-02-28] MEDS: methylPREDNISolone SOD SUCCI 40 MG/ML 1 ML VIAL IV SCH ×2 (08:33→08:43)
[2021-02-28] MEDS: ALBUTEROL NEBULIZED 2.5 MG/3 ML INHALATION SCH (08:51)
[2021-02-28] MEDS ORDERED: DOXYCYCLINE 100 MG CAP PO SCH (09:00)
[2021-02-28 09:06] VITALS: PULSE 84
--- NOTE | 2021-02-28 11:49 | DS ---
DISCHARGE SUMMARY DISCHARGE MEDICATIONS: 1. Ventolin nebulizer t.i.d. 2. Vibramycin 100 mg b.i.d. for 10 days. 3. Sudafed 30 mg q.12 hours p.r.n. for 30 days. 4. Pravachol 20 mg daily. 5. Losartan 50 mg daily. 6. Benadryl 25 mg at night. 7. Tylenol Sinus 1 tablet every 8 hours p.r.n. for headache. 8. Femara 2.5 mg daily. 9. Lasix 40 mg daily. 10.Flexeril 5 mg t.i.d. p.r.n. 11.Vitamin D 1000 IU p.o. b.i.d. CONDITION: Stable. PROGNOSIS: Guarded. Ambulate as tolerated. This is a white female with pleural effusion; 0.9 L of fluid was taken out of the right side of the lung, positive for metastatic adenocarcinoma in the cells. Breast biopsy from 10 days ago showed adenocarcinoma of the breast. Suspect she has multiple lesions, spread to the lungs in pleural effusion. She will need increased chemotherapy and radiation treatment, most likely chemotherapy versus immunotherapy immediately to prevent further pleural effusions and metastases through the body, which is worsening her breathing. She pleural effusion, thoracentesis. Condition is stable. Follow up as an outpatient. Discussed the case with Oncology, who was to get her in the office in the next day or two to treat a new program for metastatic lung cancer. She will go home on 2 L oxygen for hypoxemia, pleural effusion, pulmonary edema and metastatic adenocarcinoma of the ductal, cancer of the breast. Prognosis is guarded. Follow up as an outpatient in the next week or two. MMODL / IJN: [id number] /
== END 2021-02-28 10:39 | disposition home or self-care (01) | DRG 180 ==
LOC: EC 14:27 → 4SSUR 17:18
PROVIDERS: ADMIT Family Medicine; ATTEND Family Medicine
PROC: 0W9930Z Drainage of Right Pleural Cavity with Drainage Device, Percutaneous Approach (ICD-10-PCS; principal; 2021-02-25)
DX: C78.01 Secondary malignant neoplasm of right lung (principal); J96.21 Acute and chronic respiratory failure with hypoxia; E87.1 Hypo-osmolality and hyponatremia; I13.0 Hypertensive heart and chronic kidney disease with heart failure and stage 1 through stage 4 chronic kidney disease, or unspecified chronic kidney disease; I50.30 Unspecified diastolic (congestive) heart failure; K52.1 Toxic gastroenteritis and colitis; J91.0 Malignant pleural effusion; C50.911 Malignant neoplasm of unspecified site of right female breast; N18.9 Chronic kidney disease, unspecified; D63.1 Anemia in chronic kidney disease; E66.9 Obesity, unspecified; E78.5 Hyperlipidemia, unspecified; E86.0 Dehydration; E87.6 Hypokalemia; N18.2 Chronic kidney disease, stage 2 (mild); Z20.822 Contact with and (suspected) exposure to COVID-19; T45.1X5A Adverse effect of antineoplastic and immunosuppressive drugs, initial encounter; R11.0 Nausea; Z99.81 Dependence on supplemental oxygen; Z90.89 Acquired absence of other organs; Z98.890 Other specified postprocedural states; Z68.36 Body mass index [BMI] 36.0-36.9, adult; Z87.440 Personal history of urinary (tract) infections; Z79.899 Other long term (current) drug therapy; Z80.52 Family history of malignant neoplasm of bladder; Z83.3 Family history of diabetes mellitus; Z90.49 Acquired absence of other specified parts of digestive tract; Z98.42 Cataract extraction status, left eye; Z98.41 Cataract extraction status, right eye; Z88.0 Allergy status to penicillin
CPT/HCPCS: 32555; 36415; 71045; 71046; 71275; 80048; 80053; 83605; 83615; 83735; 83880; 84145; 84157; 84484; 85025; 85379; 85610; 85652; 85730; 86140; 87070; 87075; 87102; 87116; 87205; 87206; 87449; 87635; 88108; 88305; 88341; 88342; 89050; 93005; 94640; 94760; 99285

== ENCOUNTER 2021-03-12 08:51 | Day surgery (SDC) | payer MEDICARE ==
[2021-03-12 09:30] LABS: Mean Platelet Volume 9.3; Platelet Count 187 k/uL (150-450)
[2021-03-12 09:38] LABS: INR 1.2 (<1.2); Prothrombin Time 12.1 sec (9.0-12.0)
[2021-03-12 10:04] VITALS: RESP 16; TEMP 98
--- NOTE | 2021-03-12 11:00 | XR ---
EXAMINATION TYPE: XR chest 1V portable DATE OF EXAM: 03/12/2021 COMPARISON: Chest x-ray 02/25/2021 HISTORY: Status post right thoracentesis, bilateral pleural effusions TECHNIQUE: Single frontal view of the chest is obtained. FINDINGS: Findings are similar to prior exam. The interstitium is increased. There is blunting of th e left gastrohepatic angle. Heart is enlarged. No evident pneumothorax. Patchy basilar density is not ed. IMPRESSION: No evident complication status post right thoracentesis.
[2021-03-12 11:01] VITALS: BP 118/73; PULSE 86
--- NOTE | 2021-03-12 12:48 | US ---
EXAMINATION TYPE: US thoracentesis DATE OF EXAM: 03/12/2021 COMPARISON: NONE HISTORY: Pleural effusion. FINDINGS: Maximal barrier technique was utilized. The skin overlying a suitable pocket of fluid was localized and the overlying skin prepped and draped. Lidocaine was used for local anesthesia. Ultras ound was used with sterile technique. A 5 Setswana catheter over a guide needle was advanced into the pleural fluid collection using ultrasound guidance and the catheter vascularity needle removed. Appr oximately 0.8 liter(s) of serous fluid was removed. Catheter was withdrawn and hemostasis achieved. There is no immediate complication. The patient discharged in stable condition without complication . IMPRESSION: STATUS POST ULTRASOUND GUIDED THORACENTESIS, POST PROCEDURE CHEST X-RAY PENDING. THIS CT OCEDURE WAS PERFORMED BY THE UNDERSIGNED. Specimen obtained for laboratory analysis.
== END 2021-03-12 10:25 | disposition home or self-care (01) ==
LOC: RADPROMAIN 08:51
PROVIDERS: ATTEND Internal Medicine Hematology & Oncology
DX: J90 Pleural effusion, not elsewhere classified (principal); Z88.0 Allergy status to penicillin
CPT/HCPCS: 32555; 36415; 71045; 85049; 85610

== ENCOUNTER → 2021-03-14 | Outpatient (CLI) | payer MEDICARE ==
--- NOTE | 2021-03-14 13:30 | US ---
EXAMINATION TYPE: US kidneys/renal and bladder DATE OF EXAM: 03/14/2021 COMPARISON: NONE CLINICAL HISTORY: R94.4 Abnormal Renal function Test. abn labs, known right cyst EXAM MEASUREMENTS: Right Kidney: 9.5 x 3.9 x 4.9 cm Left Kidney: 8.5 x 4.3 x 5.2 cm Right Kidney: 6.0 x 6.2 x 5.3cm inferior pole cyst Left Kidney: small in size, no hydronephrosis or masses Bladder: wnl There is no evidence for hydronephrosis at this point in time. No nephrolithiasis is seen. No solid masses are identified. The urinary bladder is anechoic. Bilateral ureteral jets are seen. IMPRESSION: Right renal cysts. Diminutive left kidney.
== END | disposition home or self-care (01) ==
LOC: RADUSWWP 12:50
PROVIDERS: ATTEND Internal Medicine Hematology & Oncology
DX: N28.1 Cyst of kidney, acquired (principal)
CPT/HCPCS: 76770

== ENCOUNTER 2021-03-20 15:27 | Inpatient (IN) | payer MEDICARE ==
[2021-03-20 16:32] LABS: Basophils % (A) 0 %; Eosinophils % (A) 1 %; HCT 39.1 % (34.0-46.0); HGB 13.1 gm/dL (11.4-16.0); Lymphocytes # (A) 0.6 k/uL (1.0-4.8); Lymphocytes % (A) 14 %; MCH 32.4 pg (25.0-35.0); MCHC 33.5 g/dL (31.0-37.0); MCV 96.6 fL (80.0-100.0); Mean Platelet Volume 9.1; Monocytes # (A) 0.2 k/uL (0-1.0); Monocytes % (A) 4 %; Neutrophils # (A) 3.2 k/uL (1.3-7.7); Neutrophils % (A) 79 %; Platelet Count 168 k/uL (150-450); RBC 4.05 m/uL (3.80-5.40); RDW 13.9 % (11.5-15.5)
[2021-03-20 16:42] LABS: Albumin 3.2 g/dL (3.5-5.0); Calcium 8.9 mg/dL (8.4-10.2); Potassium 3.8 mmol/L (3.5-5.1); Total Bilirubin 0.3 mg/dL (0.2-1.3); Total Protein 6.1 g/dL (6.3-8.2)
[2021-03-20 16:49] LABS: INR 1.1 (<1.2); Partial Thromboplastin Time 20.6 sec (22.0-30.0); Prothrombin Time 11.4 sec (9.0-12.0)
--- NOTE | 2021-03-20 17:35 | ED ---
General Adult HPI - General Chief complaint: Shortness of Breath Stated complaint: SOB Time Seen by Provider: 03/20/21 17:19 Source: patient, family, RN notes reviewed Mode of arrival: wheelchair Limitations: no limitations - History of Present Illness Initial comments: Patient is a pleasant 80-year-old female presenting to the emergency Department with dyspnea. Symptoms have progressed over the past 3 or so days. Dyspnea gets much worse with exertion. Patient denies ever having any chest discomfort. Patient does have history of stage IV breast cancer. Patient has had previous thoracentesis secondary to fluid buildup with pleural effusions. No leg pain or leg swelling. No cough. No fever. - Related Data Home Medications Medication Instructions Recorded Confirmed Losartan Potassium 50 mg PO HS PRN 04/27/19 03/20/21 Pravastatin Sodium [Pravachol] 20 mg PO HS 04/27/19 03/20/21 Phenylephrine HCl/Acetaminophn 1 tab PO Q8H PRN 02/07/21 03/20/21 [Tylenol Sinus Headache Caplet] Cholecalciferol [Vitamin D3 (25 25 mcg PO DAILY 02/21/21 03/20/21 Mcg = 1000 Iu)] Cyclobenzaprine [Flexeril] 5 mg PO TID PRN 02/21/21 03/20/21 Abemaciclib [Verzenio] 150 mg PO BID 03/07/21 03/20/21 ALPRAZolam [Xanax] 0.25 mg PO TID PRN 03/20/21 03/20/21 Albuterol Nebulized [Ventolin 2.5 mg INHALATION RT-TID PRN 03/20/21 03/20/21 Nebulized] Cholestyramine (with Sugar) 4 gm PO HS PRN 03/20/21 03/20/21 [Cholestyramine Packet] Loperamide [Imodium] 2 mg PO QID PRN 03/20/21 03/20/21 Omeprazole 40 mg PO DAILY 03/20/21 03/20/21 Ondansetron Odt [Zofran Odt] 4 mg PO Q6H PRN 03/20/21 03/20/21 Potassium Chloride ER [K-Dur 20] 20 meq PO DIRECTED 03/20/21 03/20/21 Previous Rx's Medication Instructions Recorded Furosemide [Lasix] 40 mg PO DAILY 30 Days #30 tab 02/12/21 Allergies Allergy/AdvReac Type Severity Reaction Status Date / Time Penicillins Allergy Itching Verified 03/20/21 18:00 Review of Systems ROS Statement: Those systems with pertinent positive or pertinent negative responses have been documented in the HPI. ROS Other: All systems not noted in ROS Statement are negative. Constitutional: Denies: fever Eyes: Denies: eye pain ENT: Denies: ear pain Respiratory: Reports: dyspnea Cardiovascular: Denies: chest pain Endocrine: Reports: fatigue Gastrointestinal: Denies: abdominal pain Genitourinary: Denies: dysuria Past Medical History Past Medical History: Cancer Additional Past Medical History / Comment(s): Rt breast cancer stage 4- came of femara and injections History of Any Multi-Drug Resistant Organisms: None Reported Past Surgical History: Bowel Resection Additional Past Surgical History / Comment(s): rt cataract 06/06/14; lt cataract 07/2014; bowel surgery 07/2016; Past Anesthesia/Blood Transfusion Reactions: No Reported Reaction Past Psychological History: No Psychological Hx Reported Smoking Status: Never smoker Past Alcohol Use History: Occasional Past Drug Use History: None Reported - Past Family History Mother Family Medical History: Diabetes Mellitus Additional Family Medical History / Comment(s): Angina Father Family Medical History: Cancer Additional Family Medical History / Comment(s): bladder cancer General Exam Limitations: no limitations General appearance: alert, in no apparent distress Head exam: Present: normocephalic Eye exam: Present: normal appearance Neck exam: Present: normal inspection Respiratory exam: Present: normal lung sounds bilaterally Cardiovascular Exam: Present: tachycardia Expanded Peripheral pulses: 2+: Radial (R), Radial (L), Dorsalis Pedis (R), Dorsalis Pedis (L) GI/Abdominal exam: Present: soft. Absent: tenderness Extremities exam: Present: normal inspection. Absent: pedal edema, calf tend erness Neurological exam: Present: alert Psychiatric exam: Present: normal affect, normal mood Skin exam: Present: normal color Course Vital Signs 03/20/21 03/20/21 16:00 17:52 Temperature 97.4 F L Pulse Rate 106 H Respiratory 20 20 Rate Blood Pressure 86/54 O2 Sat by Pulse 94 L Oximetry - Reevaluation(s) Reevaluation #1: 03/20/21 19:14 Case was discussed with Dr. Bunch who recommends subcu heparin only. He will consult. EKG Findings - EKG Comments: EKG Findings:: Sinus tachycardia with rate of 104. IL 118. QRS 86. QT 376. QTc 494. Left axis. Normal QRS. No acute ST change. Medical Decision Making - Medical Decision Making Patient and family were updated on results and plan. Case was discussed with Dr. Mendenhall who will admit his patient. Consults will place with cardiology and oncology. Cardiology has been paged. - Lab Data Result diagrams: 03/20/21 16:27 03/20/21 16:27 Lab Results 03/20/21 03/20/21 03/20/21 Range/Units 16:27 16:27 16:27 WBC 4.0 (3.8-10.6) k/uL RBC 4.05 (3.80-5.40) m/uL Hgb 13.1 (11.4-16.0) gm/dL Hct 39.1 (34.0-46.0) % MCV 96.6 (80.0-100.0) fL MCH 32.4 (25.0-35.0) pg MCHC 33.5 (31.0-37.0) g/dL RDW 13.9 (11.5-15.5) % Plt Count 168 (150-450) k/uL MPV 9.1 Neutrophils % 79 % Lymphocytes % 14 % Monocytes % 4 % Eosinophils % 1 % Basophils % 0 % Neutrophils # 3.2 (1.3-7.7) k/uL Lymphocytes # 0.6 L (1.0-4.8) k/uL Monocytes # 0.2 (0-1.0) k/uL Eosinophils # 0.0 (0-0.7) k/uL Basophils # 0.0 (0-0.2) k/uL PT 11.4 (9.0-12.0) sec INR 1.1 (<1.2) APTT 20.6 L (22.0-30.0) sec Sodium 127 L (137-145) mmol/L Potassium 3.8 (3.5-5.1) mmol/L Chloride 89 L (98-107) mmol/L Carbon Dioxide 31 H (22-30) mmol/L Anion Gap 7 mmol/L BUN 42 H (7-17) mg/dL Creatinine 2.37 H (0.52-1.04) mg/dL Est GFR (CKD-EPI)AfAm 22 (>60 ml/min/1.73 sqM) Est GFR (CKD-EPI)NonAf 19 (>60 ml/min/1.73 sqM) Glucose 129 H (74-99) mg/dL Calcium 8.9 (8.4-10.2) mg/dL Total Bilirubin 0.3 (0.2-1.3) mg/dL AST 71 H (14-36) U/L ALT 27 (4-34) U/L Alkaline Phosphatase 98 (38-126) U/L Troponin I (0.000-0.034) ng/mL NT-Pro-B Natriuret Pep pg/mL Total Protein 6.1 L (6.3-8.2) g/dL Albumin 3.2 L (3.5-5.0) g/dL Coronavirus (PCR) (Not Detectd) 03/20/21 03/20/21 03/20/21 Range/Units 16:27 16:27 18:02 WBC (3.8-10.6) k/uL RBC (3.80-5.40) m/uL Hgb (11.4-16.0) gm/dL Hct (34.0-46.0) % MCV (80.0-100.0) fL MCH (25.0-35.0) pg MCHC (31.0-37.0) g/dL RDW (11.5-15.5) % Plt Count (150-450) k/uL MPV Neutrophils % % Lymphocytes % % Monocytes % % Eosinophils % % Basophils % % Neutrophils # (1.3-7.7) k/uL Lymphocytes # (1.0-4.8) k/uL Monocytes # (0-1.0) k/uL Eosinophils # (0-0.7) k/uL Basophils # (0-0.2) k/uL PT (9.0-12.0) sec INR (<1.2) APTT (22.0-30.0) sec Sodium (137-145) mmol/L Potassium (3.5-5.1) mmol/L Chloride (98-107) mmol/L Carbon Dioxide (22-30) mmol/L Anion Gap mmol/L BUN (7-17) mg/dL Creatinine (0.52-1.04) mg/dL Est GFR (CKD-EPI)AfAm (>60 ml/min/1.73 sqM) Est GFR (CKD-EPI)NonAf (>60 ml/min/1.73 sqM) Glucose (74-99) mg/dL Calcium (8.4-10.2) mg/dL Total Bilirubin (0.2-1.3) mg/dL AST (14-36) U/L ALT (4-34) U/L Alkaline Phosphatase (38-126) U/L Troponin I 0.467 H* (0.000-0.034) ng/mL NT-Pro-B Natriuret Pep 8540 pg/mL Total Protein (6.3-8.2) g/dL Albumin (3.5-5.0) g/dL Coronavirus (PCR) Not Detected (Not Detectd) Critical Care Time Critical Care Time: Yes Total Critical Care Time: 32 Disposition Clinical Impression: Pulmonary edema, NSTEMI (non-ST elevated myocardial infarction) Disposition: ADMITTED IP TO THIS HOSP Is patient prescribed a controlled substance at d/c from ED?: No Decision Time: 18:36
[2021-03-20] MEDS ORDERED: CHOLESTYRAMINE (WITH SUGAR) 4 GM PACKET PO PRN (18:34)
[2021-03-20] MEDS ORDERED: HEPARIN SODIUM 1,000 UN/ML (10ML VL) IV ONE (18:36)
[2021-03-20] MEDS ORDERED: ASPIRIN 81 MG PO STA (18:36)
[2021-03-20] MEDS ORDERED: NITROGLYCERIN SL TABS 0.4 MG TAB SUBLINGUAL PRN (18:36)
[2021-03-20] MEDS ORDERED: HEPARIN SOD,PORK IN 0.45% NACL 25,000 UNIT in 0.45% NACL 1 250ML.BAG IV SCH (18:45)
[2021-03-20] MEDS: FUROSEMIDE 10 MG/ML 4 ML VIAL IV SCH (19:06)
--- NOTE | 2021-03-20 19:12 | XR ---
EXAMINATION TYPE: XR chest 2V DATE OF EXAM: 03/20/2021 COMPARISON: 03/12/2021 HISTORY: 80 years Female. STUDY INDICATION GIVEN: dyspnea . TECHNIQUE: Frontal and lateral chest radiographs IMPRESSION: Patchy scattered bilateral airspace disease and interstitial opacities concerning for multifocal pneu monia mild pulmonary edema. Small bilateral pleural effusions. No pneumothorax. The heart is not enlarged. Mild generalized osteopenia. Degenerative changes are seen in bilateral shoulder joints and in the th oracic spine. Atherosclerotic calcifications are seen in the intrathoracic aorta.
[2021-03-20] MEDS: ALBUTEROL NEBULIZED 2.5 MG/3 ML INHALATION PRN (20:16)
[2021-03-20] MEDS: ABEMACICLIB 150 MG PO SCH (21:53)
[2021-03-20] MEDS: PRAVASTATIN SODIUM 20 MG TAB PO SCH (21:53)
[2021-03-20] MEDS: NITROGLYCERIN OINT 1 INCH/GM PACKET TOPICAL SCH ×3 (21:53→23:18)
[2021-03-20] MEDS: HEPARIN SODIUM,PORCINE/PF 5,000 UNIT/0.5 ML SYRINGE SQ SCH (21:53)
--- NOTE | 2021-03-21 01:13 | US ---
EXAMINATION TYPE: US kidneys/renal and bladder DATE OF EXAM: 03/20/2021 COMPARISON: US 03/14/2021 CLINICAL HISTORY: Acute Renal Failure. Acute renal failure. EXAM MEASUREMENTS: Right Kidney: 9.3 x 5.2 x 4.4 cm Left Kidney: 8.2 x 4.8 x 5.0 cm Right Kidney: Anechoic area seen lower pole: 5.5 x 6.5 x 5.7 cm. Left Kidney: Appears small in size. Indistinct, hypoechoic area seen upper left kidney verus adjacent to the left kidney/spleen. This area measures 2.6 x 1.9 x 2.2 cm. Bladder: Appears anechoic. Bilateral Jets seen: Yes IMPRESSION: There is evidence for some left renal atrophy with cortical thinning. Right kidney also s hows mild atrophy. No evidence of renal obstruction. There is dominant cyst in the lower pole of the right kidney. No change compared to recent exam.
--- NOTE | 2021-03-21 01:14 | US ---
EXAMINATION TYPE: US chest DATE OF EXAM: 03/20/2021 COMPARISON: XR, US CLINICAL HISTORY: recurrent malignant effusions. Recurrent malignant effusions. TECHNIQUE: Targeted ultrasound of the posterior lower bilateral hemithoraces EXAM MEASUREMENTS: Right Pleural Effusion pocket size: 9.56 cm Right skin surface to fluid distance: 5.18 cm Left Pleural Effusion pocket size: 7.0 cm Left skin surface to fluid distance: 4.22 cm -Hyperechoic area/stranding seen within right fluid pocket. Right side marked for possible thoracentesis outside the dept. Left side not marked for possible thoracentesis outside the dept. Left sided pocket appears more complex. Pulmonologists are able to review the images in the patient?s EMR. IMPRESSIONS: There is demonstration of moderate bilateral pleural effusions.
[2021-03-21 02:48] LABS: Appearance,Urine Clear (Clear); Bilirubin,Urine Negative (Negative); Blood,Urine Small (Negative); Color,Urine Light Yellow; Glucose,Urine (UA) Negative (Negative); Hyaline Casts,Urine 1 /lpf (0-2); Ketones,Urine Negative (Negative); Leukocyte Esterase,Urine Small (Negative); Mucus,Urine Rare /hpf; Nitrite,Urine Negative (Negative); Protein,Urine Negative (Negative); RBC,Urine 1 /hpf (0-5); Specific Gravity,Urine 1.015 (1.001-1.035); Squamous Epithelial Cell,Urine 1 /hpf (0-4); Urobilinogen,Urine <2.0 mg/dL (<2.0); WBC,Urine 4 /hpf (0-5)
[2021-03-21] MEDS: HEPARIN SODIUM,PORCINE/PF 5,000 UNIT/0.5 ML SYRINGE SQ SCH ×2 (05:03→12:01)
[2021-03-21] MEDS: NITROGLYCERIN OINT 1 INCH/GM PACKET TOPICAL SCH (05:03)
[2021-03-21] MEDS: FUROSEMIDE 10 MG/ML 4 ML VIAL IV SCH (06:48)
[2021-03-21] MEDS: PANTOPRAZOLE 40 MG TABLET PO SCH (06:48)
[2021-03-21] MEDS: ALBUTEROL NEBULIZED 2.5 MG/3 ML INHALATION PRN ×2 (07:41→23:27)
[2021-03-21] MEDS: ABEMACICLIB 150 MG PO SCH ×2 (08:15→20:11)
[2021-03-21] MEDS: CHOLECALCIFEROL 25 MCG (1000 IU) TABLET PO SCH (08:15)
[2021-03-21] MEDS ORDERED: ASPIRIN 325 MG TAB PO SCH (09:00)
[2021-03-21 10:04] LABS: Basophils % (A) 0 %; Eosinophils % (A) 1 %; HCT 38.3 % (34.0-46.0); HGB 12.5 gm/dL (11.4-16.0); Lymphocytes # (A) 0.8 k/uL (1.0-4.8); Lymphocytes % (A) 20 %; MCH 32.8 pg (25.0-35.0); MCHC 32.6 g/dL (31.0-37.0); MCV 100.3 fL (80.0-100.0); Mean Platelet Volume 9.2; Monocytes # (A) 0.2 k/uL (0-1.0); Monocytes % (A) 4 %; Neutrophils # (A) 3.1 k/uL (1.3-7.7); Neutrophils % (A) 73 %; Platelet Count 149 k/uL (150-450); RBC 3.81 m/uL (3.80-5.40); RDW 13.2 % (11.5-15.5); WBC 4.2 k/uL (3.8-10.6)
[2021-03-21 10:13] LABS: Calcium 8.5 mg/dL (8.4-10.2); Magnesium 2.4 mg/dL (1.6-2.3); Potassium 3.6 mmol/L (3.5-5.1); Total Bilirubin 0.4 mg/dL (0.2-1.3); Total Protein 5.8 g/dL (6.3-8.2)
[2021-03-21] MEDS ORDERED: HEPARIN SODIUM 1,000 UN/ML (10ML VL) IV PRN (10:27)
[2021-03-21] MEDS ORDERED: HEPARIN SODIUM 1,000 UN/ML (10ML VL) IV ONE (10:27)
[2021-03-21] MEDS: HEPARIN SOD,PORK IN 0.45% NACL 25,000 UNIT in 0.45% NACL 1 250ML.BAG IV SCH (10:43)
[2021-03-21] MEDS ORDERED: SODIUM CHLORIDE 0.9% 1,000 ML IV SCH ×2 (10:45→18:00)
--- NOTE | 2021-03-21 12:01 | ECHOF ---
Referral Reason:re: EF, elevated trop, possible PE MEASUREMENTS -------- HEIGHT: 162.6 cm WEIGHT: 88.9 kg BP: RVIDd: 2.8 cm (< 3.3) IVSd: 1.1 cm (0.6 - 1.1) LVIDd: 2.3 cm (3.9 - 5.3) LVPWd: 1.3 cm (0.6 - 1.1) IVSs: 1.4 cm LVIDs: 1.1 cm LVPWs: 1.7 cm Ao Diam: 2.8 cm (2.0 - 3.7) AV Cusp: 1.8 cm (1.5 - 2.6) LA Diam: 2.0 cm (2.7 - 3.8) MV EXCURSION: 13.189 mm (> 18.000) MV EF SLOPE: 57 mm/s (70 - 150) EPSS: 0.3 cm MV E Pollo: 0.86 m/s MV DecT: 106 ms MV A Pollo: 0.59 m/s MV E/A Ratio: 1.46 AV maxP.99 mmHg AV meanP.18 mmHg RAP: 5.00 mmHg RVSP: 22.91 mmHg FINDINGS -------- Resting tachycardia (HR>100bpm). This was a technically difficult study with suboptimal views. The left ventricular size is normal. There is mild concentric left ventricular hypertrophy. Overa ll left ventricular systolic function is normal with, an EF between 60 - 65 %. RV Promident The left atrial size is normal. The right atrial size is normal. xx ml of Lumason was utilized for enhancement of images. The aortic valve is trileaflet and appears structurally normal. The mitral valve is normal. There is trace mitral regurgitation. The tricuspid valve appears structurally normal. Trace tricuspid regurgitation present. Right deann tricular systolic pressure is normal at < 35 mmHg. Trace/mild (physiologic) pulmonic regurgitation. The aortic root size is normal. Normal inferior vena cava with normal inspiratory collapse consistent with estimated right atrial pre ssure of 5 mmHg. There is no pericardial effusion. CONCLUSIONS -------- 1. The left ventricular size is normal. 2. There is mild concentric left ventricular hypertrophy. 3. Overall left ventricular systolic function is normal with, an EF between 60 - 65 %. 4. RV Promident 5. There is trace mitral regurgitation. 6. Trace tricuspid regurgitation present. 7. Trace/mild (physiologic) pulmonic regurgitation. 8. There is no pericardial effusion. PROJECTS MANAGER: Divine George RDCS
--- NOTE | 2021-03-21 12:39 | P.CRDCN ---
History of Present Illness Consult date: 03/21/21 History of present illness: HISTORY OF PRESENT ILLNESS: This is a 80-year-old female with a past medical history significant for hypertension, hyperlipidemia, chronic pericarditis, and breast cancer currently on hormone therapy. Patient follows in the office with Dr. Gamble. We have been asked to see the patient in consultation for congestive heart failure. Patient examined at the bedside. Patient presented to the hospital with shortness of breath. Patient denied having any chest pain or pressure. Patient states she has been having issues with recurrent right pleural effusion. She states she has had 2 thoracentesis is performed in the last 2 weeks. Her oncologist has her set up to have thoracentesis every 2 weeks. She is scheduled for another thoracentesis next week. She states that she saw her oncologist in the office and he recommended that she come to the hospital for further evaluation and may need a thoracentesis performed sooner than next week. Patient does report that she stopped taking her Lasix for 3-4 days secondary to leg cramping. EKG reveals sinus tachycardia Chest xray patchy scattered bilateral airspace disease and interstitial opacities concerning for multifocal pneumonia and mild pulmonary edema. Small bilateral pleural effusions. No pneumothorax. Laboratory data: WBC 4.2. Hemoglobin 12.5. Platelet count 149. Sodium 129. Potassium 3.6. BUN 41. Creatinine 2.46. Magnesium 2.4. Troponin 0.467. 0.469. 0.441. Current home cardiac medications include pravastatin 20 mg at night, losartan 50 mg at night, Lasix 40 mg daily Echocardiogram obtained reveals mild LVH, ejection fraction 60-65%, prominent RV, trace mitral regurgitation, and trace tricuspid regurgitation REVIEW OF SYSTEMS: At the time of my exam: CONSTITUTIONAL: Denies fever or chills. HEENT: Denies blurred vision, vision changes, or eye pain. Denies hemoptysis CARDIOVASCULAR: Denies chest pain. Denies orthopnea. Denies PND. Denies palpitations RESPIRATORY: + shortness of breath. GASTROINTESTINAL: Denies abdominal pain. Denies nausea or vomiting. HEMATOLOGIC: Denies bleeding disorders. GENITOURINARY: Denies any blood in urine. SKIN: Denies pruitis. Denies rash. PHYSICAL EXAM: VITAL SIGNS: Reviewed. GENERAL: Well-developed in no acute distress. HEENT: Head is normocephalic. Pupils are equal, round. Sclerae anicteric. Mucous membranes of the mouth are moist. Neck supple. No JVD or thyromegaly LUNGS: Respirations even and unlabored. Lungs diminished to auscultation bilaterally. HEART: Regular rate and rhythm. S1 and S2 heard. ABDOMEN: Soft. Nondistended. Nontender. EXTREMITIES: Normal range of motion. No clubbing or cyanosis. Peripheral pulses intact. Trace lower extremity edema NEUROLOGIC: Awake and alert. Oriented x 3. ASSESSMENT: Shortness of breath Recurrent pleural effusions, s/p right thoracentesis 2, no signs of diastolic congestive heart failure despite elevated BNP, suspect fluid is secondary to malignancy Acute kidney injury Abnormal troponins, may be secondary to acute kidney injury, however, workup to r/o PE in progress Breast cancer currently on hormone therapy Chronic pericarditis Hypertension Hyperlipidemia PLAN: Obtain lower extremity doppler to r/o DVT Obtain VQ scan to r/o PE Begin IV heparin infusion Resume home cardiac medications Begin IVF at 80cc/hr Consult Dr. Abernathy for evaluation Further recommendations pending patient course Nurse practitioner note has been reviewed by physician. Signing provider agrees with the documented findings, assessment, and plan of care. Past Medical History Past Medical History: Cancer Additional Past Medical History / Comment(s): Rt breast cancer stage 4-getting hormone treatments, fluid around the lungs that has been drained twice History of Any Multi-Drug Resistant Organisms: None Reported Past Surgical History: Bowel Resection Additional Past Surgical History / Comment(s): rt cataract 06/06/14; lt cataract 07/2014; bowel surgery 07/2016; Past Anesthesia/Blood Transfusion Reactions: No Reported Reaction Past Psychological History: No Psychological Hx Reported Smoking Status: Never smoker Past Alcohol Use History: Occasional Past Drug Use History: None Reported - Past Family History Mother Family Medical History: Diabetes Mellitus Additional Family Medical History / Comment(s): Angina Father Family Medical History: Cancer Additional Family Medical History / Comment(s): bladder cancer Medications and Allergies Home Medications Medication Instructions Recorded Confirmed Type Losartan Potassium 50 mg PO HS PRN 04/27/19 03/20/21 History Pravastatin Sodium [Pravachol] 20 mg PO HS 04/27/19 03/20/21 History Phenylephrine HCl/Acetaminophn 1 tab PO Q8H PRN 02/07/21 03/20/21 History [Tylenol Sinus Headache Caplet] Furosemide [Lasix] 40 mg PO DAILY 30 Days #30 tab 02/12/21 03/20/21 Rx Cholecalciferol [Vitamin D3 (25 25 mcg PO DAILY 02/21/21 03/20/21 History Mcg = 1000 Iu)] Cyclobenzaprine [Flexeril] 5 mg PO TID PRN 02/21/21 03/20/21 History Abemaciclib [Verzenio] 150 mg PO BID 03/07/21 03/20/21 History ALPRAZolam [Xanax] 0.25 mg PO TID PRN 03/20/21 03/20/21 History Albuterol Nebulized [Ventolin 2.5 mg INHALATION RT-TID PRN 03/20/21 03/20/21 History Nebulized] Cholestyramine (with Sugar) 4 gm PO HS PRN 03/20/21 03/20/21 History [Cholestyramine Packet] Loperamide [Imodium] 2 mg PO QID PRN 03/20/21 03/20/21 History Omeprazole 40 mg PO DAILY 03/20/21 03/20/21 History Ondansetron Odt [Zofran Odt] 4 mg PO Q6H PRN 03/20/21 03/20/21 History Potassium Chloride ER [K-Dur 20] 20 meq PO DIRECTED 03/20/21 03/20/21 History Allergies Allergy/AdvReac Type Severity Reaction Status Date / Time Penicillins Allergy Itching Verified 03/20/21 18:00 Physical Exam Vitals: Vital Signs Temp Pulse Pulse Resp BP BP Pulse Ox 03/21/21 07:53 124 H 03/21/21 07:44 118 H 03/21/21 07:30 118 H 20 122/65 92 L 03/21/21 04:00 98.0 F 100 16 119/82 92 L 03/20/21 23:09 97.8 F 100 18 117/45 95 03/20/21 20:26 107 H 03/20/21 20:19 107 H 03/20/21 20:00 97.6 F 113 H 20 108/50 94 L 03/20/21 19:09 92 18 137/66 92 L 03/20/21 17:52 20 03/20/21 16:00 97.4 F L 106 H 20 86/54 94 L Intake and Output 03/20/21 03/21/21 03/21/21 22:59 06:59 14:59 Output Total 300 Balance -300 Output: Urine 300 Other: Voiding Method Bedside Commode Bedside Commode Bedside Commode Weight 88.904 kg Results 03/21/21 09:21 03/21/21 09:21 Cardiac Enzymes 03/20/21 03/20/21 03/20/21 Range/Units 16:27 16:27 20:27 AST 71 H (14-36) U/L Troponin I 0.467 H* 0.469 H* (0.000-0.034) ng/mL 03/21/21 03/21/21 Range/Units 00:14 09:21 AST 70 H (14-36) U/L Troponin I 0.441 H* (0.000-0.034) ng/mL Coagulation 03/20/21 Range/Units 16:27 PT 11.4 (9.0-12.0) sec APTT 20.6 L (22.0-30.0) sec CBC 03/20/21 03/21/21 Range/Units 16:27 09:21 WBC 4.0 4.2 (3.8-10.6) k/uL RBC 4.05 3.81 (3.80-5.40) m/uL Hgb 13.1 12.5 (11.4-16.0) gm/dL Hct 39.1 38.3 (34.0-46.0) % Plt Count 168 149 L (150-450) k/uL Comprehensive Metabolic Panel 03/20/21 03/21/21 Range/Units 16:27 09:21 Sodium 127 L 129 L (137-145) mmol/L Potassium 3.8 3.6 (3.5-5.1) mmol/L Chloride 89 L 89 L (98-107) mmol/L Carbon Dioxide 31 H 31 H (22-30) mmol/L BUN 42 H 41 H (7-17) mg/dL Creatinine 2.37 H 2.46 H (0.52-1.04) mg/dL Glucose 129 H 122 H (74-99) mg/dL Calcium 8.9 8.5 (8.4-10.2) mg/dL AST 71 H 70 H (14-36) U/L ALT 27 25 (4-34) U/L Alkaline Phosphatase 98 94 (38-126) U/L Total Protein 6.1 L 5.8 L (6.3-8.2) g/dL Albumin 3.2 L 3.0 L (3.5-5.0) g/dL Current Medications Generic Name Dose Route Start Last Admin Trade Name Freq PRN Reason Stop Dose Admin Albuterol Sulfate 2.5 mg 03/20/21 18:34 03/21/21 07:41 Albuterol Nebulized 2.5 Mg/3 Ml INHALATION 2.5 mg RT-TID PRN Administration Shortness Of Breath Alprazolam 0.25 mg 03/20/21 18:34 Alprazolam 0.25 Mg Tab PO TID PRN Anxiety Aspirin 81 mg 03/22/21 09:00 Aspirin 81 Mg PO DAILY SANTO Cholecalciferol 25 mcg 03/21/21 09:00 03/21/21 08:15 Cholecalciferol 25 Mcg (1000 Iu) Tablet PO 25 mcg DAILY SANTO Administration Cholestyramine Resin 4 gm 03/20/21 18:34 Cholestyramine (With Sugar) 4 Gm Packet PO HS PRN Loose Stool Heparin Sodium (Porcine) 0 unit 03/21/21 10:27 Heparin Sodium 1,000 Un/Ml (10ml Vl) IV PER PROTOCOL PRN Low PTT Protocol Heparin Sodium/Sodium Chloride 250 mls @ 16.003 mls/hr 03/21/21 10:30 09/05 10:43 25,000 unit/ Sodium Chloride IV 18 units/kg/hr .[id number] SANTO 16.003 mls/hr Administration Protocol 18 UNITS/KG/HR Sodium Chloride 1,000 mls @ 80 mls/hr 03/21/21 10:45 03/21/21 10:41 Saline 0.9% IV 80 mls/hr .[id number] SANTO Administration Nitroglycerin 0.4 mg 03/20/21 18:36 Nitroglycerin Sl Tabs 0.4 Mg Tab SUBLINGUAL Q5M PRN Chest Pain Non-Formulary Medication 150 mg 03/20/21 21:00 03/21/21 08:15 Abemaciclib [Verzenio] PO 150 mg BID SANTO Administration Pantoprazole Sodium 40 mg 03/21/21 07:30 03/21/21 06:48 Pantoprazole 40 Mg Tablet PO 40 mg [id number] SANTO Administration Pravastatin Sodium 20 mg 03/20/21 21:00 03/20/21 21:53 Pravastatin Sodium 20 Mg Tab PO 20 mg HS SANTO Administration Intake and Output 03/20/21 03/21/21 03/21/21 22:59 06:59 14:59 Output Total 300 Balance -300 Output: Urine 300 Other: Voiding Method Bedside Commode Bedside Commode Bedside Commode Weight 88.904 kg 03/21/21 09:21 03/21/21 09:21
--- NOTE | 2021-03-21 12:57 | NM ---
EXAMINATION TYPE: NM pul vent and perfuse DATE OF EXAM: 03/21/2021 COMPARISON: Chest x-ray 03/20/2021, VQ scan 02/09/2021 HISTORY: Shortness of breath TECHNIQUE: Utilizing inhalation of 67.0 mCi Tc 99m DTPA aerosol and intravenous injection of 5.1 mCi of Tc 99m MAA, ventilation and perfusion images are acquired post injection in multiple projections. FINDINGS: There are again numerous matched defects with limited uptake seen on ventilation imaging which could be related to the history of COPD. Triple match is are seen at the lung bases. Lack of ventilation up take severely limits the exam. Grossly no sizable mismatched defects are seen. IMPRESSION: Triple match lung bases with numerous matched defects bilaterally. Exam is limited due to markedly re duced ventilation uptake. Findings are most reflective of a intermediate probability for pulmonary em bolus.
--- NOTE | 2021-03-21 13:27 | US ---
EXAMINATION TYPE: US venous doppler duplex LE BI DATE OF EXAM: 03/21/2021 1:18 PM COMPARISON: 02/08/2021 CLINICAL HISTORY: r/o DVT. Swelling bilaterally SIDE PERFORMED: Bilateral TECHNIQUE: The lower extremity deep venous system is examined utilizing real time linear array sonog syed with graded compression, doppler sonography and color-flow sonography. VESSELS IMAGED: Common Femoral Vein Deep Femoral Vein Greater Saphenous Vein * Femoral Vein Popliteal Vein Small Saphenous Vein * Proximal Calf Veins (* superficial vessels) Right Leg: Negative for DVT Left Leg: Negative for DVT IMPRESSION: Grayscale, color doppler, spectral doppler imaging performed of the deep veins of the lo wer extremities. There is normal flow, compressibility, vascular waveforms.
--- NOTE | 2021-03-21 13:27 | CONS ---
CONSULTATION REASON FOR CONSULT: Renal failure. HISTORY OF PRESENT ILLNESS: Patient is a 80-year-old female with history of metastatic breast cancer diagnosed in 2019 with recurrence, currently maintained on chemotherapy. She was admitted to the hospital with complaints of shortness of breath. Patient has had thoracentesis and is scheduled for thoracentesis to be done every two weeks. She has no underlying history of CHF. Patient denies any previous history of kidney diseases. Her serum creatinine was 2.37 when she came in and increased to 2.46 on 03/21/2021. Previous creatinine on 02/26/2021 was 1.2 and 1.1 mg/dL the day before that. Patient is noted to have low blood pressure, with systolic as low as 86 mmHg when she first came in. Patient was maintained on losartan at home, which is currently on hold. According to her daughters, blood pressure was running low at home prior to admission and losartan was held a few days ago. No complaints of nausea, vomiting, diarrhea. No fever. No cough. No history of use of NSAIDs. Patient states she has been voiding fairly well. PAST MEDICAL HISTORY: Stage IV breast cancer with metastases to the lung with recurrent pleural effusion. PAST SURGICAL HISTORY: Cataract surgery, bowel resection. SOCIAL HISTORY: Negative for smoking, drug abuse or alcohol abuse. MEDICATIONS: Medications prior to admission included omeprazole, Zoloft, Imodium, potassium, Lasix, Xanax, Pravachol, losartan, vitamin D, Flexeril. ALLERGIES: ALLERGIES include PENICILLIN, which causes itching. REVIEW OF SYSTEMS: As per HPI. Other systems negative. PHYSICAL EXAMINATION: Patient is comfortable, awake, not in any acute distress. Alert, oriented x3. Blood pressure is 122/65, heart rate 118 per minute. She is afebrile. EXAMINATION OF THE HEART: S1 and S2. EXAMINATION OF LUNGS: Bilateral breath sounds are heard. Decreased breath sounds at the bases. Occasional wheezing is heard. Abdomen is soft, non-tender. Examination of lower extremities shows no evidence of edema. TECHNOLOGY INSTRUCTOR EXAM: Grossly intact. LABS: Sodium 129, potassium 3.6, serum creatinine of 2.46, BUN 41. CO2 is 31, chloride 89, hemoglobin 12.5, white cell count 4.2. UA is unremarkable. Coronavirus PCR negative. Chest x-ray shows heart is not enlarged; small bilateral pleural effusions; bilateral patchy scattered airspace disease and interstitial opacities noted. Ultrasound of the kidneys shows right kidney 9.3 cm, left kidney 8.2 cm. No hydronephrosis noted. Right renal cyst noted. ASSESSMENT: 1. Acute kidney injury, acute tubular necrosis, mostly ischemic associated with hypotension, hypoperfusion in the setting of use of angiotensin receptor blockers. No evidence of obstructive uropathy on ultrasound. Will check bladder scan. Rule out urine retention. Patient received IV Lasix when she first came in, and this is currently on hold. She has been started on IV fluids. We will continue with the IV hydration for now. 2. Hyponatremia, most likely hypovolemic. Serum sodium improved post hospitalization and patient received a dose of Lasix. I will check another sodium level in about 4 hours, and if her sodium has further decreased, we will discontinue the IV fluids. Check urine osmolality. Patient will be encouraged to increase oral protein intake. Patient does not appear to be significantly hypervolemic at this time. Check TSH levels and check random cortisol level as well. 3. Stage IV breast cancer with metastases to lung with recurrent pleural effusion, maintained on thoracentesis every 2 weeks. PLAN: Continue with IV fluids. Repeat sodium in 4 hours. Check urine osmolality and check bladder scan. Rule out urine retention. Agree with holding losartan and other blood pressure medications for now. Thank you for this consultation. Will continue to follow the patient with you during her hospitalization. MMRACHELL / ANTWONN: [id number] /
[2021-03-21] MEDS ORDERED: LOSARTAN 50 MG TAB PO PRN (16:33)
[2021-03-21] MEDS ORDERED: LOPERAMIDE 2 MG CAP PO PRN (16:33)
[2021-03-21] MEDS ORDERED: CYCLOBENZAPRINE 5 MG TAB PO PRN (16:33)
[2021-03-21] MEDS: ALPRAZolam 0.25 MG TAB PO PRN (18:04)
[2021-03-21 18:53] LABS: Chol/HDL Ratio 2.67 Ratio; HDL Cholesterol 74.5 mg/dL (40.00-60.00); LDL Cholesterol,Calculated 89.9 mg/dL (0.0-131.0); VLDL Calculation 34.6 mg/dL (5.00-40.00)
[2021-03-21] MEDS: PRAVASTATIN SODIUM 20 MG TAB PO SCH (20:11)
--- NOTE | 2021-03-21 20:59 | P.CONS ---
History of Present Illness - Reason for Consult Consult date: 03/21/21 Metastatic Breast Cancer - Recent Progression Requesting physician: August Srivastava - Chief Complaint Shortness of Breath - History of Present Illness Mrs. Robison is a patient well known to us, primary oncologist Dr. Solo. She recently was found to have rapid and marked progression, underwent further molecular testing without any identifiable targets. She was previously treated with verzenio, responded however due to side effects was stopped. She has therefore been restarted approx 2 to 3 weeks ago and has been tolerating well with the exception of recurrent effusions and shortness of breath. Pulmonary has followed on prior admissions as well, discussion of bronchoscopy last admission, however patient did seem to improve. She now presents with the same. Review of Systems All systems: negative Constitutional: Reports as per HPI Past Medical History Past Medical History: Cancer Additional Past Medical History / Comment(s): Rt breast cancer stage 4-getting hormone treatments, fluid around the lungs that has been drained twice History of Any Multi-Drug Resistant Organisms: None Reported Past Surgical History: Bowel Resection Additional Past Surgical History / Comment(s): rt cataract 06/06/14; lt cataract 07/2014; bowel surgery 07/2016; Past Anesthesia/Blood Transfusion Reactions: No Reported Reaction Past Psychological History: No Psychological Hx Reported Smoking Status: Never smoker Past Alcohol Use History: Occasional Past Drug Use History: None Reported - Past Family History Mother Family Medical History: Diabetes Mellitus Additional Family Medical History / Comment(s): Angina Father Family Medical History: Cancer Additional Family Medical History / Comment(s): bladder cancer Medications and Allergies Home Medications Medication Instructions Recorded Confirmed Type Losartan Potassium 50 mg PO HS PRN 04/27/19 03/20/21 History Pravastatin Sodium [Pravachol] 20 mg PO HS 04/27/19 03/20/21 History Phenylephrine HCl/Acetaminophn 1 tab PO Q8H PRN 02/07/21 03/20/21 History [Tylenol Sinus Headache Caplet] Furosemide [Lasix] 40 mg PO DAILY 30 Days #30 tab 02/12/21 03/20/21 Rx Cholecalciferol [Vitamin D3 (25 25 mcg PO DAILY 02/21/21 03/20/21 History Mcg = 1000 Iu)] Cyclobenzaprine [Flexeril] 5 mg PO TID PRN 02/21/21 03/20/21 History Abemaciclib [Verzenio] 150 mg PO BID 03/07/21 03/20/21 History ALPRAZolam [Xanax] 0.25 mg PO TID PRN 03/20/21 03/20/21 History Albuterol Nebulized [Ventolin 2.5 mg INHALATION RT-TID PRN 03/20/21 03/20/21 History Nebulized] Cholestyramine (with Sugar) 4 gm PO HS PRN 03/20/21 03/20/21 History [Cholestyramine Packet] Loperamide [Imodium] 2 mg PO QID PRN 03/20/21 03/20/21 History Omeprazole 40 mg PO DAILY 03/20/21 03/20/21 History Ondansetron Odt [Zofran Odt] 4 mg PO Q6H PRN 03/20/21 03/20/21 History Potassium Chloride ER [K-Dur 20] 20 meq PO DIRECTED 03/20/21 03/20/21 History Allergies Allergy/AdvReac Type Severity Reaction Status Date / Time Penicillins Allergy Itching Verified 03/20/21 18:00 Physical Exam Vitals: Vital Signs Temp Pulse Pulse Resp BP BP Pulse Ox 03/21/21 07:53 124 H 03/21/21 07:44 118 H 03/21/21 07:30 118 H 20 122/65 92 L 03/21/21 04:00 98.0 F 100 16 119/82 92 L 03/20/21 23:09 97.8 F 100 18 117/45 95 03/20/21 20:26 107 H 03/20/21 20:19 107 H 03/20/21 20:00 97.6 F 113 H 20 108/50 94 L 03/20/21 19:09 92 18 137/66 92 L 03/20/21 17:52 20 03/20/21 16:00 97.4 F L 106 H 20 86/54 94 L Intake and Output 03/20/21 03/21/21 03/21/21 22:59 06:59 14:59 Output Total 300 Balance -300 Output: Urine 300 Other: Voiding Method Bedside Commode Bedside Commode Bedside Commode Weight 88.904 kg - Constitutional General appearance: cooperative, mild distress - EENT Eyes: EOMI ENT: hard of hearing, NA/AT - Neck Neck: normal ROM - Respiratory Respiratory: bilateral: diminished, rhonchi - Cardiovascular Rhythm: regularly irregular leg Peripheral Edema: left: 3+, bilateral: 2+ - Gastrointestinal General gastrointestinal: distended, soft, tenderness - Integumentary Integumentary: pale - Neurologic Neurologic: CNII-XII intact - Musculoskeletal Musculoskeletal: generalized weakness - Psychiatric Psychiatric: A&O x's 3, appropriate affect, intact judgment & insight Results CBC & Chem 7: 03/21/21 09:21 03/21/21 17:14 Labs: Abnormal Lab Results - Last 24 Hours (Table) 03/20/21 03/20/21 03/20/21 Range/Units 16:27 16:27 16:27 MCV (80.0-100.0) fL Plt Count (150-450) k/uL Lymphocytes # 0.6 L (1.0-4.8) k/uL APTT 20.6 L (22.0-30.0) sec Sodium 127 L (137-145) mmol/L Chloride 89 L (98-107) mmol/L Carbon Dioxide 31 H (22-30) mmol/L BUN 42 H (7-17) mg/dL Creatinine 2.37 H (0.52-1.04) mg/dL Glucose 129 H (74-99) mg/dL Magnesium (1.6-2.3) mg/dL AST 71 H (14-36) U/L Troponin I (0.000-0.034) ng/mL Total Protein 6.1 L (6.3-8.2) g/dL Albumin 3.2 L (3.5-5.0) g/dL Urine Blood (Negative) Ur Leukocyte Esterase (Negative) Urine Mucus (None) /hpf 03/20/21 03/20/21 03/21/21 Range/Units 16:27 20:27 00:14 MCV (80.0-100.0) fL Plt Count (150-450) k/uL Lymphocytes # (1.0-4.8) k/uL APTT (22.0-30.0) sec Sodium (137-145) mmol/L Chloride (98-107) mmol/L Carbon Dioxide (22-30) mmol/L BUN (7-17) mg/dL Creatinine (0.52-1.04) mg/dL Glucose (74-99) mg/dL Magnesium (1.6-2.3) mg/dL AST (14-36) U/L Troponin I 0.467 H* 0.469 H* 0.441 H* (0.000-0.034) ng/mL Total Protein (6.3-8.2) g/dL Albumin (3.5-5.0) g/dL Urine Blood (Negative) Ur Leukocyte Esterase (Negative) Urine Mucus (None) /hpf 03/21/21 03/21/21 03/21/21 Range/Units 02:13 09:21 09:21 MCV 100.3 H (80.0-100.0) fL Plt Count 149 L (150-450) k/uL Lymphocytes # 0.8 L (1.0-4.8) k/uL APTT (22.0-30.0) sec Sodium 129 L (137-145) mmol/L Chloride 89 L (98-107) mmol/L Carbon Dioxide 31 H (22-30) mmol/L BUN 41 H (7-17) mg/dL Creatinine 2.46 H (0.52-1.04) mg/dL Glucose 122 H (74-99) mg/dL Magnesium 2.4 H (1.6-2.3) mg/dL AST 70 H (14-36) U/L Troponin I (0.000-0.034) ng/mL Total Protein 5.8 L (6.3-8.2) g/dL Albumin 3.0 L (3.5-5.0) g/dL Urine Blood Small H (Negative) Ur Leukocyte Esterase Small H (Negative) Urine Mucus Rare H (None) /hpf Chest x-ray: report reviewed Assessment and Plan (1) Hypoxia Current Visit: No Status: Acute Code(s): R09.02 - HYPOXEMIA SNOMED Code(s): 437922594 (2) Metastatic breast cancer Current Visit: No Status: Acute Priority: High Code(s): C50.919 - MALIGNANT NEOPLASM OF UNSP SITE OF UNSPECIFIED FEMALE BREAST SNOMED Code(s): 179219777 Plan: Recurrent Hospitalization for Shortness of breath, multifactorial secondary to metastatic cancer, component of heart failure, Pleural effusions(malignant). Bronchoscopy has not yet been performed, defer to pulmonology. Agree with VQ scan for possible PE Patient to continue Verzenio, recently started this as next line therapy for progressive disease, too early to tell if working.
[2021-03-22 00:09] LABS: ABG Base Excess 4.6 mmol/L; ABG HCO3 30 mmol/L (21-25); ABG PCO2 52 mmHg (35-45); ABG PH 7.37 (7.35-7.45); ABG PO2 82 mmHg (83-108); ABG TCO2 32 mmol/L (19-24); Allen Test Performed? Yes
--- NOTE | 2021-03-22 01:02 | P.PN ---
Progress Note - Text Progress Note Date: 03/22/21 A- team: Indication: Shortness of breath Arrived on Scene to find: Patient in respiratory distress with conversational dyspnea, and SpO2 93% on 6 L nasal cannula oxygen Patient seen and examined at bedside. Vital signs reviewed: Upon arrival, BP 133/78, SpO2 93%, and pulse 88 General: Somewhat ill-appearing elderly female, in moderate respiratory distress, appears stated age, obese HEENT: NC/AT, anicteric sclerae, moist conjunctiva, no lid-lag, PERRLA Cardiovascular: S1/S2 wnl, no murmurs, rubs, or gallops Lungs: Poor air entry bilaterally with some diffuse crackles, conversational dyspnea with sternal retractions noted Abdominal: Soft, non-tender, non-distended, no guarding, rebound, or rigidity Skin: Warm, dry Extremities: Trace bilateral lower extremity edema Psychiatric: Alert and oriented to person, place and time, appropriate affect Neuro: Moving all extremities, no gross focal deficits noted Assessment: Reviewed the chart discussed the case with the RN. The patient has a history of stage IV breast cancer and has undergone multiple thoracentesis, admitted for shortness of breath and hypoxia. The patient underwent a VQ scan and lower extremity Doppler which revealed an intermediate probability of pulmonary embolism. The patient was started on IV heparin infusion which she continues to receive. The patient's respiratory failure and suspected multifactorial in nature with underlying malignancy and pulmonary embolism. Plan: -BiPAP initiated -EKG reviewed -Chest x-ray ordered, currently pending Notified: Primary team notified by RN A Total of 35 minutes of critical care time was spent on the complex care of this patient.
--- NOTE | 2021-03-22 01:23 | XR ---
EXAMINATION TYPE: XR chest 1V portable DATE OF EXAM: 03/22/2021 COMPARISON: 03/20/2021 HISTORY: Short of breath. Weakness TECHNIQUE: Single view FINDINGS: There is pulmonary interstitial and mild airspace edema. There is blunting of the costophre shalonda angles. Heart is probably enlarged. There are chest leads. IMPRESSION: Congestive heart failure with pleural fluid. No change compared to yesterday.
[2021-03-22] MEDS ORDERED: FUROSEMIDE 10 MG/ML 10 ML VIAL IV STA ×2 (01:52→11:57)
[2021-03-22] MEDS: HEPARIN SOD,PORK IN 0.45% NACL 25,000 UNIT in 0.45% NACL 1 250ML.BAG IV SCH (06:29)
[2021-03-22] MEDS: PANTOPRAZOLE 40 MG TABLET PO SCH (06:30)
[2021-03-22] MEDS: ASPIRIN 81 MG PO SCH (07:51)
[2021-03-22] MEDS: CHOLECALCIFEROL 25 MCG (1000 IU) TABLET PO SCH (07:51)
[2021-03-22] MEDS: ABEMACICLIB 150 MG PO SCH ×2 (07:51→21:04)
[2021-03-22 08:20] LABS: Basophils % (A) 1 %; Eosinophils % (A) 0 %; HCT 36.8 % (34.0-46.0); HGB 11.6 gm/dL (11.4-16.0); Lymphocytes # (A) 0.7 k/uL (1.0-4.8); Lymphocytes % (A) 17 %; MCH 32.1 pg (25.0-35.0); MCHC 31.6 g/dL (31.0-37.0); MCV 101.6 fL (80.0-100.0); Macrocytosis Slight; Mean Platelet Volume 9.9; Monocytes # (A) 0.2 k/uL (0-1.0); Monocytes % (A) 4 %; Neutrophils # (A) 3.1 k/uL (1.3-7.7); Neutrophils % (A) 77 %; Platelet Count 162 k/uL (150-450); RBC 3.62 m/uL (3.80-5.40); RDW 13.6 % (11.5-15.5); WBC 4.1 k/uL (3.8-10.6)
[2021-03-22] MEDS ORDERED: FUROSEMIDE 40 MG TAB PO SCH (09:00)
[2021-03-22] MEDS: IPRATROPIUM-ALBUTEROL 3 ML NEB INHALATION SCH ×4 (09:32→19:24)
[2021-03-22 10:35] LABS: Calcium 7.8 mg/dL (8.4-10.2); Potassium 3.5 mmol/L (3.5-5.1)
[2021-03-22] MEDS: METOPROLOL TARTRATE 25 MG TAB PO SCH ×2 (11:31→21:07)
--- NOTE | 2021-03-22 12:41 | PN ---
PROGRESS NOTE HISTORY: Patient is seen for followup for acute kidney injury. Yesterday, patient was started on IV fluids and IV heparin. She had a V/Q scan done which was indeterminate, however, last night patient's respiratory status worsened. She received a dose of Lasix 80 mg IV push and was placed on BiPAP. Chest x-ray from this morning from early this morning shows evidence of congestive heart failure with pleural fluid. The patient's family is inquiring about thoracentesis which she had been getting regularly. EXAMINATION: Today patient is comfortable. She is on BiPAP. Blood pressure is 124/73, heart rate 110 per minute. She is afebrile. Examination of the heart S1, S2. Examination of the lungs, decreased breath sounds at the bases. Abdomen is soft, nontender. Examination lower extremities shows no significant edema. AUTOMOBILE DETAILER exam grossly intact. LAB: Sodium 131, potassium 3.5, BUN 35, creatinine 2.17, hemoglobin of 11.6 g/dL. ASSESSMENT: 1. Acute kidney injury secondary to hypotension hypoperfusion in the setting of use of angiotensin receptor blockers currently improved with improved blood pressures. 2. Hyponatremia appears to be hypervolemic. I will continue off IV fluids and maintain diuresis. 3. Congestive heart failure with chest x-ray showing bilateral interstitial infiltrates, improved with diuresis. Echocardiogram done yesterday shows ejection fraction 60-65 percent. Right ventricular pressures were not elevated. 4. Stage IV breast cancer with pleural metastasis and recurrent pleural effusions requiring repeated thoracentesis. 5. Intermediate possibility for PE on V/Q scan. Currently maintained on IV heparin. PLAN: Lázaroe patient. Hold Rah. Repeat labs in a.m. MMODL / IJN: [id number] /
--- NOTE | 2021-03-22 12:47 | P.PN ---
Subjective Progress Note Date: 03/22/21 HISTORY OF PRESENT ILLNESS: This is a 80-year-old female with a past medical history significant for hypertension, hyperlipidemia, chronic pericarditis, and breast cancer currently on hormone therapy. Patient follows in the office with Dr. Gamble. We have been asked to see the patient in consultation for congestive heart failure. Patient examined at the bedside. Patient presented to the hospital with shortness of breath. Patient denied having any chest pain or pressure. Patient states she has been having issues with recurrent right pleural effusion. She states she has had 2 thoracentesis is performed in the last 2 weeks. Her oncologist has her set up to have thoracentesis every 2 weeks. She is scheduled for another thoracentesis next week. She states that she saw her oncologist in the office and he recommended that she come to the hospital for further evaluation and may need a thoracentesis performed sooner than next week. Patient does report that she stopped taking her Lasix for 3-4 days secondary to leg cramping. EKG reveals sinus tachycardia Chest xray patchy scattered bilateral airspace disease and interstitial opacities concerning for multifocal pneumonia and mild pulmonary edema. Small bilateral pleural effusions. No pneumothorax. Laboratory data: WBC 4.2. Hemoglobin 12.5. Platelet count 149. Sodium 129. Potassium 3.6. BUN 41. Creatinine 2.46. Magnesium 2.4. Troponin 0.467. 0.469. 0.441. Current home cardiac medications include pravastatin 20 mg at night, losartan 50 mg at night, Lasix 40 mg daily Echocardiogram obtained reveals mild LVH, ejection fraction 60-65%, prominent RV, trace mitral regurgitation, and trace tricuspid regurgitation 03/22/2021 Patient examined this morning at the bedside. Patient currently denies chest pain or pressure. She reports mild shortness of breath. The patient did go into respiratory distress overnight. She was given a dose of IV Lasix and placed on a BiPAP. The patient was still wearing her BiPAP this morning but transitioned to nasal cannula during my examination. V/Q scan reveals findings most reflective of intermediate probability of PE. Lower extremity doppler negative for DVT bilaterally. PHYSICAL EXAM: VITAL SIGNS: Reviewed. GENERAL: Well-developed in no acute distress. HEENT: Head is normocephalic. Pupils are equal, round. Sclerae anicteric. Mucous membranes of the mouth are moist. Neck supple. No JVD or thyromegaly LUNGS: Respirations even and unlabored. Lungs diminished to auscultation bilaterally with scattered rhonchi and rales HEART: Regular rate and rhythm. S1 and S2 heard. ABDOMEN: Soft. Nondistended. Nontender. EXTREMITIES: Normal range of motion. No clubbing or cyanosis. Peripheral pulses intact. Trace lower extremity edema NEUROLOGIC: Awake and alert. Oriented x 3. ASSESSMENT: Shortness of breath Recurrent pleural effusions, s/p right thoracentesis 2, no signs of diastolic congestive heart failure despite elevated BNP, suspect fluid is secondary to malignancy Acute kidney injury Abnormal troponins, may be secondary to acute kidney injury, however, workup to r/o PE in progress Intermediate probability of PE per VQ scan Acute hypoxic respiratory failure Breast cancer currently on hormone therapy Chronic pericarditis Hypertension Hyperlipidemia PLAN: Continue current cardiac medications Discontinue IV fluids Change lasix to IV: 40mg daily Patient received 60mg IVP x 1 dose per nephrology today Oncology following. Consult to IR placed for thoracentesis Per Dr. Salinas, may discontinue IV heparin Further recommendations pending evaluation by Dr. Salinas today Nurse practitioner note has been reviewed by physician. Signing provider agrees with the documented findings, assessment, and plan of care. Objective - Vital Signs Vital signs: Vital Signs Temp 98.4 F 03/22/21 11:39 Pulse 113 H 03/22/21 11:39 Resp 32 H 03/22/21 11:39 BP 124/73 03/22/21 11:39 Pulse Ox 96 03/22/21 11:39 Intake & Output 03/21/21 03/22/21 03/22/21 18:59 06:59 18:59 Intake Total 123.757 604.398 153.738 Output Total 500 650 Balance 123.757 104.398 -496.262 Weight 93.5 kg Intake: Intake, IV Titration 123.757 119.398 35.738 Amount Heparin Sod,Pork in 0.45% 123.757 119.398 35.738 NaCl 25,000 unit In 0.45 % NaCl 1 250ml.bag @ 18 UNITS/KG/HR 16.003 mls/hr IV .[id number] [facility] Rx#: [id number] Oral 485 118 Output: Urine 500 650 Other: Voiding Method External Catheter External Catheter - Labs CBC & Chem 7: 03/22/21 08:05 03/22/21 08:05 Labs: Abnormal Lab Results - Last 24 Hours (Table) 03/21/21 03/21/21 03/21/21 Range/Units 09:21 17:14 17:14 RBC (3.80-5.40) m/uL MCV (80.0-100.0) fL Lymphocytes # (1.0-4.8) k/uL APTT >200.0 H* (22.0-30.0) sec ABG pCO2 (35-45) mmHg ABG pO2 (83-108) mmHg ABG HCO3 (21-25) mmol/L ABG Total CO2 (19-24) mmol/L Sodium 129 L (137-145) mmol/L Chloride (98-107) mmol/L BUN (7-17) mg/dL Creatinine (0.52-1.04) mg/dL Glucose (74-99) mg/dL Calcium (8.4-10.2) mg/dL Triglycerides 173.00 H (0.00-149.00) mg/dL HDL Cholesterol 74.50 H (40.00-60.00) mg/dL CA 15-3 Antigen 1358.0 H (0.0-32.3) U/mL 03/22/21 03/22/21 03/22/21 Range/Units 00:05 00:06 08:05 RBC 3.62 L (3.80-5.40) m/uL MCV 101.6 H (80.0-100.0) fL Lymphocytes # 0.7 L (1.0-4.8) k/uL APTT >200.0 H* (22.0-30.0) sec ABG pCO2 52 H (35-45) mmHg ABG pO2 82 L (83-108) mmHg ABG HCO3 30 H (21-25) mmol/L ABG Total CO2 32 H (19-24) mmol/L Sodium (137-145) mmol/L Chloride (98-107) mmol/L BUN (7-17) mg/dL Creatinine (0.52-1.04) mg/dL Glucose (74-99) mg/dL Calcium (8.4-10.2) mg/dL Triglycerides (0.00-149.00) mg/dL HDL Cholesterol (40.00-60.00) mg/dL CA 15-3 Antigen (0.0-32.3) U/mL 03/22/21 03/22/21 Range/Units 08:05 08:05 RBC (3.80-5.40) m/uL MCV (80.0-100.0) fL Lymphocytes # (1.0-4.8) k/uL APTT >200.0 H* (22.0-30.0) sec ABG pCO2 (35-45) mmHg ABG pO2 (83-108) mmHg ABG HCO3 (21-25) mmol/L ABG Total CO2 (19-24) mmol/L Sodium 131 L (137-145) mmol/L Chloride 91 L (98-107) mmol/L BUN 35 H (7-17) mg/dL Creatinine 2.17 H (0.52-1.04) mg/dL Glucose 156 H (74-99) mg/dL Calcium 7.8 L (8.4-10.2) mg/dL Triglycerides (0.00-149.00) mg/dL HDL Cholesterol (40.00-60.00) mg/dL CA 15-3 Antigen (0.0-32.3) U/mL
[2021-03-22 14:57] LABS: INR 1.3 (<1.2); Prothrombin Time 13.4 sec (9.0-12.0)
[2021-03-22] MEDS: ALPRAZolam 0.25 MG TAB PO PRN ×2 (15:03→23:05)
--- NOTE | 2021-03-22 16:10 | XR ---
EXAMINATION TYPE: XR chest 1V portable DATE OF EXAM: 03/22/2021 Comparison: 03/22/2021 Clinical History: 80-year-old female post rt thoracentesis Findings: Part limits of normal in size. Diffuse interstitial opacity. Small bilateral pleural effusions remain . No appreciable pneumothorax. Some patchy density throughout the right lung is similar. Impression: Continued diffuse bilateral interstitial opacities and patchy airspace throughout the right lung. Sma ll bilateral pleural effusions with adjacent atelectasis and/or consolidation remains. No appreciable pneumothorax.
--- NOTE | 2021-03-22 16:49 | P.CNPUL ---
History of Present Illness Consult date: 03/22/21 Reason for consult: dyspnea, pleural effusion, abnormal CXR/CT Chief complaint: Shortness of breath History of present illness: Patient is a pleasant 80-year-old female who has a history of metastatic breast cancer came into the hospital with progressive shortness of breath symptoms started getting worse for the last 3-4 days patient has recurrent pleural effusion has multiple thoracentesis review of the record reveals that has 500 followed by 700 mL of fluid removed in the past by IR, cytology was positive including fluid, initial chest x-ray was positive for a patchy bilateral infiltrate versus pulmonary edema bilateral pleural effusion, patient had a bedside ultrasound right-sided pleural effusion noted to be around 10 cm left side is about 7 cm left side appears to be complex right side was marked consult ation initiated with INR dated thoracentesis sevenths 50 mL of fluid has been removed which is the clear since we already have a diagnosis fluid is not being sent for cytology and culture per oncology, bilateral Doppler is negative for DVT, ultrasound echocardiogram LV size normal LDH is noted ejection fraction of 6065% mild TR and MR noted, the VQ scan noted to have mashed affect bilaterally indeterminate with intermediate probability of PE, patient has been on heparin per cardiology recommendation, the d-dimer was elevated 1.06, arterial blood gases pH is 7.37 pCO2 52 pO2 82 white cell count is 4100 hemoglobin and hematocrit 1136 chemistry revealed sodium 131 percussion 3.5 BUN and creatinine are 35/2.17, BNP is 5718, CA-15-3 antigen +1358, patient overall appeared to have marked progression of oncologic disease, post thoracentesis feeling relief and less short of breath Review of Systems All systems: negative Past Medical History Past Medical History: Cancer Additional Past Medical History / Comment(s): Rt breast cancer stage 4-getting hormone treatments, fluid around the lungs that has been drained twice History of Any Multi-Drug Resistant Organisms: None Reported Past Surgical History: Bowel Resection Additional Past Surgical History / Comment(s): rt cataract 06/06/14; lt cataract 07/2014; bowel surgery 07/2016; Past Anesthesia/Blood Transfusion Reactions: No Reported Reaction Past Psychological History: No Psychological Hx Reported Smoking Status: Never smoker Past Alcohol Use History: Occasional Past Drug Use History: None Reported - Past Family History Mother Family Medical History: Diabetes Mellitus Additional Family Medical History / Comment(s): Angina Father Family Medical History: Cancer Additional Family Medical History / Comment(s): bladder cancer Medications and Allergies Home Medications Medication Instructions Recorded Confirmed Type Losartan Potassium 50 mg PO HS PRN 04/27/19 03/20/21 History Pravastatin Sodium [Pravachol] 20 mg PO HS 04/27/19 03/20/21 History Phenylephrine HCl/Acetaminophn 1 tab PO Q8H PRN 02/07/21 03/20/21 History [Tylenol Sinus Headache Caplet] Furosemide [Lasix] 40 mg PO DAILY 30 Days #30 tab 02/12/21 03/20/21 Rx Cholecalciferol [Vitamin D3 (25 25 mcg PO DAILY 02/21/21 03/20/21 History Mcg = 1000 Iu)] Cyclobenzaprine [Flexeril] 5 mg PO TID PRN 02/21/21 03/20/21 History Abemaciclib [Verzenio] 150 mg PO BID 03/07/21 03/20/21 History ALPRAZolam [Xanax] 0.25 mg PO TID PRN 03/20/21 03/20/21 History Albuterol Nebulized [Ventolin 2.5 mg INHALATION RT-TID PRN 03/20/21 03/20/21 History Nebulized] Cholestyramine (with Sugar) 4 gm PO HS PRN 03/20/21 03/20/21 History [Cholestyramine Packet] Loperamide [Imodium] 2 mg PO QID PRN 03/20/21 03/20/21 History Omeprazole 40 mg PO DAILY 03/20/21 03/20/21 History Ondansetron Odt [Zofran Odt] 4 mg PO Q6H PRN 03/20/21 03/20/21 History Potassium Chloride ER [K-Dur 20] 20 meq PO DIRECTED 03/20/21 03/20/21 History Allergies Allergy/AdvReac Type Severity Reaction Status Date / Time Penicillins Allergy Itching Verified 03/20/21 18:00 Physical Exam Vitals: Vital Signs Temp Pulse Pulse Resp BP BP Pulse Ox 03/22/21 16:19 92 03/22/21 16:02 92 96 03/22/21 15:45 110 H 28 H 124/74 95 03/22/21 15:25 113 H 28 H 131/76 95 03/22/21 15:05 110 H 28 H 129/75 94 L 03/22/21 12:58 90 22 03/22/21 12:45 88 23 03/22/21 11:39 98.4 F 113 H 32 H 124/73 96 03/22/21 09:41 110 H 03/22/21 09:32 110 H 03/22/21 07:49 98.5 F 69 28 H 139/58 96 03/22/21 03:59 117 H 30 H 117/62 94 L 03/22/21 00:10 96 03/22/21 00:00 120 H 20 100/71 95 03/21/21 23:38 108 H 03/21/21 23:27 106 H 03/21/21 23:00 136 H 34 H 134/70 88 L 03/21/21 20:44 96 03/21/21 19:41 98.1 F 93 18 115/74 96 03/21/21 17:46 97.8 F 111 H 24 104/72 97 03/21/21 17:41 111 H 24 03/21/21 17:18 98 F 113 H 24 126/57 97 Intake and Output 03/22/21 03/22/21 03/22/21 06:59 14:59 22:59 Intake Total 604.398 153.738 Output Total 500 650 Balance 104.398 -496.262 Intake: Intake, IV Titration 119.398 35.738 Amount Heparin Sod,Pork in 0.45% 119.398 35.738 NaCl 25,000 unit In 0.45 % NaCl 1 250ml.bag @ 18 UNITS/KG/HR 16.003 mls/hr IV .[id number] [facility] Rx#: [id number] Oral 485 118 Output: Urine 500 650 Other: Voiding Method External Catheter Weight 93.5 kg - Constitutional General appearance: average body habitus, cooperative, disheveled, mild distress - EENT Eyes: PERRLA ENT: normal oropharynx Ears: bilateral: normal - Neck Neck: normal ROM Carotids: bilateral: upstroke normal - Respiratory Respiratory: bilateral: diminished, dullness - Cardiovascular Rhythm: regular Heart sounds: normal: S1, S2 - Gastrointestinal General gastrointestinal: normal bowel sounds - Integumentary Integumentary: normal turgor - Neurologic Neurologic: CNII-XII intact - Musculoskeletal Musculoskeletal: gait normal, generalized weakness - Psychiatric Psychiatric: A&O x's 3, appropriate affect, intact judgment & insight Results - Laboratory Findings CBC and BMP: 03/22/21 08:05 03/22/21 08:05 ABG ABG pH 7.37 (7.35-7.45) 03/22/21 00:06 ABG pCO2 52 mmHg (35-45) H 03/22/21 00:06 ABG pO2 82 mmHg (83-108) L 03/22/21 00:06 ABG O2 Saturation 96.0 % (94-97) 03/22/21 00:06 PT/INR, D-dimer PT 13.4 sec (9.0-12.0) H 03/22/21 13:57 INR 1.3 (<1.2) H 03/22/21 13:57 D-Dimer 1.06 mg/L FEU (<0.60) H 03/22/21 13:57 Abnormal lab findings: Abnormal Labs 03/20/21 03/20/21 03/20/21 16:27 16:27 16:27 RBC MCV Plt Count Lymphocytes # 0.6 L PT INR APTT 20.6 L D-Dimer ABG pCO2 ABG pO2 ABG HCO3 ABG Total CO2 Sodium 127 L Chloride 89 L Carbon Dioxide 31 H BUN 42 H Creatinine 2.37 H Glucose 129 H Calcium Magnesium AST 71 H Lactate Dehydrogenase Troponin I Total Protein 6.1 L Albumin 3.2 L Triglycerides HDL Cholesterol CA 15-3 Antigen Urine Blood Ur Leukocyte Esterase Urine Mucus 03/20/21 03/20/21 03/21/21 16:27 20:27 00:14 RBC MCV Plt Count Lymphocytes # PT INR APTT D-Dimer ABG pCO2 ABG pO2 ABG HCO3 ABG Total CO2 Sodium Chloride Carbon Dioxide BUN Creatinine Glucose Calcium Magnesium AST Lactate Dehydrogenase Troponin I 0.467 H* 0.469 H* 0.441 H* Total Protein Albumin Triglycerides HDL Cholesterol CA 15-3 Antigen Urine Blood Ur Leukocyte Esterase Urine Mucus 03/21/21 03/21/21 03/21/21 02:13 09:21 09:21 RBC MCV 100.3 H Plt Count 149 L Lymphocytes # 0.8 L PT INR APTT D-Dimer ABG pCO2 ABG pO2 ABG HCO3 ABG Total CO2 Sodium 129 L Chloride 89 L Carbon Dioxide 31 H BUN 41 H Creatinine 2.46 H Glucose 122 H Calcium Magnesium 2.4 H AST 70 H Lactate Dehydrogenase Troponin I Total Protein 5.8 L Albumin 3.0 L Triglycerides 173.00 H HDL Cholesterol 74.50 H CA 15-3 Antigen 1358.0 H Urine Blood Small H Ur Leukocyte Esterase Small H Urine Mucus Rare H 03/21/21 03/21/21 03/22/21 17:14 17:14 00:05 RBC MCV Plt Count Lymphocytes # PT INR APTT >200.0 H* >200.0 H* D-Dimer ABG pCO2 ABG pO2 ABG HCO3 ABG Total CO2 Sodium 129 L Chloride Carbon Dioxide BUN Creatinine Glucose Calcium Magnesium AST Lactate Dehydrogenase Troponin I Total Protein Albumin Triglycerides HDL Cholesterol CA 15-3 Antigen Urine Blood Ur Leukocyte Esterase Urine Mucus 03/22/21 03/22/21 03/22/21 00:06 08:05 08:05 RBC 3.62 L MCV 101.6 H Plt Count Lymphocytes # 0.7 L PT INR APTT >200.0 H* D-Dimer ABG pCO2 52 H ABG pO2 82 L ABG HCO3 30 H ABG Total CO2 32 H Sodium Chloride Carbon Dioxide BUN Creatinine Glucose Calcium Magnesium AST Lactate Dehydrogenase Troponin I Total Protein Albumin Triglycerides HDL Cholesterol CA 15-3 Antigen Urine Blood Ur Leukocyte Esterase Urine Mucus 03/22/21 03/22/21 03/22/21 08:05 13:57 13:57 RBC MCV Plt Count Lymphocytes # PT 13.4 H INR 1.3 H APTT D-Dimer 1.06 H ABG pCO2 ABG pO2 ABG HCO3 ABG Total CO2 Sodium 131 L Chloride 91 L Carbon Dioxide BUN 35 H Creatinine 2.17 H Glucose 156 H Calcium 7.8 L Magnesium AST Lactate Dehydrogenase 989 H Troponin I Total Protein Albumin Triglycerides HDL Cholesterol CA 15-3 Antigen Urine Blood Ur Leukocyte Esterase Urine Mucus - Diagnostic Findings Chest x-ray: report reviewed Assessment and Plan Assessment: Bilateral malignant pleural effusion Acute on chronic kidney injury Shortness of breath related to that Stage IV metastatic breast cancer Pulmonary embolism less likely Morbid obesity with obesity hypoventilation syndrome Plan: Observe post thoracentesis on the right Repeat left-sided ultrasound on Thursday Monitor renal functions closely Definitive cancer therapy per oncology's Overall long-term prognosis is very poor tumor appears to be very aggressive Time with Patient: Greater than 30
--- NOTE | 2021-03-22 16:54 | US ---
Ultrasound-guided therapeutic and diagnostic thoracentesis DATE OF EXAM: 03/22/2021 CLINICAL HISTORY: Post right thoracentesis The procedure was discussed with the patient. The risks, complications, benefits, and alternatives we re discussed and any questions were answered. Informed consent was obtained. The patient was placed supine on the ultrasound table and prepped and draped in the usual sterile fas hion. All elements of maximal barrier and sterile technique were utilized. Under ultrasound guidance, access into the pleural space was obtained, via the thoracentesis catheter system and direct ultrasound guidance. Ap proximately 0.75 liters of serous fluid was removed. The patient was stable throughout the procedure and remained stable upon discharge from Department of Radiology. IMPRESSION: 1. Successful therapeutic thoracentesis under ultrasound guidance.
--- NOTE | 2021-03-22 17:38 | HP ---
HISTORY AND PHYSICAL White female came to the hospital with severe pleural effusions needing thoracentesis and severe inflammation in her chest 9 cm on one side, 6 cm on the other, history of right breast cancer. She has been getting new chemotherapy and a pill for the past 3 weeks. She has had recent history of prior admission for thoracentesis and fluid overload secondary to possibly metastatic breast cancer into the chest. FAMILY MEDICAL HISTORY: Mother diabetes mellitus. Father cancer of the bladder. MEDICATIONS: Home medicines see list. ALLERGIES: PENICILLIN. PHYSICAL EXAMINATION: Vital signs 97.6, heart rate is 92-124, respiratory 16-20, blood pressure is 120s to 130s over 60s, O2 92-94 percent. HEENT: Normocephalic, atraumatic. CARDIOVASCULAR: S1, irregularly irregular rhythm. GI soft. INTEGUMENT: Pale. NEUROLOGIC: Cranial nerves intact. PSYCH: Fair mood and affect. LABS: Reviewed. ASSESSMENT: 1. Hypoxemia secondary to pleural effusion. Pulmonary consult pending. 2. Metastatic breast cancer. We will have to give her IV steroids, possibly pulmonary, possible bronchoscopy was done. IV Lasix. Thoracic paracentesis. PROGNOSIS: Extremely guarded. MMODL / IJN: [id number] /
[2021-03-22] MEDS: methylPREDNISolone SOD SUCCI 40 MG/ML 1 ML VIAL IV SCH ×2 (18:06→23:05)
[2021-03-22 18:20] LABS: Folate, Serum 14.5 ng/mL (4.40-31.00)
--- NOTE | 2021-03-22 18:32 | P.PN ---
Subjective Progress Note Date: 03/22/21 Principal diagnosis: Acute respiratory failure in patient with Metastatic Cancer and CHF Worsening Ca 15-3 within month is highly suspicious for rapid progression of breast cancer, despite [id number] of Verzenio. Ca 15-3 up to 1300 She has had worsening hypoxia overnight requiring Bipap, IR has been asked for thoracentesis, pulmonary is following and recommending bronchoscopy. Spoke to IR today and they have performed therapeutic thoracentesis on Right side, we will plan for therapeutic on left side for Thursday. Objective - Vital Signs Vital signs: Vital Signs Temp 98.4 F 03/22/21 11:39 Pulse 90 03/22/21 12:58 Resp 22 03/22/21 12:58 BP 124/73 03/22/21 11:39 Pulse Ox 96 03/22/21 11:39 Intake & Output 03/21/21 03/22/21 03/22/21 18:59 06:59 18:59 Intake Total 123.757 604.398 153.738 Output Total 500 650 Balance 123.757 104.398 -496.262 Weight 93.5 kg Intake: Intake, IV Titration 123.757 119.398 35.738 Amount Heparin Sod,Pork in 0.45% 123.757 119.398 35.738 NaCl 25,000 unit In 0.45 % NaCl 1 250ml.bag @ 18 UNITS/KG/HR 16.003 mls/hr IV .[id number] [facility] Rx#: [id number] Oral 485 118 Output: Urine 500 650 Other: Voiding Method External Catheter External Catheter - Exam - Constitutional General appearance: cooperative, mild distress - EENT Eyes: EOMI ENT: hard of hearing, NA/AT - Neck Neck: normal ROM - Respiratory Respiratory: Bipap, increased respiratory effort. Diffuse Rhonchi - Cardiovascular Rhythm: regularly irregular leg Peripheral Edema: left: 3+, bilateral: 2+ - Gastrointestinal General gastrointestinal: distended, soft, tenderness - Integumentary Integumentary: pale - Neurologic Neurologic: CNII-XII intact - Musculoskeletal Musculoskeletal: generalized weakness - Psychiatric Psychiatric: A&O x's 3, appropriate affect, intact judgment & insight - Labs CBC & Chem 7: 03/22/21 08:05 03/22/21 08:05 Labs: Abnormal Lab Results - Last 24 Hours (Table) 03/21/21 03/21/21 03/21/21 Range/Units 09:21 17:14 17:14 RBC (3.80-5.40) m/uL MCV (80.0-100.0) fL Lymphocytes # (1.0-4.8) k/uL APTT >200.0 H* (22.0-30.0) sec ABG pCO2 (35-45) mmHg ABG pO2 (83-108) mmHg ABG HCO3 (21-25) mmol/L ABG Total CO2 (19-24) mmol/L Sodium 129 L (137-145) mmol/L Chloride (98-107) mmol/L BUN (7-17) mg/dL Creatinine (0.52-1.04) mg/dL Glucose (74-99) mg/dL Calcium (8.4-10.2) mg/dL Triglycerides 173.00 H (0.00-149.00) mg/dL HDL Cholesterol 74.50 H (40.00-60.00) mg/dL CA 15-3 Antigen 1358.0 H (0.0-32.3) U/mL 03/22/21 03/22/21 03/22/21 Range/Units 00:05 00:06 08:05 RBC 3.62 L (3.80-5.40) m/uL MCV 101.6 H (80.0-100.0) fL Lymphocytes # 0.7 L (1.0-4.8) k/uL APTT >200.0 H* (22.0-30.0) sec ABG pCO2 52 H (35-45) mmHg ABG pO2 82 L (83-108) mmHg ABG HCO3 30 H (21-25) mmol/L ABG Total CO2 32 H (19-24) mmol/L Sodium (137-145) mmol/L Chloride (98-107) mmol/L BUN (7-17) mg/dL Creatinine (0.52-1.04) mg/dL Glucose (74-99) mg/dL Calcium (8.4-10.2) mg/dL Triglycerides (0.00-149.00) mg/dL HDL Cholesterol (40.00-60.00) mg/dL CA 15-3 Antigen (0.0-32.3) U/mL 03/22/21 03/22/21 Range/Units 08:05 08:05 RBC (3.80-5.40) m/uL MCV (80.0-100.0) fL Lymphocytes # (1.0-4.8) k/uL APTT >200.0 H* (22.0-30.0) sec ABG pCO2 (35-45) mmHg ABG pO2 (83-108) mmHg ABG HCO3 (21-25) mmol/L ABG Total CO2 (19-24) mmol/L Sodium 131 L (137-145) mmol/L Chloride 91 L (98-107) mmol/L BUN 35 H (7-17) mg/dL Creatinine 2.17 H (0.52-1.04) mg/dL Glucose 156 H (74-99) mg/dL Calcium 7.8 L (8.4-10.2) mg/dL Triglycerides (0.00-149.00) mg/dL HDL Cholesterol (40.00-60.00) mg/dL CA 15-3 Antigen (0.0-32.3) U/mL Assessment and Plan (1) Hypoxia Current Visit: No Status: Acute Code(s): R09.02 - HYPOXEMIA SNOMED Code(s): 433151871 (2) Metastatic breast cancer Current Visit: No Status: Acute Priority: High Code(s): C50.919 - MALIGNANT NEOPLASM OF UNSP SITE OF UNSPECIFIED FEMALE BREAST SNOMED Code(s): 732199184 Plan: Recurrent Hospitalization for Shortness of breath, multifactorial secondary to metastatic cancer, component of heart failure, Pleural effusions(malignant). Bronchoscopy has not yet been performed, defer to pulmonology. Assessment: Acute Respiratory Failure: - Multifactorial: Related to metastatic cancer, CHF, Recurrent malignant pleural effusions, and possible infectious component - Pulmonary is following: Consider Bronchoscopy - Interventional Radiology consulted regarding Therapeutic thoracentesis - VQ Scan with Moderate probability of Pulmonary Emoboli - Heparin drip initiated per cardiology (Currently on hold related to >PTT) Metastatic Breast Cancer: - Recent Rapidly marked progression - Recently (3 weeks) next line treatment with AI and Verzenio Acute Renal Failure: - Nephrology Following PLan: - Continue with aggressive supportive care - PLan Therapeutic Thorcentesis on Thursday of left side - Update given in detail to daughter via phone - Discussed case with other team members including IR. Physician attest: I have completed the full history and physical and agree with above dictation, dictated as ascribe.
[2021-03-22] MEDS: PRAVASTATIN SODIUM 20 MG TAB PO SCH (21:07)
[2021-03-22] MEDS: ACETAMINOPHEN TAB 325 MG TAB PO PRN (21:09)
[2021-03-23] MEDS: PANTOPRAZOLE 40 MG TABLET PO SCH (06:58)
[2021-03-23] MEDS: IPRATROPIUM-ALBUTEROL 3 ML NEB INHALATION SCH ×4 (07:44→20:23)
[2021-03-23 08:40] LABS: Basophils % (A) 0 %; Eosinophils % (A) 0 %; HCT 34.6 % (34.0-46.0); HGB 11.2 gm/dL (11.4-16.0); Lymphocytes # (A) 0.5 k/uL (1.0-4.8); Lymphocytes % (A) 10 %; MCH 32.5 pg (25.0-35.0); MCHC 32.4 g/dL (31.0-37.0); MCV 100.4 fL (80.0-100.0); Macrocytosis Slight; Mean Platelet Volume 9.5; Monocytes # (A) 0.1 k/uL (0-1.0); Monocytes % (A) 2 %; Neutrophils # (A) 4.4 k/uL (1.3-7.7); Neutrophils % (A) 87 %; Platelet Count 179 k/uL (150-450); RBC 3.45 m/uL (3.80-5.40); WBC 5.1 k/uL (3.8-10.6)
[2021-03-23] MEDS: CHOLECALCIFEROL 25 MCG (1000 IU) TABLET PO SCH (08:46)
[2021-03-23] MEDS: ACETAMINOPHEN TAB 325 MG TAB PO PRN ×2 (08:46→22:41)
[2021-03-23] MEDS: ASPIRIN 81 MG PO SCH (08:46)
[2021-03-23] MEDS: methylPREDNISolone SOD SUCCI 40 MG/ML 1 ML VIAL IV SCH ×2 (08:46→17:15)
[2021-03-23] MEDS: METOPROLOL TARTRATE 25 MG TAB PO SCH ×2 (08:46→22:40)
[2021-03-23] MEDS: FUROSEMIDE 10 MG/ML 4 ML VIAL IV SCH (08:46)
[2021-03-23] MEDS: ABEMACICLIB 150 MG PO SCH ×2 (08:47→22:38)
[2021-03-23 08:57] LABS: Albumin 3.1 g/dL (3.5-5.0); Calcium 7.7 mg/dL (8.4-10.2); Magnesium 2.4 mg/dL (1.6-2.3); Potassium 3.5 mmol/L (3.5-5.1); Total Bilirubin 0.5 mg/dL (0.2-1.3); Total Protein 5.9 g/dL (6.3-8.2)
--- NOTE | 2021-03-23 11:42 | PN ---
PROGRESS NOTE Patient is seen for followup for acute kidney injury. The patient's respiratory status is much improved. She had thoracentesis done with about 0.7 L of fluid removed from the right side yesterday. She is currently down to 2 L nasal cannula. The patient has had fair urine output. Her creatinine is mildly elevated today at 2.6. The patient has received IV Lasix yesterday twice. PHYSICAL EXAMINATION: On examination today, blood pressure is 117/55, heart rate 107 per minute. She is afebrile. Examination of the heart S1, S2. Examination of the lungs, bilateral breath sounds are heard. Abdomen is soft, nontender. Examination of lower extremities shows no evidence of edema. SURGICAL SERVICES ASSISTANT exam grossly intact. LAB: Show sodium 130, potassium 3.5, chloride 89, BUN 44, creatinine 2.64. ASSESSMENT: 1. Acute kidney injury, mostly associated with hypotension. Serum creatinine slightly worse today. I will hold off on the Lasix. Blood pressure is not significantly low, although she did have a reading of 92/49 yesterday. I will add midodrine. The UA is quite benign and there is no evidence of obstruction noted on the ultrasound. We will repeat labs in a.m. 2. Stage IV breast cancer with recurrent pleural effusions from metastasis requiring thoracentesis. 3. Bilateral interstitial infiltrates noted on chest x-ray, which improved with diuresis suggesting some element of congestive heart failure. The patient's ejection fraction is preserved. I will hold off on the Lasix for now. There may be a component of malignancy related changes on the chest x-ray. 4. Hyponatremia, hypervolemic, improved. PLAN: Repeat labs in a.m. Hold Lasix. Add low-dose midodrine. MMODL / IJN: [id number] /
--- NOTE | 2021-03-23 16:15 | PN ---
PROGRESS NOTE 80-year-old white female who was admitted with bilateral pleural effusions, metastatic breast cancer to the lung with most likely large pleural effusion secondary to inflammatory response in the lung. She was admitted, placed on IV steroids, IV Lasix. She had thoracentesis to the right side of the chest. Her pain is somewhat improved. She is going to have thoracentesis on the left side of the chest on Thursday. She is 93 on 2 L. Blood pressure 117/55, pulse is low 100s to 80s, 97.7, respiratory rate 18-20. Lungs, rales at the bases. Cardiovascular S1, S2. ASSESSMENT: 1. Metastatic breast cancer on new chemo for three weeks. 2. Pleural effusions, large, secondary to metastatic breast cancer. 3. Inflammation in the lungs with pleural effusions. Wait for thoracentesis results from #1. Thoracentesis on the left lung will be done on Thursday. Continue current treatment. The patient is improving slowly with her breathing. MMODL / IJN: [id number] /
[2021-03-23] MEDS: MIDODRINE 5 MG TAB PO SCH (17:15)
[2021-03-23 20:56] LABS: Appearance,Urine Clear (Clear); Bacteria,Urine Many /hpf; Bilirubin,Urine Negative (Negative); Blood,Urine Large (Negative); Color,Urine Yellow; Glucose,Urine (UA) Negative (Negative); Hyaline Casts,Urine 4 /lpf (0-2); Ketones,Urine Negative (Negative); Leukocyte Esterase,Urine Negative (Negative); Mucus,Urine Rare /hpf; Nitrite,Urine Negative (Negative); Protein,Urine Negative (Negative); RBC,Urine 99 /hpf (0-5); Urobilinogen,Urine <2.0 mg/dL (<2.0); WBC,Urine 2 /hpf (0-5)
[2021-03-23] MEDS: PRAVASTATIN SODIUM 20 MG TAB PO SCH (22:40)
[2021-03-23] MEDS: ALPRAZolam 0.25 MG TAB PO PRN (22:40)
--- NOTE | 2021-03-23 23:21 | P.PN ---
Subjective Progress Note Date: 03/23/21 Principal diagnosis: Acute respiratory failure in patient with Metastatic Cancer and CHF Oxygen appears improved after thoracentesis on Thursday. Long discussion with patients daughter yesterday and they feel if progression is too difficult to treat at this point hospice is appriate and would like to take home, although not before repeat thoracentesis on Thursday to allow comfort. Patient was able to sit up in chair for a bit today per daughter, discussion with patient regarding concern of rapid increase Ca15-3 and respiratory decline. We discussed goals of care and plan for home hospice with goals of comfort as a resonable choice. We will plan to meet tomorrow with patients daughter and son at bedside to discuss further. Objective - Vital Signs Vital signs: Vital Signs Temp 97.7 F 03/23/21 08:00 Pulse 107 H 03/23/21 08:00 Resp 20 03/23/21 08:00 BP 117/55 03/23/21 08:00 Pulse Ox 93 L 03/23/21 08:00 Intake & Output 03/22/21 03/23/21 03/23/21 18:59 06:59 18:59 Intake Total 271.738 Output Total 650 360 Balance -378.262 -360 Weight 94.5 kg Intake: Intake, IV Titration 35.738 Amount Heparin Sod,Pork in 0.45% 35.738 NaCl 25,000 unit In 0.45 % NaCl 1 250ml.bag @ 18 UNITS/KG/HR 16.003 mls/hr IV .[id number] [facility] Rx#: [id number] Oral 236 Output: Urine 650 360 - Exam - Constitutional General appearance: cooperative, mild distress - EENT Eyes: EOMI ENT: hard of hearing, NA/AT - Neck Neck: normal ROM - Respiratory Respiratory: Bipap, increased respiratory effort. Diffuse Rhonchi - Cardiovascular Rhythm: regularly irregular leg Peripheral Edema: left: 3+, bilateral: 2+ - Gastrointestinal General gastrointestinal: distended, soft, tenderness - Integumentary Integumentary: pale - Neurologic Neurologic: CNII-XII intact - Musculoskeletal Musculoskeletal: generalized weakness - Psychiatric Psychiatric: A&O x's 3, appropriate affect, intact judgment & insight - Labs CBC & Chem 7: 03/23/21 08:27 03/23/21 08:27 Labs: Abnormal Lab Results - Last 24 Hours (Table) 03/22/21 03/22/21 03/22/21 Range/Units 08:05 08:05 08:05 RBC (3.80-5.40) m/uL Hgb (11.4-16.0) gm/dL MCV (80.0-100.0) fL Lymphocytes # (1.0-4.8) k/uL PT (9.0-12.0) sec INR (<1.2) APTT >200.0 H* (22.0-30.0) sec D-Dimer (<0.60) mg/L FEU Sodium 131 L (137-145) mmol/L Chloride 91 L (98-107) mmol/L Carbon Dioxide (22-30) mmol/L BUN 35 H (7-17) mg/dL Creatinine 2.17 H (0.52-1.04) mg/dL Glucose 156 H (74-99) mg/dL Calcium 7.8 L (8.4-10.2) mg/dL Magnesium (1.6-2.3) mg/dL AST (14-36) U/L Lactate Dehydrogenase (313-618) U/L Total Protein (6.3-8.2) g/dL Albumin (3.5-5.0) g/dL Vitamin B12 1029.0 H (200.0-944.0) pg/mL 03/22/21 03/22/21 03/23/21 Range/Units 13:57 13:57 08:27 RBC 3.45 L (3.80-5.40) m/uL Hgb 11.2 L (11.4-16.0) gm/dL MCV 100.4 H (80.0-100.0) fL Lymphocytes # 0.5 L (1.0-4.8) k/uL PT 13.4 H (9.0-12.0) sec INR 1.3 H (<1.2) APTT (22.0-30.0) sec D-Dimer 1.06 H (<0.60) mg/L FEU Sodium (137-145) mmol/L Chloride (98-107) mmol/L Carbon Dioxide (22-30) mmol/L BUN (7-17) mg/dL Creatinine (0.52-1.04) mg/dL Glucose (74-99) mg/dL Calcium (8.4-10.2) mg/dL Magnesium (1.6-2.3) mg/dL AST (14-36) U/L Lactate Dehydrogenase 989 H (313-618) U/L Total Protein (6.3-8.2) g/dL Albumin (3.5-5.0) g/dL Vitamin B12 (200.0-944.0) pg/mL 03/23/21 Range/Units 08:27 RBC (3.80-5.40) m/uL Hgb (11.4-16.0) gm/dL MCV (80.0-100.0) fL Lymphocytes # (1.0-4.8) k/uL PT (9.0-12.0) sec INR (<1.2) APTT (22.0-30.0) sec D-Dimer (<0.60) mg/L FEU Sodium 130 L (137-145) mmol/L Chloride 89 L (98-107) mmol/L Carbon Dioxide 32 H (22-30) mmol/L BUN 44 H (7-17) mg/dL Creatinine 2.64 H (0.52-1.04) mg/dL Glucose 189 H (74-99) mg/dL Calcium 7.7 L (8.4-10.2) mg/dL Magnesium 2.4 H (1.6-2.3) mg/dL AST 71 H (14-36) U/L Lactate Dehydrogenase (313-618) U/L Total Protein 5.9 L (6.3-8.2) g/dL Albumin 3.1 L (3.5-5.0) g/dL Vitamin B12 (200.0-944.0) pg/mL Assessment and Plan (1) Hypoxia Current Visit: No Status: Acute Code(s): R09.02 - HYPOXEMIA SNOMED Code(s): 815405031 (2) Metastatic breast cancer Current Visit: No Status: Acute Priority: High Code(s): C50.919 - MALIGNANT NEOPLASM OF UNSP SITE OF UNSPECIFIED FEMALE BREAST SNOMED Code(s): 032147383 Plan: Recurrent Hospitalization for Shortness of breath, multifactorial secondary to metastatic cancer, component of heart failure, Pleural effusions(malignant). Bronchoscopy has not yet been performed, defer to pulmonology. Assessment: Acute Respiratory Failure: - Multifactorial: Related to metastatic cancer, CHF, Recurrent malignant pleural effusions, and possible infectious component - Pulmonary is following: Consider Bronchoscopy - Interventional Radiology consulted regarding Therapeutic thoracentesis - VQ Scan with Moderate probability of Pulmonary Emoboli - Heparin drip initiated per cardiology (Currently on hold related to >PTT) Metastatic Breast Cancer: - Recent Rapidly marked progression - Recently (3 weeks) next line treatment with AI and Verzenio Acute Renal Failure: Worsening today - Nephrology Following PLan: - PLan Therapeutic Thorcentesis on Thursday of left side - Family meeting tomorrow between 1-3 to discuss goals of care in more detail and the resonable choice of hosice care and goal of comfort.
[2021-03-24] MEDS: methylPREDNISolone SOD SUCCI 40 MG/ML 1 ML VIAL IV SCH ×4 (00:30→23:15)
[2021-03-24] MEDS: MIDODRINE 5 MG TAB PO SCH (06:51)
[2021-03-24] MEDS: PANTOPRAZOLE 40 MG TABLET PO SCH (06:52)
[2021-03-24] MEDS: CHOLECALCIFEROL 25 MCG (1000 IU) TABLET PO SCH (08:14)
[2021-03-24] MEDS: METOPROLOL TARTRATE 25 MG TAB PO SCH ×2 (08:14→19:47)
[2021-03-24] MEDS: ACETAMINOPHEN TAB 325 MG TAB PO PRN (08:16)
[2021-03-24] MEDS: ABEMACICLIB 150 MG PO SCH ×2 (08:18→19:49)
[2021-03-24] MEDS: IPRATROPIUM-ALBUTEROL 3 ML NEB INHALATION SCH ×4 (08:26→19:34)
[2021-03-24] MEDS: FUROSEMIDE 10 MG/ML 4 ML VIAL IV SCH (08:28)
[2021-03-24] MEDS: ASPIRIN 81 MG PO SCH (08:34)
[2021-03-24] MEDS: ALPRAZolam 0.25 MG TAB PO PRN ×3 (08:34→23:15)
[2021-03-24] MEDS ORDERED: DOCUSATE 100 MG CAP PO PRN (08:44)
--- NOTE | 2021-03-24 08:52 | P.PN ---
Subjective Progress Note Date: 03/24/21 Principal diagnosis: Bilateral malignant pleural effusion Acute on chronic kidney injury Shortness of breath related to that Stage IV metastatic breast cancer Pulmonary embolism less likely Morbid obesity with obesity hypoventilation syndrome 03/24/2021, patient seen eval examined on 3 L oxygen shortness of breath stable, denies any chest pain, patient has a right-sided thoracentesis about 750 of straw-colored fluid has been removed, patient of the oncology service fluid has not been, noted that discussion regarding progression for possible hospice agree with that Patient is a pleasant 80-year-old female who has a history of metastatic breast cancer came into the hospital with progressive shortness of breath symptoms started getting worse for the last 3-4 days patient has recurrent pleural effusion has multiple thoracentesis review of the record reveals that has 500 followed by 700 mL of fluid removed in the past by IR, cytology was positive including fluid, initial chest x-ray was positive for a patchy bilateral infiltrate versus pulmonary edema bilateral pleural effusion, patient had a bedside ultrasound right-sided pleural effusion noted to be around 10 cm left side is about 7 cm left side appears to be complex right side was marked consultation initiated with INR dated thoracentesis sevenths 50 mL of fluid has been removed which is the clear since we already have a diagnosis fluid is not being sent for cytology and culture per oncology, bilateral Doppler is negative for DVT, ultrasound echocardiogram LV size normal LDH is noted ejection fraction of 6065% mild TR and MR noted, the VQ scan noted to have mashed affect bilaterally indeterminate with intermediate probability of PE, patient has been on heparin per cardiology recommendation, the d-dimer was elevated 1.06, arterial blood gases pH is 7.37 pCO2 52 pO2 82 white cell count is 4100 h emoglobin and hematocrit 1136 chemistry revealed sodium 131 percussion 3.5 BUN and creatinine are 35/2.17, BNP is 5718, CA-15-3 antigen +1358, patient overall appeared to have marked progression of oncologic disease, post thoracentesis feeling relief and less short of breath Objective - Vital Signs Vital signs: Vital Signs Temp 97.5 F L 03/24/21 08:00 Pulse 92 03/24/21 08:35 Resp 22 03/24/21 08:00 BP 128/60 03/24/21 08:00 Pulse Ox 94 L 03/24/21 08:00 Intake & Output 03/23/21 03/24/21 03/24/21 19:59 06:59 18:59 Intake Total Output Total Balance Weight Intake: Oral Output: Urine Straight - Exam - Constitutional General appearance: average body habitus, cooperative, disheveled, mild distress - EENT Eyes: PERRLA ENT: normal oropharynx Ears: bilateral: normal - Neck Neck: normal ROM Carotids: bilateral: upstroke normal - Respiratory Respiratory: bilateral: diminished, dullness - Cardiovascular Rhythm: regular Heart sounds: normal: S1, S2 - Gastrointestinal General gastrointestinal: normal bowel sounds - Integumentary Integumentary: normal turgor - Neurologic Neurologic: CNII-XII intact - Musculoskeletal Musculoskeletal: gait normal, generalized weakness - Psychiatric Psychiatric: A&O x's 3, appropriate affect, intact judgment & insight - Labs CBC & Chem 7: 03/23/21 08:27 03/23/21 08:27 Labs: Abnormal Lab Results - Last 24 Hours (Table) 03/23/21 03/23/21 Range/Units 08:27 17:51 Procalcitonin 0.31 H (0.02-0.09) ng/mL Urine Blood Large H (Negative) Urine RBC 99 H (0-5) /hpf Urine Bacteria Many H (None) /hpf Hyaline Casts 4 H (0-2) /lpf Urine Mucus Rare H (None) /hpf Microbiology - Last 24 Hours (Table) 03/22/21 14:12 Blood Culture - Preliminary Blood No Growth after 24 hours Assessment and Plan Assessment: Bilateral malignant pleural effusion Acute on chronic kidney injury Shortness of breath related to that Stage IV metastatic breast cancer Pulmonary embolism less likely Morbid obesity with obesity hypoventilation syndrome Plan: Repeat ultrasound of the chest Repeat left-sided ultrasound on Thursday Monitor renal functions closely Definitive cancer therapy per oncology's Overall long-term prognosis is very poor tumor appears to be very aggressive, hospice is well at reasonable option Time with Patient: Greater than 30
--- NOTE | 2021-03-24 09:12 | XR ---
EXAMINATION TYPE: XR chest 1V portable DATE OF EXAM: 03/24/2021 COMPARISON: 03/22/2021 HISTORY: Shortness of breath TECHNIQUE: Single frontal view of the chest is obtained. FINDINGS: There is no interval change in the small bilateral pleural effusions and diffuse small air space fluffy infiltrates. The heart size is normal. The osseous structures are intact. There is no pneumothorax. IMPRESSION: No change in the bilateral diffuse infiltrates and small pleural effusions.
[2021-03-24 10:27] LABS: Basophils % (A) 0 %; Eosinophils % (A) 0 %; HCT 31.8 % (34.0-46.0); HGB 10.9 gm/dL (11.4-16.0); Lymphocytes # (A) 0.6 k/uL (1.0-4.8); Lymphocytes % (A) 9 %; MCHC 34.3 g/dL (31.0-37.0); MCV 96.1 fL (80.0-100.0); Mean Platelet Volume 9.3; Monocytes # (A) 0.2 k/uL (0-1.0); Monocytes % (A) 3 %; Neutrophils # (A) 5.4 k/uL (1.3-7.7); Neutrophils % (A) 87 %; Platelet Count 179 k/uL (150-450); RDW 14.9 % (11.5-15.5); WBC 6.2 k/uL (3.8-10.6)
[2021-03-24 10:37] LABS: Albumin 2.9 g/dL (3.5-5.0); Calcium 7.5 mg/dL (8.4-10.2); Potassium 3.8 mmol/L (3.5-5.1); Total Bilirubin 0.3 mg/dL (0.2-1.3); Total Protein 5.5 g/dL (6.3-8.2)
--- NOTE | 2021-03-24 10:57 | PN ---
PROGRESS NOTE Patient is seen for followup for acute kidney injury. She has had some urine retention and has had straight catheterization x2, and therefore Bazzi catheter was ordered. This morning patient is complaining of shortness of breath. On examination today, blood pressure is 128/60, heart rate 96 per minute. She is afebrile. EXAMINATION OF THE HEART: S1 and S2. EXAMINATION OF LUNGS: Bilateral breath sounds are heard. Decreased breath sounds at the bases, particularly the right side. Examination of lower extremities shows no significant edema. [employer] EXAM: Grossly intact. Abdomen is distended, non-tender. Labs show sodium 130, potassium 3.5, chloride 89. CO2 is 32, BUN 44, creatinine 2.64, hemoglobin 11.2 g/dL. ASSESSMENT: 1. Acute kidney injury, mostly acute tubular necrosis. UA is quite benign. Blood is noted, mostly traumatic. Blood pressure had been on the lower side, currently much improved. Lasix is currently on hold. I will repeat a chest x-ray today, and if there is no significant change we will continue to hold off on the Lasix and repeat labs today. 2. Recurrent pleural effusions related to underlying malignancy with most likely the lung infiltrates noted on chest x-ray, also related to her underlying cancer. 3. Hyponatremia. Patient is currently euvolemic. Urine osmolality will be ordered if the serum sodium drops again; however, currently she is staying at 130 to 131 mEq/L. 4. Stage IV breast cancer with recurrent pleural effusions due to metastases. PLAN: Repeat chest x-ray. Hold Lasix for now. Repeat labs in a.m. Continue with Bazzi catheter for now. MMODL / IJN: [id number] /
--- NOTE | 2021-03-24 11:19 | PN ---
PROGRESS NOTE White female with bilateral pleural effusion, metastatic breast cancer into the lungs, pleural perfusions. She is much better with with right port since she is going to have her left lung done tomorrow. Sating 94 on 2-3 L. Temperature 97.5, respiratory 18 to 22, pulse 95. Cardiovascular S1-S2. Lungs rales at the bases. GI: Soft. Integument: She is pale with dry turgor. Her hemoglobin is 10.9, white count 6.2. Continue current treatments. She is breathing better than admission. ASSESSMENT: 1. Bilateral malignant pleural effusion. 2. Acute on chronic kidney injury. 3. Shortness of breath related to that. 4. Stage 4 metastatic breast cancer. 5. Pulmonary embolism less likely. Continue with current treatments. Ultrasound on Thursday with possible thoracentesis. We need to get the breast cancer under control before the pleural effusions will resolve. This is the third admission. MMODL / IJN: [id number] /
[2021-03-24] MEDS: CALCIUM CARBONATE 500 MG CHEWABLE PO PRN (14:56)
--- NOTE | 2021-03-24 18:28 | P.PN ---
Subjective Progress Note Date: 03/24/21 Principal diagnosis: Acute respiratory failure in patient with Metastatic Cancer and CHF Patient and Son and Daughter at bedside. We discussed overall goals of care and goals of comfort. She feels much better after thoracentesis, unfortunetly her cancer is progressing much too rapidly, renal function is suboptimal as well. We discussed possible pleurex drain as option for comfort and home hospice care. Patient and family given support, greater than 30 minutes with patient today. Objective - Vital Signs Vital signs: Vital Signs Temp 98.2 F 03/24/21 14:55 Pulse 100 03/24/21 16:30 Resp 20 03/24/21 14:55 BP 127/56 03/24/21 14:55 Pulse Ox 92 L 03/24/21 14:55 Intake & Output 03/23/21 03/24/21 03/24/21 19:59 06:59 18:59 Intake Total 598 Output Total 500 Balance 98 Weight Intake: Oral 598 Output: Urine 500 Straight - Exam - Constitutional General appearance: cooperative, mild distress - EENT Eyes: EOMI ENT: hard of hearing, NA/AT - Neck Neck: normal ROM - Respiratory Respiratory: Bipap, increased respiratory effort. Diffuse Rhonchi - Cardiovascular Rhythm: regularly irregular leg Peripheral Edema: left: 3+, bilateral: 2+ - Gastrointestinal General gastrointestinal: distended, soft, tenderness - Integumentary Integumentary: pale - Neurologic Neurologic: CNII-XII intact - Musculoskeletal Musculoskeletal: generalized weakness - Psychiatric Psychiatric: A&O x's 3, appropriate affect, intact judgment & insight - Labs CBC & Chem 7: 03/24/21 09:50 03/24/21 09:50 Labs: Abnormal Lab Results - Last 24 Hours (Table) 03/23/21 03/24/21 03/24/21 Range/Units 17:51 09:50 09:50 RBC 3.30 L (3.80-5.40) m/uL Hgb 10.9 L (11.4-16.0) gm/dL Hct 31.8 L (34.0-46.0) % Lymphocytes # 0.6 L (1.0-4.8) k/uL Sodium 124 L (137-145) mmol/L Chloride 85 L (98-107) mmol/L BUN 53 H (7-17) mg/dL Creatinine 2.21 H (0.52-1.04) mg/dL Glucose 183 H (74-99) mg/dL Calcium 7.5 L (8.4-10.2) mg/dL AST 82 H (14-36) U/L Total Protein 5.5 L (6.3-8.2) g/dL Albumin 2.9 L (3.5-5.0) g/dL Urine Blood Large H (Negative) Urine RBC 99 H (0-5) /hpf Urine Bacteria Many H (None) /hpf Hyaline Casts 4 H (0-2) /lpf Urine Mucus Rare H (None) /hpf Microbiology - Last 24 Hours (Table) 03/22/21 14:12 Blood Culture - Preliminary Blood No Growth after 48 hours Assessment and Plan (1) Hypoxia Current Visit: No Status: Acute Code(s): R09.02 - HYPOXEMIA SNOMED Code(s): 311916982 (2) Metastatic breast cancer Current Visit: No Status: Acute Priority: High Code(s): C50.919 - MALIGNANT NEOPLASM OF UNSP SITE OF UNSPECIFIED FEMALE BREAST SNOMED Code(s): 410682383 Plan: Recurrent Hospitalization for Shortness of breath, multifactorial secondary to metastatic cancer, component of heart failure, Pleural effusions(malignant). Bronchoscopy has not yet been performed, defer to pulmonology. Assessment: Acute Respiratory Failure: - Multifactorial: Related to metastatic cancer, CHF, Recurrent malignant pleural effusions, and possible infectious component - Pulmonary is following: Consider Bronchoscopy - Interventional Radiology consulted regarding Therapeutic thoracentesis - VQ Scan with Moderate probability of Pulmonary Emoboli - Heparin drip initiated per cardiology (Currently on hold related to >PTT) Metastatic Breast Cancer: - Recent Rapidly marked progression - Recently (3 weeks) next line treatment with AI and Verzenio Acute Renal Failure: Worsening today - Nephrology Following PLan: - Kenn ask CTS for Pleurex (which ever side is more commonly filling) would like evaluation prior to thoracentesis as pleural effusions need to be present prior to placement. - Long discussion on goals of care and patient and family will let us know their decision regarding home hospice
[2021-03-24] MEDS: PRAVASTATIN SODIUM 20 MG TAB PO SCH (19:47)
[2021-03-24] MEDS ORDERED: TOLVAPTAN 15 MG 1/2 TABLET PO ONE (22:15)
[2021-03-25] MEDS: PANTOPRAZOLE 40 MG TABLET PO SCH (06:12)
--- NOTE | 2021-03-25 08:10 | XR ---
EXAMINATION TYPE: XR chest 1V portable DATE OF EXAM: 03/25/2021 COMPARISON: Chest x-ray 03/24/2021 HISTORY: Recurrent pleural effusions TECHNIQUE: Single frontal view of the chest is obtained. FINDINGS: Interstitium is prominent, there is patchy bilateral airspace disease. No evident pneumoth orax. Bibasilar increased density obscures the hemidiaphragms, there is blunting the costophrenic ang les. Cardiac mediastinal silhouette is accentuated in size by the rotation. Aorta is dense. There are overlying leads. IMPRESSION: Correlate for congestive heart failure with pleural effusions versus pneumonia
--- NOTE | 2021-03-25 08:28 | US ---
EXAMINATION TYPE: US chest DATE OF EXAM: 03/25/2021 COMPARISON: US, x ray dated 03/25/2021 CLINICAL HISTORY: pleural effusions. TECHNIQUE: Targeted ultrasound of the posterior chest bilateral hemithoraces EXAM MEASUREMENTS: Right Pleural Effusion pocket size: 5.7 cm A/P Right skin surface to fluid distance: 4.6 cm A/P Left Pleural Effusion pocket size: 6.5 cm A/P Left skin surface to fluid distance: 3.8 cm A/P Right side was marked for possible thoracentesis outside the dept. Left side was marked for possible thoracentesis outside the dept. Pulmonologists are able to review the images in the patient?s EMR. IMPRESSIONS: Bilateral pleural effusions, limited posterior chest scanning performed
[2021-03-25] MEDS: methylPREDNISolone SOD SUCCI 40 MG/ML 1 ML VIAL IV SCH ×3 (08:33→23:10)
[2021-03-25] MEDS: ABEMACICLIB 150 MG PO SCH (08:33)
[2021-03-25] MEDS: CHOLECALCIFEROL 25 MCG (1000 IU) TABLET PO SCH (08:33)
[2021-03-25] MEDS: METOPROLOL TARTRATE 25 MG TAB PO SCH ×2 (08:33→19:59)
[2021-03-25] MEDS: IPRATROPIUM-ALBUTEROL 3 ML NEB INHALATION SCH ×4 (08:39→20:06)
[2021-03-25] MEDS: ONDANSETRON ODT 4 MG TAB PO PRN ×2 (09:49→15:24)
[2021-03-25] MEDS: ASPIRIN 81 MG PO SCH (09:49)
--- NOTE | 2021-03-25 10:02 | P.PN ---
Subjective Patient is seen in follow-up for acute kidney injury. Creatinine 2.2 on yesterday. Morning labs from today pending. Resting in bed. Has a Bazzi catheter. Nonoliguric. Diuretics held. Vital signs are stable. HEENT: Head exam is unremarkable. LUNGS: Breath sounds decreased. HEART: Rate and Rhythm are regular. ABDOMEN: Soft, no distention. EXTREMITITES: Trace edema. Objective - Vital Signs Vital signs: Vital Signs Temp 97.9 F 03/25/21 08:00 Pulse 84 03/25/21 08:51 Resp 19 03/25/21 08:00 BP 94/63 03/25/21 08:00 Pulse Ox 95 03/25/21 08:00 Intake & Output 03/24/21 03/25/21 03/25/21 18:59 06:59 18:59 Intake Total 598 120 Output Total 500 900 Balance 98 -780 Weight 95 kg Intake: Oral 598 120 Output: Urine 500 900 Other: Voiding Method Indwelling Catheter - Labs CBC & Chem 7: 03/24/21 09:50 03/24/21 09:50 Labs: Abnormal Lab Results - Last 24 Hours (Table) 03/24/21 03/24/21 Range/Units 09:50 09:50 RBC 3.30 L (3.80-5.40) m/uL Hgb 10.9 L (11.4-16.0) gm/dL Hct 31.8 L (34.0-46.0) % Lymphocytes # 0.6 L (1.0-4.8) k/uL Sodium 124 L (137-145) mmol/L Chloride 85 L (98-107) mmol/L BUN 53 H (7-17) mg/dL Creatinine 2.21 H (0.52-1.04) mg/dL Glucose 183 H (74-99) mg/dL Calcium 7.5 L (8.4-10.2) mg/dL AST 82 H (14-36) U/L Total Protein 5.5 L (6.3-8.2) g/dL Albumin 2.9 L (3.5-5.0) g/dL Microbiology - Last 24 Hours (Table) 03/22/21 14:12 Blood Culture - Preliminary Blood No Growth after 48 hours Assessment and Plan Plan: Assessment: 1. Acute kidney injury secondary to ATN secondary to cardiorenal syndrome and hypotension. Renal function better yesterday. Creatinine 2.21. No proteinuria on UA. 2. Malignant breast cancer. 3. 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 Status post and scar yesterday. 4. Malignant pleural effusions status post right-sided thoracentesis with 0.7 L drained on March 22. Pleurx catheter being considered. Plan: Follow-up morning labs. 1200 mL fluid restriction. Continue to hold diuretics. Hospice being considered.
--- NOTE | 2021-03-25 10:08 | P.PN ---
Subjective Progress Note Date: 03/25/21 Principal diagnosis: Acute respiratory failure in patient with Metastatic Cancer and CHF daughter and son at bedside, patient nauseated with emesis x2, added ativan Objective - Vital Signs Vital signs: Vital Signs Temp 97.9 F 03/25/21 08:00 Pulse 84 03/25/21 08:51 Resp 19 03/25/21 08:00 BP 94/63 03/25/21 08:00 Pulse Ox 95 03/25/21 08:00 Intake & Output 03/24/21 03/25/21 03/25/21 18:59 06:59 18:59 Intake Total 598 120 Output Total 500 900 Balance 98 -780 Weight 95 kg Intake: Oral 598 120 Output: Urine 500 900 Other: Voiding Method Indwelling Catheter - Exam - Constitutional General appearance: cooperative, mild distress - EENT Eyes: EOMI ENT: hard of hearing, NA/AT - Neck Neck: normal ROM - Respiratory Respiratory: Bipap, increased respiratory effort. Diffuse Rhonchi - Cardiovascular Rhythm: regularly irregular leg Peripheral Edema: left: 3+, bilateral: 2+ - Gastrointestinal General gastrointestinal: distended, soft, tenderness - Integumentary Integumentary: pale - Neurologic Neurologic: CNII-XII intact - Musculoskeletal Musculoskeletal: generalized weakness - Psychiatric Psychiatric: A&O x's 3, appropriate affect, intact judgment & insight - Labs CBC & Chem 7: 03/24/21 09:50 03/25/21 09:47 Labs: Abnormal Lab Results - Last 24 Hours (Table) 03/24/21 03/24/21 Range/Units 09:50 09:50 RBC 3.30 L (3.80-5.40) m/uL Hgb 10.9 L (11.4-16.0) gm/dL Hct 31.8 L (34.0-46.0) % Lymphocytes # 0.6 L (1.0-4.8) k/uL Sodium 124 L (137-145) mmol/L Chloride 85 L (98-107) mmol/L BUN 53 H (7-17) mg/dL Creatinine 2.21 H (0.52-1.04) mg/dL Glucose 183 H (74-99) mg/dL Calcium 7.5 L (8.4-10.2) mg/dL AST 82 H (14-36) U/L Total Protein 5.5 L (6.3-8.2) g/dL Albumin 2.9 L (3.5-5.0) g/dL Microbiology - Last 24 Hours (Table) 03/22/21 14:12 Blood Culture - Preliminary Blood No Growth after 48 hours Assessment and Plan (1) Hypoxia Current Visit: No Status: Acute Code(s): R09.02 - HYPOXEMIA SNOMED Code(s): 831058692 (2) Metastatic breast cancer Current Visit: No Status: Acute Priority: High Code(s): C50.919 - MALIGNANT NEOPLASM OF UNSP SITE OF UNSPECIFIED FEMALE BREAST SNOMED Code(s): 020717808 Plan: Recurrent Hospitalization for Shortness of breath, multifactorial secondary to metastatic cancer, component of heart failure, Pleural effusions(malignant). Bronchoscopy has not yet been performed, defer to pulmonology. Assessment: Acute Respiratory Failure: - Multifactorial: Related to metastatic cancer, CHF, Recurrent malignant pleural effusions, and possible infectious component - Pulmonary is following: Consider Bronchoscopy - Interventional Radiology consulted regarding Therapeutic thoracentesis - VQ Scan with Moderate probability of Pulmonary Emoboli - Heparin drip initiated per cardiology (Currently on hold related to >PTT) Metastatic Breast Cancer: - Recent Rapidly marked progression - Recently (3 weeks) next line treatment with AI and Verzenio Acute Renal Failure: Worsening today - Nephrology Following PLan: - Add ativan for nausea and vomiting - Continue comfort measures for patient - PLan for double pleurex and then home with hospice ok to stop verzenio
[2021-03-25 10:44] LABS: Calcium 8.3 mg/dL (8.4-10.2); Magnesium 2.8 mg/dL (1.6-2.3); Potassium 4.6 mmol/L (3.5-5.1)
--- NOTE | 2021-03-25 11:47 | CDI ---
Documentation Clarification Form Date: 03/25/2021 11:33:10 AM From: Kayla Tai RN, CCDS Admit Date: 03/20/2021 06:36:00 PM Patient Name: Jennie Robison Visit Number: [id number] ATTENTION: The Clinical Documentation Specialists (CDI) and [facility] Coding Staff appreciate your assistance in clarifying documentation. Please respond to the clarification below the line at the bottom and electronically sign. The CDI & [facility] Coding staff will review the response and follow-up if needed. Please note: Queries are made part of the Legal Health Record. If you have any questions, please contact the author of this message via ITS. Dr. Clay Abdul Unspecified CKD is documented 03/22-03/24 Pulmonary and Attending Progress notes. Additional clarification regarding the stage of CKD is requested. History/Risk Factors: 02/26/2021 Patients Historical BUN/CR/GFR: 40/1.2/43 Metastatic Breast CA stage 4, Malignant Pleural Effusions Clinical Indicators: 03/20-03/25 Current BUN: 42/41/35/44/53/58 CR: 2.37/2.46/2.17/2.64/2.21/ 2.26 GFR: 19/18/21/17/21/20 03/25 Nephrology Progress Note: "Acute kidney injury secondary to ATN secondary to cardiorenal syndrome and hypotension." 03/22 Pulmonary Consult: "Acute on chronic kidney injury." Treatment: 03/20-03/21 Lasix 40 mg IVP Q 12 hrs. 03/22 Lasix 80 mg IVP OT, 60 mg IVP OT, 40 mg Po 03/23-03/24 Lasix 40 mg IVP QD Midodrine 5 mg Po AC BID Please clarify the stage of the CKD, if known: [ ] CKD Stage 3 (GFR 30-59) [ ] CKD Stage 3a (GFR 45-59) [ ] CKD Stage 3b (GFR 30-44) [ ] CKD Stage 4 (GFR 15-29) [ ] CKD Stage 5 (GFR <15) [ ] Other, please specify [ ] Unable to determine (Template last revised: June 2020) aki, no ckd MTDD
--- NOTE | 2021-03-25 11:59 | CDI ---
Documentation Clarification Form Date: 03/25/2021 11:48:15 AM From: Kayla Tai RN, CCDS Admit Date: 03/20/2021 06:36:00 PM Patient Name: Jennie Robison Visit Number: [id number] ATTENTION: The Clinical Documentation Specialists (CDI) and [facility] Coding Staff appreciate your assistance in clarifying documentation. Please respond to the clarification below the line at the bottom and electronically sign. The CDI & [facility] Coding staff will review the response and follow-up if needed. Please note: Queries are made part of the Legal Health Record. If you have any questions, please contact the author of this message via ITS. Dr. Darian Mendenhall Myocardial infarction ([place]) is documented 03/20 Final Diagnosis in ED. Additional clarification regarding if the NSTEMI has been ruled in or out is required. History/Risk Factors: Stage 4 breast CA with malignant pleural effusions, A/C Renal Failure with Cardiorenal, Chronic Diastolic CHF Clinical Indicators: 03/20 Troponin: <0.012/.467/.469/.441 03/20 EKG Results: ST Treatment: 03/20 PO ASA 324 mg OT IV heparin bolus and Gtt Protocol No Cardiology Consult Please clarify if the patient had a NSTEMI this admission [ ] NSTEMI (type 1) Ruled in [ ] NSTEMI ruled out [ ] Unable to determine [ ] Other Condition, please specify (Template Last Revised: July 2020) MTDD
[2021-03-25] MEDS ORDERED: TOLVAPTAN 15 MG 1/2 TABLET PO ONE (15:15)
[2021-03-25] MEDS ORDERED: LORazepam 2 MG/ML INJ IV PRN (15:59)
--- NOTE | 2021-03-25 17:49 | P.GSCN ---
History of Present Illness Consult date: 03/25/21 Reason for Consult: Recurrent right pleural effusion, evaluation for Pleurx catheter placement Requesting physician: Sonia Hermosillo History of present illness: This is a 80-year-old female patient who follows with Dr. Darian Mendenhall on an outpatient basis for her primary care service. She has a past medical history significant for hypertension, hyperlipidemia, metastatic breast cancer in which she has had 10 radiation treatments and is currently receiving hormone therapy, she also has a history of recurrent right pleural effusions and chronic pericarditis. On 03/20/2021 the patient presented to the emergency department here at [facility] with complaints of shortness of breath which progressed over a three-day period. She denies any fever, chills, chest pain, nausea, vomiting, cough, constipation, diarrhea, edema, hemoptysis or hematemesis. The patient reports that she has had at least 3-4 right-sided thoracentesis in the last 4-5 weeks. This hospital stay she underwent a right thoracentesis on 03/22/2021 performed by interventional radiology with 750 mL of serous color pleural fluid drained. 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 Due to the recurrence of her right pleural effusions a consult was placed to cardiothoracic surgery for further evaluation for Pleurx catheter placement. Review of Systems A 14 point review of systems was completed and was negative except as mentioned in the HPI. Past Medical History Past Medical History: Cancer, Hyperlipidemia, Hypertension Additional Past Medical History / Comment(s): Rt breast cancer stage 4-getting h ormone treatments, recurrent right pleural effusions with 3-4 right-sided thoracentesis in the last 4-5 weeks. History of Any Multi-Drug Resistant Organisms: None Reported Past Surgical History: Bowel Resection Additional Past Surgical History / Comment(s): rt cataract 06/06/14; lt cataract 07/2014; bowel surgery 07/2016; Past Anesthesia/Blood Transfusion Reactions: No Reported Reaction Past Psychological History: No Psychological Hx Reported Smoking Status: Never smoker Past Alcohol Use History: Occasional Past Drug Use History: None Reported - Past Family History Mother Family Medical History: Diabetes Mellitus Additional Family Medical History / Comment(s): Angina Father Family Medical History: Cancer Additional Family Medical History / Comment(s): bladder cancer Medications and Allergies Home Medications Medication Instructions Recorded Confirmed Type Losartan Potassium 50 mg PO HS PRN 04/27/19 03/20/21 History Pravastatin Sodium [Pravachol] 20 mg PO HS 04/27/19 03/20/21 History Phenylephrine HCl/Acetaminophn 1 tab PO Q8H PRN 02/07/21 03/20/21 History [Tylenol Sinus Headache Caplet] Furosemide [Lasix] 40 mg PO DAILY 30 Days #30 tab 02/12/21 03/20/21 Rx Cholecalciferol [Vitamin D3 (25 25 mcg PO DAILY 02/21/21 03/20/21 History Mcg = 1000 Iu)] Cyclobenzaprine [Flexeril] 5 mg PO TID PRN 02/21/21 03/20/21 History Abemaciclib [Verzenio] 150 mg PO BID 03/07/21 03/20/21 History ALPRAZolam [Xanax] 0.25 mg PO TID PRN 03/20/21 03/20/21 History Albuterol Nebulized [Ventolin 2.5 mg INHALATION RT-TID PRN 03/20/21 03/20/21 History Nebulized] Cholestyramine (with Sugar) 4 gm PO HS PRN 03/20/21 03/20/21 History [Cholestyramine Packet] Loperamide [Imodium] 2 mg PO QID PRN 03/20/21 03/20/21 History Omeprazole 40 mg PO DAILY 03/20/21 03/20/21 History Ondansetron Odt [Zofran Odt] 4 mg PO Q6H PRN 03/20/21 03/20/21 History Potassium Chloride ER [K-Dur 20] 20 meq PO DIRECTED 03/20/21 03/20/21 History Allergies Allergy/AdvReac Type Severity Reaction Status Date / Time Penicillins Allergy Itching Verified 03/20/21 18:00 Surgical - Exam Vital Signs Temp Pulse Resp BP Pulse Ox 97.4 F L 106 H 20 86/54 94 L 03/20/21 16:00 03/20/21 16:00 03/20/21 16:00 03/20/21 16:00 03/20/21 16:00 - General well developed, well nourished, no distress, no pain - Eyes PERRL, normal ocular movement, no pale, no icteric - ENT normal pinna, normal nares, normal mucosa, no hearing loss, no congestion - Neck Neck is supple, no lymphadenopathy. no masses, no bruits, trachea midline, no venous distension - Respiratory Lung sounds essentially clear throughout with few scattered crackles, diminished bilateral bases right greater than left. Respirations are symmetrical and nonlabored. Oxygen saturation 94% on 4 L nasal cannula. - Cardiovascular Regular rhythm and rate. S1 and S2 present, negative for S3, gallop or murmur. - Abdomen Abdomen is soft, nontender and nondistended. Active bowel sounds present all 4 abdominal quadrants. No guarding or rigidity. No organomegaly appreciated. - Integumentary no rash, no growths, no abnormal pigmentation - Neurologic Cranial nerves II through XII intact. No focal or motor deficits. - Musculoskeletal Moves all 4 extremities with equal strength bilateral. - Psychiatric oriented to time, oriented to person, oriented to place, speech is normal, memory intact Results - Labs 03/24/21 09:50 03/25/21 09:47 Abnormal Lab Results - Last 24 Hours (Table) 03/25/21 Range/Units 09:47 Sodium 124 L (137-145) mmol/L Chloride 85 L (98-107) mmol/L Carbon Dioxide 32 H (22-30) mmol/L BUN 58 H (7-17) mg/dL Creatinine 2.26 H (0.52-1.04) mg/dL Glucose 140 H (74-99) mg/dL Calcium 8.3 L (8.4-10.2) mg/dL Magnesium 2.8 H (1.6-2.3) mg/dL Microbiology - Last 24 Hours (Table) 03/22/21 14:12 Blood Culture - Preliminary Blood No Growth after 72 hours Diabetes panel 03/25/21 Range/Units 09:47 Sodium 124 L (137-145) mmol/L Potassium 4.6 (3.5-5.1) mmol/L Chloride 85 L (98-107) mmol/L Carbon Dioxide 32 H (22-30) mmol/L BUN 58 H (7-17) mg/dL Creatinine 2.26 H (0.52-1.04) mg/dL Glucose 140 H (74-99) mg/dL Calcium 8.3 L (8.4-10.2) mg/dL Calcium panel 03/25/21 Range/Units 09:47 Calcium 8.3 L (8.4-10.2) mg/dL Pituitary panel 03/25/21 Range/Units 09:47 Sodium 124 L (137-145) mmol/L Potassium 4.6 (3.5-5.1) mmol/L Chloride 85 L (98-107) mmol/L Carbon Dioxide 32 H (22-30) mmol/L BUN 58 H (7-17) mg/dL Creatinine 2.26 H (0.52-1.04) mg/dL Glucose 140 H (74-99) mg/dL Calcium 8.3 L (8.4-10.2) mg/dL Adrenal panel 03/25/21 Range/Units 09:47 Sodium 124 L (137-145) mmol/L Potassium 4.6 (3.5-5.1) mmol/L Chloride 85 L (98-107) mmol/L Carbon Dioxide 32 H (22-30) mmol/L BUN 58 H (7-17) mg/dL Creatinine 2.26 H (0.52-1.04) mg/dL Glucose 140 H (74-99) mg/dL Calcium 8.3 L (8.4-10.2) mg/dL - Imaging Chest x-ray: report reviewed, image reviewed Assessment and Plan Assessment: 1. Recurrent right sided malignant pleural effusion 2. Metastatic breast cancer, currently receiving hormone therapy 3. History of hypertension 4. History of hyperlipidemia 5. Acute kidney injury 6. Chronic pericarditis 7. Lifetime nonsmoker Plan: The patient was seen and examined at her bedside on the cardiac stepdown unit. Her chart diagnostics were reviewed. She was seen and examined by Dr. Yang King with the patient's daughter and son present at her bedside. Treatment options including placement of Pleurx catheter was discussed with the patient and her family present at her bedside. Risks and benefits of Pleurx catheter placement were discussed. Knowing and understanding the risks the patient wishes to proceed with a Pleurx catheter placement. We will obtain a computed tomography scan without contrast in the morning 03/26/2021 for further evaluation of her pleural effusions. If there is felt to be enough fluid present to place a Pleurx catheter a date for Pleurx catheter placement to follow. More recommendations follow based on patient's clinical course. Thank you for this consult and we look forward to working with you in the care of this patient. Time with Patient: Greater than 30
[2021-03-25] MEDS: LORazepam 2 MG/ML INJ IV PRN (19:58)
[2021-03-25] MEDS: OLANZapine 5 MG TAB PO SCH (19:59)
[2021-03-25] MEDS: PRAVASTATIN SODIUM 20 MG TAB PO SCH (19:59)
[2021-03-25] MEDS: ALPRAZolam 0.25 MG TAB PO PRN (21:18)
[2021-03-25] MEDS: CALCIUM CARBONATE 500 MG CHEWABLE PO PRN (21:18)
--- NOTE | 2021-03-25 22:13 | PN ---
PROGRESS NOTE Zqklaju[age]rwsw[id number]-old white female with metastatic breast cancer into the lungs. Waiting for left thoracentesis today. She had right thoracentesis last week. She is saturating 94 on 4 L. Pulse rate is low 100s, temperature 97.7, blood pressure 122/70. CARDIOVASCULAR: S1, S2. HEMATOLOGY: Negative Homans. PSYCH: Fair mood and affect. LUNGS: Rales at the base. Recurrent right pleural effusion. Evaluation for Pleurx catheter placement by cardiac surgeons was done today. ASSESSMENT: 1. Metastatic breast cancer. 2. Malignant pleural effusions. 3. History of hypertension. 4. Dyslipidemia. 5. Kidney injury, chronic. 6. Pericarditis. Dr. King, patient's daughter and son present at the bedside. They discussed catheter placement. Risks and benefits were discussed. They want to proceed with Pleurx catheter placement. He is going to do a CT scan tomorrow and possibly he will put a catheter in there for chronic drainage until cancer treatment kicks in. MMODL / IJN: [id number] /
[2021-03-26] MEDS ORDERED: PROMETHAZINE 25 MG TAB PO PRN
[2021-03-26] MEDS: PROCHLORPERAZINE INJ 10 MG/2 ML VIAL IVP PRN ×2 (00:38→09:07)
[2021-03-26] MEDS: LORazepam 2 MG/ML INJ IV PRN ×7 (00:38→23:50)
[2021-03-26] MEDS: PANTOPRAZOLE 40 MG TABLET PO SCH (06:24)
[2021-03-26] MEDS: IPRATROPIUM-ALBUTEROL 3 ML NEB INHALATION SCH ×4 (07:48→17:44)
[2021-03-26 08:38] LABS: Calcium 8.2 mg/dL (8.4-10.2); Magnesium 3.1 mg/dL (1.6-2.3); Potassium 4.9 mmol/L (3.5-5.1)
--- NOTE | 2021-03-26 09:06 | P.PN ---
Subjective Patient is seen in follow-up for acute kidney injury. Creatinine 2.39 today. Sodium level 126. She received a dose of samsca yesterday. Resting in bed. Has a Bazzi catheter. Nonoliguric. Diuretics held. Vital signs are stable. HEENT: Head exam is unremarkable. LUNGS: Breath sounds decreased. HEART: Rate and Rhythm are regular. ABDOMEN: Soft, no distention. EXTREMITITES: Trace edema. Objective - Vital Signs Vital signs: Vital Signs Temp 97.9 F 03/26/21 03:58 Pulse 89 03/26/21 03:58 Resp 18 03/26/21 03:58 BP 134/63 03/26/21 03:58 Pulse Ox 94 L 03/26/21 07:46 Intake & Output 03/25/21 03/26/21 03/26/21 18:59 06:59 18:59 Output Total 300 460 Balance -300 -460 Weight 96.5 kg Output: Urine 300 460 Other: Voiding Method Indwelling Catheter Indwelling Catheter - Labs CBC & Chem 7: 03/24/21 09:50 03/26/21 06:14 Labs: Abnormal Lab Results - Last 24 Hours (Table) 03/25/21 03/26/21 Range/Units 09:47 06:14 Sodium 124 L 126 L (137-145) mmol/L Chloride 85 L 85 L (98-107) mmol/L Carbon Dioxide 32 H 34 H (22-30) mmol/L BUN 58 H 72 H (7-17) mg/dL Creatinine 2.26 H 2.39 H (0.52-1.04) mg/dL Glucose 140 H 150 H (74-99) mg/dL Calcium 8.3 L 8.2 L (8.4-10.2) mg/dL Magnesium 2.8 H 3.1 H (1.6-2.3) mg/dL Microbiology - Last 24 Hours (Table) 03/22/21 14:12 Blood Culture - Preliminary Blood No Growth after 72 hours Assessment and Plan Plan: Assessment: 1. Acute kidney injury secondary to ATN secondary to cardiorenal syndrome and hypotension. Creatinine 2.39 today. No proteinuria on UA. 2. Malignant breast cancer. 3. 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 Status post Samsca yesterday. Better. 4. Malignant pleural effusions status post right-sided thoracentesis with 0.7 L drained on March 22. Pleurx catheter being considered. Computed tomography scan pending. Plan: 1200 mL fluid restriction. Encouraged oral intake. Continue to hold diuretics. Repeat Samsca today. Hospice being considered.
[2021-03-26] MEDS: methylPREDNISolone SOD SUCCI 40 MG/ML 1 ML VIAL IV SCH ×3 (09:10→23:50)
--- NOTE | 2021-03-26 09:43 | P.PN ---
Subjective Progress Note Date: 03/25/21 Principal diagnosis: Bilateral malignant pleural effusion Acute on chronic kidney injury Shortness of breath related to that Stage IV metastatic breast cancer Pulmonary embolism less likely Morbid obesity with obesity hypoventilation syndrome 03/25/2021, patient seen eval examined during the rounds the patient medications still have bilateral effusion recent ultrasound shows slightly more on the left side, but not a significant pleural effusion, I have introduced the idea of the invasive pleural drain as a means to remove the fluid rather than doing a thoracentesis which due to body habitus is more riskier son and daughter is present during the conversation although questions answered will hold on doing thoracentesis on the left side 03/24/2021, patient seen eval examined on 3 L oxygen shortness of breath stable, denies any chest pain, patient has a right-sided thoracentesis about 750 of straw-colored fluid has been removed, patient of the oncology service fluid has not been, noted that discussion regarding progression for possible hospice agree with that Patient is a pleasant 80-year-old female who has a history of metastatic breast cancer came into the hospital with progressive shortness of breath symptoms started getting worse for the last 3-4 days patient has recurrent pleural effusion has multiple thoracentesis review of the record reveals that has 500 followed by 700 mL of fluid removed in the past by IR, cytology was positive including fluid, initial chest x-ray was positive for a patchy bilateral infiltrate versus pulmonary edema bilateral pleural effusion, patient had a bedside ultrasound right-sided pleural effusion noted to be around 10 cm left side is about 7 cm left side appears to be complex right side was marked consultation initiated with INR dated thoracentesis sevenths 50 mL of fluid has been removed which is the clear since we already have a diagnosis fluid is not being sent for cytology and culture per oncology, bilateral Doppler is negative for DVT, ultrasound echocardiogram LV size normal LDH is noted ejection fraction of 6065% mild TR and MR noted, the VQ scan noted to have mashed affect bilaterally indeterminate with intermediate probability of PE, patient has been on heparin per cardiology recommendation, the d-dimer was elevated 1.06, arterial blood gases pH is 7.37 pCO2 52 pO2 82 white cell count is 4100 hemoglobin and hematocrit 1136 chemistry revealed sodium 131 percussion 3.5 BUN and creatinine are 35/2.17, BNP is 5718, CA-15-3 antigen +1358, patient overall appeared to have marked progression of oncologic disease, post thoracentesis feeling relief and less short of breath Objective - Vital Signs Vital signs: Vital Signs Temp 97.6 F 03/25/21 11:33 Pulse 93 03/25/21 13:14 Resp 19 03/25/21 13:14 BP 108/68 03/25/21 11:33 Pulse Ox 94 L 03/25/21 11:33 Intake & Output 03/24/21 03/25/21 03/25/21 18:59 06:59 18:59 Intake Total 598 120 Output Total 500 900 Balance 98 -780 Weight 95 kg Intake: Oral 598 120 Output: Urine 500 900 Other: Voiding Method Indwelling Catheter Indwelling Catheter - Exam - Constitutional General appearance: average body habitus, cooperative, disheveled, mild distress - EENT Eyes: PERRLA ENT: normal oropharynx Ears: bilateral: normal - Neck Neck: normal ROM Carotids: bilateral: upstroke normal - Respiratory Respiratory: bilateral: diminished, dullness - Cardiovascular Rhythm: regular Heart sounds: normal: S1, S2 - Gastrointestinal General gastrointestinal: normal bowel sounds - Integumentary Integumentary: normal turgor - Neurologic Neurologic: CNII-XII intact - Musculoskeletal Musculoskeletal: gait normal, generalized weakness - Psychiatric Psychiatric: A&O x's 3, appropriate affect, intact judgment & insight - Labs CBC & Chem 7: 03/24/21 09:50 03/26/21 06:14 Labs: Abnormal Lab Results - Last 24 Hours (Table) 03/25/21 Range/Units 09:47 Sodium 124 L (137-145) mmol/L Chloride 85 L (98-107) mmol/L Carbon Dioxide 32 H (22-30) mmol/L BUN 58 H (7-17) mg/dL Creatinine 2.26 H (0.52-1.04) mg/dL Glucose 140 H (74-99) mg/dL Calcium 8.3 L (8.4-10.2) mg/dL Magnesium 2.8 H (1.6-2.3) mg/dL Microbiology - Last 24 Hours (Table) 03/22/21 14:12 Blood Culture - Preliminary Blood No Growth after 48 hours Assessment and Plan Assessment: Bilateral malignant pleural effusion Acute on chronic kidney injury Shortness of breath related to that Stage IV metastatic breast cancer Pulmonary embolism less likely Morbid obesity with obesity hypoventilation syndrome Plan: Repeat ultrasound of the chest reviewed small to minimal pleural effusion on the left and right side is present Interim to use the idea of pleural drain/Pleurx catheter family and patient wants to think about Repeat left-sided ultrasound on Thursday Monitor renal functions closely Definitive cancer therapy per oncology's Overall long-term prognosis is very poor tumor appears to be very aggressive, hospice is well at reasonable option Time with Patient: Greater than 30
--- NOTE | 2021-03-26 09:44 | P.PN ---
Subjective Progress Note Date: 03/26/21 Principal diagnosis: Recurrent right pleural effusions, with history of 3-4 thoracentesis in the past 4-5 weeks. Past medical history significant for hypertension, hyperlipidemia, metastatic breast cancer in which she has had 10 radiation treatments and is currently receiving hormone therapy, she also has a history of recurrent right pleural effusions and chronic pericarditis. Patient was seen in follow-up today 03/26/2021 at her bedside on the cardiac stepdown unit. Currently she is lying in bed, is awake, alert and oriented 3 and is in no acute distress. She denies any complaints of pain at this time although was complaining of some episodes of shortness of breath with activity and some bouts of nausea. Oxygen saturations are 95% on 4 L nasal cannula. Bazzi catheter remains in place with 360 mL output in the last 8 hours. She is scheduled for a computed tomography scan without contrast of her chest today to reevaluate her pleural effusions. Once her CT of the chest is completed determination of timing regarding placement of Pleurx catheter to follow. Objective - Vital Signs Vital signs: Vital Signs Temp 97.9 F 03/26/21 03:58 Pulse 89 03/26/21 03:58 Resp 18 03/26/21 03:58 BP 134/63 03/26/21 03:58 Pulse Ox 94 L 03/26/21 07:46 Intake & Output 03/25/21 03/26/21 03/26/21 18:59 06:59 18:59 Output Total 300 460 Balance -300 -460 Weight 96.5 kg Output: Urine 300 460 Other: Voiding Method Indwelling Catheter Indwelling Catheter - Exam CONSTITUTIONAL: Laying in bed on the cardiac stepdown unit, appears comfortable, cooperative, no apparent acute distress. HEENT: Neck is supple, no JVD, no lymphadenopathy. RESPIRATORY: Lungs sounds essentially clear throughout, diminished to his bilateral bases with few scattered crackles. Respirations are symmetrical and nonlabored. Currently on 4 L nasal cannula with oxygen saturations 95%. CARDIOVASCULAR: Regular rhythm and rate. S1 and S2 present, negative for S3, gallop or murmur. GASTROINTESTINAL: Abdomen soft, nontender, nondistended. Active bowel sounds present 4 quadrants. Tolerating diet. No guarding or rigidity. GENITOURINARY: Bazzi present draining clear, yellow urine. Output 360 mL in the last 8 hours INTEGUMENTARY: Skin is warm and dry with no evidence of clubbing or cyanosis. NEUROLOGIC: Cranial nerves II through XII intact. No focal deficits. MUSKULOSKELETAL: Able to move all extremities, strength equal bilaterally, generalized weakness. PSYCHIATRIC: Alert and oriented to person place and time, appropriate affect, intact judgment and insight. - Allied health notes Allied health notes reviewed: nursing - Labs CBC & Chem 7: 03/24/21 09:50 03/26/21 06:14 Labs: Abnormal Lab Results - Last 24 Hours (Table) 03/25/21 03/26/21 Range/Units 09:47 06:14 Sodium 124 L 126 L (137-145) mmol/L Chloride 85 L 85 L (98-107) mmol/L Carbon Dioxide 32 H 34 H (22-30) mmol/L BUN 58 H 72 H (7-17) mg/dL Creatinine 2.26 H 2.39 H (0.52-1.04) mg/dL Glucose 140 H 150 H (74-99) mg/dL Calcium 8.3 L 8.2 L (8.4-10.2) mg/dL Magnesium 2.8 H 3.1 H (1.6-2.3) mg/dL Microbiology - Last 24 Hours (Table) 03/22/21 14:12 Blood Culture - Preliminary Blood No Growth after 72 hours Assessment and Plan Assessment: 1. Recurrent right sided malignant pleural effusion 2. Metastatic breast cancer, currently receiving hormone therapy 3. History of hypertension 4. History of hyperlipidemia 5. Acute kidney injury 6. Chronic pericarditis 7. Lifetime nonsmoker Plan: 1. Obtain CT of her chest without contrast today, to evaluate her pleural effusions. Once the computed tomography scan of the chest has been obtained further recommendations and timing on placement of Pleurx catheter to follow. 2. Cancer therapy recommendations per oncology. 3. More recommendations to follow based on patient's clinical course. Time with Patient: Greater than 30
[2021-03-26] MEDS ORDERED: TOLVAPTAN 15 MG 1/2 TABLET PO ONE (09:45)
--- NOTE | 2021-03-26 09:47 | P.PN ---
Subjective Progress Note Date: 03/26/21 Principal diagnosis: Bilateral malignant pleural effusion Acute on chronic kidney injury Shortness of breath related to that Stage IV metastatic breast cancer Pulmonary embolism less likely Morbid obesity with obesity hypoventilation syndrome 03/26/2021, patient seen eval examined during the rounds labs reviewed medications reviewed care plan discussed, respiratory status remains stable denies any pain still short of breath on minimal activity and exertion, due to thoracic surgery is evaluating for right-sided Pleurx catheter and pleural drain, on the other hand patient is very nauseous today Zofran appears not to be working, patient is being given some Compazine O follow closely 03/25/2021, patient seen evtravon examined during the rounds the patient medications still have bilateral effusion recent ultrasound shows slightly more on the left side, but not a significant pleural effusion, I have introduced the idea of the invasive pleural drain as a means to remove the fluid rather than doing a thoracentesis which due to body habitus is more riskier son and daughter is present during the conversation although questions answered will hold on doing thoracentesis on the left side 03/24/2021, patient seen evtravon examined on 3 L oxygen shortness of breath stable, denies any chest pain, patient has a right-sided thoracentesis about 750 of straw-colored fluid has been removed, patient of the oncology service fluid has not been, noted that discussion regarding progression for possible hospice agree with that Patient is a pleasant 80-year-old female who has a history of metastatic breast cancer came into the hospital with progressive shortness of breath symptoms started getting worse for the last 3-4 days patient has recurrent pleural effusion has multiple thoracentesis review of the record reveals that has 500 followed by 700 mL of fluid removed in the past by IR, cytology was positive including fluid, initial chest x-ray was positive for a patchy bilateral infiltrate versus pulmonary edema bilateral pleural effusion, patient had a bedside ultrasound right-sided pleural effusion noted to be around 10 cm left side is about 7 cm left side appears to be complex right side was marked consultation initiated with INR dated thoracentesis sevenths 50 mL of fluid has been removed which is the clear since we already have a diagnosis fluid is not being sent for cytology and culture per oncology, bilateral Doppler is negative for DVT, ultrasound echocardiogram LV size normal LDH is noted ejection fraction of 6065% mild TR and MR noted, the VQ scan noted to have mashed affect bilaterally indeterminate with intermediate probability of PE, patient has been on heparin per cardiology recommendation, the d-dimer was elevated 1.06, arterial blood gases pH is 7.37 pCO2 52 pO2 82 white cell count is 4100 hemoglobin and hematocrit 1136 chemistry revealed sodium 131 percussion 3.5 BUN and creatinine are 35/2.17, BNP is 5718, CA-15-3 antigen +1358, patient overall appeared to have marked progression of oncologic disease, post thoracentesis feeling relief and less short of breath Objective - Vital Signs Vital signs: Vital Signs Temp 97.4 F L 03/26/21 08:00 Pulse 101 H 03/26/21 08:00 Resp 20 03/26/21 08:00 BP 126/75 03/26/21 08:00 Pulse Ox 94 L 03/26/21 08:00 Intake & Output 03/25/21 03/26/21 03/26/21 18:59 06:59 18:59 Output Total 300 460 Balance -300 -460 Weight 96.5 kg Output: Urine 300 460 Other: Voiding Method Indwelling Catheter Indwelling Catheter Indwelling Catheter - Exam - Constitutional General appearance: average body habitus, cooperative, disheveled, mild distress - EENT Eyes: PERRLA ENT: normal oropharynx Ears: bilateral: normal - Neck Neck: normal ROM Carotids: bilateral: upstroke normal - Respiratory Respiratory: bilateral: diminished, dullness - Cardiovascular Rhythm: regular Heart sounds: normal: S1, S2 - Gastrointestinal General gastrointestinal: normal bowel sounds - Integumentary Integumentary: normal turgor - Neurologic Neurologic: CNII-XII intact - Musculoskeletal Musculoskeletal: gait normal, generalized weakness - Psychiatric Psychiatric: A&O x's 3, appropriate affect, intact judgment & insight - Labs CBC & Chem 7: 03/24/21 09:50 03/26/21 06:14 Labs: Abnormal Lab Results - Last 24 Hours (Table) 03/25/21 03/26/21 Range/Units 09:47 06:14 Sodium 124 L 126 L (137-145) mmol/L Chloride 85 L 85 L (98-107) mmol/L Carbon Dioxide 32 H 34 H (22-30) mmol/L BUN 58 H 72 H (7-17) mg/dL Creatinine 2.26 H 2.39 H (0.52-1.04) mg/dL Glucose 140 H 150 H (74-99) mg/dL Calcium 8.3 L 8.2 L (8.4-10.2) mg/dL Magnesium 2.8 H 3.1 H (1.6-2.3) mg/dL Microbiology - Last 24 Hours (Table) 03/22/21 14:12 Blood Culture - Preliminary Blood No Growth after 72 hours Assessment and Plan Assessment: Bilateral malignant pleural effusion Acute on chronic kidney injury Shortness of breath related to that Stage IV metastatic breast cancer Pulmonary embolism less likely Morbid obesity with obesity hypoventilation syndrome Plan: Repeat ultrasound of the chest reviewed small to minimal pleural effusion on the left and right side is present, patient is being evaluated for pleural drain I thoracic surgery Interim to use the idea of pleural drain/Pleurx catheter family and patient wants to think about Repeat left-sided ultrasound on Thursday Monitor renal functions closely Definitive cancer therapy per oncology's Overall long-term prognosis is very poor tumor appears to be very aggressive, hospice is well at reasonable option Time with Patient: Greater than 30
[2021-03-26] MEDS: ASPIRIN 81 MG PO SCH (10:36)
[2021-03-26] MEDS: CHOLECALCIFEROL 25 MCG (1000 IU) TABLET PO SCH (10:36)
[2021-03-26] MEDS: METOPROLOL TARTRATE 25 MG TAB PO SCH ×2 (10:37→22:28)
--- NOTE | 2021-03-26 11:31 | CT ---
EXAMINATION TYPE: CT chest wo con DATE OF EXAM: 03/26/2021 COMPARISON: Multiple prior chest radiograph and also CT chest 02/21/2021. HISTORY: 80-year-old female recurrent right pleural effusions CT DLP: 406 mGycm Automated exposure control for dose reduction was used. FINDINGS: Heart is upper limits of normal in size without pericardial effusion. Aorta shows ectasia at the distal arch and upper descending thoracic aorta at 3.0 cm. Borderline to mildly enlarged caliber to the main right and left pulmonary arteries at 2.5 and 2.6 cm , respectively, suggesting underlying pulmonary arterial hypertension. Right breast mass measures 3.0 cm versus 3.7 cm, previously. Focal subpleural opacity anterior right mid lung measures 2.7 cm wide and just adjacent, 2.7 cm wide. This appears to have increased from 02/21/2021. Groundglass changes have increased bilaterally. Medial right basilar consolidation is new. Small-to-m oderate bilateral pleural effusions, similar on the right and increased on the left compared to the C T of 02/21/2021. 6 mm nodularity left upper lobe, axial image 14. Prominent opacification, likely atelectasis adjacent to the pleural effusions at the lung bases. Fluid within the thoracic esophagus and prominent fluid distention of the stomach. Approximately 3 hypodense liver lesions measuring up to 1.2 cm suspicious for hepatic metastases. Pne umobilia likely as a result of prior sphincterotomy. Scattered sclerotic lesions are redemonstrated suggesting osseous metastatic disease. 1.4 cm nodular soft tissue deposits posterior left back subcutaneous adipose layer at the lower chest level, axial image 32. Previously measured 1.7 cm. IMPRESSION: 1. [id number] BILATERAL PLEURAL EFFUSIONS WITH PROMINENT ADJACENT ATELECTASIS. 2. NEW MEDIAL RIGHT BASILAR CONSOLIDATION, POSSIBLE PNEUMONIA VERSUS ADDITIONAL ATELECTASIS. 3. NEW GROUNDGLASS CHANGES IN THE LUNGS COMPARED TO 02/21/2021. SOME DIFFERENTIAL CONSIDERATIONS INCLU DE DRUG REACTION, HYPERSENSITIVITY PNEUMONITIS, COVID PNEUMONIA, ASPIRATION PNEUMONITIS, OR PULMONARY EDEMA. 4. FOCAL SUBPLEURAL OPACITIES ANTERIOR RIGHT MID AND LOWER LUNG MEASURING UP TO 2.7 CM, INCREASED FRO M 02/21/2021. CLOSE FOLLOW-UP RECOMMENDED TO EXCLUDE PROGRESSION IN METASTATIC DISEASE. OTHER FINDINGS INCLUDING DECREASING SIZE OF THE PATIENT'S RIGHT BREAST MASS (3.0 CM NOW VERSUS 3.7 CM, PREVIOUSLY) AND DECREASING SIZE OF A SUBCUTANEOUS NODULE ALONG THE LEFT POSTERIOR BACK (1.4 CM NOW VERSUS 1.7 CM, PREVIOUSLY) SUGGESTS THAT THERE HAS BEEN SOME TREATMENT RESPONSE. 5. FLUID WITHIN THE THORACIC ESOPHAGUS AND PROMINENT DISTENTION OF THE STOMACH. CORRELATE FOR ESOPHAG EAL DYSMOTILITY OR GASTROESOPHAGEAL REFLUX. 6. KNOWN HEPATIC METASTASES AND DIFFUSE OSSEOUS METASTASES. A NEW 6 MM LEFT UPPER LOBE NODULE MAY BE INFLAMMATORY. APPROPRIATE ONCOLOGIC SURVEILLANCE RECOMMENDED.
[2021-03-26 11:33] VITALS: BMI 36.5
[2021-03-26] MEDS ORDERED: DEXAMETHASONE SOD PHOSPHATE 10 MG/ML 1 ML VIAL IVP STA (13:19)
[2021-03-26] MEDS: PANTOPRAZOLE 40 MG/10 ML VIAL IVP SCH ×2 (13:30→22:29)
[2021-03-26] MEDS: ONDANSETRON 4 MG/2 ML VIAL IVP PRN ×3 (15:31→23:50)
[2021-03-26 16:30] VITALS: TEMP 98.7
--- NOTE | 2021-03-26 16:39 | US ---
EXAMINATION TYPE: US abdomen limited DATE OF EXAM: 03/26/2021 COMPARISON: NONE CLINICAL HISTORY: ascites. distended abd Scanned all four quadrants and no ascites seen IMPRESSION: Limited exam shows no evidence of abdominal ascites.
--- NOTE | 2021-03-26 17:12 | P.PN ---
Subjective Progress Note Date: 03/26/21 Principal diagnosis: Acute respiratory failure in patient with Metastatic Cancer and CHF Patient is in distress during evaluation, she has had persistent nausea and vomiting, abdominal ascites is increasing. Discussed with CTS and plan to place pleurex tomorrow however will depend on her overall clinical status. Objective - Vital Signs Vital signs: Vital Signs Temp 97.4 F L 03/26/21 08:00 Pulse 101 H 03/26/21 08:00 Resp 20 03/26/21 08:00 BP 126/75 03/26/21 08:00 Pulse Ox 94 L 03/26/21 08:00 Intake & Output 03/25/21 03/26/21 03/26/21 18:59 06:59 18:59 Output Total 300 460 Balance -300 -460 Weight 96.5 kg Output: Urine 300 460 Other: Voiding Method Indwelling Catheter Indwelling Catheter - Exam - Constitutional General appearance: cooperative, mild distress - EENT Eyes: EOMI ENT: hard of hearing, NA/AT - Neck Neck: normal ROM - Respiratory Respiratory: Bipap, increased respiratory effort. Diffuse Rhonchi - Cardiovascular Rhythm: regularly irregular leg Peripheral Edema: left: 3+, bilateral: 2+ - Gastrointestinal General gastrointestinal: distended, soft, tenderness Ascites - Integumentary Integumentary: pale - Neurologic Neurologic: CNII-XII intact - Musculoskeletal Musculoskeletal: generalized weakness - Psychiatric Psychiatric: A&O x's 3, appropriate affect, intact judgment & insight - Labs CBC & Chem 7: 03/24/21 09:50 03/26/21 06:14 Labs: Abnormal Lab Results - Last 24 Hours (Table) 03/25/21 03/26/21 Range/Units 09:47 06:14 Sodium 124 L 126 L (137-145) mmol/L Chloride 85 L 85 L (98-107) mmol/L Carbon Dioxide 32 H 34 H (22-30) mmol/L BUN 58 H 72 H (7-17) mg/dL Creatinine 2.26 H 2.39 H (0.52-1.04) mg/dL Glucose 140 H 150 H (74-99) mg/dL Calcium 8.3 L 8.2 L (8.4-10.2) mg/dL Magnesium 2.8 H 3.1 H (1.6-2.3) mg/dL Microbiology - Last 24 Hours (Table) 03/22/21 14:12 Blood Culture - Preliminary Blood No Growth after 72 hours Assessment and Plan (1) Hypoxia Current Visit: No Status: Acute Code(s): R09.02 - HYPOXEMIA SNOMED Code(s): 335204977 (2) Metastatic breast cancer Current Visit: No Status: Acute Priority: High Code(s): C50.919 - MALIGNANT NEOPLASM OF UNSP SITE OF UNSPECIFIED FEMALE BREAST SNOMED Code(s): 563955280 Plan: Recurrent Hospitalization for Shortness of breath, multifactorial secondary to metastatic cancer, component of heart failure, Pleural effusions(malignant). Bronchoscopy has not yet been performed, defer to pulmonology. Assessment: Acute Respiratory Failure: - Multifactorial: Related to metastatic cancer, CHF, Recurrent malignant pleural effusions, and possible infectious component - Pulmonary is following: Consider Bronchoscopy - Interventional Radiology consulted regarding Therapeutic thoracentesis - VQ Scan with Moderate probability of Pulmonary Emoboli - Heparin drip initiated per cardiology (Currently on hold related to >PTT) Metastatic Breast Cancer: - Recent Rapidly marked progression - Recently (3 weeks) next line treatment with AI and Verzenio Acute Renal Failure: Worsening today - Nephrology Following PLan: - Continue aggressive symptom management - Abdominal Ascites - will ask IR to perform therapeutic Paracentesis alycia - CTS for bilateral pLeurex if patient appears stable, if not thoracentesis - Goal - Home hospice tomorrow
[2021-03-26] MEDS ORDERED: FUROSEMIDE 10 MG/ML 2 ML VIAL IV ONE (17:20)
[2021-03-26] MEDS: OLANZapine 5 MG TAB PO SCH (22:29)
[2021-03-26] MEDS: PRAVASTATIN SODIUM 20 MG TAB PO SCH (22:30)
[2021-03-27 00:04] VITALS: BP 105/62; PULSE 106; RESP 24
--- NOTE | 2021-03-27 00:18 | PN ---
PROGRESS NOTE This is a 80-year-old white female with metastatic breast cancer, malignant pleural effusions, supposed to get a pleural tap tomorrow with a tube replacement. The patient is declining rapidly at this time. Family wants to send her home on hospice care tomorrow. Will decide whether to do the tube. We will give her updraft treatments, give her a dose IV Lasix tonight as well as steroids due to worsening breast cancer, metastatic, with malignant pleural effusions. Patient is declining rapidly. Will discuss whether she goes home on comfort care, hospice or continues to try with medications. She did not take any medicines today. She is not eating. She has progressive vomiting today. Ultrasound shows no signs of bowel obstruction. Prognosis guarded. MMODL / IJN: [id number] /
[2021-03-27] MEDS: ONDANSETRON 4 MG/2 ML VIAL IVP PRN ×3 (04:11→14:08)
[2021-03-27] MEDS: LORazepam 2 MG/ML INJ IV PRN ×3 (04:12→14:08)
[2021-03-27] MEDS: ASPIRIN 81 MG PO SCH (08:38)
[2021-03-27] MEDS: METOPROLOL TARTRATE 25 MG TAB PO SCH (08:39)
[2021-03-27] MEDS: CHOLECALCIFEROL 25 MCG (1000 IU) TABLET PO SCH (08:39)
[2021-03-27] MEDS: PANTOPRAZOLE 40 MG/10 ML VIAL IVP SCH ×2 (08:39→11:13)
--- NOTE | 2021-03-27 08:59 | P.PN ---
Progress Note - Text Progress Note Date: 03/27/21 Recurrent right pleural effusions, with history of 3-4 thoracentesis in the past 4-5 weeks. Past medical history significant for hypertension, hyperlipidemia, metastatic breast cancer in which she has had 10 radiation treatments and is currently receiving hormone therapy, she also has a history of recurrent right pleural effusions and chronic pericarditis. Upon entering for morning assessment patient was found to be sleeping, appears in no distress on high flow nasal cannula. Family is at bedside. They are declining Pleurx catheter placement and wish for no further aggressive intervention. Family wishes to take the patient home today with hospice. Physical exam was deferred due to family's wishes. Assessment and Plan Assessment: 1. Recurrent right sided malignant pleural effusion 2. Metastatic breast cancer, currently receiving hormone therapy 3. History of hypertension 4. History of hyperlipidemia 5. Acute kidney injury 6. Chronic pericarditis 7. Lifetime nonsmoker Plan: Pleurx catheter placement canceled. We will sign off the case per family wishes.
[2021-03-27] MEDS: IPRATROPIUM-ALBUTEROL 3 ML NEB INHALATION SCH (09:04)
--- NOTE | 2021-03-27 09:13 | P.PN ---
Subjective Patient is seen in follow-up for acute kidney injury. Creatinine 2.39 yesterday. Sodium level 126. She received a dose of samsca last 3 days. Re sting in bed. Has a Bazzi catheter. Nonoliguric. Diuretics held. Family present at bedside. Vital signs are stable. HEENT: Head exam is unremarkable. LUNGS: Breath sounds decreased. HEART: Rate and Rhythm are regular. ABDOMEN: Soft, no distention. EXTREMITITES: Trace edema. Objective - Vital Signs Vital signs: Vital Signs Temp 98.7 F 03/26/21 16:00 Pulse 106 H 03/27/21 00:00 Resp 24 03/27/21 00:00 BP 105/62 03/27/21 00:00 Pulse Ox 92 L 03/26/21 16:00 Intake & Output 03/26/21 03/27/21 03/27/21 18:59 06:59 18:59 Intake Total 20 Output Total 225 Balance 20 -225 Weight 96.5 kg 95.4 kg Intake: IV 20 0.9 20 Output: Urine 225 Other: Voiding Method Indwelling Catheter Indwelling Catheter - Labs CBC & Chem 7: 03/24/21 09:50 03/26/21 06:14 Labs: Abnormal Lab Results - Last 24 Hours (Table) 03/25/21 Range/Units 17:42 Ur Random Sodium <20 L (40-220) mmol/L Microbiology - Last 24 Hours (Table) 03/22/21 14:12 Blood Culture - Preliminary Blood No Growth after 96 hours Assessment and Plan Plan: Assessment: 1. Acute kidney injury secondary to ATN secondary to cardiorenal syndrome and hypotension. Creatinine 2.39 yesterday. No proteinuria on UA. 2. Malignant breast cancer. 3. 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 Status post Samsca yesterday. 4. Malignant pleural effusions status post right-sided thoracentesis with 0.7 L drained on March 22. Plan: Family has decided to proceed with hospice. I will sign off.
[2021-03-27] MEDS: methylPREDNISolone SOD SUCCI 40 MG/ML 1 ML VIAL IV SCH (10:43)
--- NOTE | 2021-03-27 20:46 | P.PN ---
Subjective Progress Note Date: 03/27/21 Principal diagnosis: Acute respiratory failure in patient with Metastatic Cancer and CHF Patient appears to have drastically declined the past few hours and family has made change of goals to home with hospice, declining pleurex Objective - Vital Signs Vital signs: Vital Signs Temp 98.7 F 03/26/21 16:00 Pulse 106 H 03/27/21 00:00 Resp 24 03/27/21 00:00 BP 105/62 03/27/21 00:00 Pulse Ox 92 L 03/26/21 16:00 Intake & Output 03/26/21 03/27/21 03/27/21 18:59 06:59 18:59 Intake Total 20 Output Total 225 Balance 20 -225 Weight 96.5 kg 95.4 kg Intake: IV 20 0.9 20 Output: Urine 225 Other: Voiding Method Indwelling Catheter Indwelling Catheter - Exam - Constitutional General appearance: cooperative, mild distress - EENT Eyes: EOMI ENT: hard of hearing, NA/AT - Neck Neck: normal ROM - Respiratory Respiratory: Bipap, increased respiratory effort. Diffuse Rhonchi - Cardiovascular Rhythm: regularly irregular leg Peripheral Edema: left: 3+, bilateral: 2+ - Gastrointestinal General gastrointestinal: distended, soft, tenderness Ascites - Integumentary Integumentary: pale - Neurologic Neurologic: CNII-XII intact - Musculoskeletal Musculoskeletal: generalized weakness - Psychiatric Psychiatric: A&O x's 3, appropriate affect, intact judgment & insight - Labs CBC & Chem 7: 03/24/21 09:50 03/26/21 06:14 Labs: Abnormal Lab Results - Last 24 Hours (Table) 03/25/21 Range/Units 17:42 Ur Random Sodium <20 L (40-220) mmol/L Microbiology - Last 24 Hours (Table) 03/22/21 14:12 Blood Culture - Preliminary Blood No Growth after 96 hours Assessment and Plan (1) Hypoxia Status: Acute Code(s): R09.02 - HYPOXEMIA SNOMED Code(s): 000803780 (2) Metastatic breast cancer Status: Acute Priority: High Code(s): C50.919 - MALIGNANT NEOPLASM OF UNSP SITE OF UNSPECIFIED FEMALE BREAST SNOMED Code(s): 833969287 Plan: Home with hospice, decline of thoracentesis and/or pleurec.
--- NOTE | 2021-03-27 22:58 | DS ---
DISCHARGE SUMMARY DISCHARGE MEDICINES: 1. Aspirin 81 mg daily. 2. DuoNeb q.i.d. 3. Metoprolol 25 b.i.d. 4. Phenergan 25 mg q.6 p.r.n. 5. Calcium carbonate 500 mg t.i.d. p.r.n. 6. Acetaminophen 650 q.4 hours p.r.n. 7. Pravastatin 20 mg daily. 8. 150 b.i.d. 9. Ventolin inhaler 2 puffs 2.5 mg t.i.d. p.r.n. 10.Xanax 0.25 t.i.d. p.r.n. for anxiety. 11.Omeprazole 40 mg daily. 12.Lasix 40 mg daily. 13.Flexeril 5 mg t.i.d. p.r.n. 14.Vitamin D 1000 IU daily. 15.Cholestyramine 4 mg packet p.r.n. for loose stools. 16.Same with Imodium 2 mg q.i.d. p.r.n. for loose stools. 17.Zofran p.r.n. for nausea. 18.Potassium 20 mEq daily. Prognosis is poor. Condition poor. White female, metastatic breast cancer with malignant pleural effusions with acute hypoxemic respiratory failure secondary to metastatic breast cancer into lungs with malignant pleural effusions. She is currently on high-flow nasal cannula 8 L of oxygen currently. Respiratory rate is 24 to 30. Pulse rate is in the low 100s. She is on hormone treatment for breast cancer, which is not controlling the breast cancer, with malignant pleural effusion. This is her third or fourth admission for this problem. The patient has decided to go on hospice care at this point and declined any further thoracentesis to take pleural fluid off. She is not really taking much by mouth or oral medications due to progressive nausea and vomiting, worsening over the past few days. Negative ultrasound for ascites. She declined the thoracentesis and the pleural tube they were going to plan for today. She is going to go home with hospice with poor prognosis. MMODL / IJN: [id number] /
--- NOTE | 2021-04-03 08:13 | DS ---
DISCHARGE SUMMARY ADDENDUM TO DISCHARGE SUMMARY: Non-STEMI ruled out. MMODL / IJN: [id number] /
== END 2021-03-27 15:20 | disposition hospice, home (50) | DRG 180 ==
LOC: EC 15:27 → 3SCARD 18:36
PROVIDERS: ADMIT Family Medicine; ATTEND Family Medicine
PROC: 0W993ZZ Drainage of Right Pleural Cavity, Percutaneous Approach (ICD-10-PCS; principal; 2021-03-22)
PROC: 5A09357 Assistance with Respiratory Ventilation, Less than 24 Consecutive Hours, Continuous Positive Airway Pressure (ICD-10-PCS; 2021-03-22)
PROC: 5A0935A Assistance with Respiratory Ventilation, Less than 24 Consecutive Hours, High Flow/Velocity Cannula (ICD-10-PCS; 2021-03-26)
DX: C78.00 Secondary malignant neoplasm of unspecified lung (principal); J96.01 Acute respiratory failure with hypoxia; N17.0 Acute kidney failure with tubular necrosis; C78.2 Secondary malignant neoplasm of pleura; E22.2 Syndrome of inappropriate secretion of antidiuretic hormone; E66.2 Morbid (severe) obesity with alveolar hypoventilation; I13.0 Hypertensive heart and chronic kidney disease with heart failure and stage 1 through stage 4 chronic kidney disease, or unspecified chronic kidney disease; I31.9 Disease of pericardium, unspecified; I50.32 Chronic diastolic (congestive) heart failure; J91.0 Malignant pleural effusion; C50.919 Malignant neoplasm of unspecified site of unspecified female breast; Z68.36 Body mass index [BMI] 36.0-36.9, adult; E78.5 Hyperlipidemia, unspecified; E86.1 Hypovolemia; I95.9 Hypotension, unspecified; I08.1 Rheumatic disorders of both mitral and tricuspid valves; Z51.5 Encounter for palliative care; Z20.822 Contact with and (suspected) exposure to COVID-19; Z66 Do not resuscitate; Z68.33 Body mass index [BMI] 33.0-33.9, adult; Z79.890 Hormone replacement therapy; Z79.899 Other long term (current) drug therapy; Z80.52 Family history of malignant neoplasm of bladder; Z83.3 Family history of diabetes mellitus; Z92.3 Personal history of irradiation; Z98.42 Cataract extraction status, left eye; Z98.41 Cataract extraction status, right eye; Z90.49 Acquired absence of other specified parts of digestive tract; Z98.890 Other specified postprocedural states; Z53.29 Procedure and treatment not carried out because of patient's decision for other reasons
CPT/HCPCS: 32555; 36415; 36600; 71045; 71046; 71250; 76604; 76705; 76770; 78582; 80048; 80053; 80061; 81001; 82607; 82746; 82805; 83615; 83735; 83880; 83930; 83935; 84145; 84295; 84300; 84484; 85025; 85379; 85384; 85610; 85730; 86300; 87040; 87635; 93005; 93306; 93970; 94640; 94660; 94760; 99291